=== PATIENT | male | born 1955 | race Caucasian/White ===

== ENCOUNTER 2017-06-24 20:10 | Observation (INO) | payer OTHER ==
[2017-06-24 20:56] LABS: Absolute Monocytes 0.9 K/uL (0.1-1.3); Absolute Neutrophil 5.7 K/uL (1.8-8.0); Basophils % 0.5 % (0-1.3); Eosinophils % 4.1 % (0-4.4); Hematocrit 46.9 % (39.6-49.0); Lymphocytes % 29.4 % (15.3-44.8); MCH 28.5 pg (27.0-35.0); MCV 83.4 fL (80-100); MPV 8.5 fL (7.6-11.3); Monocytes % 9.3 % (3.3-12.3); RBC Red Blood Cell Count 5.63 M/uL (4.33-5.43)
[2017-06-24 20:58] LABS: Protime INR 1.02
--- NOTE | 2017-06-24 21:01 | RAD REPORT ---
EXAM DESCRIPTION: CT - CTHCSPWOC - 06/24/2017 8:53 pm CLINICAL HISTORY: Trauma, head and neck injury. COMPARISON: None. TECHNIQUE: Axial 5 mm thick images of the head were obtained. Axial 2 mm thick images of the cervical spine were obtained with sagittal and coronal reconstruction images generated and reviewed. All CT scans are performed using dose optimization technique as appropriate and may include automated exposure control or mA/KV adjustment according to patient size. FINDINGS: CT HEAD WITHOUT CONTRAST: No acute hemorrhage, hydrocephalus or extra-axial collection is identified.Mild generalized brain atr ophy.No areas of brain edema or midline shift. The paranasal sinuses and mastoids are clear.The calvarium is intact. Vertebral arteries are calcifie d. CT CERVICAL SPINE WITHOUT CONTRAST: No fracture or subluxation.No prevertebral soft tissues swelling is identified. IMPRESSION: No acute intracranial or cervical spine findings.
[2017-06-24 21:03] LABS: Potassium 4.4 mEq/L (3.6-5.0)
--- NOTE | 2017-06-24 21:16 | RAD REPORT ---
EXAM DESCRIPTION: RAD - Chest Single View - 06/24/2017 9:11 pm CLINICAL HISTORY: Chest pain. COMPARISON: 05/17/2017 FINDINGS: Portable technique limits examination quality. The lungs are grossly clear. The heart is mildly prominent size. No displaced fractures. IMPRESSION: No acute intrathoracic process suspected.
[2017-06-24] MEDS ORDERED: DIPHENHYDRAMINE 50 MG/ML VIAL ONE (21:30)
[2017-06-24] MEDS ORDERED: METOCLOPRAMIDE 10 MG/2mL INJ ONE (21:30)
--- NOTE | 2017-06-24 22:29 | EDPHYS ---
Physician Documentation [facility] Name: Rj Galvez Age: 62 yrs Sex: Male : 1955 Arrival Date: 06/24/2017 Time: 20:11 Bed 4 Private MD: ED Physician Venkat Michele HPI: 06/24 21:30 This 62 yrs old Male presents to ER via Wheelchair with complaints of Side gs Pain-L, S/S of Possible Stroke. 21:31 The patient complains of pain to the left occipital area and left base of the skull. gs The patient describes the headache as throbbing. Onset: The symptoms/episode began/occurred at 16:00. Associated signs and symptoms: Pertinent positives: Photophobia Pertinent negatives: dizziness, neck stiffness. Severity of symptoms: At its worst the pain was moderate, in the emergency department the pain is unchanged. The symptoms are alleviated by nothing. the symptoms are aggravated by nothing. The patient has experienced similar episodes in the past, a few times. The patient has not recently seen a physician. 22:24 The patient describes the headache as intermittent. gs Historical: - Allergies: 20:33 No Known Allergies; bb - Home Meds: 20:33 atorvastatin 40 mg oral tab 1 tab once daily [Active]; rimapril [Active]; duloxetine bb oral oral [Active]; red rice yeast [Active]; B 12 [Active]; Magnesium Oxide Oral [Active]; cholenoff [Active]; D 3 [Active]; Fever Few [Active]; 21:14 Lumigan 0.01 % ophthalmic drop [Active]; jd3 - PMHx: 20:33 CVA; Hyperlipidemia; Hypertension; bb - PSHx: 20:33 Appendectomy; Tonsillectomy; eye surgery; bb - Immunization history:: Adult Immunizations up to date. - Social history:: Smoking status: Patient/guardian denies using tobacco, Patient/guardian denies using alcohol, street drugs. ROS: 21:31 Constitutional: Negative for fever. gs 21:31 Neuro: Negative for gait disturbance, hearing loss. 21:31 All other systems are negative. Exam: 21:31 Head/Face: Normocephalic, atraumatic. Eyes: Pupils equal round and reactive to light, gs extra-ocular motions intact. Lids and lashes normal. Conjunctiva and sclera are non-icteric and not injected. Cornea within normal limits. Periorbital areas with no swelling, redness, or edema. 21:31 Neck: Trachea midline, no thyromegaly or masses palpated, and no cervical lymphadenopathy. Supple, full range of motion without nuchal rigidity, or vertebral point tenderness. No Meningismus. Chest/axilla: Normal chest wall appearance and motion. Nontender with no deformity. No lesions are appreciated. Cardiovascular: Regular rate and rhythm with a normal S1 and S2. No gallops, murmurs, or rubs. Normal PMI, no JVD. No pulse deficits. Respiratory: Lungs have equal breath sounds bilaterally, clear to auscultation and percussion. No rales, rhonchi or wheezes noted. No increased work of breathing, no retractions or nasal flaring. Abdomen/GI: Soft, non-tender, with normal bowel sounds. No distension or tympany. No guarding or rebound. No evidence of tenderness throughout. Back: No spinal tenderness. No costovertebral tenderness. Full range of motion. Skin: Warm, dry with normal turgor. Normal color with no rashes, no lesions, and no evidence of cellulitis. MS/ Extremity: Pulses equal, no cyanosis. Neurovascular intact. Full, normal range of motion. 21:31 Constitutional: The patient appears alert, awake. 21:31 ENT: Mouth: residual lower lip droop from old cva. 21:31 Neuro: Orientation: to person, place, time \T\ situation. Mentation: is normal, Cranial nerves: CN II- XII are normal as tested, Motor: moves all fours, strength is normal, Sensation: no acute changes, says forearm a little more numb than usual. 21:31 ECG was reviewed by the Attending Physician. Vital Signs: 20:33 BP 161 / 95; Pulse 53; Resp 18 S; Temp 97.7(O); Pulse Ox 96% on R/A; Weight 90.72 kg bb (R); Height 5 ft. 6 in. (167.64 cm) (R); Pain 8/10; 21:15 BP 152 / 91; Pulse 51; Resp 16 S; Pulse Ox 96% on R/A; jd3 21:40 BP 149 / 84; Pulse 51; Resp 14; Temp 98; Pulse Ox 98% on R/A; Pain 6/10; ak1 22:31 BP 139 / 83; Pulse 53; Resp 14; Temp 98.1; Pulse Ox 98% on R/A; Pain 6/10; ak1 20:33 Body Mass Index 32.28 (90.72 kg, 167.64 cm) bb NIH Stroke Scale Scores: 20:20 NIHSS Score: 1 bb 20:44 NIHSS Score: 2 ak1 MDM: 20:26 Patient medically screened. gs 21:31 Differential diagnosis: migraine, neoplasm, subarachnoid bleed, temporal arteritis, vasomotor headache. Data reviewed: vital signs, nurses notes. Response to treatment: the patient's symptoms have markedly improved after treatment. 22:24 Physician consultation: Boris Velasquez MD and will see patient in inpatient room, would like consultation with Dr. abdi. 22:24 ED course: no tpa outside treatment window. 22:25 Admission orders: after a detailed discussion of the patient's condition and case, the admit orders are written by me. 06/24 20:33 Order name: Basic Metabolic Panel; Complete Time: 21:18 06/24 20:33 Order name: CBC with Diff; Complete Time: 21:18 06/24 20:33 Order name: PT-INR; Complete Time: 21:18 06/24 20:33 Order name: Troponin (emerg Dept Use Only); Complete Time: 21:18 06/24 20:33 Order name: ESR; Complete Time: 21:18 06/24 22:15 Order name: Urine Dipstick--Ancillary (enter results); Complete Time: 23:45 rg2 06/24 20:33 Order name: XRAY Chest (1 view); Complete Time: 21:18 06/24 20:33 Order name: EKG; Complete Time: 20:34 06/24 20:33 Order name: CT Head C Spine; Complete Time: 21:18 06/24 22:33 Order name: Carb Control (ADA) 1800 Tamir EDTN 06/24 22:33 Order name: CONS Physician Consult [facility] 06/24 20:33 Order name: Cardiac monitoring; Complete Time: 20:55 06/24 20:33 Order name: EKG - Nurse/Tech; Complete Time: 21:12 06/24 20:33 Order name: IV Saline Lock; Complete Time: 20:55 06/24 20:33 Order name: Labs collected and sent; Complete Time: 20:55 06/24 20:33 Order name: O2 Per Protocol; Complete Time: 20:55 06/24 20:33 Order name: O2 Sat Monitoring; Complete Time: 20:56 06/24 20:33 Order name: Urine Dipstick-Ancillary (obtain specimen); Complete Time: 22:09 gs EC:31 Rate is 47 beats/min. Rhythm is regular. DE interval is normal. QRS interval is normal. gs T waves are Flattened. Clinical impression: NSR w/ Non-specific ST/T Changes. Interpreted by me. Administered Medications: 21:39 Drug: Reglan 5 mg Route: IVP; Site: left antecubital; ak1 22:09 Follow up: Response: No adverse reaction ak1 21:39 Drug: Benadryl 12.5 mg Route: IVP; Site: left antecubital; ak1 22:09 Follow up: Response: No adverse reaction ak1 23:43 Drug: [place] 5 mg-325 mg 1 tabs Route: PO; ak1 23:44 Follow up: Response: No adverse reaction ak1 Point of Care Testing: Blood Glucose: 20:52 Blood Glucose: 81 mg/dL; ak1 Ranges: Critical Glucose Levels:Adult <50 mg/dl or >400 mg/dl <40 mg/dl or >180 mg/dl Disposition: 06/24/17 22:28 Hospitalization ordered by Tony Velasquez for Observation. Preliminary diagnosis are Headache, Transient cerebral ischemic attack, unspecified. - Bed requested for Telemetry/MedSurg (observation). - Status is Observation. ak1 - Condition is Stable. - Problem is new. - Symptoms have improved. UTI on Admission? No NIH Stroke Scale - NIH Stroke Score Date: 06/24/2017 Time: 20:20 Total Score = 1 1a. Level of Consciousness (LOC) - 0(Alert) 1b. Level of Consciousness (LOC) (Year \T\ Age) - 0(Both) 1c. LOC Commands (Open \T\ Closes Eyes/Produce Associate) - 0(Both) 2. Best Gaze (Lateral Gaze Paresis) - 0(Normal) 3. Visual Field Loss - 0(No visual loss) 4. Facial Palsy - 1(Minor Paralysis) 5a. Left Arm: Motor (10-second hold) - 0(No drift) 5b. Right Arm: Motor (10-second hold) - 0(No drift) 6a. Left Leg: Motor (5-second hold - always test supine) - 0(No drift) 6b. Right Leg: Motor (5-second hold - always test supine) - 0(No drift) 7. Limb Ataxia (finger/nose \T\ heel/russ - test with eyes open) - 0(Absent) 8. Sensory Loss (pinprick arms/legs/face) - 0(Normal) 9. Best Language: Aphasia (description/naming/reading) - 0(No aphasia) 10. Dysarthria (speech clarity - read or repeat words) - 0(Normal) 11. Extinction and Inattention (visual/tactile/auditory/spatial/personal) - 0(No abnormality) Initials: jerrica NIH Stroke Scale - NIH Stroke Score Date: 06/24/2017 Time: 20:44 Total Score = 2 1a. Level of Consciousness (LOC) - 0(Alert) 1b. Level of Consciousness (LOC) (Year \T\ Age) - 0(Both) 1c. LOC Commands (Open \T\ Closes Eyes/Produce Associate) - 0(Both) 2. Best Gaze (Lateral Gaze Paresis) - 0(Normal) 3. Visual Field Loss - 0(No visual loss) 4. Facial Palsy - 1(Minor Paralysis) 5a. Left Arm: Motor (10-second hold) - 0(No drift) 5b. Right Arm: Motor (10-second hold) - 0(No drift) 6a. Left Leg: Motor (5-second hold - always test supine) - 0(No drift) 6b. Right Leg: Motor (5-second hold - always test supine) - 0(No drift) 7. Limb Ataxia (finger/nose \T\ heel/russ - test with eyes open) - 0(Absent) 8. Sensory Loss (pinprick arms/legs/face) - 0(Normal) 9. Best Language: Aphasia (description/naming/reading) - 1(Mild to moderate aphasia) 10. Dysarthria (speech clarity - read or repeat words) - 0(Normal) 11. Extinction and Inattention (visual/tactile/auditory/spatial/personal) - 0(No abnormality) Initials: ak1 Signatures: Dispatcher [employer] Eda Tristan RN RN Yusra Engel RN RN ak1 Toña Guallpa RN RN cg Starr, Gregory, MD MD gs Davies, Jonathon RN RN jd3 Corrections: (The following items were deleted from the chart) 22:24 21:31 Neuro: Orientation: to person, place, time \T\ situation. Mentation: is gs normal, Cranial nerves: CN II- XII are normal as tested, Motor: moves all fours, strength is normal, Sensation: no obvious gross deficits, gs
--- NOTE | 2017-06-24 22:29 | ER ---
Nurse's Notes [facility] Name: Rj Galvez Age: 62 yrs Sex: Male : 1955 Arrival Date: 06/24/2017 Time: 20:11 Bed 4 Private MD: Diagnosis: Headache;Transient cerebral ischemic attack, unspecified Presentation: 06/24 20:16 Presenting complaint: Daughter states she brought pt because of his complaint of pain bb behind left ear and the family was concerned as pt had CVA a year ago with some residual right sided weakness pt is A\\T\\O x 4. Transition of care: patient was not received from another setting of care. No acute neurological deficit is noted. Onset of symptoms was June 24, 2017. Care prior to arrival: None. 20:16 Method Of Arrival: Wheelchair bb 20:16 Acuity: GRACE 2 bb 20:54 Pre-hospital glucose is not applicable to this patient. ak1 Triage Assessment: 20:54 The onset of the patients symptoms was June 24, 2017 at 16:30. ak1 21:41 Neuro: Reports headache to left occipital since 1630 today. ak1 Stroke Activation: Symtpom onset >3 hours and < 6 hours Physician: Stroke Attending; Name: ; Notified At: ; Arrived At: Physician: Chief Stroke Resident; Name: ; Notified At: ; Arrived At: Physician: Stroke Resident; Name: ; Notified At: ; Arrived At: Physician: ED Attending; Name: ; Notified At: ; Arrived At: Physician: ED Resident; Name: ; Notified At: ; Arrived At: Historical: - Allergies: 20:33 No Known Allergies; bb - Home Meds: 20:33 atorvastatin 40 mg oral tab 1 tab once daily [Active]; rimapril [Active]; duloxetine bb oral oral [Active]; red rice yeast [Active]; B 12 [Active]; Magnesium Oxide Oral [Active]; cholenoff [Active]; D 3 [Active]; Fever Few [Active]; 21:14 Lumigan 0.01 % ophthalmic drop [Active]; jd3 - PMHx: 20:33 CVA; Hyperlipidemia; Hypertension; bb - PSHx: 20:33 Appendectomy; Tonsillectomy; eye surgery; bb - Immunization history:: Adult Immunizations up to date. - Social history:: Smoking status: Patient/guardian denies using tobacco, Patient/guardian denies using alcohol, street drugs. Screenin:38 The patient has not been NPO before screening. The patient is alert, able to follow bb commands. The patient does not exhibit slurred or garbled speech The patient is not exhibiting difficulty speaking. The patient does not exhibit difficulty understanding words. The patient is able to swallow own secretions with no drooling or need for suction. Patient tolerated one teaspoon of water. No drooling, immediate coughing, gurgling, or clearing of the throat was noted. The patient tolerated 90mL of water. No drooling, immediate coughing, gurgling, or clearing of the throat was noted. The patient passed the bedside swallow screening. Oral medications may be given as ordered. Contact Physician for further diet orders. 20:53 Abuse screen: Denies threats or abuse. Denies injuries from another. Nutritional ak1 screening: No deficits noted. Tuberculosis screening: No symptoms or risk factors identified. Fall Risk None identified. Assessment: 20:44 Patient has been NPO before screening. The patient is alert, and able to follow ak1 commands. The patient does not exhibit slurred or garbled speech. The patient is not exhibiting difficulty speaking. pt with deficits from 2 previous strokes The patient does not exhibit difficulty understanding words. The patient is able to swallow own secretions with no drooling or need for suction. Patient tolerated one teaspoon of water. No drooling, immediate coughing, gurgling, or clearing of the throat was noted. The patient tolerated 90mL of water. No drooling, immediate coughing, gurgling, or clearing of the throat was noted. The patient passed the bedside swallow screening. Oral medications may be given as ordered. Contact Physician for further diet orders. Provider notified of bedside swallow screening results: Venkat Michele MD. General: Appears uncomfortable, Behavior is calm, cooperative. Pain: Complains of pain in occipital area and base of the skull. Neuro: Level of Consciousness is awake, alert, obeys commands, Oriented to person, place, time, situation, South Asian History Professor are equal bilaterally Moves all extremities. Gait is unsteady, pt with hx deficits from 2 other strokes last year . Speech is normal, with expressive aphasia noted, pt with deficits of expressive aphasia from previous stroke.. Facial droop on right, Facial symmetry: tongue is midline, pt slight mouth droop on right side consistent with previous deficits from last years strokes. Pupils are PERRLA, Intact. Cardiovascular: No deficits noted. Respiratory: No deficits noted. GI: No signs and/or symptoms were reported involving the gastrointestinal system. : No signs and/or symptoms were reported regarding the genitourinary system. EENT: No signs and/or symptoms were reported regarding the EENT system. Derm: No signs and/or symptoms reported regarding the dermatologic system. Musculoskeletal: No signs and/or symptoms reported regarding the musculoskeletal system. 20:54 T-PA (Activase) Screening: Indications: Treatment will start within 4.5 hours onset of ak1 symptoms: No. 21:40 Reassessment: Patient appears in no apparent distress at this time. No changes from ak1 previously documented assessment. Patient is alert, oriented x 3, equal unlabored respirations, skin warm/dry/pink. Patient states feeling better. Patient states symptoms have improved. 22:20 Reassessment: pt stated his right hand is feeling numb and "like ice" pt right hand is ak1 warm to the touch. ERP notified, ERP at bedside. will continue to monitor. 06/25 00:09 Reassessment: Patient appears in no apparent distress at this time. No changes from ak1 previously documented assessment. Patient is alert, oriented x 3, equal unlabored respirations, skin warm/dry/pink. report given to Rula. Vital Signs: 06/24 20:33 BP 161 / 95; Pulse 53; Resp 18 S; Temp 97.7(O); Pulse Ox 96% on R/A; Weight 90.72 kg bb (R); Height 5 ft. 6 in. (167.64 cm) (R); Pain 8/10; 21:15 BP 152 / 91; Pulse 51; Resp 16 S; Pulse Ox 96% on R/A; jd3 21:40 BP 149 / 84; Pulse 51; Resp 14; Temp 98; Pulse Ox 98% on R/A; Pain 6/10; ak1 22:31 BP 139 / 83; Pulse 53; Resp 14; Temp 98.1; Pulse Ox 98% on R/A; Pain 6/10; ak1 20:33 Body Mass Index 32.28 (90.72 kg, 167.64 cm) bb NIH Stroke Scale Scores: 20:20 NIHSS Score: 1 bb 20:44 NIHSS Score: 2 ak1 ED Course: 20:11 Patient arrived in ED. ds1 20:19 Venkat Michele MD is Attending Physician. gs 20:28 Triage completed. bb 20:42 Yusra Chacko, RN is Primary Nurse. ak1 20:42 Inserted saline lock: 20 gauge in right antecubital area, using aseptic technique. ak1 Blood collected. 20:[address] via stretcher. nj 20:52 Arm band placed on Patient placed in an exam room, on a stretcher, on architectural designer, ak1 on pulse oximetry. 20:53 CT Head C Spine In Process Unspecified. EDMS 20:53 CT completed. Patient tolerated procedure well. Patient moved back from CT. nj 20:53 Patient has correct armband on for positive identification. Bed in low position. Call ak1 light in reach. Side rails up X2. Adult w/ patient. building maintenance custodian on. Pulse ox on. NIBP on. 21:12 XRAY Chest (1 view) In Process Unspecified. EDMS 21:13 EKG done, by ED staff, reviewed by Venkat Michele MD. jd3 22:26 Tony Velasquez MD is Hospitalizing Provider. gs 22:29 No provider procedures requiring assistance completed. Patient admitted, IV remains in ak1 place. Administered Medications: 21:39 Drug: Reglan 5 mg Route: IVP; Site: left antecubital; ak1 22:09 Follow up: Response: No adverse reaction ak1 21:39 Drug: Benadryl 12.5 mg Route: IVP; Site: left antecubital; ak1 22:09 Follow up: Response: No adverse reaction ak1 23:43 Drug: [place] 5 mg-325 mg 1 tabs Route: PO; ak1 23:44 Follow up: Response: No adverse reaction ak1 Point of Care Testing: Blood Glucose: 20:52 Blood Glucose: 81 mg/dL; ak1 Ranges: Outcome: 22:28 Decision to Hospitalize by Provider. gs 23:14 Admitted to Med/surg accompanied by tech, family with patient, via wheelchair, room ak1 415, with chart. 23:14 Condition: stable 23:14 Instructed on the need for admit. 06/25 00:12 Patient left the ED. ak1 NIH Stroke Scale - NIH Stroke Score Date: 06/24/2017 Time: 20:20 Total Score = 1 1a. Level of Consciousness (LOC) - 0(Alert) 1b. Level of Consciousness (LOC) (Year \\T\\ Age) - 0(Both) 1c. LOC Commands (Open \\T\\ Closes Eyes/Microsoft Dynamics Manager Architect) - 0(Both) 2. Best Gaze (Lateral Gaze Paresis) - 0(Normal) 3. Visual Field Loss - 0(No visual loss) 4. Facial Palsy - 1(Minor Paralysis) 5a. Left Arm: Motor (10-second hold) - 0(No drift) 5b. Right Arm: Motor (10-second hold) - 0(No drift) 6a. Left Leg: Motor (5-second hold - always test supine) - 0(No drift) 6b. Right Leg: Motor (5-second hold - always test supine) - 0(No drift) 7. Limb Ataxia (finger/nose \\T\\ heel/russ - test with eyes open) - 0(Absent) 8. Sensory Loss (pinprick arms/legs/face) - 0(Normal) 9. Best Language: Aphasia (description/naming/reading) - 0(No aphasia) 10. Dysarthria (speech clarity - read or repeat words) - 0(Normal) 11. Extinction and Inattention (visual/tactile/auditory/spatial/personal) - 0(No abnormality) Initials: bb NIH Stroke Scale - NIH Stroke Score Date: 06/24/2017 Time: 20:44 Total Score = 2 1a. Level of Consciousness (LOC) - 0(Alert) 1b. Level of Consciousness (LOC) (Year \\T\\ Age) - 0(Both) 1c. LOC Commands (Open \\T\\ Closes Eyes/Microsoft Dynamics Manager Architect) - 0(Both) 2. Best Gaze (Lateral Gaze Paresis) - 0(Normal) 3. Visual Field Loss - 0(No visual loss) 4. Facial Palsy - 1(Minor Paralysis) 5a. Left Arm: Motor (10-second hold) - 0(No drift) 5b. Right Arm: Motor (10-second hold) - 0(No drift) 6a. Left Leg: Motor (5-second hold - always test supine) - 0(No drift) 6b. Right Leg: Motor (5-second hold - always test supine) - 0(No drift) 7. Limb Ataxia (finger/nose \\T\\ heel/russ - test with eyes open) - 0(Absent) 8. Sensory Loss (pinprick arms/legs/face) - 0(Normal) 9. Best Language: Aphasia (description/naming/reading) - 1(Mild to moderate aphasia) 10. Dysarthria (speech clarity - read or repeat words) - 0(Normal) 11. Extinction and Inattention (visual/tactile/auditory/spatial/personal) - 0(No abnormality) Initials: ak1 Signatures: Dispatcher [employer] EDNE JeromeRose ds1 Eda Lacy RN RN bb Yusra Chacko RN RN ak1 Javier Reza Gregory, MD MD gs Davies, Jonathon RN RN jd3
[2017-06-24 22:56] LABS: Urine Blood NEGATIVE (NEG); Urine Glucose NEGATIVE (NEG); Urine Protein NEGATIVE (NEG); Urine pH 5.5 (5.0-7.0)
[2017-06-24] MEDS ORDERED: HYDROCODONE/APAP 5/325 MG TAB ONE (23:39)
[2017-06-25] MEDS: NA CHLORIDE 0.9% 1,000 ML IV SCH ×2 (00:41→14:21)
[2017-06-25 01:22] VITALS: BMI 32.1
--- NOTE | 2017-06-25 07:59 | EKG ---
Test Date: 2017-06-24 Test Time: 21:08:42 Mining Support Worker: CHANDA MEASUREMENT RESULTS: Intervals: Rate: 47 NJ: 150 QRSD: 92 QT: 472 QTc: 417 [place]: P: 25 NJ: 150 QRS: -3 T: 36 INTERPRETIVE STATEMENTS: Sinus bradycardia Otherwise normal ECG Compared to ECG 05/17/2017 17:58:32 T-wave abnormality no longer present Electronically Signed On 06-25-17 07:58:16 CDT by Markie Gaytan
[2017-06-25] MEDS: ACETAMINOPHEN 500 MG TAB PO PRN ×2 (08:01→14:34)
[2017-06-25] MEDS ORDERED: AMOX/K CLAV 875 MG TAB PO ONE (08:22)
[2017-06-25] MEDS ORDERED: IBUPROFEN 200 MG TAB PO ONE (08:33)
[2017-06-25 11:45] VITALS: O2SAT 94
--- NOTE | 2017-06-25 14:40 | RAD REPORT ---
EXAM DESCRIPTION: MRI - Stroke Protocol - 06/25/2017 2:26 pm COMPARISON: June 24, [address] TECHNIQUE: Axial, sagittal and coronal magnetic resonance images of the brain were obtained. 20 cc M ultiHance was administered. Magnetic resonance angiography of the head and neck was performed. [facility] e images were reviewed and reconstructed at 360 degrees rotation. FINDINGS: Abnormal signal within the left thalamus, internal capsule and basal ganglia is secondary to an old infarction. Diffusion-weighted/ADC mapping does not reveal evidence of an acute infarction. The ventricles are normal caliber. No abnormal enhancement within the brain is seen. An extra-axial f luid collection is not noted. Mild cerebral atrophy is present. Sinuses and mastoids are clear. Mild to moderate plaque is present within the right carotid bulb. Mild plaque within the right bus girl al carotid artery is noted. Mild to moderate plaque within the proximal right common carotid artery i s seen. Mild narrowing of the proximal right vertebral artery is seen. The left vertebral artery is u nremarkable. The visualized anterior cerebral, middle cerebral, right posterior cerebral, basilar and distal inte rnal carotid arteries do not demonstrate a significant stenosis. Mild narrowing of the left posterior cerebral artery probably is chronic. An aneurysm is not seen IMPRESSION: Old infarction involving the left thalamus, internal capsule and basal ganglia An acute infarction is not seen Mild to moderate plaque within the proximal right common carotid artery and right carotid bulb No acute abnormality involving the arteries of the brain
[2017-06-25 20:05] VITALS: BP 147/91; TEMP 98.2
--- NOTE | 2017-06-26 00:45 | CON ---
Reason For Consultation: Consultation called because of possible stroke and headache. History Of Present Illness: Mr. Galvez is a 62-year-old right-handed patient, who I have seen in clinic due to a left subcortical stroke, which produced right-sided face, arm, and leg numbn ess and weakness from which he has actually recovered very well to near complete recovery. Stroke harrell ppened one year ago while in [place]. His said he got back to his baseline in terms of strength a nd sensation and doing well when he developed earlier in the week, a severe pain in the left occipita l region at the base of the skull. He felt it is throbbing and the area felt swollen as well. He di d have some light sensitivity but no sound sensitivity. There was some degree of stiffness in the ne ck area and dizziness. The patient came in to [facility] for further evaluation. In the em ergency room, his head and neck CT scans were unremarkable for any acute changes. His brain MRI with MRA did demonstrate presence of a chronic old stroke in the left thalamus, left internal capsule, an d basal ganglia. There was no acute stroke and [id number] plaque in the right proximal common carotid artery and carotid bulb but no abnormalities involving intracranial arteries. He has been gi nancie hydration and he received Linn along with Benadryl and Reglan and Motrin. Currently, his pain l evel is zero. Past Medical History: As indicated above in addition to dyslipidemia, hypertension, and stroke. Allergies: NO KNOWN DRUG ALLERGIES. Medications At Home: Atorvastatin 40 mg daily, ramipril daily, duloxetine daily, red rice yeast best y, magnesium oxide daily, vitamin B12 daily, feverfew is daily for headache, and Lumigan 0.01% eye dr ops in each eye daily. Family History: Noncontributory. Social History: No alcohol, tobacco, or IV drug use. Review of Systems: He denies any recent fevers, chills, nausea, or vomiting. Positive for headaches. No genitourinary symptoms. Physical Examination: Vital Signs: Blood pressure 133/69, pulse 66, respiratory rate 14, temperature 98.2. Sensation 94%. Pain level 0. Weight 199 pounds. Height 5 feet 6 inches. General: Mr. Galvez is resting in bed. No acute distress. HEENT: He is normocephalic, atraumatic. Sclerae anicteric. Oropharynx is pink and moist. Neck: Supple. Chest: Clear. Heart: Regular. Extremities: Showed no clubbing, cyanosis, or edema. Neurologic: Despite the stroke, he actually now has full strength in the right upper and lower extre mity, 5-/5 on the left side and 5+/5 proximally and distally. Sensory exam, very subtle decrease to light touch temperature in the right arm and leg compared to the left side, same with the face, right side, slight decreased light touch on the right compared to the left. However, otherwise, face is s ymmetric with good excursions bilaterally. He has slightly more brisk reflexes on the right compared to the left side. Gait has been stance and stride. Laboratory Data: Complete blood count with differential essentially unremarkable. Coagulation panel is normal. Chemistries essentially unremarkable. Urinalysis is negative. Diagnostic Data: His chest x-ray, there is no acute cardiothoracic process. Electrocardiogram shows sinus bradycardia, otherwise normal study. Assessment: Mr. Galvez is a 62-year-old patient with history of stroke, dyslipidemia, hypertension , who comes in with a significant stress tension type headache with an area of inflammation on the le ft posterior region. Although unlikely, his differential diagnosis may include shingles and is less likely and also small occipital neuralgia is found. Plan: At this point, the patient has headache but may consider using Topamax 25 mg at night if this returns and may use a Medrol Dosepak as needed to decrease his spinal motion in the posterior left re gion and may use diclofenac 75 mg daily for up to a week to help with inflammatory response. Once di scharged, the patient should follow up with Dr. Orellana in clinic. He should be back on aspirin 81 mg daily for stroke risk reduction along with his statin and hypertensive medications. Again follow up with Dr. Barclay in one month after discharge. TOM/DICK Voice ID: [id number] Report ID: [id number]
--- NOTE | 2017-06-26 10:37 | HP ---
Date of Admission: 06/25/2017 Chief Complaint: Pain. History Of Present Illness: A 62-year-old male patient, who was doing fine in his normal usual state of health until all of a sudden yesterday started to have this very severe pain involving the left occipital area. This pain is located right at the base of the skull on the left side in the occipital region. Denies any fall or injury. No nausea or vomiting. No fever or chills. No rash. The pain has been continuous. After he came into ER, he was admitted to the hospital under my service. When I saw him this morning, he was lying in bed, was uncomfortable because of ongoing pain. Allergies: NO KNOWN ALLERGIES. Medications: List reviewed. 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 All other systems reviewed and negative. Social History: Negative for smoking or alcohol use. Family History: Father with had a stroke at age 57. Mother with coronary artery disease. Past Surgical History: Appendectomy, tonsillectomy, glaucoma result of shingles and affected right eye and had surgery for glaucoma. Past Medical History: Significant for migraine, hypertension, hyperlipidemia, and stroke. Physical Examination: Vital Signs: Temperature 97.6, pulse 52, respiratory rate 16, blood pressure 135/64, oxygen saturation 91%. Height 5 feet 6 inches. Weight 199 pounds. General: Awake, alert, oriented, not in distress. HEENT: Head, left posterior occipital region near hair line, the patient has a vague area of fullness with some tenderness over this area, which could be likely due to underlying inflammation and infection, specially one has to consider possibility of lymphadenitis. Overlying skin color and temperature normal. Eyes, conjunctivae nonerythematous. Sclerae white. Mouth, no thrush or edema noted. Ears/Nose, no mass, lesion, discharge noted. Neck: Supple. No JVD, lymph nodes, bruit, thyromegaly noted. Lungs: Bilateral good equal air entry. Clear to auscultation. No rhonchi. No rales. Heart: Normal heart sounds, no murmur or gallop. Abdomen: Soft, bowel sounds normal. No guarding, rigidity, tenderness, mass, hepatosplenomegaly, distention, or bruit noted. Extremities: No leg edema. No calf tenderness. Skin: No rash, ulcer, cellulitis. Lymphatics: No lymph node enlargement in neck, supraclavicular, infraclavicular region. Neuro: No focal neurological deficit. Chest: Unremarkable. External Genitalia: Deferred. Rectal: Deferred. Laboratory Data: White count 10.1, hemoglobin 16.1, platelets 229. INR 1.02. Sodium 139, potassium 4.4, chloride 104 bicarb 30. BUN 16, creatinine 0.90, glucose 89. Troponin less than 0.03. Urinalysis negative. Diagnostic Data: CAT scan of the brain was negative for any acute intracranial changes. CAT scan of the cervical spine was negative for any acute changes. I did talk to radiologist and we did go over CAT scan of the cervical spine area and hip area and my main question concern was that if they were able to look at the soft tissue in the left posterior neck in the area where he is having this pain and vague swelling and radiologist was able to look at that area. There was no definite abnormality noted on the CAT scan. Chest x-ray, no acute cardiopulmonary changes. EKG, no acute ST-T changes. Hospital Course: After I saw him, I was concerned about possibility of some acute lymphadenitis type of problem and give him one dose of Augmentin and Motrin 600 mg and by lunchtime, the patient's pain level was significantly better from 8 or 9/10 pain scale was down to 2/10. Neurology consultation was obtained from Dr. Barclay. He ordered MRI of the cervical spine, no acute changes, evidence of old stroke noted. Dr. Barclay has released him to go home. Medically, he is stable for discharge. Discharge Medications: 1. Continue all prior home medications. 2. Take Augmentin 875 mg twice a day for 1 week. 3. Take [id number] Motrin 200 mg take 3 tablets by mouth 2 times a day with food for 1 week. Followup: Follow up at my office in 1 week. Final Diagnoses: 1. Headache. 2. Hypertension. 3. Hyperlipidemia. 4. Stroke. ANGELA/MODL Voice ID: [id number] HENOK
== END 2017-06-25 20:19 | disposition home or self-care (01) ==
LOC: ER 20:10 → ERHOLD 23:07 → 4TH 23:39
PROVIDERS: ADMIT Internal Medicine; ATTEND Internal Medicine
DX: R51 Headache (principal); I10 Essential (primary) hypertension; E78.5 Hyperlipidemia, unspecified; Z86.73 Personal history of transient ischemic attack (TIA), and cerebral infarction without residual deficits
CPT/HCPCS: 36415; 70450; 70544; 70549; 70553; 71045; 72125; 80048; 81003; 82962; 84484; 85025; 85610; 85652; 93005; 96374; 96375; 99285; A9577; G0378; J2765; J7030

== ENCOUNTER 2018-06-09 18:11 | Emergency (ER) | payer OTHER ==
--- NOTE | 2018-06-09 19:31 | RAD REPORT ---
EXAM DESCRIPTION: [facility]le[facility] [employer]3 7:24 pm CLINICAL HISTORY: left leg pain . COMPARISON: May 2017 FINDINGS: Left common femoral, superficial femoral, popliteal and posterior tibial veins are compre ssible and demonstrate augmentation. Doppler demonstrates good flow. Acute thrombus within the lesser saphenous vein within the calf is present IMPRESSION: No evidence of deep venous thrombosis involving the left lower extremity. Acute thrombus within the lesser saphenous vein within the calf is present
--- NOTE | 2018-06-09 20:35 | ER ---
Nurse's Notes [facility] Name: Rj Galvez Age: 63 yrs Sex: Male : 1955 Arrival Date: 06/09/2018 Time: 18:13 Bed 18 Private MD: Diagnosis: Phlebitis and thrombophlebitis of superficial vessels of left lower extremity Presentation: 06/09 18:25 Presenting complaint: Patient states: hx CVA, R side deficit; my L calf area is sore hj and it started this after noon; denies swelling, redness; denies SOB; been on a long drive to [place] lately;. Transition of care: patient was not received from another setting of care. Onset of symptoms was June 09, 2018. Risk Assessment: Do you want to hurt yourself or someone else? Patient reports no desire to harm self or others. Initial Sepsis Screen: Does the patient meet any 2 criteria? No. Patient's initial sepsis screen is negative. Does the patient have a suspected source of infection? No. Patient's initial sepsis screen is negative. Care prior to arrival: None. 18:25 Method Of Arrival: Ambulatory 18:25 Acuity: GRACE 4 hj Triage Assessment: 18:30 General: Appears in no apparent distress. uncomfortable, Behavior is calm, cooperative, hj appropriate for age. Pain: Complains of pain in left leg. Historical: - Allergies: 18:30 No Known Allergies; hj - Home Meds: 18:30 fluoxetine 20 mg oral cap 1 cap once daily [Active]; ramipril 5 mg Oral cap 1 cap once hj daily [Active]; aspirin 325 mg Oral tab 1 tab once daily [Active]; timolol maleate 0.25 % Opht drop 1 drop once daily [Active]; lomigan [Active]; amoxicillin 875 mg Oral tab 1 tab every 12 hours [Active]; trial medicine for cholesterol not statin [Active]; - PMHx: 18:30 CVA; Hyperlipidemia; Hypertension; hj - PSHx: 18:30 Appendectomy; Tonsillectomy; eye surgery; hj - Immunization history:: Adult Immunizations up to date. - Social history:: Smoking status: Patient/guardian denies using tobacco, Patient/guardian denies using alcohol. - Ebola Screening: : Patient negative for fever greater than or equal to 101.5 degrees Fahrenheit, and additional compatible Ebola Virus Disease symptoms Patient denies exposure to infectious person Patient denies travel to an Ebola-affected area in the 21 days before illness onset. Screenin:30 Abuse screen: Denies threats or abuse. Denies injuries from another. Nutritional hj screening: No deficits noted. Tuberculosis screening: No symptoms or risk factors identified. Fall Risk None identified. Assessment: 19:25 General: Appears uncomfortable, Behavior is calm, cooperative. Pain: Complains of pain ed1 in left calf Pain currently is 6 out of 10 on a pain scale. Quality of pain is described as aching, Pain began around 1200 today Is continuous. Neuro: Level of Consciousness is awake, alert, obeys commands, Oriented to person, place, time, situation, Reports history of 2 CVA's. Cardiovascular: Denies chest pain, Heart tones S1 S2 present. Respiratory: Airway is patent Respiratory effort is even, unlabored, Respiratory pattern is regular, symmetrical, Breath sounds are clear bilaterally. Denies cough, shortness of breath. GI: Abdomen is non-distended, Bowel sounds present X 4 quads. Abd is soft and non tender X 4 quads. Patient currently denies diarrhea, nausea, vomiting. : No signs and/or symptoms were reported regarding the genitourinary system. EENT: No signs and/or symptoms were reported regarding the EENT system. Derm: Skin is intact, is healthy with good turgor, Skin is dry, Skin is normal, Skin temperature is warm. Musculoskeletal: Circulation, motion, and sensation intact. Capillary refill < 3 seconds, in bilateral fingers. Range of motion: intact in all extremities. 20:45 Reassessment: Patient appears in no apparent distress at this time. No changes from ed1 previously documented assessment. Patient and/or family updated on plan of care and expected duration. Pain level reassessed. Patient is alert, oriented x 3, equal unlabored respirations, skin warm/dry/pink. Vital Signs: 18:30 BP 146 / 87; Pulse 60; Resp 18; Temp 97.8(O); Pulse Ox 100% on R/A; Weight 88 kg; hj Height 5 ft. 6 in. (167.64 cm); 19:25 BP 127 / 87; Pulse 52; Resp 16; Pulse Ox 97% on R/A; Pain 6/10; ed1 20:45 BP 138 / 74; Pulse 66; Resp 18; Pulse Ox 100% on R/A; Pain 6/10; ed1 18:30 Body Mass Index 31.31 (88.00 kg, 167.64 cm) ED Course: 18:13 Patient arrived in ED. as 18:27 Triage completed. hj 18:30 Arm band placed on right wrist. hj 18:30 Patient has correct armband on for positive identification. Placed in gown. Bed in low hj position. Call light in reach. Side rails up X 1. Adult w/ patient. 19:15 Ultrasound completed. Patient tolerated well. Patient moved back from ultrasound. cy 19:21 Annabelle Blackman, RN is Primary Nurse. ed1 19:24 US Extremity Venous Unilateral Ltd In Process Unspecified. EDMS 20:05 Sal Leal MD is Attending Physician. ps1 20:45 No provider procedures requiring assistance completed. Patient did not have IV access ed1 during this emergency room visit. Administered Medications: No medications were administered Outcome: 20:34 Discharge ordered by . ps1 20:45 Discharged to home ambulatory, with significant other. ed1 20:45 Condition: good 20:45 Discharge instructions given to patient, significant other, Instructed on discharge instructions, follow up and referral plans. Demonstrated understanding of instructions, follow-up care. 20:47 Patient left the ED. ed1 Signatures: Dispatcher [employer] EDIL Deepali Monterroso as Annabelle Blackman, ALBERT PRICE ed1 Han Branham RN RN Sal Leal MD MD ps1 Raul Rodney Corrections: (The following items were deleted from the chart) 18:32 18:30 Pulse 104bpm; Resp 18bpm; Pulse Ox 100% RA; Temp 97.8F Oral; 88 kg; Height 5 ft. hj 6 in.; BMI: 31.3; hj
--- NOTE | 2018-06-09 20:35 | EDPHYS ---
Physician Documentation [facility] Name: Rj Galvez Age: 63 yrs Sex: Male : 1955 Arrival Date: 06/09/2018 Time: 18:13 Bed 18 Private MD: ED Physician Sal Leal HPI: 06/09 20:28 This 63 yrs old Male presents to ER via Ambulatory with complaints of Leg ps1 Pain. 20:28 patient complaining of left leg pain after a long trip. Pain is localized to left calf ps1 and anterior aspect of lower leg. Pt has history of stroke and on ASA therapy. Pain is rated as moderate. No chest pain or shortness of breath. . Historical: - Allergies: 18:30 No Known Allergies; hj - Home Meds: 18:30 fluoxetine 20 mg oral cap 1 cap once daily [Active]; ramipril 5 mg Oral cap 1 cap once hj daily [Active]; aspirin 325 mg Oral tab 1 tab once daily [Active]; timolol maleate 0.25 % Opht drop 1 drop once daily [Active]; lomigan [Active]; amoxicillin 875 mg Oral tab 1 tab every 12 hours [Active]; trial medicine for cholesterol not statin [Active]; - PMHx: 18:30 CVA; Hyperlipidemia; Hypertension; hj - PSHx: 18:30 Appendectomy; Tonsillectomy; eye surgery; hj - Immunization history:: Adult Immunizations up to date. - Social history:: Smoking status: Patient/guardian denies using tobacco, Patient/guardian denies using alcohol. - Ebola Screening: : Patient negative for fever greater than or equal to 101.5 degrees Fahrenheit, and additional compatible Ebola Virus Disease symptoms Patient denies exposure to infectious person Patient denies travel to an Ebola-affected area in the 21 days before illness onset. ROS: 20:28 Constitutional: Negative for fever, chills, and weight loss, Eyes: Negative for injury, ps1 pain, redness, and discharge, Cardiovascular: Negative for chest pain, palpitations, and edema, Respiratory: Negative for shortness of breath, cough, wheezing, and pleuritic chest pain, Abdomen/GI: Negative for abdominal pain, nausea, vomiting, diarrhea, and constipation, Skin: Negative for injury, rash, and discoloration. 20:28 Neuro: Positive for weakness, from remote stroke on right, additinoally has aphasia. Exam: 20:28 Constitutional: This is a well developed, well nourished patient who is awake, alert, ps1 and in no acute distress. Head/Face: Normocephalic, atraumatic. Cardiovascular: Regular rate and rhythm. No gallops, murmurs, or rubs. Normal PMI, no JVD. No pulse deficits. Respiratory: Lungs have equal breath sounds bilaterally, clear to auscultation and percussion. No rales, rhonchi or wheezes noted. No increased work of breathing, no retractions or nasal flaring. Abdomen/GI: Soft, non-tender, with normal bowel sounds. No distension or tympany. No guarding or rebound. No evidence of tenderness throughout. MS/ Extremity: Pulses equal, no cyanosis. Neurovascular intact. Full, normal range of motion. 20:28 Skin: Appearance: normal except for affected area, no asymmetry. Has mild pain to anterior medial aspect of left lower leg. . Vital Signs: 18:30 BP 146 / 87; Pulse 60; Resp 18; Temp 97.8(O); Pulse Ox 100% on R/A; Weight 88 kg; hj Height 5 ft. 6 in. (167.64 cm); 19:25 BP 127 / 87; Pulse 52; Resp 16; Pulse Ox 97% on R/A; Pain 6/10; ed1 20:45 BP 138 / 74; Pulse 66; Resp 18; Pulse Ox 100% on R/A; Pain 6/10; ed1 18:30 Body Mass Index 31.31 (88.00 kg, 167.64 cm) MDM: 20:28 Patient medically screened. ps1 20:28 Data reviewed: vital signs, nurses notes, radiologic studies, doppler, negative for ps1 DVT. Has superficial thrombus. , and as a result, I will discharge patient. 06/09 18:39 Order name: US Extremity Venous Unilateral Ltd; Complete Time: 20:18 snw Administered Medications: No medications were administered Disposition: 06/09/18 20:34 Discharged to Home. Impression: Phlebitis and thrombophlebitis of superficial vessels of left lower extremity. - Condition is Stable. - Discharge Instructions: Phlebitis. - Medication Reconciliation Form, Thank You Letter, Antibiotic Education, Prescription Opioid Use form. - Follow up: Private Physician; When: 48 Hours; Reason: Continuance of care. Follow up: Emergency Department; When: As needed; Reason: Fever > 102 F, Trouble breathing, Worsening of condition. - Problem is new. - Symptoms are unchanged. Signatures: Dispatcher [employer] EDMS Annabelle Blackman RN RN ed1 Han Branham RN RN hj Sal Leal MD MD ps1 Corrections: (The following items were deleted from the chart) 20:47 20:34 06/09/2018 20:34 Discharged to Home. Impression: Phlebitis and thrombophlebitis ed1 of superficial vessels of left lower extremity. Condition is Stable. Forms are Medication Reconciliation Form, Thank You Letter, Antibiotic Education, Prescription Opioid Use. Follow up: Private Physician; When: 48 Hours; Reason: Continuance of care. Follow up: Emergency Department; When: As needed; Reason: Fever > 102 F, Trouble breathing, Worsening of condition. Problem is new. Symptoms are unchanged. ps1
[2018-06-09 21:11] VITALS: TEMP 97.8
[2018-06-09 21:17] VITALS: BP 138/74; O2SAT 100
== END 2018-06-09 20:47 | disposition home or self-care (01) ==
LOC: ER 18:11
DX: I80.02 Phlebitis and thrombophlebitis of superficial vessels of left lower extremity (principal); E78.5 Hyperlipidemia, unspecified; I10 Essential (primary) hypertension; Z79.82 Long term (current) use of aspirin; Z86.73 Personal history of transient ischemic attack (TIA), and cerebral infarction without residual deficits
CPT/HCPCS: 93971; 99284

== ENCOUNTER 2018-09-20 10:29 | Emergency (ER) | payer OTHER ==
[2018-09-20 10:57] LABS: Basophils % 0.8 % (0-1.3); Eosinophils % 3.2 % (0-4.4); Lymphocytes % 28.8 % (15.3-44.8); MPV 8.5 fL (7.6-11.3); Monocytes % 9.1 % (3.3-12.3); RBC Red Blood Cell Count 5.81 M/uL (4.33-5.43)
--- NOTE | 2018-09-20 10:59 | RAD REPORT ---
EXAM DESCRIPTION: CT - Ct Stroke Brain Wo Cont - 09/20/2018 10:51 am CLINICAL HISTORY: Slurred speech, transient alteration of awareness, stroke protocol exam CLINICAL HISTORY: CT imaging May 2017 TECHNIQUE: Axial 5 millimeter thick images of the head were obtained without IV contrast. All CT scans are performed using dose optimization technique as appropriate and may include automated exposure control or mA/KV adjustment according to patient size. FINDINGS: No intracranial hemorrhage, mass, or cerebral edema. No acute cortical based infarction. N o cortical edema or sulcal effacement. Mild to moderate for age atrophy changes are present. Ventricl es are in proportion to the amount of volume loss. Patient has chronic ischemic change throughout the cerebral hemispheric white matter. Old infarction changes are present near the genu of the internal capsule on the left. No extra-axial fluid collections. [place] matter-white matter differentiation is p reserved. Arterial and physiologic calcifications are present. Visualized portions of the mastoid air cells, paranasal sinuses, and orbits are unremarkable. Findings telephoned to the referring physician 10:54 a.m.. IMPRESSION: No hemorrhage is present and no acute cortical based infarction. Mild to moderate for age atrophy and chronic ischemic changes similar to comparison. Old infarction i s present in the genu of the internal capsule on the left. Intracranial findings are similar to the 2 018 comparison. Chronic ischemic changes can mask nonhemorrhagic acute infarction. MR brain followup can be obtained if there is ongoing concern for acute ischemia.
[2018-09-20 11:09] LABS: Protime INR 1.04
[2018-09-20 11:11] LABS: Potassium 4.6 mmol/L (3.5-5.1)
[2018-09-20] MEDS ORDERED: ALTEPLASE 100 ML IV ONE (11:16)
[2018-09-20] MEDS ORDERED: NA CHLORIDE 0.9% 1,000 ML ONE (11:17)
--- NOTE | 2018-09-20 11:27 | EDPHYS ---
Physician Documentation [facility] Name: Rj Galvez Age: 63 yrs Sex: Male : 1955 Arrival Date: 09/20/2018 Time: 10:30 Bed 2 Private MD: Tony Velasquez C ED Physician Johnathan Saunders HPI: 09/20 11:17 This 63 yrs old Male presents to ER via Wheelchair with complaints of Fall ma2 Injury, Slurred Speech, Weakness. 11:17 This 63 yrs old Male presents to ER via Wheelchair with complaints of Fall ma2 Injury, Slurred Speech, Weakness. 11:17 Onset: The symptoms/episode began/occurred suddenly, 1.5 hour(s) ago. Severity of ma2 symptoms: At their worst the symptoms were moderate, in the emergency department the symptoms are unchanged. The patient has experienced a previous episode. hx of 2 strokes, HTN and HLD, here with sudden slurred speech and confusion started 90 min ago, this is unchanged, he has residual right sided arm weakness and facial droop, no seizure no syncope, BS wnl . Historical: - Allergies: 10:57 No Known Allergies; aj - Home Meds: 10:57 aspirin 325 mg Oral tab 1 tab once daily [Active]; fluoxetine 20 mg Oral cap 1 cap once aj daily [Active]; lomigan [Active]; ramipril 5 mg Oral cap 1 cap once daily [Active]; timolol maleate 0.25 % Opht drop 1 drop once daily [Active]; - PMHx: 10:57 CVA; Hyperlipidemia; Hypertension; aj - PSHx: 10:57 Tonsillectomy; Appendectomy; eye surgery; aj - Immunization history:: Adult Immunizations up to date. - Social history:: Smoking status: Patient/guardian denies using tobacco, Patient/guardian denies using alcohol, street drugs, The patient lives with family. - Ebola Screening: : Patient negative for fever greater than or equal to 101.5 degrees Fahrenheit, and additional compatible Ebola Virus Disease symptoms Patient denies exposure to infectious person Patient denies travel to an Ebola-affected area in the 21 days before illness onset No symptoms or risks identified at this time. - Family history:: not pertinent. ROS: 11:17 Unable to obtain ROS due to altered mental status, patient's speech is incomprehensible.ma2 11:26 Constitutional: Negative for fever, chills, and weight loss. ma2 Exam: 11:17 Head/Face: Normocephalic, atraumatic. Eyes: Pupils equal round and reactive to light, ma2 extra-ocular motions intact. Lids and lashes normal. Conjunctiva and sclera are non-icteric and not injected. Cornea within normal limits. Periorbital areas with no swelling, redness, or edema. ENT: Nares patent. No nasal discharge, no septal abnormalities noted. Tympanic membranes are normal and external auditory canals are clear. Oropharynx with no redness, swelling, or masses, exudates, or evidence of obstruction, uvula midline. Mucous membranes moist. Neck: Trachea midline, no thyromegaly or masses palpated, and no cervical lymphadenopathy. Supple, full range of motion without nuchal rigidity, or vertebral point tenderness. No Meningismus. Chest/axilla: Normal chest wall appearance and motion. Nontender with no deformity. No lesions are appreciated. Cardiovascular: Regular rate and rhythm with a normal S1 and S2. No gallops, murmurs, or rubs. Normal PMI, no JVD. No pulse deficits. Respiratory: Lungs have equal breath sounds bilaterally, clear to auscultation and percussion. No rales, rhonchi or wheezes noted. No increased work of breathing, no retractions or nasal flaring. Abdomen/GI: Soft, non-tender, with normal bowel sounds. No distension or tympany. No guarding or rebound. No evidence of tenderness throughout. Back: No spinal tenderness. No costovertebral tenderness. Full range of motion. Skin: Warm, dry with normal turgor. Normal color with no rashes, no lesions, and no evidence of cellulitis. MS/ Extremity: Pulses equal, no cyanosis. Neurovascular intact. Full, normal range of motion. 11:17 Neuro: Orientation: to person, Not oriented to place, time, situation, Mentation: Cranial nerves: facial droop noted on right, this is old. Cerebellar function: dysmetria is noted on the right, Motor: strength is 5/5 in the left arm, right leg and left leg, strength is 4/5 in the right arm, Gait: not tested. Vital Signs: 10:57 BP 147 / 78; Pulse 53; Resp 19; Temp 97.9; Pulse Ox 98% on R/A; Weight 91.17 kg; Height aj 5 ft. 6 in. (167.64 cm); 11:14 BP 150 / 81; Pulse 51; Resp 19; Pulse Ox 99% on R/A; aj 11:29 BP 125 / 99; Pulse 55; Resp 22; Pulse Ox 99% on R/A; aj 11:44 BP 136 / 80; Pulse 52; Resp 20; Pulse Ox 99% on R/A; aj 11:59 BP 126 / 62; Pulse 70; Resp 20; Pulse Ox 98% on R/A; aj 12:14 BP 144 / 85; Pulse 55; Resp 20; Pulse Ox 99% on R/A; aj 12:44 BP 139 / 77; Pulse 51; Resp 15; Pulse Ox 98% on R/A; aj 10:57 Body Mass Index 32.44 (91.17 kg, 167.64 cm) aj NIH Stroke Scale Scores: 11:17 NIHSS Score: 6 ma2 [place] Coma Score: 10:50 Eye Response: spontaneous(4). Verbal Response: oriented(5). Motor Response: obeys aj commands(6). Total: 15. Trauma Score (Adult): 10:50 Eye Response: spontaneous(1); Verbal Response: oriented(1); Motor Response: obeys aj commands(2); Systolic BP: > 89 mm Hg(4); Respiratory Rate: 10 to 29 per min(4); Kristen Score: 15; Trauma Score: 12 MDM: 10:47 Patient medically screened. ma2 11:17 Differential diagnosis: ischemic stroke. Data reviewed: vital signs, nurses notes, lab ma2 test result(s), radiologic studies. Counseling: I had a detailed discussion with the patient and/or guardian regarding: the historical points, exam findings, and any diagnostic results supporting the discharge/admit diagnosis, the presence of at least one elevated blood pressure reading (>120/80) during this emergency department visit, the need to transfer to another facility. Response to treatment: There is no appreciated change of the patient's symptoms at this time. ED course: discussed with dr. price neurologist who recommends tpa and ask for cta head neck before transfer, discussed with who agree with tpa no contraindication, risk discussed with including risk of bleeding, patient is incomprehensible and unable to make decision at this time, . ED course: will [facility] as no neurology available at our hospital . 09/20 10:45 Order name: Basic Metabolic Panel; Complete Time: 11:12 09/20 10:45 Order name: CBC with Diff; Complete Time: 11:12 09/20 10:45 Order name: Protime (+inr); Complete Time: 11:13 09/20 10:45 Order name: Ptt, Activated; Complete Time: : 09/20 10:45 Order name: CT Stroke Brain w/o Contrast; Complete Time: 11: 09/20 10:45 Order name: Stroke CXR 1 View; Complete Time: 12: 09/20 10:45 Order name: EKG; Complete Time: 10:48 09/20 10:45 Order name: Accucheck; Complete Time: 11: 09/20 10:45 Order name: Cardiac monitoring; Complete Time: 11: 09/20 10:45 Order name: EKG - Nurse/Tech; Complete Time: : 09/20 11:13 Order name: CT Head Angio; Complete Time: 12:30 ma2 09/20 11:13 Order name: Neck Angio CT; Complete Time: 12:30 ma2 09/20 10:45 Order name: IV Saline Lock; Complete Time: : 09/20 10:45 Order name: Labs collected and sent; Complete Time: : 09/20 10:45 Order name: NPO; Complete Time: : 09/20 10:45 Order name: O2 Per Protocol; Complete Time: : 09/20 10:45 Order name: O2 Sat Monitoring; Complete Time: 11: 09/20 10:45 Order name: Stroke Swallow Screen; Complete Time: 11:32 eb Administered Medications: 11:00 Drug: NS 0.9% 1000 ml Route: IV; Rate: 1 bolus; Site: left antecubital; selvin 12:18 Follow up: Response: No adverse reaction; IV Status: Completed infusion; IV Intake: aj 1000ml 11:14 Drug: Alteplase {Co-Signature: selvin (Aranza Stockton RN).} Route: IV Thrombolytics; Rate: ph calculated rate; 11:15 Follow up: Response: No adverse reaction; No change in condition aj Point of Care Testing: Blood Glucose: 10:57 Blood Glucose: 105 mg/dL; selvin Ranges: Critical Glucose Levels:Adult <50 mg/dl or >400 mg/dl <40 mg/dl or >180 mg/dl Disposition: 09/20/18 11:[address] [facility]. Diagnosis are Cerebral infarction, Apraxia following cerebral infarction. - Reason for transfer: Higher level of care. - Accepting physician is dr. price. - Condition is Critical. - Problem is new. - Symptoms are unchanged. Critical care time excluding procedures: 11:24 Critical care time: Bedside Care: 20 minutes, Consultation: 20 minutes, Family ma2 Intervention: 10 minutes. Total time: 50 minutes NIH Stroke Scale - NIH Stroke Score Date: 09/20/2018 Time: 11:17 Total Score = 6 1a. Level of Consciousness (LOC) - 1(Not Alert) 1b. Level of Consciousness (LOC) (Year \T\ Age) - 2(Neither) 1c. LOC Commands (Open \T\ Closes Eyes/Provider Enrollment Specialist) - 0(Both) 2. Best Gaze (Lateral Gaze Paresis) - 0(Normal) 3. Visual Field Loss - 0(No visual loss) 4. Facial Palsy - 1(Minor Paralysis) 5a. Left Arm: Motor (10-second hold) - 0(No drift) 5b. Right Arm: Motor (10-second hold) - 0(No drift) 6a. Left Leg: Motor (5-second hold - always test supine) - 0(No drift) 6b. Right Leg: Motor (5-second hold - always test supine) - 0(No drift) 7. Limb Ataxia (finger/nose \T\ heel/russ - test with eyes open) - 0(Absent) 8. Sensory Loss (pinprick arms/legs/face) - 0(Normal) 9. Best Language: Aphasia (description/naming/reading) - 1(Mild to moderate aphasia) 10. Dysarthria (speech clarity - read or repeat words) - 1(Mild to Moderate) 11. Extinction and Inattention (visual/tactile/auditory/spatial/personal) - 0(No abnormality) Initials: ma2 Signatures: Dispatcher [employer] Aranza Meneses RN RN Trice Baeza RN Deann Ponce RN RN ph Alzahri, Mohammad, MD MD ma2 Sylvie Cid RN Corrections: (The following items were deleted from the chart) 13:16 11:26 09/20/2018 11:[address] [facility]. aj Diagnosis is Cerebral infarction; Apraxia following cerebral infarction. Reason for transfer: Higher level of care. Accepting physician is dr. price. Condition is Critical. Problem is new. Symptoms are unchanged. ma2
--- NOTE | 2018-09-20 11:27 | ER ---
Nurse's Notes [facility] Name: Rj Galvez Age: 63 yrs Sex: Male : 1955 Arrival Date: 09/20/2018 Time: 10:30 Bed 2 Private MD: Tony Velasquez C Diagnosis: Cerebral infarction;Apraxia following cerebral infarction Presentation: 09/20 09:40 Trauma event details: Injury occurred in the [facility], Injury occurred: at home. Injury occurred: September 20, 2018 Injury occurred at: 08:40. 10:35 An acute neurological deficit is present. The charge nurse has been notified. The aj patient has been moved to a treatment area. Pre-hospital glucose is not applicable to this patient. Onset of symptoms was September 20, 2018. Risk Assessment: Do you want to hurt yourself or someone else? Patient reports no desire to harm self or others. Initial Sepsis Screen: Does the patient meet any 2 criteria? No. Patient's initial sepsis screen is negative. Does the patient have a suspected source of infection? No. Patient's initial sepsis screen is negative. 10:52 Presenting complaint: states: Patient began acting confused and had difficulty aj walking 1 hours [employer] at 0940. Patient has had previous stroke with weakness to right side that had improved since last stroke. Speech is clear but slow. Care prior to arrival: None. Mechanism of Injury: Fall from standing position. 10:52 Acuity: GRACE 2 aj 10:52 Method Of Arrival: Wheelchair aj 10:54 Transition of care: patient was not received from another setting of care. Triage Assessment: 10:57 The onset of the patients symptoms was September 20, 2018 at 09:40. General: Appears in no aj apparent distress. comfortable, Behavior is calm, cooperative, appropriate for age. Pain: Denies pain. Neuro: Reports confusion. Neuro: Level of Consciousness is awake, alert, obeys commands, Oriented to person, place, time, situation, Appropriate for age Radio Board Operator are equal bilaterally Weakness in right arm(s) leg(s) Gait is unsteady, Speech Speech is clear but slowed . Facial droop on right, Numbness in right arm and right leg. Respiratory: Airway is patent Respiratory effort is even, unlabored, Respiratory pattern is regular, symmetrical. Derm: Skin is intact, is healthy with good turgor, Skin is pink, warm \T\ dry. normal. Stroke Activation: Symptom onset < 3 hours Physician: Stroke Attending; Name: ; Notified At: ; Arrived At: Physician: Chief Stroke Resident; Name: ; Notified At: ; Arrived At: Physician: Stroke Resident; Name: ; Notified At: ; Arrived At: Physician: ED Attending; Name: ; Notified At: ; Arrived At: Physician: ED Resident; Name: ; Notified At: ; Arrived At: Historical: - Allergies: 10:57 No Known Allergies; aj - Home Meds: 10:57 aspirin 325 mg Oral tab 1 tab once daily [Active]; fluoxetine 20 mg Oral cap 1 cap once aj daily [Active]; lomigan [Active]; ramipril 5 mg Oral cap 1 cap once daily [Active]; timolol maleate 0.25 % Opht drop 1 drop once daily [Active]; - PMHx: 10:57 CVA; Hyperlipidemia; Hypertension; aj - PSHx: 10:57 Tonsillectomy; Appendectomy; eye surgery; aj - Immunization history:: Adult Immunizations up to date. - Social history:: Smoking status: Patient/guardian denies using tobacco, Patient/guardian denies using alcohol, street drugs, The patient lives with family. - Ebola Screening: : Patient negative for fever greater than or equal to 101.5 degrees Fahrenheit, and additional compatible Ebola Virus Disease symptoms Patient denies exposure to infectious person Patient denies travel to an Ebola-affected area in the 21 days before illness onset No symptoms or risks identified at this time. - Family history:: not pertinent. Screenin:55 Abuse screen: Denies threats or abuse. Denies injuries from another. Nutritional ph screening: No deficits noted. Tuberculosis screening: No symptoms or risk factors identified. Patient has been NPO before screening. The patient is alert, able to follow commands. some slurred speech noted, pt hx of CVA The patient is not exhibiting difficulty speaking. The patient does not exhibit difficulty understanding words. The patient is able to swallow own secretions with no drooling or need for suction. Patient tolerated one teaspoon of water. No drooling, immediate coughing, gurgling, or clearing of the throat was noted. The patient tolerated 90mL of water. No drooling, immediate coughing, gurgling, or clearing of the throat was noted. The patient passed the bedside swallow screening. Oral medications may be given as ordered. Contact Physician for further diet orders. Fall Risk Fall in past 12 months (25 points). Secondary diagnosis (15 points) CVA, IV access (20 points). Ambulatory Aid- None/Bed Rest/Nurse Assist (0 pts). Gait- Weak (10 pts.). Mental Status- Oriented to own ability (0 pts). Total Cervantes Fall Scale indicates High Risk Score (45 or more points). Fall prevention measures have been instituted. Side Rails Up X 2 Placed Close to Nursing Station Frequent Obs/Assessments Occuring Family Present and informed to notify staff if the need to leave the bedside As available patient and family educated on Fall Prevention Program and Strategies. Assessment: 10:54 Reassessment: Dr. Peguero reports CT is negative. iw 12:02 Reassessment: Patient appears in no apparent distress at this time. No changes from aj previously documented assessment. Patient and/or family updated on plan of care and expected duration. Pain level reassessed. Patient is alert, oriented x 3, equal unlabored respirations, skin warm/dry/pink. Patient transported with nurse on monitors and with IV pump to CT. Patient returned to room. Reports symptoms have not resolved. 12:05 General: Appears in no apparent distress. comfortable, Behavior is calm, cooperative, aj appropriate for age. Pain: Denies pain. Neuro: Level of Consciousness is awake, alert, obeys commands, Oriented to person, place, time, situation, Appropriate for age Radio Board Operator are weak on right Weakness in right arm(s) leg(s) Speech Speech is clear but slow. Facial droop on left, Numbness in right arm and right leg. Vital Signs: 10:57 BP 147 / 78; Pulse 53; Resp 19; Temp 97.9; Pulse Ox 98% on R/A; Weight 91.17 kg; Height aj 5 ft. 6 in. (167.64 cm); 11:14 BP 150 / 81; Pulse 51; Resp 19; Pulse Ox 99% on R/A; aj 11:29 BP 125 / 99; Pulse 55; Resp 22; Pulse Ox 99% on R/A; aj 11:44 BP 136 / 80; Pulse 52; Resp 20; Pulse Ox 99% on R/A; aj 11:59 BP 126 / 62; Pulse 70; Resp 20; Pulse Ox 98% on R/A; aj 12:14 BP 144 / 85; Pulse 55; Resp 20; Pulse Ox 99% on R/A; aj 12:44 BP 139 / 77; Pulse 51; Resp 15; Pulse Ox 98% on R/A; aj 10:57 Body Mass Index 32.44 (91.17 kg, 167.64 cm) aj [place] Coma Score: 10:50 Eye Response: spontaneous(4). Verbal Response: oriented(5). Motor Response: obeys aj commands(6). Total: 15. Trauma Score (Adult): 10:50 Eye Response: spontaneous(1); Verbal Response: oriented(1); Motor Response: obeys aj commands(2); Systolic BP: > 89 mm Hg(4); Respiratory Rate: 10 to 29 per min(4); Kristen Score: 15; Trauma Score: 12 NIH Stroke Scale Scores: 11:17 NIHSS Score: 6 ma2 ED Course: 10:30 Patient arrived in ED. mr 10:31 Tony Velasquez MD is Private Physician. mr 10:42 CT completed. Patient tolerated procedure well. Patient moved back from CT. mw3 10:47 Johnathan Saunders MD is Attending Physician. ma2 10:51 CT Stroke Brain w/o Contrast In Process Unspecified. EDMS 10:51 Aranza Stockton, RN is Primary Nurse. aj 10:52 Inserted saline lock: 20 gauge in left antecubital area, using aseptic technique. Blood ph collected. 10:52 Initial lab(s) drawn, by ED staff, sent to lab. aj 10:54 Triage completed. aj 10:54 EKG done, by ED staff, reviewed by oJhnathan Saunders MD. aj 10:55 initiated a transfer with Jayde from the [facility] Transfer [place]. eb 10:57 Arm band placed on right wrist. Patient placed in an exam room, on a stretcher, on aj gambling monitor, on pulse oximetry. 10:59 Patient has correct armband on for positive identification. Placed in gown. Bed in low aj position. Call light in reach. Side rails up X2. gambling monitor on. Pulse ox on. NIBP on. 11:05 Inserted saline lock: 22 gauge in left forearm, using aseptic technique. aj 11:[address] Belcher the neurologist commercial drone pilot for [facility] with Dr. Saunders for eb patient transfer consultation. 11:13 Stroke CXR 1 View In Process Unspecified. EDMS 11:29 Radiology exam delayed due to pt is on TPA and cannot come for scan. vm2 11:55 CT Head Angio In Process Unspecified. EDMS 11:[address] In Process Unspecified. EDMS 12:31 transfer approval from receiving facility. aj 12:36 administrative approval given by Jayde Coronado RN transfer coord/ patient has been eb accepted to [facility] [address] Gann/ report to be called to [phone]. 12:40 called the [facility] spoke with Donaldo 22 minute YENY on a helicopter. eb 12:53 Report given to [facility] Neuro ICU. aj 13:13 No provider procedures requiring assistance completed. Patient transferred, IV remains aj in place. intact. 13:13 Report given to [employer]. aj 13:15 Patient maintains SpO2 saturation greater than 95% on room air. aj Administered Medications: 11:00 Drug: NS 0.9% 1000 ml Route: IV; Rate: 1 bolus; Site: left antecubital; aj 12:18 Follow up: Response: No adverse reaction; IV Status: Completed infusion; IV Intake: aj 1000ml 11:14 Drug: Alteplase {Co-Signature: selvin (Aranza Stockton RN).} Route: IV Thrombolytics; Rate: ph calculated rate; 11:15 Follow up: Response: No adverse reaction; No change in condition aj Point of Care Testing: Blood Glucose: 10:57 Blood Glucose: 105 mg/dL; aj Ranges: Intake: 12:18 IV: 1000ml; Total: 1000ml. aj 13:15 PO: 93ml; Total: 1093ml. aj Output: 13:15 Urine: 1000ml; Total: 1000ml. aj Outcome: 11:26 ER care complete, transfer ordered by MD. chiu 13:13 Transferred by helicopter to [facility], Transfer form completed. X-rays sent aj w/ patient. 13:14 critical aj 13:14 Instructed on the need for transfer. 13:15 Patient's length of stay in the Emergency Department was greater than 2 hours. aj transferPatient's length of stay extended due to 13:16 Patient left the ED. aj NIH Stroke Scale - NIH Stroke Score Date: 09/20/2018 Time: 11:17 Total Score = 6 1a. Level of Consciousness (LOC) - 1(Not Alert) 1b. Level of Consciousness (LOC) (Year \T\ Age) - 2(Neither) 1c. LOC Commands (Open \T\ Closes Eyes/Bottle Washer) - 0(Both) 2. Best Gaze (Lateral Gaze Paresis) - 0(Normal) 3. Visual Field Loss - 0(No visual loss) 4. Facial Palsy - 1(Minor Paralysis) 5a. Left Arm: Motor (10-second hold) - 0(No drift) 5b. Right Arm: Motor (10-second hold) - 0(No drift) 6a. Left Leg: Motor (5-second hold - always test supine) - 0(No drift) 6b. Right Leg: Motor (5-second hold - always test supine) - 0(No drift) 7. Limb Ataxia (finger/nose \T\ heel/russ - test with eyes open) - 0(Absent) 8. Sensory Loss (pinprick arms/legs/face) - 0(Normal) 9. Best Language: Aphasia (description/naming/reading) - 1(Mild to moderate aphasia) 10. Dysarthria (speech clarity - read or repeat words) - 1(Mild to Moderate) 11. Extinction and Inattention (visual/tactile/auditory/spatial/personal) - 0(No abnormality) Initials: ma2 Signatures: Dispatcher [employer] EDMS Aranza Stockton RN RN aj Rivera, Trice Thomas RN RN iw Hall, Patricia, RN RN Cristina Argu[facility] Johnathan Saunders MD MD ma2 Sylvie Cid Michelle 3 Aranza montalvo Corrections: (The following items were deleted from the chart) 10:55 10:52 Presenting complaint: states: Patient began acting confused and had aj difficulty walking 2 hours [employer] at 0840. Patient has had previous stroke with weakness to right side that had improved since last stroke. Speech is clear but slow. aj 10:55 10:52 Trauma event details: Injury occurred in the [facility], Injury aj occurred: at home. Injury occurred: September 20, 2018 Injury occurred at: 08:40 aj 12:06 10:57 Neuro: Level of Consciousness is awake, alert, obeys commands, Oriented aj to person, place, time, situation, Appropriate for age Radio Board Operator are equal bilaterally Weakness in right arm(s) leg(s) Gait is unsteady, Speech Speech is clear but slowed . Facial droop on right, aj 12:46 11:14 BP 144 / 85; Pulse 55bpm; Resp 20bpm; Pulse Ox 99% RA; aj aj
--- NOTE | 2018-09-20 12:09 | RAD REPORT ---
EXAM DESCRIPTION: RAD - Chest Single View - 09/20/2018 11:13 am CLINICAL HISTORY: Code stroke chest film COMPARISON: December 2017 TECHNIQUE: AP portable chest image was obtained 1108 hours . FINDINGS: Lung volumes are low accentuating baseline interstitial pattern. No peripheral mass, conso lidation or pulmonary edema pattern. Mediastinum is accentuated by shallow inspiration. Heart and vas culature are normal. No measurable pleural effusion and no pneumothorax. No acute bony abnormality se en. No acute aortic findings suspected. IMPRESSION: No acute cardiopulmonary process. No significant change from comparison.
--- NOTE | 2018-09-20 12:14 | RAD REPORT ---
EXAM DESCRIPTION: CT - Neck Angio - 09/20/2018 11:56 am CLINICAL HISTORY: Stroke symptoms, slurred speech TECHNIQUE: During dynamic enhancement using nonionic IV contrast, axial 2 mm thick images of the nec k were obtained. Sagittal and axial reconstruction images were generated using MIP protocol and revie wed. All CT scans are performed using dose optimization technique as appropriate and may include automated exposure control or mA/KV adjustment according to patient size. COMPARISON: CT head same date FINDINGS: No aneurysm or vascular malformation identified. No carotid or vertebral dissection. No aortic arch or great vessel origin abnormality seen. Vertebral artery origins unremarkable as well . No stenosis, vasculitis or other significant carotid artery finding. No focal abnormality of either vertebral artery. Basilar artery is normal. Imaged portions of each subclavian artery are also unremarkable. IMPRESSION: Negative CT angio neck examination.
--- NOTE | 2018-09-20 12:22 | RAD REPORT ---
EXAM DESCRIPTION: CT - Head angio - 09/20/2018 11:55 am CLINICAL HISTORY: Slurred speech, code stroke patient, stroke-like symptoms TECHNIQUE: During dynamic enhancement using nonionic IV contrast, axial 1 millimeter thick images of the head were obtained. Sagittal and axial reconstruction images were generated using maximum intens ity projection protocol and reviewed. All CT scans are performed using dose optimization technique as appropriate and may include automated exposure control or mA/KV adjustment according to patient size. COMPARISON: CT head same date FINDINGS: No aneurysm or vascular malformation identified. Major venous sinuses are patent. No stenosis, named branch occlusion, vasculitis or other significant vascular finding in the anterior and middle cerebral arteries. Short segment 50% stenosis of the basilar artery is present. Neither posterior communicating artery i s confirmed as being present. There is narrowing of each P1 segment of the posterior cerebral arterie s, left greater than right. IMPRESSION: Approximately 50% short-segment stenosis mid basilar artery. Dissection is not suspecte d. Narrowing of each P1 segment of the posterior cerebral arteries left greater than right. Correlation is needed regarding patient's symptoms that may be preferable to the posterior circulatio n. Distal internal carotid arteries, anterior cerebral arteries and the middle cerebral arteries show no significant disease.
[2018-09-20 13:31] VITALS: TEMP 97.9
[2018-09-20 13:49] VITALS: BP 139/77; O2SAT 98
--- NOTE | 2018-09-21 12:54 | EKG ---
Test Date: 2018-09-20 Test Time: 10:47:43 Income Tax Adjuster: ROSY MEASUREMENT RESULTS: Intervals: Rate: 52 FL: 138 QRSD: 90 QT: 456 QTc: 424 [place]: P: 31 FL: 138 QRS: 9 T: 47 INTERPRETIVE STATEMENTS: Sinus bradycardia Otherwise normal ECG Compared to ECG 06/24/2017 21:08:42 No significant changes Electronically Signed On 09-21-18 12:50:00 CDT by Roger Larry
== END 2018-09-20 13:16 | disposition short-term general hospital (02) ==
LOC: ER 10:29
DX: I63.9 Cerebral infarction, unspecified (principal); R48.2 Apraxia; I10 Essential (primary) hypertension; R29.706 NIHSS score 6; E78.5 Hyperlipidemia, unspecified; Z79.82 Long term (current) use of aspirin
CPT/HCPCS: 36415; 70450; 70496; 70498; 71045; 80048; 82962; 85025; 85610; 85730; 92977; 93005; 96360; 99285; J2997; J7030; Q9967

== ENCOUNTER 2020-04-17 13:48 | Emergency (ER) | payer OTHER ==
--- OUTSIDE RECORDS SUMMARY | 2020-04-17 14:26 | XMS REPORT | Clinical Summary ---
:1955 Author Organization [facility] Address [address] [place] [address] Care Team Providers Name Role Phone Paul Velasquez MD Primary Care Provider Allergies No Known Allergies Medications Medication Sig Dispensed Refills Start Date End Date Status aspirin 325 MG Take 325 mg by 0 Active tablet mouth daily. ramipril (ALTACE) 5 Take 5 mg by 0 Active MG capsule mouth daily. bimatoprost Place 1 drop into 0 Active (LUMIGAN) 0.01 % the right eye Drop ophthalmic nightly. solution timolol (BETIMOL) Place 1 drop into 0 Active 0.5 % ophthalmic the right eye solution daily. CHOLECALCIFEROL, Take 10,000 Units 0 Active VITAMIN D3, ORAL by mouth. fexofenadine Take 180 mg by 0 Ac tive (KOBI) 180 MG mouth 2 (two) tablet times daily. ezetimibe (ZETIA) Take 10 mg by 0 Active 10 mg tablet mouth daily. coenzyme Q10 100 mg Take 100 mg by 0 Active capsule mouth 2 (two) times daily. magnesium gluconate Take 500 mg by 0 Active (MAGONATE) 27.5 mg mouth daily. magne- sium (500 mg) tablet Missing or cholestoff plus 1 0 A ctive Non-Formulary tab po daily . Medication omeprazole Take 20 mg by 0 Activ e (PRILOSEC) 20 MG mouth daily. capsule DULoxetine Take 1 capsule 30 capsule 11 09/23/2018 09/23/2019 E xpired (CYMBALTA) 20 MG (20 mg total) by capsule mouth daily. Active Problems Problem Noted Date Bradycardia 11/02/2018 Basilar artery stenosis 09/21/2018 Essential hypertension 09/21/2018 Mixed hyperlipidemia 09/21/2018 Received intravenous tissue plasminogen activator (tPA ) in emergency 09/21/2018 department Acute ischemic stroke 09/20/2018 Encounters Date Type Specialty Care Team Description 08/16/2019 Hospital Encounter Radiology Evert Renee Dizzine ss and MD vidal 08/03/2019 Outside Orders Central Scheduling Evert Renee Dizzi ness and MD vidal (Prim solange Dx) after 04/17/2019 Social History Tobacco Use Types Packs/Day Years Used Date Never Smoker Smokeless Tobacco: Never Used Alcohol Use Drinks/Week oz/Week Comments No Alcohol Habits Answer Date Recorded How often do you have a drink containing alcohol? Never 11/02/2018 How many drinks containing alcohol do you have on a typical Not asked day when you are drinking? How often do you have six or more drinks on one occasion? No t asked Sex Assigned at Date Recorded Not on file Last Filed Vital Signs Vital Sign Reading Time Taken Comments Blood Pressure 132/78 08/16/2019 12:30 PM CDT Pulse 85 08/16/2019 12:30 PM CDT Temperature 36.7 C (98 F) 08/16/2019 12:30 PM CDT Respiratory Rate 18 08/16/2019 12:30 PM CDT Oxygen Saturation 98% 08/16/2019 12:30 PM CDT Inhaled Oxygen Concentration - - Weight - - Height - - Body Mass Index - - Plan of Treatment Health Maintenance Due Date Last Done Comments COLON CANCER SCREENING COLONOSCOPY 1955 DTAP/TDAP/TD VACCINES (1 - Tdap) 1961 HEPATITIS C SCREENING 1972 PNEUMOCOCCAL 65+ YRS (1 of 1 - [id number]) 05/18/2019 INFLUENZA VACCINE (#1) 2019 MEDICARE ANNUAL WELLNESS (YEAR 2 or FIRST YEAR if no 12/17/2019 IPPE) LIPID PANEL 09/21/2021 09/21/2018 Implants Implanted Type Area Tester Rocket Engine Device Identifier Shelf Model / Expiration Serial / Date Lot Lead Pacemkr Sharon Teeus 52cm 5076-52 - [id number] PACEMAKER/I [employer]:CARD [id number] 08/19/2020 5076-52 / Implanted: Qty: 1 on 11/02/2018 by Anoop Oliver MD at [facility] CD CHAMBER RHY:DISEASE MGT [id number] / DEVICE Description:RV LEAD Lead Pacemkr Capsur Novus 45cm 5076-45 - [id number] PACEMAKER/I CD [employer]:CARD [id number] 09/01/2020 5076-45 / Implanted: Qty: 1 on 11/02/2018 by Anoop Oliver MD at [facility] CHAMBER DEVICE RHY:DISEASE MGT P [id number] / Description:RA LEAD Pacemkr Vangie Xtdr Mri Ipg [id number] - [id number] PACEMAKER/ICD [employer]TR[employer]:CARD [id number] 03/13/2020 [id number] / Implanted: Qty: 1 on 11/02/2018 by Anoop Oliver MD at [facility] CHAMBER DEVICE RHY:PACING SYS RN [id number] / Description:GENERATOR Procedures Procedure Name Priority Date/Time Associated Diagnosis Comme nts ARRYTHMIA IMPLANT 10/05/2019 5:46 PM Res ults for this REPORT - SCAN CDT procedure are in the results section. ARRYTHMIA IMPLANT 10/04/2019 4:21 PM Res ults for this REPORT - SCAN CDT procedure are in the results section. ARRYTHMIA IMPLANT 08/23/2019 3:01 PM Res ults for this REPORT - SCAN CDT procedure are in the results section. ARRYTHMIA IMPLANT 08/23/2019 3:01 PM Res ults for this REPORT - SCAN CDT procedure are in the results section. MR BRAIN WITHOUT IV Routine 08/16/2019 12:17 PM Dizziness and Results for this CONTRAST CDT giddiness procedure are i n the results section. after 04/17/2019 Results ARRYTHMIA IMPLANT REPORT - SCAN (10/05/2019 5:46 PM CDT)Only the most recent of 4 resultswithin the time period is included. Narrative Performed At This result has an attachment that is no t available. MR brain without IV contrast (08/16/2019 12:17 PM CDT) Specimen Narrative Performed At FINAL REPORT [facility] MR, BRAIN, WITHOUT CONTRAST INDICATION: R42 TECHNIQUE: Multiplanar, multisequence MR imaging of the brain was obtained. COMPARISON: September 21, 2018 FINDINGS: Brain parenchyma is normal in morphology . Midline structures are normally developed. No restricted diffus ion to suggest recent ischemic insult. No abnormal susceptibil ity. Scattered T2/FLAIR hyperintense foci wit hin the periventricular and subcortical white matter are nonspecific , however, statistically represent chronic microvascular ischemic changes. No hydrocephalus. Orbits are within normal limits. No obstructive paranasal sinus disease. IMPRESSION: No acute intracranial findings Signed: Supriya De Souza MD Report Verified Date/Time: 08/16/2019 12:15:18 Reading Location: [facility] Procedure Note Interface, External Ris In - 08/16/2019 12:36 PM CDT FINAL REPORT MR, BRAIN, WITHOUT CONTRAST INDICATION: R42 TECHNIQUE: Multiplanar, multisequence MR imaging of the brain was obtained. COMPARISON: September 21, 2018 FINDINGS: Brain parenchyma is normal in morphology . Midline structures are normally developed. No restricted diffus ion to suggest recent ischemic insult. No abnormal susceptibil ity. Scattered T2/FLAIR hyperintense foci wit hin the periventricular and subcortical white matter are nonspecific , however, statistically represent chronic microvascular ischemic changes. No hydrocephalus. Orbits are within normal limits. No obstructive paranasal sinus disease. IMPRESSION: No acute intracranial findings Signed: Supriya De Souza MD Report Verified Date/Time: 08/16/2019 1 2:15:18 Reading Location: [facility] Reading Room Performing Organization Address City/State/Zipcode Phone Number [facility] after 04/17/2019 Insurance Payer Benefit Plan / Subscriber ID Effective Dates Phone Addre ss Type Group MEDICARE MEDICARE A B [id number] 2018-Presen Medicare t MCR [employer] [id number] 2019-Present Medigap SUPPLEMENT/INDIV IDUAL AETNA - MGD CARE AETNA HMO POS [id number] 2015-Presen HMO/POS QPOS t Advance Directives For more information, please contact: [phone] Type Date Recorded Patient Psych Tech Explanati on Power of Apartment Groundskeeper 11/02/2018 12:00 AM Code Status Date Activated Date Inactivated Comments Full Code 11/02/2018 7:30 AM 11/03/2018 11:43 AM This code status was determined by: Patient Full Code 09/22/2018 12:46 AM 09/23/2018 8:01 PM This code status was determined by: Patient
--- OUTSIDE RECORDS SUMMARY | 2020-04-17 14:27 | XMS REPORT | Continuity of Care Document ---
:1955 Author Organization [facility] t Address [address] [place] [address] Care Team Providers Name Role Phone Boris Velasquez MD Primary Care Physician Juvencio MARTINEZ Attending Clinician Víctor MARTINEZ Attending Clinician Víctor MARTINEZ Attending Clinician JUVENCIO Attending Clinician Unavailable JIAN BANKS Attending Clinician Unavailable JUVENCIO Admitting Clinician Unavailable JIAN BANKS Admitting Clinician Unavailable Payers Payer Name Policy Type Policy Effective Date Expiration Date Sour ce Number MEDICAREMEDICARE A [id number] 2018 BETTIE Cline [id number] 2018- 00:00:00 - Medical [facility] MCR [id number] 2019 BETTIE Kelly SUPPLEMENT/INDIVIDUALM 00:00:00 - [facility] [id number] 2019- PresentMedigap AETNA - MGD CAREAETNA [id number] BETTIE Kelly HMO POS 00:00:00 - Medical [id number] Ce nter -PresentHMO/POS Problems Condition Condition Condition Status Onset Resolution Last Treating Co mments Source Name Details Category Date Date Treatment Clinician Date Bradycardi Bradycardi Disease Active [facility] 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 09-21 [facility] stenosis stenosis 00:00: Medica l 00 Center Essential Essential Disease Active [facility] hypertensi hypertensi 09-21 Khadijah kes - on on 00:00: Medical 00 Center Mixed Mixed Disease Active [facility] hyperlipid hyperlipid 09-21 Khadijah kes - emia emia 00:00: Medical 00 Center Received Received Disease Active [facility] intravenou 09[facility]21 Khadijah kes - s tissue s tissue 00:00: Medica l plasminoge plasminoge 00 Ce nter n n activator activator (tPA) in (tPA) in emergency emergency department department Acute Acute Disease Active [facility] ischemic ischemic 09-20 [facility] - stroke stroke 00:00: Medical 00 Center Allergies, Adverse Reactions, Alerts This patient has no known allergies or adverse reactions. Social History Social Habit Start Date Stop Date Quantity Comments Source History [facility] - Alcohol Std Drinks [facility] History [facility] - Alcohol Binge Medical [facility] Sex Assigned At [facility] Tobacco use and 2018-11-03 2018-11-[address] [facility] Khadijah kes - exposure 00:00:00 00:00:00 [facility] Alcohol intake 2018-11-03 2018-11-[address] [facility] [place] es - 00:00:00 00:00:00 non-drinker of Medical Ce nter alcohol (finding) History [facility] 2018-11-02 2018-11-[address] [facility] - Alcohol Frequency 00:00:00 00:00:00 [facility] Smoking Status Start Date Stop Date Source Never smoker [facility] - M edical Center Medications Ordered Filled Start Stop Current Ordering Indication Dosage Frequency Signature Comments Components Source Medication Medication Date Date Medication? Clinician (SIG) Name Name aspirin 325 2019-0 Yes 325mg QD Take [address] MG tablet 6-01 mg by [facility] - 11:44: mouth Medical 03 daily. [facility] ramipril Yes 5mg QD Take [address] (ALTACE) 5 6-01 by mouth [facility] - MG capsule 11:44: daily. Medic al 03 Center bimatoprost 2020-0 Yes 1[drp] QD Place [address] (LUMIGAN) 6-01 drop into [facility] - 0.01 % Drop 11:44: the right M edical ophthalmic 03 eye Center solution nightly. timolol 2020-0 Yes 1[drp] QD Place 1 [facility] (BETIMOL) 6- drop into [facility] - 0.5 % 11:44: the right Medical ophthalmic [address] solution CHOLECALCIF 2020-0 Yes [id number] Take [facility] KRISTINE, 6- 10,000 [facility] - VITAMIN D3, 11:44: Units by Mo dical ORAL 03 mouth. [place] fexofenadin 2020-0 Yes 180mg Q.5D Take [address] e (KOBI) 6-01 mg by [facility] - 180 MG 11:44: mouth 2 Medical tablet 03 (two) Center times daily. ezetimibe 2020-0 Yes 10mg QD Take [address] (ZETIA) 10 08-15 by mouth [facility] - mg tablet 11:44: daily. Medica l 03 Center coenzyme 2020-0 Yes 100mg Q.5D Take [address] Q10 100 mg 6-01 mg by [facility] - capsule 11:44: mouth 2 Medical 03 (two) Center times daily. magnesium 2020-0 Yes 500mg QD Take [address] gluconate 6-01 mg by [facility] - (MAGONATE) 11:44: mouth Medica l 27.5 mg 03 daily. [place] magne- sium (500 mg) tablet omeprazole 2020-0 Yes 20mg QD Take [address] (PRILOSEC) 6- by mouth [facility] - 20 MG 11:44: daily. Medical capsule 03 Center Missing or 2019-[address] [facility] Non-Formula 8-20 plus 1 tab Khadijah kes - ry 09:42: po daily . Medical Medication 58 Center DULoxetine 2020- No 20mg QD Take [address] (CYMBALTA) 7-10 07-09 capsule [facility] - 20 MG 00:00: 23:59 (20 mg Medical capsule 00 :00 total) by Center mouth daily. Vital Signs Vital Name Observation Time Observation Value Comments Source Systolic blood 2019-08-16 12:30:00 132 mm[Hg] [facility] Diastolic blood 2019-08-16 12:30:00 78 mm[Hg] [facility] S t [facility] Heart rate 2019-08-16 12:30:00 85 /min [facility] Body temperature 2019-08-16 12:30:00 36.67 Jill [facility] Respiratory rate 2019-08-16 12:30:00 18 /min [facility] Oxygen saturation in 2019-08-16 12:30:00 98 /min [facility] - Arterial blood by Medical Ce nter Pulse oximetry Procedures Procedure Date / Time Performed Performing Clinician Richard shirley ARRYTHMIA IMPLANT 2019-10-05 17:46:07 Provider, Default [facility] - REPORT - SCAN Scanning [facility] ARRYTHMIA IMPLANT 2019-10-04 16:21:26 Provider, Default [facility] - REPORT - SCAN Scanning [facility] ARRYTHMIA IMPLANT 2019-08-23 15:01:37 Provider, Default [facility] - REPORT - SCAN Scanning [facility] ARRYTHMIA IMPLANT 2019-08-23 15:01:36 Provider, Default [facility] - REPORT - SCAN Scanning [facility] MR BRAIN WITHOUT IV 2019-08-16 12:17:[address] [facility] CONTRAST [facility] Plan of Care Planned Activity Planned Date Details Comments Source Future Scheduled 2021-09-[address] [facility] - Test 00:00:00 (procedure) [code = Medical Center [id number]] Future Scheduled 2019-12-[address] [facility] - Test 00:00:00 WELLNESS (YEAR 2 or Medical Center FIRST YEAR if no IPPE) [code = MEDICARE ANNUAL WELLNESS (YEAR 2 or FIRST YEAR if no IPPE)] Future Scheduled 2019-11-16 INFLUENZA VACCINE (#1) [facility] - Test 00:00:00 [code = INFLUENZA Medical Ce nter VACCINE (#1)] Future Scheduled 2019-05-18 PNEUMOCOCCAL 65+ YRS [facility] - Test 00:00:00 (1 of 1 - Medical Center [id number] PCV13) [code = PNEUMOCOCCAL 65+ YRS (1 of 1 - [id number] PCV13)] Future Scheduled 1972 HEPATITIS C SCREENING [facility] - Test 00:00:00 [code = HEPATITIS C Medical Center SCREENING] Future Scheduled 1961 DTAP/TDAP/TD VACCINES [facility] - Test 00:00:00 (1 - Tdap) [code = Medical C enter DTAP/TDAP/TD VACCINES (1 - Tdap)] Future Scheduled [address] [facility] - Test 00:00:00 malignant neoplasm of Medica Center colon (procedure) [code = 242042445] Encounters Start End Encounter Admission Attending Care Care Encounter Source Date/Time Date/Time Type Type Clinicians Facility Department ID 2019-11-16 2019-11-16 Office Juan ManuelJANNY borjasJosef [id number] 14:31:36 15:01:36 Visit Anoop AMBULATOR 350.1.13.21 Y [id number] [id number] 2019-08-23 2019-08-23 Office JANA Renee [id number] 15:35:38 16:57:39 Visit Evert AMBULATOR 350.1.13.21 Y [id number] [id number] 2018-10-22 2018-10-22 Office Juan Manuelindio JANNY [id number] 08:01:15 08:31:15 Visit Anoop AMBULATOR 350.1.13.21 Y 0.2.7.2.686 [id number] Results Test Description Test Time Test Comments Results Result [facility] e Comments MR brain without 2019-08-16 Interface, External [facility] IV contrast 12:15:00 Ris In - 08/16/2019 - Mo dical 12:36 PM CDINAL Center REPORT MR, BRAIN, WITHOUT CONTRAST INDICATION: R42 TECHNIQUE: Multiplanar, multisequence MR imaging of the brain was obtained. COMPARISON: September 21, 2018 FINDINGS:Brain parenchyma is normal in morphology. Midline structures are normally developed. No restricted diffusion to suggest recent ischemic insult. No abnormal susceptibility. Scattered T2/FLAIR hyperintense foci within the periventricular and subcortical white matter are nonspecific, however, statistically represent chronic microvascular ischemic changes. No hydrocephalus. Orbits are within normal limits. No obstructive paranasal sinus disease. IMPRESSION: No acute intracranial findings Signed: Marsha Meza Verified Date/Time: 08/16/2019 12:15:18 Reading Location: [facility] Radiology Reading Room , BRAIN, 2019-08-16 FINAL REPORT PATIENT WITHOUT CONTRAST 12:15:00 ID: [id number] MR, BRAIN, WITHOUT CONTRAST INDICATION: R42 TECHNIQUE: Multiplanar, multisequence MR imaging of the brain was obtained. COMPARISON: September 21, 2018 FINDINGS:Brain parenchyma is normal in morphology. Midline structures are normally developed. No restricted diffusion to suggest recent ischemic insult. No abnormal susceptibility. Scattered T2/FLAIR hyperintense foci within the periventricular and subcortical white matter are nonspecific, however, statistically represent chronic microvascular ischemic changes. No hydrocephalus. Orbits are within normal limits. No obstructive paranasal sinus disease. IMPRESSION: No acute intracranial findings Signed: Marsha Meza Verified Date/Time: 08/16/2019 12:15:18 Reading Location: [facility] Radiology Reading Room C METABOLIC PANEL 2018-11-03 06:20:00 Test Item Value Reference Range Interpretation Comme nts SODIUM (BEAKER) (test code 136 meq/L 136-145 = 381) POTASSIUM (BEAKER) (test 4.3 meq/L 3.5-5.1 code = 379) CHLORIDE (BEAKER) (test 103 meq/L 98-107 code = 382) CO2 (BEAKER) (test code = 23 meq/L 22-29 355) BLOOD UREA NITROGEN 15 mg/dL 7-21 (BEAKER) (test code = 354) CREATININE (BEAKER) (test 1.00 mg/dL 0.57-1.25 code = 358) GLUCOSE RANDOM (BEAKER) 107 mg/dL 70-105 H (test code = 652) CALCIUM (BEAKER) (test code 9.5 mg/dL 8.4-10.2 = 697) EGFR (BEAKER) (test code = 75 mL/min/1.73 sq m ESTIMATED GFR IS NOT 1092) ACCURATE CRE ATININE CLEARANCE IN MT EDICTING GLOMERULAR FILT RATION RATE. ESTIMATED GFR IS NOT APPLICABLE FOR DIALYSIS PATIENTS. CBC W/PLT COUNT & AUTO [id number] 05:45:00 Test Item Value Reference Range Interpretation Comments WHITE BLOOD CELL COUNT (BEAKER) 9.6 K/ L 3.5-10.5 (test code = 775) RED BLOOD CELL COUNT (BEAKER) 5.63 M/ L 4.63-6.08 (test code = 761) HEMOGLOBIN (BEAKER) (test code = 15.7 GM/DL 13.7-17.5 410) HEMATOCRIT (BEAKER) (test code = 46.8 % 40.1-51.0 411) MEAN CORPUSCULAR VOLUME (BEAKER) 83.1 fL 79.0-92.2 (test code = 753) MEAN CORPUSCULAR HEMOGLOBIN 27.9 pg 25.7-32.2 (BEAKER) (test code = 751) MEAN CORPUSCULAR HEMOGLOBIN CONC 33.5 GM/DL 32.3-36.5 (BEAKER) (test code = 752) RED CELL DISTRIBUTION WIDTH 13.8 % 11.6-14.4 (BEAKER) (test code = 412) PLATELET COUNT (BEAKER) (test 243 K/CU MM 150-450 code = 756) MEAN PLATELET VOLUME (BEAKER) 9.6 fL 9.4-12.4 (test code = 754) NUCLEATED RED BLOOD CELLS 0 /100 WBC 0-0 (BEAKER) (test code = 413) NEUTROPHILS RELATIVE PERCENT 66 % (BEAKER) (test code = 429) LYMPHOCYTES RELATIVE PERCENT 22 % (BEAKER) (test code = 430) MONOCYTES RELATIVE PERCENT 10 % (BEAKER) (test code = 431) EOSINOPHILS RELATIVE PERCENT 2 % (BEAKER) (test code = 432) BASOPHILS RELATIVE PERCENT 0 % (BEAKER) (test code = 437) NEUTROPHILS ABSOLUTE COUNT 6.30 K/ L 1.78-5.38 H (BEAKER) (test code = 670) LYMPHOCYTES ABSOLUTE COUNT 2.08 K/ L 1.32-3.57 (BEAKER) (test code = 414) MONOCYTES ABSOLUTE COUNT (BEAKER) 0.92 K/ L 0.30-0.82 H (test code = 415) EOSINOPHILS ABSOLUTE COUNT 0.23 K/ L 0.04-0.54 (BEAKER) (test code = 416) BASOPHILS ABSOLUTE COUNT (BEAKER) 0.04 K/ L 0.01-0.08 (test code = 417) IMMATURE GRANULOCYTES-RELATIVE 0 % 0-1 PERCENT (BEAKER) (test code = 2801) RAD, CHEST, 1 VIEW, NON [id number] 04:56:00Reason for exam:->Post device placementShould this be performed at the bedside?->YesFINAL REPORT RAD, CHEST, 1 VIEW, NON DEPT INDICATION: Post device placement CO MPARISON: Prior day's exam FINDINGS: Portable frontal view of the chest. IMPRESSION: Support Lines: Stable. Lungs and pleura: Unchanged airspace and pleural opacities. No pneumothorax.Heart and mediastinum: Stable contours. Additional findings: None. Signed: Kane Ballard Verified Navjot e/Time: 11/03/2018 04:56:03 RAD, CHEST, 1 VIEW, NON [id number] 15:54:00Reason for exam:->post device placementShould this be performed at the bedside?->YesFINAL REPORT INDICATION: post device placement COMPARISON: None TECHNIQUE: Single frontal view of the chest. FINDINGS: Lungs and pleura: Clear lungs. No effusion.Heart and mediastinum: Normal heart size. Unremarkable mediastinal contours.Osseous structures: No acute abnormality.Other: None. IMPRESSION: No acute intrathoracic abnormality. No pneumothorax. Signed: Marsha Meza Verified Date/Time: 11/02/2018 15:54:40 Reading Location: [facility] Radiology ReadingRoom C METABOLIC [id number] 08:29:00 Test Item Value Reference Range Interpretation Comments SODIUM (BEAKER) 139 meq/L 136-145 (test code = 381) POTASSIUM (BEAKER) 4.1 meq/L 3.5-5.1 (test code = 379) CHLORIDE (BEAKER) 104 meq/L 98-107 (test code = 382) CO2 (BEAKER) (test 29 meq/L 22-29 code = 355) BLOOD UREA NITROGEN 15 mg/dL 7-21 (BEAKER) (test code = 354) CREATININE (BEAKER) 0.98 mg/dL 0.57-1.25 (test code = 358) GLUCOSE RANDOM 97 mg/dL 70-105 (BEAKER) (test code = 652) CALCIUM (BEAKER) 9.4 mg/dL 8.4-10.2 (test code = 697) EGFR (BEAKER) (test 77 mL/min/1.73 ESTIMA KENDRA GFR IS code = 1092) sq m NOT ACCURATE CREATININE CLEARANCE IN PREDICTING GLOMERULAR FILTRATION RATE . ESTIMATED GFR I S NOT APPLICABLE FOR DIALYSIS PATIEN TS. PROTHROMBIN [id number] 08:26:00 Test Item Value Reference Range Interpretation Comments PROTIME (BEAKER) (test code = 12.9 seconds 11.9-14.2 759) INR (BEAKER) (test code = 370) 1.0 <=5.9 Effective 08/12/2018: PT Reference Range ChangeNew: 11.9-14.2 Previous: 11.7- 14.7RECOMMENDED COUMADIN/WARFARIN INR THERAPY RANGESSTANDARD DOSE: 2.0-3.0 Includes: PROPHYLAXIS for venous thrombosis, systemic embolization; TREATMENT for venous thrombosis and/or pulmonary embolus.HIGH RISK: Target INR is2.5-3.5 for patients wiht mechanical heart valves.Within 24 hours, if on CoumadinCBC (HEMOGRAM ONLY)2018-11-02 08:13:00 Test Item Value Reference Range Interpretation Comments WHITE BLOOD CELL COUNT (BEAKER) 8.7 K/ L 3.5-10.5 (test code = 775) RED BLOOD CELL COUNT (BEAKER) 5.34 M/ L 4.63-6.08 (test code = 761) HEMOGLOBIN (BEAKER) (test code = 15.3 GM/DL 13.7-17.5 410) HEMATOCRIT (BEAKER) (test code = 44.7 % 40.1-51.0 411) MEAN CORPUSCULAR VOLUME (BEAKER) 83.7 fL 79.0-92.2 (test code = 753) MEAN CORPUSCULAR HEMOGLOBIN 28.7 pg 25.7-32.2 (BEAKER) (test code = 751) MEAN CORPUSCULAR HEMOGLOBIN CONC 34.2 GM/DL 32.3-36.5 (BEAKER) (test code = 752) RED CELL DISTRIBUTION WIDTH 13.8 % 11.6-14.4 (BEAKER) (test code = 412) PLATELET COUNT (BEAKER) (test 243 K/CU MM 150-450 code = 756) MEAN PLATELET VOLUME (BEAKER) 9.6 fL 9.4-12.4 (test code = 754) NUCLEATED RED BLOOD CELLS 0 /100 WBC 0-0 (BEAKER) (test code = 413) BASIC METABOLIC [id number] 14:11:00 Test Item Value Reference Range Interpretation Comments SODIUM (BEAKER) 143 meq/L 136-145 (test code = 381) POTASSIUM (BEAKER) 5.0 meq/L 3.5-5.1 Specimen slightly (test code = 379) hemolyzed CHLORIDE (BEAKER) 106 meq/L 98-107 (test code = 382) CO2 (BEAKER) (test 28 meq/L 22-29 code = 355) BLOOD UREA NITROGEN 20 mg/dL 7-21 (BEAKER) (test code = 354) CREATININE (BEAKER) 1.14 mg/dL 0.57-1.25 Specimen slightly (test code = 358) hemolyzed GLUCOSE RANDOM 109 mg/dL 70-105 H (BEAKER) (test code = 652) CALCIUM (BEAKER) 10.4 mg/dL 8.4-10.2 H (test code = 697) EGFR (BEAKER) (test 65 mL/min/1.73 ESTIMA KENDRA GFR IS code = 1092) sq m NOT ACCURATE CREATININE CLEARANCE IN PREDICTING GLOMERULAR FILTRATION RATE . ESTIMATED GFR I S NOT APPLICABLE FOR DIALYSIS PATIEN TS. PROTHROMBIN [id number] 14:03:00 Test Item Value Reference Range Interpretation Comments PROTIME (BEAKER) (test code = 12.9 seconds 11.9-14.2 759) INR (BEAKER) (test code = 370) 1.0 <=5.9 Effective 08/12/2018: PT Reference Range ChangeNew: 11.9-14.2 Previous: 11.7- 14.7RECOMMENDED COUMADIN/WARFARIN INR THERAPY RANGESSTANDARD DOSE: 2.0-3.0 Includes: PROPHYLAXIS for venous thrombosis, systemic embolization; TREATMENT for venous thrombosis and/or pulmonary embolus.HIGH RISK: Target INR is2.5-3.5 for patients wiht mechanical heart valves.CBC (HEMOGRAM ONLY)2018-10-22 13:49:00 Test Item Value Reference Range Interpretation Comments WHITE BLOOD CELL COUNT (BEAKER) 8.0 K/ L 3.5-10.5 (test code = 775) RED BLOOD CELL COUNT (BEAKER) 5.68 M/ L 4.63-6.08 (test code = 761) HEMOGLOBIN (BEAKER) (test code = 16.1 GM/DL 13.7-17.5 410) HEMATOCRIT (BEAKER) (test code = 48.6 % 40.1-51.0 411) MEAN CORPUSCULAR VOLUME (BEAKER) 85.6 fL 79.0-92.2 (test code = 753) MEAN CORPUSCULAR HEMOGLOBIN 28.3 pg 25.7-32.2 (BEAKER) (test code = 751) MEAN CORPUSCULAR HEMOGLOBIN CONC 33.1 GM/DL 32.3-36.5 (BEAKER) (test code = 752) RED CELL DISTRIBUTION WIDTH 13.3 % 11.6-14.4 (BEAKER) (test code = 412) PLATELET COUNT (BEAKER) (test 292 K/CU MM 150-450 code = 756) MEAN PLATELET VOLUME (BEAKER) 9.8 fL 9.4-12.4 (test code = 754) NUCLEATED RED BLOOD CELLS 0 /100 WBC 0-0 (BEAKER) (test code = 413) EEG AWAKE/ASLEEP AND [id number] 16:31:00Reason for exam:->Rule out seizuresShould this be performed at the bedside?->YesDate(s) of EE09/22/2018 DATE OF REPORT: 09/22/2018 ACC: [id number] EEG Number: [id number] Test Lo cation: Inpatient ICU Start time: 09/22/18 09:26 Stop time: 09/22/18 09:47 ICD-10: R53.1 CPT Code: 30957 HISTORY: 63 y.o. male with hypertension, diabetes mellitus, remote stroke with residual right hemiparesis who was transferred after receiving tPA for generalized weakness after fall. MEDICAT IONS THAT COULD AFFECT EEG: Nicardapine, Hydralazine, Labetalol TECHNICAL SUMMARY: This is a digital video-EEG recorded with 32 input channels reviewed with bipolar and referential montages using the modified combinatorial system nomenclature. DESCRIPTION OF RECORD: During the maximally alert state a 9-10 Hz posterior dominant rhythm was seen that was symmetric, reactive to eye opening and well regulated. More anteriorly, low voltage frontocentral beta predominated. Drowsiness was characterized by alpha attenuation and increased frontocentral theta, vertex sharp transients and POSTS. Stage 2 sleep was not reached. SIGNIFICANT VIDEO EVENTS: None SIGNIFICANT ELECTROCARDIOGRAM EVENTS: None HV: Hyperventilation was not performed. PHOTIC STIMULATION: Photic stimulation was done from 1-33 Hz; no photic driving was seen; photoparoxysmal responses were absent. IMPRESSION: Normal Awake and Drowsy EEG CLINICAL CORRELATION: An EEG without epileptiform discharges does not exclude the possibility of epilepsy. It the clinical suspicion of epilepsy remains, consider additional EEG recordings. Orion Rosario MD Neurophysiology/Epilepsy Fellow I have reviewed the electroencephalogram and this report and agree with its interpretation. Zac Galarza MD Attending Neurophysiologist [facility] METABOLIC [id number] 11:14:00 Test Item Value Reference Range Interpretation Comments SODIUM (BEAKER) 141 meq/L 136-145 (test code = 381) POTASSIUM (BEAKER) 4.3 meq/L 3.5-5.1 (test code = 379) CHLORIDE (BEAKER) 106 meq/L 98-107 (test code = 382) CO2 (BEAKER) (test 28 meq/L 22-29 code = 355) BLOOD UREA NITROGEN 18 mg/dL 7-21 (BEAKER) (test code = 354) CREATININE (BEAKER) 0.98 mg/dL 0.57-1.25 (test code = 358) GLUCOSE RANDOM 99 mg/dL 70-105 (BEAKER) (test code = 652) CALCIUM (BEAKER) 9.8 mg/dL 8.4-10.2 (test code = 697) EGFR (BEAKER) (test 77 mL/min/1.73 ESTIMA KENDRA GFR IS code = 1092) sq m NOT ACCURATE CREATININE CLEARANCE IN PREDICTING GLOMERULAR FILTRATION RATE . ESTIMATED GFR I S NOT APPLICABLE FOR DIALYSIS PATIEN TS. CBC W/PLT COUNT & AUTO [id number] 10:58:00 Test Item Value Reference Range Interpretation Comments WHITE BLOOD CELL COUNT (BEAKER) 7.4 K/ L 3.5-10.5 (test code = 775) RED BLOOD CELL COUNT (BEAKER) 5.40 M/ L 4.63-6.08 (test code = 761) HEMOGLOBIN (BEAKER) (test code = 15.0 GM/DL 13.7-17.5 410) HEMATOCRIT (BEAKER) (test code = 44.9 % 40.1-51.0 411) MEAN CORPUSCULAR VOLUME (BEAKER) 83.1 fL 79.0-92.2 (test code = 753) MEAN CORPUSCULAR HEMOGLOBIN 27.8 pg 25.7-32.2 (BEAKER) (test code = 751) MEAN CORPUSCULAR HEMOGLOBIN CONC 33.4 GM/DL 32.3-36.5 (BEAKER) (test code = 752) RED CELL DISTRIBUTION WIDTH 13.2 % 11.6-14.4 (BEAKER) (test code = 412) PLATELET COUNT (BEAKER) (test 248 K/CU MM 150-450 code = 756) MEAN PLATELET VOLUME (BEAKER) 10.1 fL 9.4-12.4 (test code = 754) NUCLEATED RED BLOOD CELLS 0 /100 WBC 0-0 (BEAKER) (test code = 413) NEUTROPHILS RELATIVE PERCENT 56 % (BEAKER) (test code = 429) LYMPHOCYTES RELATIVE PERCENT 31 % (BEAKER) (test code = 430) MONOCYTES RELATIVE PERCENT 9 % (BEAKER) (test code = 431) EOSINOPHILS RELATIVE PERCENT 4 % (BEAKER) (test code = 432) BASOPHILS RELATIVE PERCENT 1 % (BEAKER) (test code = 437) NEUTROPHILS ABSOLUTE COUNT 4.11 K/ L 1.78-5.38 (BEAKER) (test code = 670) LYMPHOCYTES ABSOLUTE COUNT 2.26 K/ L 1.32-3.57 (BEAKER) (test code = 414) MONOCYTES ABSOLUTE COUNT (BEAKER) 0.67 K/ L 0.30-0.82 (test code = 415) EOSINOPHILS ABSOLUTE COUNT 0.27 K/ L 0.04-0.54 (BEAKER) (test code = 416) BASOPHILS ABSOLUTE COUNT (BEAKER) 0.04 K/ L 0.01-0.08 (test code = 417) IMMATURE GRANULOCYTES-RELATIVE 0 % 0-1 PERCENT (COSME) (test code = 2801) POCT-GLUCOSE [id number] 17:13:00 Test Item Value Reference Range Interpretation Comments POC-GLUCOSE METER 98 mg/dL 70-110 TESTED AT [facility] 6720 (OCSME) (test code = [place] [id number]) MR, BRAIN, WITHOUT [id number] 10:52:00FINAL REPORT MRI Brain without contrast Clinical History: stroke Technique: MRI of the brain utilizing axial T2, FLAIR, GRE, DWI; sagittal and coronal T1-weighted images. Comparisons: None Findings: There is no evidence of acute infarct or hemorrhage. There are chronic lacunar infarcts of the left corpus striatum. There is a chronic infarct of the left thalamocapsular junction.There is mild periventricular and subcortical white matter T2 hyperintensity, which is nonspecific but compatible with chronic microvascular ischemic change. There is generalized parenchymal volume loss without hydrocephalus, midline shift, or apparent mass effect. There are no extra-axial fluid collections. The craniocervical junction is preserved. The major intracranial flow-voids appear patent. IMPRESSION: No evidence of acute infarct, hemorrhage, or hydrocephalus. 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 Signed: Scott Holm [facility] Verified Date/Time: 09/21/2018 10:52:51 Reading Location: [address] Neuro Reading Room HEMOGLOBIN [id number] 09:04:00 Test Item Value Reference Range Interpretation Comments HEMOGLOBIN A1C (COSME) (test code = 5.2 % 4.3-6.1 368) TSH/FREE T4 IF [id number] 06:44:00 Test Item Value Reference Range Interpretation Comments THYROID STIMULATING HORMONE 1.64 uIU/mL 0.35-4.94 (COSME) (test code = 772) VITAMIN B12 AND [id number] 06:44:00 Test Item Value Reference Range Interpretation Comments VITAMIN B12 (COSME) (test code = 643 pg/mL 213-816 774) FOLATE (COSME) (test code = 362) 16.6 ng/mL >=7.0 LIPID [id number] 05:30:00 Test Item Value Reference Range Interpretation Comments TRIGLYCERIDES (BEAKER) (test code = 320 mg/dL 540) CHOLESTEROL (BEAKER) (test code = 166 mg/dL 631) HDL CHOLESTEROL (BEAKER) (test code 24 mg/dL = 976) LDL CHOLESTEROL CALCULATED (BEAKER) 78 mg/dL (test code = 633) Triglyceride Reference Range: Low Risk <150 Borderline 150-199 High Risk 200-499 Very High Risk >=500Cholesterol Reference Range: Low Risk <200 Borderline 200-239 High Risk >240HDL Cholesterol Reference Range: Low Risk >=60 High Risk <40LDL Cholesterol Reference Range: Optimal <100 Near Optimal 100-129 Borderline 130-159 High 160-189 Very High >=190BASIC METABOLIC [id number] 05:30:00 Test Item Value Reference Range Interpretation Comments SODIUM (BEAKER) 137 meq/L 136-145 (test code = 381) POTASSIUM (BEAKER) 4.1 meq/L 3.5-5.1 (test code = 379) CHLORIDE (BEAKER) 106 meq/L 98-107 (test code = 382) CO2 (BEAKER) (test 25 meq/L 22-29 code = 355) BLOOD UREA NITROGEN 19 mg/dL 7-21 (BEAKER) (test code = 354) CREATININE (BEAKER) 0.93 mg/dL 0.57-1.25 (test code = 358) GLUCOSE RANDOM 101 mg/dL 70-105 (BEAKER) (test code = 652) CALCIUM (BEAKER) 8.8 mg/dL 8.4-10.2 (test code = 697) EGFR (BEAKER) (test 82 mL/min/1.73 ESTIMA KENDRA GFR IS code = 1092) sq m NOT ACCURATE CREATININE CLEARANCE IN PREDICTING GLOMERULAR FILTRATION RATE . ESTIMATED GFR I S NOT APPLICABLE FOR DIALYSIS PATIEN TS. C-REACTIVE [id number] 05:30:00 Test Item Value Reference Range Interpretation Comments C-REACTIVE PROTEIN (BEAKER) (test 0.10 mg/dL 0.00-0.50 code = 676) CBC W/PLT COUNT & AUTO [id number] 04:09:00 Test Item Value Reference Range Interpretation Comments WHITE BLOOD CELL COUNT (BEAKER) 7.3 K/ L 3.5-10.5 (test code = 775) RED BLOOD CELL COUNT (BEAKER) 5.22 M/ L 4.63-6.08 (test code = 761) HEMOGLOBIN (BEAKER) (test code = 14.6 GM/DL 13.7-17.5 410) HEMATOCRIT (BEAKER) (test code = 44.0 % 40.1-51.0 411) MEAN CORPUSCULAR VOLUME (BEAKER) 84.3 fL 79.0-92.2 (test code = 753) MEAN CORPUSCULAR HEMOGLOBIN 28.0 pg 25.7-32.2 (BEAKER) (test code = 751) MEAN CORPUSCULAR HEMOGLOBIN CONC 33.2 GM/DL 32.3-36.5 (BEAKER) (test code = 752) RED CELL DISTRIBUTION WIDTH 13.1 % 11.6-14.4 (BEAKER) (test code = 412) PLATELET COUNT (BEAKER) (test 236 K/CU MM 150-450 code = 756) MEAN PLATELET VOLUME (BEAKER) 9.8 fL 9.4-12.4 (test code = 754) NUCLEATED RED BLOOD CELLS 0 /100 WBC 0-0 (BEAKER) (test code = 413) NEUTROPHILS RELATIVE PERCENT 50 % (BEAKER) (test code = 429) LYMPHOCYTES RELATIVE PERCENT 35 % (BEAKER) (test code = 430) MONOCYTES RELATIVE PERCENT 10 % (BEAKER) (test code = 431) EOSINOPHILS RELATIVE PERCENT 5 % (BEAKER) (test code = 432) BASOPHILS RELATIVE PERCENT 0 % (BEAKER) (test code = 437) NEUTROPHILS ABSOLUTE COUNT 3.69 K/ L 1.78-5.38 (BEAKER) (test code = 670) LYMPHOCYTES ABSOLUTE COUNT 2.53 K/ L 1.32-3.57 (BEAKER) (test code = 414) MONOCYTES ABSOLUTE COUNT (BEAKER) 0.72 K/ L 0.30-0.82 (test code = 415) EOSINOPHILS ABSOLUTE COUNT 0.33 K/ L 0.04-0.54 (BEAKER) (test code = 416) BASOPHILS ABSOLUTE COUNT (BEAKER) 0.03 K/ L 0.01-0.08 (test code = 417) IMMATURE GRANULOCYTES-RELATIVE 0 % 0-1 PERCENT (COSME) (test code = 2801)
--- NOTE | 2020-04-17 14:50 | RAD REPORT ---
EXAM DESCRIPTION: CT - Ct Stroke Brain Wo Cont - 04/17/2020 2:33 pm CLINICAL HISTORY: WEAKNESS, acute CVA COMPARISON: Ct Stroke Brain Wo Cont dated 09/20/2018 TECHNIQUE: Axial 5 millimeter thick images of the head were obtained without IV contrast. All CT scans are performed using dose optimization technique as appropriate and may include automated exposure control or mA/KV adjustment according to patient size. FINDINGS: No intracranial hemorrhage, mass, or cerebral edema. No acute cortical based infarction id entified. Atrophy changes are present moderate for age and similar to 2019. Ventricles are in proport ion. Chronic ischemic changes are present in the cerebral white matter extending into the basal gangl ia. These findings are not substantially different. Focal bold infarction changes are present near th e genu internal capsule on the left. No extra-axial fluid collections. [place] matter-white matter diff erentiation is preserved. Visualized portions of the mastoid air cells, paranasal sinuses, and orbits are unremarkable. Findings telephoned to Dr. Saunders 1428 hours IMPRESSION: No intracranial hemorrhage is present and no acute cortical based infarction. Atrophy and chronic ischemic changes are not substantially different from 2019 comparison. Chronic ischemic changes can mask nonhemorrhagic acute infarction. MR brain followup can be obtained if there is ongoing concern for acute ischemia.
[2020-04-17] MEDS ORDERED: NA CHLORIDE 0.9% 1,000 ML ONE (14:53)
[2020-04-17 15:03] LABS: Absolute Lymphocytes (CBC) 2.5 K/uL (0.7-4.9); Basophils % 0.8 % (0-1.3); Hematocrit 50.1 % (39.6-49.0); Lymphocytes % 29.4 % (15.3-44.8); MPV 8.3 fL (7.6-11.3)
[2020-04-17 15:05] LABS: Protime INR 0.97
[2020-04-17 15:10] LABS: ALT/SGPT 55 U/L (12-78); AST/SGOT 31 U/L (15-37); Albumin 4.1 g/dL (3.4-5.0); Alkaline Phosphatase 99 U/L (45-117); BUN Blood Urea Nitrogen 14 mg/dL (7-18); Bicarbonate 30 mmol/L (21-32); Bilirubin Direct 0.2 mg/dL (0-0.2); Bilirubin Total 0.8 mg/dL (0.2-1.0); Glucose Level 103 mg/dL (74-106); Magnesium 2.2 mg/dL (1.8-2.4); Potassium 4.7 mmol/L (3.5-5.1); Protein, Total 8.1 g/dL (6.4-8.2); Sodium Level 142 mmol/L (136-145); Troponin (Emerg Dept Use Only) < 0.02 ng/mL (0.0-0.045)
[2020-04-17 15:11] LABS: Amylase 38 U/L (25-115); Lipase 77 U/L (73-393)
[2020-04-17 17:01] LABS: C-Reactive Protein 3.28 mg/L (<3.00)
--- NOTE | 2020-04-17 17:39 | ER ---
Nurse's Notes [facility] Name: Rj Galvez Age: 64 yrs Sex: Male : 1955 Arrival Date: 04/17/2020 Time: 13:50 Bed 25 Private MD: Tony Velasquez C Diagnosis: Muscle weakness (generalized) Presentation: 04/17 14:09 Chief complaint: Spouse and/or significant other states: Went bowling last night, after ca1 we got home around midnight, he had a sudden severe headache, it went away. He woke up at about noon today, he was very weak, needs assistance to got to the bathroom which is not normal. He is very lethargic, very weak, having trouble focusing on what he wants to say. Last known well 2359 last night. Previous HX of stroke x 3. Coronavirus screen: Client denies travel out of the [place] in the last 14 days. At this time, the client does not indicate any symptoms associated with coronavirus-19. Ebola Screen: Patient negative for fever greater than or equal to 101.5 degrees Fahrenheit, and additional compatible Ebola Virus Disease symptoms Patient denies exposure to infectious person. Patient denies travel to an Ebola-affected area in the 21 days before illness onset. No symptoms or risks identified at this time. Initial Sepsis Screen: Does the patient meet any 2 criteria? No. Patient's initial sepsis screen is negative. Does the patient have a suspected source of infection? No. Patient's initial sepsis screen is negative. Risk Assessment: Do you want to hurt yourself or someone else? Patient reports no desire to harm self or others. Onset of symptoms was April 17, 2020 at 12:00. 14:09 Method Of Arrival: Wheelchair ca1 14:09 Acuity: GRACE 2 ca1 14:20 Acuity: GRACE 2 ca1 14:21 Coronavirus screen: Client denies travel out of the [place] in the last 14 days. At this ca1 time, the client does not indicate any symptoms associated with coronavirus-19. Ebola Screen: Patient negative for fever greater than or equal to 101.5 degrees Fahrenheit, and additional compatible Ebola Virus Disease symptoms Patient denies exposure to infectious person. Patient denies travel to an Ebola-affected area in the 21 days before illness onset. No symptoms or risks identified at this time. Onset of symptoms was April 17, 2020 at 00:00. Historical: - Allergies: 14:28 No Known Allergies; ca1 - PMHx: 14:28 CVA; Hyperlipidemia; Hypertension; ca1 - PSHx: 14:28 Tonsillectomy; Appendectomy; eye surgery; ca1 - Immunization history:: Flu vaccine is not up to date. - Social history:: Smoking status: Patient denies any tobacco usage or history of. Patient/guardian denies using alcohol, street drugs, The patient lives with family. - Family history:: not pertinent. Screenin:35 Abuse screen: Denies threats or abuse. Nutritional screening: No deficits noted. tw2 Tuberculosis screening: No symptoms or risk factors identified. Fall Risk Secondary diagnosis (15 points) impaired mobility, CVA. 14:35 Patient has been NPO before screening. The patient is alert, able to follow commands. tw2 The patient does not exhibit slurred or garbled speech The patient is not exhibiting difficulty speaking. The patient is exhibiting difficulty understanding words. The patient is able to swallow own secretions with no drooling or need for suction. Patient tolerated one teaspoon of water. No drooling, immediate coughing, gurgling, or clearing of the throat was noted. The patient tolerated 90mL of water. No drooling, immediate coughing, gurgling, or clearing of the throat was noted. The patient passed the bedside swallow screening. Oral medications may be given as ordered. Contact Physician for further diet orders. Provider notified of bedside swallow screening results: Johnathan Saunders MD. Assessment: 14:34 Reassessment: provider at bedside. tw2 14:40 General: Appears in no apparent distress. obese, well groomed, Behavior is calm, tw2 cooperative, appropriate for age. Pain: Denies pain. Neuro: Level of Consciousness is awake, alert, obeys commands, Oriented to person, place, situation. Neuro: Door Person are equal bilaterally. Cardiovascular: Patient's skin is warm and dry. Respiratory: Airway is patent Respiratory effort is even, unlabored, Respiratory pattern is regular, symmetrical. GI: No signs and/or symptoms were reported involving the gastrointestinal system. Abdomen is round non-distended. : No signs and/or symptoms were reported regarding the genitourinary system. EENT: No signs and/or symptoms were reported regarding the EENT system. Derm: Skin is pink, warm \T\ dry. Musculoskeletal: Circulation, motion, and sensation intact. Range of motion: intact in all extremities, Parent/caregiver report the patient having weakness in right arm, left arm, right leg and left leg. Musculoskeletal: 16:00 Reassessment: Patient appears in no apparent distress at this time. No changes from tw2 previously documented assessment. Patient and/or family updated on plan of care and expected duration. Pain level reassessed. Patient is alert, oriented x 3, equal unlabored respirations, skin warm/dry/pink. 16:44 Reassessment: provider at bedside at this time. tw2 17:07 Reassessment: Patient appears in no apparent distress at this time. No changes from tw2 previously documented assessment. Patient and/or family updated on plan of care and expected duration. Pain level reassessed. Patient is alert, oriented x 3, equal unlabored respirations, skin warm/dry/pink. 17:17 Reassessment: Patient appears in no apparent distress at this time. No changes from tw2 previously documented assessment. Patient and/or family updated on plan of care and expected duration. Pain level reassessed. Patient is alert, oriented x 3, equal unlabored respirations, skin warm/dry/pink. Vital Signs: 14:09 BP 129 / 80; Pulse 59; Resp 16 S; Temp 98.6(TE); Pulse Ox 95% on R/A; Weight 92.99 kg ca1 (R); Height 5 ft. 6 in. (167.64 cm) (R); Pain 0/10; 14:21 Pulse 59; Resp 16 S; Temp 98.6(TE); Pulse Ox 95% on R/A; Weight 92.99 kg (R); Height 5 ca1 ft. 6 in. (167.64 cm) (R); 14:45 BP 130 / 77; Pulse 60; Resp 16; Pulse Ox 97% on R/A; tw2 15:30 BP 130 / 2; Pulse 60; Resp 17; Pulse Ox 96% on R/A; tw2 16:00 BP 121 / 67; Pulse 69; Resp 17; Pulse Ox 98% on R/A; tw2 17:07 BP 102 / 91; Pulse 57; Resp 17; Pulse Ox 100% on R/A; tw2 14:21 Body Mass Index 33.09 (92.99 kg, 167.64 cm) ca1 ED Course: 13:50 Patient arrived in ED. ag5 13:50 Tony Velasquez MD is Private Physician. ag5 14:20 Triage completed. ca1 14:23 oJhnathan Saunders MD is Attending Physician. ma2 14:26 Bed in low position. Call light in reach. Side rails up X2. Adult w/ patient. pt back tw2 from CT at this time. 14:28 Arm band placed on right wrist. ca1 14:30 Inserted saline lock: 20 gauge in left antecubital area, using aseptic technique. Blood tw2 collected. 14:33 Debra Sue RN is Primary Nurse. tw2 14:33 Ct Stroke Brain Wo Cont In Process Unspecified. EDMS 17:17 No provider procedures requiring assistance completed. IV discontinued, intact, tw2 bleeding controlled, No redness/swelling at site. Pressure dressing applied. Administered Medications: 14:43 Drug: NS 0.9% 1000 ml Route: IV; Rate: 1 bolus; Site: left antecubital; tw2 16:26 Follow up: Response: No adverse reaction; IV Status: Completed infusion; IV Intake: tw2 1000ml Point of Care Testing: Blood Glucose: 14:41 Blood Glucose: 100 mg/dL; tw2 14:41 Dr. Saunders aware and at bedside at this time. tw2 Ranges: Intake: 16:26 IV: 1000ml; Total: 1000ml. tw2 Outcome: 17:06 Discharge ordered by . ma2 17:17 Patient left the ED. zb 17:17 Discharged to home via wheelchair, with significant other. tw2 17:17 Condition: stable 17:17 Discharge instructions given to patient, significant other, Instructed on discharge instructions, follow up and referral plans. Demonstrated understanding of instructions, follow-up care. Signatures: Dispatcher [employer] EDMS Debra Sue RN RN tw2 Johnathan Saunders MD MD nc2 Pam Zavala RN RN ca1 Neo Middleton ag5 Palak Narayanan RN RN zb Corrections: (The following items were deleted from the chart) 14:29 14:09 Chief complaint: Spouse and/or significant other states: around midnight, he had ca1 a sudden severe headache, it went away. He woke up at about noon today, he was very weak, needs assistance to got to the bathroom which is not normal. He is very lethargic, very weak, having trouble focusing on what he wants to say. Last known well 2358 last night. Previous HX of stroke x 3 ca1
--- NOTE | 2020-04-17 17:40 | EDPHYS ---
Physician Documentation [facility] Name: Rj Galvez Age: 64 yrs Sex: Male : 1955 Arrival Date: 04/17/2020 Time: 13:50 Bed 25 Private MD: Tony Velasquez C ED Physician Johnathan Saunders HPI: 04/17 14:53 This 64 yrs old Male presents to ER via Wheelchair with complaints of General ma2 Weakness. 14:53 Onset: The symptoms/episode began/occurred gradually, since last night. Severity of ma2 symptoms: At their worst the symptoms were moderate in the emergency department the symptoms have improved. The patient has experienced similar episodes in the past. Historical: - Allergies: 14:28 No Known Allergies; ca1 - PMHx: 14:28 CVA; Hyperlipidemia; Hypertension; ca1 - PSHx: 14:28 Tonsillectomy; Appendectomy; eye surgery; ca1 - Immunization history:: Flu vaccine is not up to date. - Social history:: Smoking status: Patient denies any tobacco usage or history of. Patient/guardian denies using alcohol, street drugs, The patient lives with family. - Family history:: not pertinent. ROS: 14:53 Constitutional: Negative for fever, chills, and weight loss. ma2 14:53 All other systems are negative. Exam: 14:53 Constitutional: This is a well developed, well nourished patient who is awake, alert, ma2 and in no acute distress. Head/Face: Normocephalic, atraumatic. Eyes: Pupils equal round and reactive to light, extra-ocular motions intact. Lids and lashes normal. Conjunctiva and sclera are non-icteric and not injected. Cornea within normal limits. Periorbital areas with no swelling, redness, or edema. ENT: Nares patent. No nasal discharge, no septal abnormalities noted. Tympanic membranes are normal and external auditory canals are clear. Oropharynx with no redness, swelling, or masses, exudates, or evidence of obstruction, uvula midline. Mucous membranes moist. Neck: Trachea midline, no thyromegaly or masses palpated, and no cervical lymphadenopathy. Supple, full range of motion without nuchal rigidity, or vertebral point tenderness. No Meningismus. Chest/axilla: Normal chest wall appearance and motion. Nontender with no deformity. No lesions are appreciated. Cardiovascular: Regular rate and rhythm with a normal S1 and S2. No gallops, murmurs, or rubs. Normal PMI, no JVD. No pulse deficits. Respiratory: Lungs have equal breath sounds bilaterally, clear to auscultation and percussion. No rales, rhonchi or wheezes noted. No increased work of breathing, no retractions or nasal flaring. Abdomen/GI: Soft, non-tender, with normal bowel sounds. No distension or tympany. No guarding or rebound. No evidence of tenderness throughout. Back: No spinal tenderness. No costovertebral tenderness. Full range of motion. Skin: Warm, dry with normal turgor. Normal color with no rashes, no lesions, and no evidence of cellulitis. MS/ Extremity: Pulses equal, no cyanosis. Neurovascular intact. Full, normal range of motion. Neuro: has generalized weaknesss however he is Awake and alert, GCS 15, oriented to person, place, time, and situation. Cranial nerves II-XII grossly intact. Motor strength is 5/5 in all extremities distally such as arm spa therapist and foot plantar flextion and extension bilaterally. however there is proximal muscle weakness on all 4 extremties and equal bilaterally.. . Sensory grossly intact. Cerebellar exam normal. Normal gait. Vital Signs: 14:09 BP 129 / 80; Pulse 59; Resp 16 S; Temp 98.6(TE); Pulse Ox 95% on R/A; Weight 92.99 kg ca1 (R); Height 5 ft. 6 in. (167.64 cm) (R); Pain 0/10; 14:21 Pulse 59; Resp 16 S; Temp 98.6(TE); Pulse Ox 95% on R/A; Weight 92.99 kg (R); Height 5 ca1 ft. 6 in. (167.64 cm) (R); 14:45 BP 130 / 77; Pulse 60; Resp 16; Pulse Ox 97% on R/A; tw2 15:30 BP 130 / 2; Pulse 60; Resp 17; Pulse Ox 96% on R/A; tw2 16:00 BP 121 / 67; Pulse 69; Resp 17; Pulse Ox 98% on R/A; tw2 17:07 BP 102 / 91; Pulse 57; Resp 17; Pulse Ox 100% on R/A; tw2 14:21 Body Mass Index 33.09 (92.99 kg, 167.64 cm) ca1 MDM: 14:23 Patient medically screened. ma2 17:04 Differential Diagnosis generalized weakness, dd includes hypokalemia, vs muscle ma2 weakness, vs dehydration and heaache, he has no stroke . Data reviewed: vital signs, nurses notes. Counseling: I had a detailed discussion with the patient and/or guardian regarding: the historical points, exam findings, and any diagnostic results supporting the discharge/admit diagnosis, the presence of at least one elevated blood pressure reading (>120/80) during this emergency department visit, the need for outpatient follow up. Response to treatment: the patient's symptoms have markedly improved after treatment. ED course: discussed with dr. Velasquez he recommends outpatient follow up, patient condition has improved . 17:06 ED course: patient does not want to wait for cpk, . va2 04/17 14:25 Order name: Amylase, Serum va2 04/17 14:25 Order name: Hepatic Function [facility] 04/17 14:25 Order name: Lipase va2 04/17 14:25 Order name: Magnesium [facility] 04/17 14:25 Order name: Troponin (emerg Dept Use Only) [facility] 04/17 14:25 Order name: Basic Metabolic Panel [facility] 04/17 14:25 Order name: CBC with Diff va2 04/17 14:25 Order name: Protime (+inr) va2 04/17 14:25 Order name: Ptt, Activated [facility] 04/17 14:41 Order name: Basic Metabolic Panel; Complete Time: 15:45 EDMS 04/17 14:41 Order name: Liver (Hepatic) Function; Complete Time: 15:45 EDMS 04/17 14:41 Order name: Troponin (Emerg Dept Use Only); Complete Time: 15:45 EDMS 04/17 14:41 Order name: Magnesium; Complete Time: 15:45 EDMS 04/17 14:41 Order name: Amylase; Complete Time: 15:45 EDMS 04/17 14:21 Order name: CT Stroke Brain w/o Contrast ca1 04/17 14:25 Order name: Stroke CXR 1 View va2 04/17 14:25 Order name: EKG; Complete Time: 17:14 [facility] 04/17 14:26 Order name: Ct Stroke Brain Wo Cont; Complete Time: 15:45 EDMS 04/17 14:41 Order name: Lipase; Complete Time: 15:45 EDMS 04/17 14:41 Order name: CBC with Automated Diff; Complete Time: 15:45 EDMS 04/17 14:41 Order name: Protime (+INR); Complete Time: 15:45 EDMS 04/17 14:41 Order name: PTT, Activated Partial Thromb; Complete Time: 15:45 EDMS 04/17 14:41 Order name: Glucose, Ancillary Testing; Complete Time: 15:45 EDMS 04/17 16:39 Order name: CPK [facility] 04/17 16:39 Order name: ESR [facility] 04/17 16:39 Order name: CRP [facility] 04/17 17:02 Order name: Creatine Phosphokinase; Complete Time: 17:06 EDMS 04/17 17:02 Order name: C-Reactive Protein; Complete Time: 17:06 EDMS 04/17 17:08 Order name: Sedimentation Rate, [place] EDMS 04/17 14:25 Order name: Accucheck; Complete Time: 14:33 2 04/17 14:25 Order name: Cardiac monitoring; Complete Time: 14:33 2 04/17 14:25 Order name: EKG - Nurse/Tech; Complete Time: 14:34 2 04/17 14:25 Order name: IV Saline Lock; Complete Time: 14:33 2 04/17 14:25 Order name: Labs collected and sent; Complete Time: 14:34 2 04/17 14:25 Order name: NPO; Complete Time: 14:58 ma2 04/17 14:25 Order name: O2 Per Protocol; Complete Time: 14:34 2 04/17 14:25 Order name: O2 Sat Monitoring; Complete Time: 14:34 2 04/17 14:25 Order name: Stroke Swallow Screen; Complete Time: 14:58 ma2 Administered Medications: 14:43 Drug: NS 0.9% 1000 ml Route: IV; Rate: 1 bolus; Site: left antecubital; tw2 16:26 Follow up: Response: No adverse reaction; IV Status: Completed infusion; IV Intake: tw2 1000ml Point of Care Testing: Blood Glucose: 14:41 Blood Glucose: 100 mg/dL; tw2 14:41 Dr. Saunders aware and at bedside at this time. tw2 Ranges: Critical Glucose Levels:Adult <50 mg/dl or >400 mg/dl <40 mg/dl or >180 mg/dl Disposition: 04/17/20 17:06 Discharged to Home. Impression: Muscle weakness (generalized). - Condition is Stable. - Discharge Instructions: Weakness. - Medication Reconciliation Form, Thank You Letter, Antibiotic Education, Prescription Opioid Use form. - Follow up: Private Physician; When: Tomorrow; Reason: Continuance of care. Signatures: Dispatcher [employer] EDDebra Guzman RN RN tw2 Johnathan Saunders MD MD ma2 Pam Zavala RN RN ca1 Brown, Zipporah, RN RN zb Corrections: (The following items were deleted from the chart) 17:17 17:06 04/17/2020 17:06 Discharged to Home. Impression: Muscle weakness (generalized). zb Condition is Stable. Forms are Medication Reconciliation Form, Thank You Letter, Antibiotic Education, Prescription Opioid Use. Follow up: Private Physician; When: Tomorrow; Reason: Continuance of care. ma2
[2020-04-17 19:52] VITALS: TEMP 98.6
[2020-04-17 20:04] VITALS: BP 102/91; O2SAT 100
--- NOTE | 2020-04-18 12:56 | EKG ---
Test Date: 2020-04-17 Test Time: 14:31:27 Fixed Wing Aircraft Flight Mechanic: YESSY MEASUREMENT RESULTS: Intervals: Rate: 61 WI: 182 QRSD: 84 QT: 428 QTc: 430 [place]: P: 61 WI: 182 QRS: 16 T: 72 INTERPRETIVE STATEMENTS: Atrial-paced rhythm Nonspecific T wave abnormality Abnormal ECG Compared to ECG 10/22/2019 05:29:19 T-wave abnormality now present ST (T wave) deviation no longer present Possible ischemia no longer present Electronically Signed On 04-18-20 12:53:36 INSURANCE FOLLOW UP REPRESENTATIVE by Roger Larry
== END 2020-04-17 17:17 | disposition home or self-care (01) ==
LOC: ER 13:48
DX: M62.81 Muscle weakness (generalized) (principal)
CPT/HCPCS: 96361; 93005; 85025; 80048; 36415; 82150; 83735; 82550; 85610; 82947; 80076; 85730; 85652; 84484; 83690; 86140; 70450; 96360; 99284; J7030

== ENCOUNTER 2020-05-12 11:39 | Inpatient (IN) | payer OTHER ==
--- NOTE | 2020-05-12 12:49 | R.PREADM ---
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 REFERRING PHYSICIAN Campos Toledo REHAB FACILITY [facility] CLINICAL LIAISON Fantasma Porras PHYSICIAN REVIEWER Dr. Nabor Barclay M.D. [facility]# [id number] [id number] NAME YVETTE HERNANDEZ AD[address]ESS [address] [facility] [id number] DATE OF 1955 AGE 64 SSN# [id number] GENDER male MARITAL STATUS RACE white PREF. LANGUAGE (IF NON-LITHUANIAN) Greek ADMIT FROM 02 - [facility] PRE-HOSPITAL LIVING SETTING 01 - Home (private home/apt. board/care, assisted living, m[facility], transitional living) HOME TYPE AND DETAILS Type of home: single family house # of levels in the residence: 1 # of steps to enter the residence: 0 # of steps within the residence: 0 PRE-HOSPITAL LIVING WITH Family/Relatives FAMILY SUPPORT Yes PRIMARY FAMILY CONTACT NAME Zeina Hernandez PRIMARY FAMILY CONTACT PHONE [phone] PRIMARY FAMILY CONTACT RELATIONSHIP Spouse IS PRIMARY FAMILY CONTACT AUTH. REP.? no 1ST EMERGENCY CONTACT Zeina Hernandez 1ST CONTACT PHONE [phone] 1ST CONTACT RELATIONSHIP Spouse IS 1ST CONTACT AUTH. REP.? no PHONE 2ND CONTACT ON ADM.? no PATIENT EMPLOYMENT STATUS Retired (for age) PATIENT EMPLOYER No Employer PAYOR INFORMATION: 1ST PAYOR NAME MEDICARE 1ST PAYOR PHONE 1ST PAYOR INJURY/ILLNESS DUE TO ACCIDENT? No ANOTHER REPUBLICAN RESPONSIBLE? 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 INTERVENTIONS: - N/A CPAP while Sleeping RISK FOR COMPLICATIONS: - N/A DYSARTHRIA Hemiparisis Metabolic encephalopathy Prophylaxis - CAD CHF HX pf CVA x 3 SUMMARY OF ACUTE HOSPITALIZATION: Pt. is a 64 yo Right-handed white male. On 05/08/2020 Pt. presented to [facility] with sudden onset of right-side weakness. On 05/08/2020 he was admitted to [facility] with diagnosis Stroke in dominant Left PICA w/ pe rfusion to the right. His impairment category is Stroke 01 - Right Body (Left Brain) (01.2). Pre-morbidly, Pt. was independent/mod-I in Transfers Control, Locomotion, and Self-Care; and he had g ood Balance, Safety Awareness, Social Cognition, Communication, and Sphincter Control. Currently, he has deficits of Transfers Control, Locomotion, Balance, Safety Awareness, Self-Care, So cial Cognition, and Communication. Pt. is now referred to [facility] for acute in-patient rehabilitation in order to maximize patient's functional independence in activities of daily living, strength, ROM, and mobi lity. Patient has realistic goal of being discharged at assistance level 6-Reina to reside at Home with Fam justyn/Relatives. PAST MEDICAL HISTORY HTN HLD MEDICATION ALLERGIES: statins ENVIRONMENTAL ALLERGIES: None Known - Substance Allergies None Known - Other Allergies None Known CODE STATUS: Full code WEIGHT/HEIGHT/BMI: WEIGHT 220 lbs HEIGHT 5' 5" BMI 36.6 DIET: - Diet Type Regular - Diet - Solid Texture Regular - Diet - Liquid Texture Regular - Tube Feed N/A REVIEW OF SYSTEMS: - Gen Alert and awake Lying in bed No apparent distress Oriented to: person, time, and place - Vital Signs Vital signs stable, afebrile - CVS RRR VITAL SIGNS Temperature: 98.1 F SBP/DBP: 123/67 Pulse: 95 Resp: 14 Vital signs stable, afebrile MEDICATIONS/TREATMENT: Other- See attached MAR (Medication Administration Record). CURRENT SPHINCTER CONTROL: Pre-hospital bladder status: continent # of bladder accidents in the last 7 days prior to screenin Pre-hospital bowel status: continent # of bowel accidents in the last 7 days prior to screenin CURRENT LOCOMOTION STATUS: distance walked 60 feet DETAILED CURRENT FUNCTIONAL STATUS: - Walking score based on distance walked: 2(3469ft) QI SCORES: - Self-Care A. Eating 05-Setup or clean-up assistance B. Oral hygiene 03-Partial/moderate assistance C. Toileting hygiene 03-Partial/moderate assistance E. Shower/bathe self 03-Partial/moderate assistance F. Upper body dressing 03-Partial/moderate assistance G. Lower body dressing 03-Partial/moderate assistance H. Putting on/taking off footwear 03-Partial/moderate assistance - Mobility A. Roll left and right 04-Supervision or touching assistance B. Sit to lying 04-Supervision or touching assistance C. Lying to sitting on side of bed 04-Supervision or touching assistance D. Sit to stand 04-Supervision or touching assistance E. Chair/npj-bg-yaqow transfer 04-Supervision or touching assistance F. Toilet transfer 04-Supervision or touching assistance G. Car transfer 10-Not attempted due to environmental limitations I. Walk 10 feet 04-Supervision or touching assistance J. Walk 50 feet with two turns 04-Supervision or touching assistance K. Walk 150 feet 88-Not attempted due to medical condition or safety concerns L. Walking 10 feet on uneven surfaces 88-Not attempted due to medical condition or safety concerns M. 1 step (curb) 88-Not attempted due to medical condition or safety concerns N. 4 steps 88-Not attempted due to medical condition or safety concerns O. 12 steps 88-Not attempted due to medical condition or safety concerns P. Picking up object 88-Not attempted due to medical condition or safety concerns - Bladder and Bowel Bladder continence Bowel continence - Endurance Poor - Balance Poor - Safety Awareness Poor CURRENT FUNC. DEFICITS: Self-Care, Mobility, Endurance, Balance, and Safety Awareness CURRENT USE ASSISTIVE DEVICES: CPAP HISTORY OF FALLS. HAS THE PATIENT HAD TWO OR MORE FALLS IN THE PAST YEAR OR ANY FALL WITH INJURY IN T HE PAST YEAR?: No PRIOR SURGERY. DID THE PATIENT HAVE MAJOR SURGERY DURING THE 100 DAYS PRIOR TO ADMISSION?: No THERAPY NOTES FROM ACUTE CARE: Attached. SPECIAL NEEDS: - Safety Concerns Skin breakdown precautions needed due to skin breakdown risk PRECAUTIONS: - Weight Bearing Precaution WBAT right LE PATIENT NEEDS ACTIVE AND ONGOING THERAPEUTIC INTERVENTION OF MULTIPLE THERAPY DISCIPLINES, INCLUDING: - Occupational Therapy Cognitive Retraining. Visual Perceptual Training. - Dietary and Nutrition Adequate Nutrition. Nutritional Education. Nutritional Supplements. - Speech Therapy Cognitive Training. Expressive Language Skills. Memory Strategies. Receptive Language Skills. Speech Intelligibility Training. PATIENT NEEDS CLOSE MEDICAL SUPERVISION BY A REHABILITATION PHYSICIAN FOR: Coordination of Treatment Team PATIENT REQUIRES 24X7 REHAB NURSING FOR MEDICAL AND FUNCTIONAL MGT. OF THE FOLLOWING DEFICITS: Disease Management Medication Management Patient/Family Education Providing Safe Environment PATIENT REQUIRES INTENSIVE, COORDINATED INTERDISCIPLINARY APPROACH TO REHAB: Arranging Home Equipment/Services Discharge Planning Family Intervention/Training Silk Brusher/Case Management PATIENT REHAB POTENTIAL: Annette CASTAÑEDA is able and expected to receive 3 hours of individualized therapy daily on at [address] [facility] 5 of every 7 days Annette CASTAÑEDA's prognosis for significant practical improvement within a reasonable period of t dora appears Good Expected level of measurable improvement will be of a practical value to Annette CASTAÑEDA's functi onal capacity or adaptations to impairments Has a viable Discharge Plan Medically appropriate; condition is sufficiently stable to participate in intensive rehab program DISCHARGE PLAN: - Estimated Length of Stay (days) 17. - Consensus on plan Patient/Family is in agreement with the plan. Primary caregiver is in agreement with the plan. - Patient/Family Goals Return home with assistance. - Planned Living Setting Upon Discharge Home, to live with Family/Relatives. RECOMMENDED CARE LEVEL: IRF RECOMMENDATION DETAILS: Recommended Admission to Comprehensive Rehabilitation Program to Increase Functional [place] SCREENER'S COMPLETENESS CONFIRMATION: - Screening Confirmation The patient data collection on this preadmission screening form is finished PHYSICIANS REVIEW AND ADMISSION DETERMINATION Admit - Based on my review of the Pre-Admission Screening results, in my medical judgment and experie nce, I concur with the findings and recommend admission to [facility], as this patient requires an IRF level of care. SIGNATURE PANEL: [employer] - [electronically] signed by Julia Castanon Professor Of Environmental Engineering on 05/12/2020 at 12:40 (CS T) [employer] - [electronically] signed by Zafar Porras PT on 05/12/2020 at 12:42 (ASSEMBLER CAMPER) Physician Reviewer - [electronically] signed by Dr. Nabor Barclay M.D. on 05/12/2020 at 12:47 (ASSEMBLER CAMPER )
--- NOTE | 2020-05-12 17:35 | R.HP ---
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 board/care, assisted living, intermediate, transitional living) PRE-HOSPITAL LIVING WITH Family/Relatives ENCOUNTER PHYSICIAN: Dr. Nabor Barclay M.D. 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 HISTORY OF PRESENT ILLNESS (HPI): Pt. is a 64 yo Right-handed white male. On 05/08/2020 Pt. presented to [facility] with sudden onset of right-side weakness. Right yi tebral artery stenosis. On 05/08/2020 he was admitted to [facility] with diagnosis Stroke in dominant Left PICA w/ pe rfusion to the right. His impairment category is Stroke 01 - Right Body (Left Brain) (01.2). Pre-morbidly, Pt. was independent/mod-I in Transfers Control, Locomotion, and Self-Care; and he had g ood Balance, Safety Awareness, Social Cognition, Communication, and Sphincter Control. Currently, he has deficits of Transfers Control, Locomotion, Balance, Safety Awareness, Self-Care, So cial Cognition, and Communication. Pt. is now referred to [facility] for acute in-patient rehabilitation in order to maximize patient's functional independence in activities of daily living, strength, ROM, and mobi lity. Patient has realistic goal of being discharged at assistance level 6-Reian to reside at Home with Fam justyn/Relatives. MEDICATION ALLERGIES: statins ENVIRONMENTAL ALLERGIES: None Known - Substance Allergies None Known - Other Allergies None Known PAST MEDICAL HISTORY: HTN HLD SOCIAL HISTORY: - Home Living Family/Relatives REVIEW OF SYSTEMS: - Gen No Chills Fatigue No Fever - Eyes No Double Vision No itchiness - ENMT No Difficulty Swallowing - CVS No Chest Discomfort No Chest Pain Fatigue No Weight Gain - Resp No Cough No Shortness of Breath - GI Continent No Abdominal Pain No Constipation No Diarrhea - Continent No Kidney Pain No Painful Urination No Urinary Urgency - MSK No Joint Pain Muscle Cramps Stiffness - Skin No Itching No Rash No Suspicious Lesions - Neuro Coordination Difficulty No Difficulty with Concentration No Memory Loss No Seizures Weakness - Psych No Anxiety No Depression No HIV Exposure No Persistent Infections No Seasonal Allergies - Endo No Cold/Heat Intolerance No Excessive Hunger No Excessive Thirst No Excessive Urination PHYSICAL EXAM - Gen Alert and awake Lying in bed No apparent distress Oriented to: person, time, and place - Vital Signs Vital signs stable, afebrile - Skin No skin breakdown. No abnormalities - Eyes No abnormalities - ENMT No abnormalities - Neck No abnormalities - CVS RRR - Chest No abnormalities - Resp No wheezing - Abd +bowel sounds - GI Soft Deferred - No abnormalities - Ext Mild right lower extremity edema. - MSK 4+/5 weakness in right upper and lower extremities - Neuro 4/5 strength right upper and lower extremities. - Psych Mild depression. VITAL SIGNS Temperature: 98.1 F SBP/DBP: 123/67 Pulse: 95 Resp: 14 NURSING: - Shower allowing shower - Bladder care per protocol - Skin care per protocol PRECAUTIONS: - Weight Bearing Precaution WBAT right LE ACTIVITIES OOB only with supervision QI SCORES: - Self-Care A. Eating 05-Setup or clean-up assistance B. Oral hygiene 03-Partial/moderate assistance C. Toileting hygiene 03-Partial/moderate assistance E. Shower/bathe self 03-Partial/moderate assistance F. Upper body dressing 03-Partial/moderate assistance G. Lower body dressing 03-Partial/moderate assistance H. Putting on/taking off footwear 03-Partial/moderate assistance - Mobility A. Roll left and right 04-Supervision or touching assistance B. Sit to lying 04-Supervision or touching assistance C. Lying to sitting on side of bed 04-Supervision or touching assistance D. Sit to stand 04-Supervision or touching assistance E. Chair/hzg-pc-ebhdz transfer 04-Supervision or touching assistance F. Toilet transfer 04-Supervision or touching assistance G. Car transfer 10-Not attempted due to environmental limitations I. Walk 10 feet 04-Supervision or touching assistance J. Walk 50 feet with two turns 04-Supervision or touching assistance K. Walk 150 feet 88-Not attempted due to medical condition or safety concerns L. Walking 10 feet on uneven surfaces 88-Not attempted due to medical condition or safety concerns M. 1 step (curb) 88-Not attempted due to medical condition or safety concerns N. 4 steps 88-Not attempted due to medical condition or safety concerns O. 12 steps 88-Not attempted due to medical condition or safety concerns P. Picking up object 88-Not attempted due to medical condition or safety concerns - Bladder and Bowel Bladder continence Bowel continence - Endurance Poor - Balance Poor - Safety Awareness Poor CURRENT FUNC. DEFICITS: Self-Care, Mobility, Endurance, Balance, and Safety Awareness MEDICATIONS: - Other See attached MAR (Medication Administration Record) ASSESSMENT: Pt. is a 64 yo Right-handed white male.On 05/08/2020 Pt. presented to [facility] with sudden onset of right-side weakness.On 05/08/2020 he was admitted to [facility] with diagnosis Strok e in dominant Left PICA w/ perfusion to the right.His impairment category is Stroke 01 - Right Body (Left Brain) (01.2).Pre-morbidly, Pt. was independent/mod-I in Transfers Control, Locomotion, and Cecilia f-Care; and he had good Balance, Safety Awareness, Social Cognition, Communication, and Sphincter Con trol.Currently, he has deficits of Transfers Control, Locomotion, Balance, Safety Awareness, Self-Car e, Social Cognition, and Communication.Pt. is now referred to [facility] for a cute in-patient rehabilitation in order to maximize patient's functional independence in activities o f daily living, strength, ROM, and mobility.- Rehab Goal Patient has realistic goal of being discharged at assistance level 6-Reina to reside at Home with Fam justyn/Relatives. REHAB PLAN: for Dementia, TBI, Stroke, or others - Physical Therapy Gait dysfunction - to improve, our physical therapists will perform initial evaluation of pt's status upon admission and devise an individualized program for Gait Training, and Wheel Chair mobility Inability to transfer - to improve, our physical therapists will perform initial evaluation of pt's s tatus upon admission and devise an individualized program for Bed mobility Need for home safety evaluation - to improve, our physical therapists will perform initial evaluation of pt's status upon admission and devise an individualized program for Home Evaluation Need in caregiver upon discharge - to improve, our physical therapists will perform initial evaluatio n of pt's status upon admission and devise an individualized program for Caregiver Training Edema - to improve, our physical therapists will perform initial evaluation of pt's status upon admi ssion and devise an individualized program for Elevation Training, and Lymphedema Therapy New precaution - to improve, our physical therapists will perform initial evaluation of pt's status u lolis admission and devise an individualized program for Patient precaution education Poor balance - to improve, our physical therapists will perform initial evaluation of pt's status upo n admission and devise an individualized program for Balance Training Weakness - to improve, our physical therapists will perform initial evaluation of pt's status upon ad mission and devise an individualized program for Aquatic Therapy, Neuromuscular Reeducation, and Stre ngthening Achieving independence - to improve, our physical therapists will perform initial evaluation of pt's status upon admission and devise an individualized program for Community Reintegration Activities - Occupational Therapy ADL deficits - to improve, our occupation therapists will perform initial evaluation of pt's status u lolis admission and devise an individualized program for Bathing, Bed mobility, Community Reintegration , Cooking, Dressing, Eating, Fine Motor Skills, Grooming, Homemaking, Kitchen Mobility, Laundry, Felipa ent Education, Safety Awareness, Splinting - Positioning, Transfers(Toilet, Tub, Shower), and Wheel C hair Management Cognitive deficits - to improve, our occupation therapists will perform initial evaluation of pt's st atus upon admission and devise an individualized program for Cognition - orientation Need for child care attendant school - to improve, our occupation therapists will perform initial evaluation of pt's s tatus upon admission and devise an individualized program for Caregiver Training Weakness - to improve, our occupation therapists will perform initial evaluation of pt's status upon admission and devise an individualized program for Aquatic Therapy, Balance, Endurance, UE ROM, and U E strengthening MEDICAL PLAN: - Diet Type Start Regular - Diet - Liquid Texture Start Regular - Tube Feed Start N/A - Bladder care per protocol - Weight Bearing Precaution WBAT right LE - Skin care per protocol - Other See attached MAR (Medication Administration Record) - Diet - Solid Texture Regular - Shower shower DISCHARGE PLAN: - Estimated Length of Stay (days) 17. - Consensus on plan Patient/Family is in agreement with the plan. Primary caregiver is in agreement with the plan. - Patient/Family Goals Return home with assistance. - Planned Living Setting Upon Discharge Home, to live with Family/Relatives. 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
--- NOTE | 2020-05-12 17:36 | PAPE ---
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 Nabor Barclay M.D. 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 PATIENT NEEDS CLOSE MEDICAL SUPERVISION BY A REHABILITATION PHYSICIAN FOR: Coordination of Treatment Team PATIENT REQUIRES 24X7 REHAB NURSING FOR MEDICAL AND FUNCTIONAL MGT. OF THE FOLLOWING DEFICITS: Disease Management Medication Management Patient/Family Education Providing Safe Environment PATIENT REQUIRES INTENSIVE, COORDINATED INTERDISCIPLINARY APPROACH TO REHAB: Arranging Home Equipment/Services Discharge Planning Family Intervention/Training Police Cadet/Case Management LIST OF IDENTIFIED AND POTENTIAL PROBLEMS: Alteration in leisure activities Infection, Actual or Potential Mobility Impaired Pain, Alteration in Comfort Self Care Deficit Skin Integrity, Actual or Potential Urinary Tract Infection (UTI), Actual or Potential RISK FOR COMPLICATIONS - N/A DYSARTHRIA. Hemiparisis. Metabolic encephalopathy. Prophylaxis. - CAD CHF. HX pf CVA x 3. INTERVENTIONS - N/A CPAP while Sleeping. PATIENT COULD BE AT RISK FOR COMPLICATIONS FROM ADVERSE MEDICAL CONDITIONS DUE TO HIS/HER COMORBIDITI ES AND THE RIGORS OF THE INTENSIVE REHABILLITATION PROGRAM. METHODS OR INTERVENTIONS TO AVOID COMPLIC ATIONS INCLUDE: - Bleeding Stroke patients assessed for lethargy or change in status. - Infection Clinical staff to assess and manage the signs and symptoms of infection including fever, redness, war mth, etc. - Urinary Tract Infection - Aspiration Clinical staff will assess and manage coughing, drooling, congestion. - Falls Patient will be evaluated for Fall Precautions and will be placed on Fall Precautions as indicated pe r protocol. - Skin Breakdown Nursing will assess skin daily using assessment tool and will place on Skin Breakdown Precautions as indicated per protocol. - Pain Clinical staff may employ non-medication methods such as massage, distraction, decrease stimulus, etc . as needed. Clinical staff will assess patient's pain level every shift per protocol to assess and e nsure pain management effectiveness. Medications will be given and the pain level re-assessed. PRELIMINARY PLAN OF CARE: - Physical Therapy Patient needs Physical Therapy for a daily minimum of 1.5 hours at least 5 out of 7 days, to improve: Mobility, Strengthening, Transfers, Stretching, ROM, Endurance, Ability to manage stairs, Gait, and Balance. - Speech Therapy Patient needs Speech Therapy for a daily minimum of 0.5 hours at least 5 out of 7 days, to improve: S wallowing, Cognition, Language Skills, and Compensatory Strategies. - Rehabilitation Nursing Patient requires 24x7 Rehabilitation Nursing for: Pain Issues, Identifying and preventing risk factor s, Monitoring and reporting current medical conditions, Assisting with ambulation and transfer, Malu ting with all ADL-s, Teaching patients about disease process and medications, Family teaching, Provid ing safe environment, Bowel and Bladder Issues, Skin Integrity, and Medication Management. Patient needs Police Cadet and/or Case Management for: Discharge Planning, Arranging Home Equipmen t or Services, and Family Interventions. - Dietary and Nutrition Services Patient needs Dietary and Nutrition Services for: Adequate Nutrition, Nutritional Supplements, and Nu tritional Education. - Occupational Therapy Patient needs Occupational Therapy for a daily minimum of 1.5 hours at least 5 out of 7 days, to impr ove Activities of Daily Living, including: Eating, Grooming, Bathing, Dressing, Toileting, Toilet Tra nsfers, Community Reintegration, Higher functional activities, Adaptive Equipment, Splinting, Househo ld Tasks, and Other activities as determined. QI SCORES: - Self-Care A. Eating 05-Setup or clean-up assistance B. Oral hygiene 03-Partial/moderate assistance C. Toileting hygiene 03-Partial/moderate assistance E. Shower/bathe self 03-Partial/moderate assistance F. Upper body dressing 03-Partial/moderate assistance G. Lower body dressing 03-Partial/moderate assistance H. Putting on/taking off footwear 03-Partial/moderate assistance - Mobility A. Roll left and right 04-Supervision or touching assistance B. Sit to lying 04-Supervision or touching assistance C. Lying to sitting on side of bed 04-Supervision or touching assistance D. Sit to stand 04-Supervision or touching assistance E. Chair/bgu-hy-coezi transfer 04-Supervision or touching assistance F. Toilet transfer 04-Supervision or touching assistance G. Car transfer 10-Not attempted due to environmental limitations I. Walk 10 feet 04-Supervision or touching assistance J. Walk 50 feet with two turns 04-Supervision or touching assistance K. Walk 150 feet 88-Not attempted due to medical condition or safety concerns L. Walking 10 feet on uneven surfaces 88-Not attempted due to medical condition or safety concerns M. 1 step (curb) 88-Not attempted due to medical condition or safety concerns N. 4 steps 88-Not attempted due to medical condition or safety concerns O. 12 steps 88-Not attempted due to medical condition or safety concerns P. Picking up object 88-Not attempted due to medical condition or safety concerns - Bladder and Bowel Bladder continence Bowel continence - Endurance Poor - Balance Poor - Safety Awareness Poor POTENTIAL FUNCTIONAL GOALS FOR PATIENT TO ACHIEVE BY DISCHARGE: - Safety Precaution Patient will remain free from falls or injury at time of discharge. - Bed Mobility Patient will perform bed mobility at 4-Flaco level of assistance. - Transfers Patient will complete transfers from bed to chair at 4-Flaco level of assistance. - Mobility Patient will ambulate 150 ft with 4-Flaco level of assistance with RW. PATIENT REHAB POTENTIAL Annette CASTAÑEDA is able and expected to receive 3 hours of individualized therapy daily on at [facility] 5 of every 7 days Annette CASTAÑEDA's prognosis for significant practical improvement within a reasonable period of t dora appears Good Expected level of measurable improvement will be of a practical value to Annette CASTAÑEDA's functi onal capacity or adaptations to impairments Has a viable Discharge Plan Medically appropriate; condition is sufficiently stable to participate in intensive rehab program DISCHARGE PLAN: - Estimated Length of Stay (days) 17. - Consensus on plan Patient/Family is in agreement with the plan. Primary caregiver is in agreement with the plan. - Patient/Family Goals Return home with assistance. - Planned Living Setting Upon Discharge Home, to live with Family/Relatives. CONCLUSION ON REHABILITATION NECESSITY: I have evaluated patient's pre-admission functional status and, comparing it to the patient's post-ad mission functional status now, I conclude that the pre-admission assessment was accurate. Patient's c ondition on admission supports the medical necessity of admission to IRF. It is safe to proceed with patient's therapy program. SIGNATURE PANEL: ([facility])
[2020-05-12] MEDS ORDERED: D50W 25 GM/50 ML SYRINGE IV PRN (18:18)
[2020-05-12] MEDS ORDERED: GLUCAGON 1 MG/VIAL IM PRN (18:18)
[2020-05-12] MEDS ORDERED: ACETAMINOPHEN 500 MG TAB PO PRN (18:20)
--- OUTSIDE RECORDS SUMMARY | 2020-05-12 18:22 | XMS REPORT | Continuity of Care Document ---
:1955 Author Organization [facility] t Address [address] [place] [address] Care Team Providers Name Role Phone Boris Velasquez MD Primary Care Physician Juvencio MARTINEZ Attending Clinician Víctor MARTINEZ Attending Clinician Víctor MARTINEZ Attending Clinician JUVENCIO Attending Clinician Unavailable JIAN BANKS Attending Clinician Unavailable JUVENCIO Admitting Clinician Unavailable JIAN BANKS Admitting Clinician Unavailable Payers Payer Name Policy Type Policy Effective Date Expiration Date Sour ce Number MEDICAREMEDICARE A [id number] 2018 BETTIE Cline [id number] 2018- 00:00:00 - Medical PresentMedicare Center MCR [id number] 2019 BETTIE Kelly SUPPLEMENT/INDIVIDUALM 00:00:00 - [facility] [id number] PresentMedigap AETNA - MGD CAREAETNA [id number] 2015 BETTIE Kelly HMO POS 00:00:00 - Medical [id number] Ce nter -PresentHMO/POS Problems Condition Condition Condition [...] Date Stop Date Quantity Comments Source History SDOH [facility] - Alcohol Std Drinks Medica l [place] History SDOH [facility] - Alcohol Binge Medical [address] [facility] Sex Assigned At [facility] kes [place] Tobacco use and 2018-11-03 2018-11-[address] [facility] - exposure 00:00:00 00:00:00 [place] Alcohol intake 2018-11-03 2018-11-[address] [place] [facility] - 00:00:00 00:00:00 non-drinker of Medical Ce nter alcohol (finding) History SDOH 2018-11-02 2018-11-[address] [facility] - Alcohol Frequency 00:00:00 00:00:00 [facility] Smoking Status Start Date Stop Date Source [facility] sm[facility] Medications Ordered Filled Start Stop Current Ordering Indication Dosage Frequency Signature Comments Components Source Medication Medication Date Date Medication? Clinician (SIG) Name Name aspirin 325 2020-0 Yes 325mg QD Take [address] MG tablet 6-01 mg by [facility] - 11:44: mouth Medical 03 daily. [place] ramipril 0 Yes 5mg QD Take 5 mg [facility] [...] QD Place 1 [facility] (BETIMOL) 6-01 drop into [facility] - 0.5 % 11:44: the right Medical ophthalmic [address] solution CHOLECALCIF 2020-0 Yes [id number] Take [facility] K[facility]STINE, 6- 10,000 [facility] - VITAMIN D3, 11:44: Units by Me dical ORAL 03 mouth. [place] fexofenadin 2020-0 Yes 180mg Q.5D Take 180 [...] mouth Medica l 27.5 mg 03 daily. [place] magne- sium (500 mg) tablet omeprazole 2020-0 Yes 20mg QD Take [address] (PRILOSEC) 6-01 by mouth [facility] - 20 MG 11:44: [...] Center Diastolic blood 2019-08-16 12:30:00 78 mm[Hg] S t [facility] Heart rate 2019-08-16 12:30:00 85 /min [facility] Body temperature 2019-08-16 12:30:00 36.67 [facility] Respiratory rate 2019-08-16 12:30:00 18 /min [facility] Oxygen saturation in 2019-08-16 12:30:00 98 /min [facility] - Arterial blood by Medical Ce nter Pulse oximetry Procedures Procedure Date / Time Performed Performing Clinician Richard shirley ARRYTHMIA IMPLANT 2019-10-05 17:46:07 Provider, Default [facility] - REPORT - SCAN Scanning [place] ARRYTHMIA IMPLANT 2019-10-04 16:21:26 Provider, Default [facility] - REPORT - SCAN Scanning [place] ARRYTHMIA IMPLANT 2019-08-23 15:01:37 Provider, Default [facility] - REPORT - SCAN Scanning [place] ARRYTHMIA IMPLANT 2019-08-23 15:01:36 Provider, Default [facility] - REPORT - SCAN Scanning [place] MR BRAIN WITHOUT IV 2019-08-16 12:17:00 Evert R[facility] CONTRAST [place] Plan of Care Planned Activity Planned Date Details Comments Source Future Scheduled 2021-09-[address] [facility] - Test 00:00:00 (procedure) [code = Medical Center 95543568] Future Scheduled 2019-12-[address] [...] 00:00:00 (1 of 1 - Medical Center [id number] PCV13) [code = PNEUMOCOCCAL 65+ YRS (1 of 1 - [id number] PCV13)] Future Scheduled 1972 HEPATITIS C SCREENING [...] of Medica Center colon (procedure) [code = 057522907] Encounters Start End Encounter Admission Attending Care Care Encounter Source Date/Time Date/Time Type Type Clinicians Facility Department ID 2020-05-05 2020-05-05 Outpatient [facility] [address] [facility] 14:31:00 14:31:00 l Hu Elayne [place] 2019-11-16 2019-11-16 Office JANNY Mohamud [id number] 14:31:36 15:01:36 Visit Anoop AMBULATOR 350.1.13.21 Y 0.2.7.2.686 [id number] 2019-08-23 2019-08-23 Office Víctor [facility] [id number] 15:35:38 16:57:39 Visit Evert AMBULATOR 350.1.13.21 Y 0.2.7.2.686 [id number] 2018-10-22 2018-10-22 Office Juvencio [facility] [id number] 08:01:15 08:31:15 Visit Anoop AMBULATOR 350.1.13.21 Y 0.2.7.2.686 [id number] Results Test Description Test Time Test Comments Results Result [facility] e Comments MR brain without 2019-08-16 Interface, External [facility] IV contrast 12:15:00 Ris In - 08/16/2019 - Ne dical 12:[address] [facility] Center REPORT MR, BRAIN, WITHOUT CONTRAST INDICATION: [...] Meza Verified Date/Time: 08/16/2019 12:15:18 Reading Location: [facility] Radiology Reading Room , BRAIN, 2019-08-16 FINAL REPORT PATIENT WITHOUT CONTRAST 12:15:00 ID: [id number] MR, BRAIN, WITHOUT CONTRAST INDICATION: R42 TECHNIQUE: [...] Meza Verified Date/Time: 08/16/2019 12:15:18 Reading Location: [facility] Radiology Reading Room C METABOLIC PANEL 2018-11-03 [...] NOT 1092) ACCURATE CRE ATININE CLEARANCE IN ND EDICTING GLOMERULAR FILT RATION RATE. ESTIMATED GFR IS NOT APPLICABLE FOR DIALYSIS PATIENTS. CBC W/PLT COUNT & AUTO [id number] 05:45:00 Test Item Value Reference Range Interpretation [...] = 2801) RAD, CHEST, 1 VIEW, NON [id number] 04:56:00Reason for exam:->Post device placementShould this be [...] 11/03/2018 04:56:03 RAD, CHEST, 1 VIEW, NON [id number] 15:54:00Reason for exam:->post device placementShould this be performed at the bedside?->YesFINAL REPORT INDICATION: post device placement COMPARISON: None TECHNIQUE: Single frontal view of the chest. FINDINGS: Lungs and pleura: Clear lungs. No effusion.Heart and mediastinum: Normal heart size. Unremarkable mediastinal contours.Osseous structures: No acute abnormality.Other: None. IMPRESSION: No acute intrathoracic abnormality. No pneumothorax. Signed: Marsha Meza Verified Date/Time: 11/02/2018 15:54:40 Reading Location: [facility] Radiology ReadingRoom C METABOLIC [id number] 08:29:00 Test Item Value Reference Range Interpretation [...] NOT APPLICABLE FOR DIALYSIS PATIEN TS. PROTHROMBIN [id number] 08:26:00 Test Item Value Reference Range Interpretation [...] (BEAKER) (test code = 413) BASIC METABOLIC [id number] 14:11:00 Test Item Value Reference Range Interpretation [...] NOT APPLICABLE FOR DIALYSIS PATIEN TS. PROTHROMBIN [id number] 14:03:00 Test Item Value Reference Range Interpretation [...] (test code = 413) EEG AWAKE/ASLEEP AND [id number] 16:31:00Reason for exam:->Rule out seizuresShould this be performed at the bedside?->YesDate(s) of EE09/22/2018 DATE OF REPORT: 09/22/2018 ACC: [id number] EEG Number: [id number] Test Lo cation: Inpatient ICU Start time: 09/22/18 09:26 Stop time: 09/22/18 09:47 ICD-10: R53.1 CPT Code: 05161 HISTORY: 63 y.o. male with hypertension, diabetes [...] its interpretation. Zac Galarza MD Attending Neurophysiologist [facility] METABOLIC [id number] 11:14:00 Test Item Value Reference Range Interpretation [...] PATIEN TS. CBC W/PLT COUNT & AUTO [id number] 10:58:00 Test Item Value Reference Range Interpretation [...] EOSINOPHILS ABSOLUTE COUNT 0.27 K/ L 0.04-0.54 (COSME) (test code = 416) BASOPHILS ABSOLUTE COUNT (BEAKER) 0.04 K/ L 0.01-0.08 (test code = 417) IMMATURE GRANULOCYTES-RELATIVE 0 % 0-1 PERCENT (COSME) (test code = 2801) POCT-GLUCOSE [id number] 17:13:00 Test Item Value Reference Range Interpretation Comments POC-GLUCOSE METER 98 mg/dL 70-110 TESTED AT [facility] 6720 (COSME) (test code = HARDIK Mccauley [facility] [address] 1538) MR, BRAIN, WITHOUT [id number] 10:52:00FINAL REPORT MRI Brain without contrast Clinical [...] striatum and thalamocapsular junction. Signed: Scott Holm MDReport Verified Date/Time: 09/21/2018 10:52:51 Reading Location: [address] Neuro Reading Room HEMOGLOBIN [id number] 09:04:00 Test Item Value Reference Range Interpretation Comments HEMOGLOBIN A1C (COSME) (test code = 5.2 % 4.3-6.1 368) TSH/FREE T4 IF [id number] 06:44:00 Test Item Value Reference Range Interpretation Comments THYROID STIMULATING HORMONE 1.64 uIU/mL 0.35-4.94 (COSME) (test code = 772) VITAMIN B12 AND [id number] 06:44:00 Test Item Value Reference Range Interpretation Comments VITAMIN B12 (BEAKER) (test code = 643 pg/mL 213-816 774) FOLATE (BEAKER) (test code = 362) 16.6 ng/mL >=7.0 LIPID [id number] 05:30:00 Test Item Value Reference Range Interpretation [...] 130-159 High 160-189 Very High >=190BASIC METABOLIC [id number] 05:30:00 Test Item Value Reference Range Interpretation [...] NOT APPLICABLE FOR DIALYSIS PATIEN TS. C-REACTIVE [id number] 05:30:00 Test Item Value Reference Range Interpretation Comments C-REACTIVE PROTEIN (BEAKER) (test 0.10 mg/dL 0.00-0.50 code = 676) CBC W/PLT COUNT & AUTO [id number] 04:09:00 Test Item Value Reference Range Interpretation [...] 417) IMMATURE GRANULOCYTES-RELATIVE 0 % 0-1 PERCENT (GenieTownAKER) (test code = 2801)
[2020-05-12] MEDS ORDERED: APIXABAN 2.5 MG TABLET PO SCH (20:00)
[2020-05-12] MEDS: INSULIN -REGULAR HUMAN 50 UNIT/0.5 ML ML SQ SCH (20:25)
[2020-05-12 20:42] LABS: Urine Appearance CLEAR; Urine Bilirubin NEGATIVE (NEG); Urine Blood NEGATIVE (NEG); Urine Color YELLOW; Urine Glucose NEGATIVE (NEG); Urine Protein NEGATIVE (NEG); Urine Specific Gravity 1.015 (1.005-1.030)
[2020-05-12 20:45] LABS: Urine Microscopic Reflex NO UMIC
[2020-05-12] MEDS: BIMATOPROST OPTH SCH (21:00)
[2020-05-12] MEDS: APIXABAN 5 MG TABLET PO SCH (21:25)
[2020-05-13 06:15] LABS: Absolute Lymphocytes (CBC) 2.6 K/uL (0.7-4.9); Basophils % 0.9 % (0-1.3); Hematocrit 44.3 % (39.6-49.0); Lymphocytes % 26.1 % (15.3-44.8); MPV 7.7 fL (7.6-11.3); RBC Red Blood Cell Count 5.41 M/uL (4.33-5.43)
[2020-05-13 06:31] LABS: Albumin 3.4 g/dL (3.4-5.0); Potassium 4.2 mmol/L (3.5-5.1)
[2020-05-13] MEDS: INSULIN -REGULAR HUMAN 50 UNIT/0.5 ML ML SQ SCH ×4 (06:35→19:47)
[2020-05-13] MEDS: ASPIRIN EC 81 MG TAB PO SCH (08:11)
[2020-05-13] MEDS: APIXABAN 5 MG TABLET PO SCH ×2 (08:11→19:47)
[2020-05-13] MEDS: DULOXETINE 20 MG CAP PO SCH (08:12)
[2020-05-13] MEDS ORDERED: REPATHA SURECLICK 140 MG/ML SQ SCH (09:00)
[2020-05-13] MEDS: TIMOLOL 0.5% SCH (10:00)
[2020-05-13] MEDS: OPTH OPTH SCH ×2 (10:00→19:48)
--- NOTE | 2020-05-13 10:30 | FAST ---
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 Nabor Barclay M.D. ADMISSION DIAGNOSIS: - Stroke 01 - Right Body (Left Brain) (01.2) Stroke in dominant Left PICA w/ perfusion to the right. ROLL LEFT AND RIGHT: ROLL LEFT AND RIGHT - STEP 1: Does the patient complete the activity by him/herself with no assistance (physical, verbal/nonverbal cueing, setup/clean-up)? No. ROLL LEFT AND RIGHT - STEP 2: Does the patient need only setup/clean-up assistance from one helper? Yes. 1. [id number] ADMISSION PERFORMANCE: Setup or clean-up assistance CODE: 05 SIT TO LYING: SIT TO LYING - STEP 1: Does the patient complete the activity by him/herself with no assistance (physical, verbal/nonverbal cueing, setup/clean-up)? No. SIT TO LYING - STEP 2: Does the patient need only setup/clean-up assistance from one helper? No. SIT TO LYING - STEP 3: Does the patient need only verbal/nonverbal cueing or touching/steadying/contact guard assistance fro m one helper? Yes. 1. [id number] ADMISSION PERFORMANCE: Supervision or touching assistance CODE: 04 LYING TO SITTING: LYING TO SITTING ON SIDE OF BED - STEP 1: Does the patient complete the activity by him/herself with no assistance (physical, verbal/nonverbal cueing, setup/clean-up)? No. LYING TO SITTING ON SIDE OF BED - STEP 2: Does the patient need only setup/clean-up assistance from one helper? No. LYING TO SITTING ON SIDE OF BED - STEP 3: Does the patient need only verbal/nonverbal cueing or touching/steadying/contact guard assistance fro m one helper? Yes. 1. [id number] ADMISSION PERFORMANCE: Supervision or touching assistance CODE: 04 SIT TO STAND: SIT TO STAND - STEP 1: Does the patient complete the activity by him/herself with no assistance (physical, verbal/nonverbal cueing, setup/clean-up)? No. SIT TO STAND - STEP 2: Does the patient need only setup/clean-up assistance from one helper? No. SIT TO STAND - STEP 3: Does the patient need only verbal/nonverbal cueing or touching/steadying/contact guard assistance fro m one helper? Yes. 1. [id number] ADMISSION PERFORMANCE: Supervision or touching assistance CODE: 04 TRANSFERS: BED, CHAIR: CHAIR/[id number] TRANSFER - STEP 1: Does the patient complete the activity by him/herself with no assistance (physical, verbal/nonverbal cueing, setup/clean-up)? No. CHAIR/[id number] TRANSFER - STEP 2: Does the patient need only setup/clean-up assistance from one helper? No. CHAIR/[id number] TRANSFER - STEP 3: Does the patient need only verbal/nonverbal cueing or touching/steadying/contact guard assistance fro m one helper? Yes. 1. [id number] ADMISSION PERFORMANCE: Supervision or touching assistance CODE: 04 TRANSFER TOILET: TOILET TRANSFER - STEP 1: Does the patient complete the activity by him/herself with no assistance (physical, verbal/nonverbal cueing, setup/clean-up)? No. TOILET TRANSFER - STEP 2: Does the patient need only setup/clean-up assistance from one helper? No. TOILET TRANSFER - STEP 3: Does the patient need only verbal/nonverbal cueing or touching/steadying/contact guard assistance fro m one helper? Yes. 1. [id number] ADMISSION PERFORMANCE: Supervision or touching assistance CODE: 04 TRANSFERS: CAR: CAR TRANSFER - STEP 1: Does the patient complete the activity by him/herself with no assistance (physical, verbal/nonverbal cueing, setup/clean-up)? No. CAR TRANSFER - STEP 2: Does the patient need only setup/clean-up assistance from one helper? No. CAR TRANSFER - STEP 3: Does the patient need only verbal/nonverbal cueing or touching/steadying/contact guard assistance fro m one helper? No. CAR TRANSFER - STEP 4: Does the patient need physical assistance - for example lifting or trunk support from one helper - wi th the helper providing less than half of the effort? Yes. 1. [id number] ADMISSION PERFORMANCE: Partial/moderate assistance CODE: 03 [id number] - COMMENTS: Simulating [employer] with a step and grab bar on R side upon climbing up WALK 10 FEET: WALK 10 FEET - STEP 1: Does the patient complete the activity by him/herself with no assistance (physical, verbal/nonverbal cueing, setup/clean-up)? No. WALK 10 FEET - STEP 2: Does the patient need only setup/clean-up assistance from one helper? No. WALK 10 FEET - STEP 3: Does the patient need only verbal/nonverbal cueing or touching/steadying/contact guard assistance fro m one helper? Yes. 1. [id number] ADMISSION PERFORMANCE: Supervision or touching assistance CODE: [id number] - COMMENTS: TUG ave 24 seconds without AD SBA/CGA WALK 50 FEET: WALK 50 FEET - STEP 1: Does the patient complete the activity by him/herself with no assistance (physical, verbal/nonverbal cueing, setup/clean-up)? No. WALK 50 FEET - STEP 2: Does the patient need only setup/clean-up assistance from one helper? No. WALK 50 FEET - STEP 3: Does the patient need only verbal/nonverbal cueing or touching/steadying/contact guard assistance fro m one helper? Yes. 1. [id number] ADMISSION PERFORMANCE: Supervision or touching assistance CODE: WALK 150 FEET: WALK 150 FEET - STEP 1: Does the patient complete the activity by him/herself with no assistance (physical, verbal/nonverbal cueing, setup/clean-up)? No. WALK 150 FEET - STEP 2: Does the patient need only setup/clean-up assistance from one helper? No. WALK 150 FEET - STEP 3: Does the patient need only verbal/nonverbal cueing or touching/steadying/contact guard assistance fro m one helper? Yes. 1. [id number] ADMISSION PERFORMANCE: Supervision or touching assistance CODE: WALK 10 FEET UNEVEN: WALKING 10 FEET ON UNEVEN SURFACES - STEP 1: Does the patient complete the activity by him/herself with no assistance (physical, verbal/nonverbal cueing, setup/clean-up)? No. WALKING 10 FEET ON UNEVEN SURFACES - STEP 2: Does the patient need only setup/clean-up assistance from one helper? No. WALKING 10 FEET ON UNEVEN SURFACES - STEP 3: Does the patient need only verbal/nonverbal cueing or touching/steadying/contact guard assistance fro m one helper? Yes. 1. [id number] ADMISSION PERFORMANCE: Supervision or touching assistance CODE: 04 1 STEP (CURB): 1 STEP CURB - STEP 1: Does the patient complete the activity by him/herself with no assistance (physical, verbal/nonverbal cueing, setup/clean-up)? No. 1 STEP CURB - STEP 2: Does the patient need only setup/clean-up assistance from one helper? No. 1 STEP CURB - STEP 3: Does the patient need only verbal/nonverbal cueing or touching/steadying/contact guard assistance fro m one helper? Yes. 1. [id number] ADMISSION PERFORMANCE: Supervision or touching assistance CODE: 04 4 STEPS: 4 STEPS - STEP 1: Does the patient complete the activity by him/herself with no assistance (physical, verbal/nonverbal cueing, setup/clean-up)? No. 4 STEPS - STEP 2: Does the patient need only setup/clean-up assistance from one helper? No. 4 STEPS - STEP 3: Does the patient need only verbal/nonverbal cueing or touching/steadying/contact guard assistance fro m one helper? Yes. 1. [id number] ADMISSION PERFORMANCE: Supervision or touching assistance CODE: 04 12 STEPS: 12 STEPS - STEP 1: Does the patient complete the activity by him/herself with no assistance (physical, verbal/nonverbal cueing, setup/clean-up)? No. 12 STEPS - STEP 2: Does the patient need only setup/clean-up assistance from one helper? No. 12 STEPS - STEP 3: Does the patient need only verbal/nonverbal cueing or touching/steadying/contact guard assistance fro m one helper? Yes. 1. [id number] ADMISSION PERFORMANCE: Supervision or touching assistance CODE: 04 [id number] - COMMENTS: Alternating step asc/desc with stair rail B sides PICKING UP OBJECT: PICKING UP OBJECT - STEP 1: Does the patient complete the activity by him/herself with no assistance (physical, verbal/nonverbal cueing, setup/clean-up)? No. PICKING UP OBJECT - STEP 2: Does the patient need only setup/clean-up assistance from one helper? No. PICKING UP OBJECT - STEP 3: Does the patient need only verbal/nonverbal cueing or touching/steadying/contact guard assistance fro m one helper? Yes. 1. [id number] ADMISSION PERFORMANCE: Supervision or touching assistance CODE: 04 DOES THE PATIENT USE A WHEELCHAIR/SCOOTER? Q1. DOES THE PATIENT USE A WHEELCHAIR/SCOOTER?: Yes CODE: 1 WHEEL 50 FEET WITH TWO TURNS: WHEEL 50 FEET WITH TWO TURNS - STEP 1: Does the patient complete the activity by him/herself with no assistance (physical, verbal/nonverbal cueing, setup/clean-up)? No. WHEEL 50 FEET WITH TWO TURNS - STEP 2: Does the patient need only setup/clean-up assistance from one helper? Yes. 1. [id number] ADMISSION PERFORMANCE: Setup or clean-up assistance CODE: 05 INDICATE THE TYPE OF WHEELCHAIR/SCOOTER USED: RR1. INDICATE THE TYPE OF WHEELCHAIR/SCOOTER USED.: Manual CODE: 1 WHEEL 150 FEET: WHEEL 150 FEET - STEP 1: Does the patient complete the activity by him/herself with no assistance (physical, verbal/nonverbal cueing, setup/clean-up)? No. WHEEL 150 FEET - STEP 2: Does the patient need only setup/clean-up assistance from one helper? Yes. 1. [id number] ADMISSION PERFORMANCE: Setup or clean-up assistance CODE: 05 INDICATE THE TYPE OF WHEELCHAIR/SCOOTER USED: SS1. INDICATE THE TYPE OF WHEELCHAIR/SCOOTER USED.: Manual CODE: 1 BLADDER AND BOWEL: CODE: EXPR CODE: EXPR SIGNATURE PANEL: The following modified sections: 1. [id number] Admission Performance, 1. [id number] Admission Performance, 1. [id number] Admission Performance, 1. [id number] Admission Performance, 1. [id number] Admission Performance, 1. [id number] Admission Performance, 1. [id number] Admission Performance, 1. WT2400Y Admission Performance , OR2254I - Comments:, 1. RF8998N Admission Performance, 1. MA5486Y Admission Performance, [id number] - Comments:, 1. [id number] Admission Performance, 1. WE2100R Admission Performance, 1. KB0237C Admission P erformance, 1. HQ1610T Admission Performance, 1. YQ2045X Admission Performance, [id number] - Comments:, 1. FF1124L Admission Performance, Q1. Does the patient use a wheelchair/scooter?, 1. LR4558V Admissio n Performance, RR1. Indicate the type of wheelchair/scooter used., 1. [id number] Admission Performance, Code, SS1. Indicate the type of wheelchair/scooter used. were [electronically] signed by Bob pierce on Sat May 13 2020 10:29:43 GMT-0600 (Central Standard Time)
[2020-05-13] MEDS ORDERED: D50W 25 GM/50 ML VIAL IV PRN (11:18)
--- NOTE | 2020-05-13 17:21 | FAST ---
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 Nabor Barclay M.D. ADMISSION DIAGNOSIS: - Stroke 01 - Right Body (Left Brain) (01.2) Stroke in dominant Left PICA w/ perfusion to the right. EATING: EATING - STEP 1: Does the patient complete the activity by him/herself with no assistance (physical, verbal/nonverbal cueing, setup/clean-up)? No. EATING - STEP 2: Does the patient need only setup/clean-up assistance from one helper? Yes. 1. [id number] ADMISSION PERFORMANCE: Setup or clean-up assistance CODE: 05 ORAL HYGIENE: ORAL HYGIENE - STEP 1: Does the patient complete the activity by him/herself with no assistance (physical, verbal/nonverbal cueing, setup/clean-up)? No. ORAL HYGIENE - STEP 2: Does the patient need only setup/clean-up assistance from one helper? Yes. 1. [id number] ADMISSION PERFORMANCE: Setup or clean-up assistance CODE: 05 TOILETING HYGIENE: TOILETING HYGIENE - STEP 1: Does the patient complete the activity by him/herself with no assistance (physical, verbal/nonverbal cueing, setup/clean-up)? No. TOILETING HYGIENE - STEP 2: Does the patient need only setup/clean-up assistance from one helper? No. TOILETING HYGIENE - STEP 3: Does the patient need only verbal/nonverbal cueing or touching/steadying/contact guard assistance fro m one helper? Yes. 1. [id number] ADMISSION PERFORMANCE: Supervision or touching assistance CODE: 04 BATHING: Not assessed/no information CODE: - DRESSING - UPPER BODY: DRESSING - UPPER BODY - STEP 1: Does the patient complete the activity by him/herself with no assistance (physical, verbal/nonverbal cueing, setup/clean-up)? No. DRESSING - UPPER BODY - STEP 2: Does the patient need only setup/clean-up assistance from one helper? Yes. 1. [id number] ADMISSION PERFORMANCE: Setup or clean-up assistance CODE: 05 DRESSING - LOWER BODY: DRESSING - LOWER BODY - STEP 1: Does the patient complete the activity by him/herself with no assistance (physical, verbal/nonverbal cueing, setup/clean-up)? No. DRESSING - LOWER BODY - STEP 2: Does the patient need only setup/clean-up assistance from one helper? No. DRESSING - LOWER BODY - STEP 3: Does the patient need only verbal/nonverbal cueing or touching/steadying/contact guard assistance fro m one helper? Yes. 1. [id number] ADMISSION PERFORMANCE: Supervision or touching assistance CODE: 04 PUTTING ON/TAKING OFF FOOTWEAR: FOOTWEAR - STEP 1: Does the patient complete the activity by him/herself with no assistance (physical, verbal/nonverbal cueing, setup/clean-up)? No. FOOTWEAR - STEP 2: Does the patient need only setup/clean-up assistance from one helper? No. FOOTWEAR - STEP 3: Does the patient need only verbal/nonverbal cueing or touching/steadying/contact guard assistance fro m one helper? Yes. 1. [id number] ADMISSION PERFORMANCE: Supervision or touching assistance CODE: 04 ROLL LEFT AND RIGHT: ROLL LEFT AND RIGHT - STEP 1: Does the patient complete the activity by him/herself with no assistance (physical, verbal/nonverbal cueing, setup/clean-up)? No. ROLL LEFT AND RIGHT - STEP 2: Does the patient need only setup/clean-up assistance from one helper? No. ROLL LEFT AND RIGHT - STEP 3: Does the patient need only verbal/nonverbal cueing or touching/steadying/contact guard assistance fro m one helper? Yes. 1. [id number] ADMISSION PERFORMANCE: Supervision or touching assistance CODE: 04 SIT TO LYING: SIT TO LYING - STEP 1: Does the patient complete the activity by him/herself with no assistance (physical, verbal/nonverbal cueing, setup/clean-up)? No. SIT TO LYING - STEP 2: Does the patient need only setup/clean-up assistance from one helper? No. SIT TO LYING - STEP 3: Does the patient need only verbal/nonverbal cueing or touching/steadying/contact guard assistance fro m one helper? Yes. 1. [id number] ADMISSION PERFORMANCE: Supervision or touching assistance CODE: 04 LYING TO SITTING: LYING TO SITTING ON SIDE OF BED - STEP 1: Does the patient complete the activity by him/herself with no assistance (physical, verbal/nonverbal cueing, setup/clean-up)? No. LYING TO SITTING ON SIDE OF BED - STEP 2: Does the patient need only setup/clean-up assistance from one helper? No. LYING TO SITTING ON SIDE OF BED - STEP 3: Does the patient need only verbal/nonverbal cueing or touching/steadying/contact guard assistance fro m one helper? Yes. 1. [id number] ADMISSION PERFORMANCE: Supervision or touching assistance CODE: 04 SIT TO STAND: SIT TO STAND - STEP 1: Does the patient complete the activity by him/herself with no assistance (physical, verbal/nonverbal cueing, setup/clean-up)? No. SIT TO STAND - STEP 2: Does the patient need only setup/clean-up assistance from one helper? No. SIT TO STAND - STEP 3: Does the patient need only verbal/nonverbal cueing or touching/steadying/contact guard assistance fro m one helper? Yes. 1. [id number] ADMISSION PERFORMANCE: Supervision or touching assistance CODE: 04 TRANSFERS: BED, CHAIR: CHAIR/[id number]-[id number] TRANSFER - STEP 1: Does the patient complete the activity by him/herself with no assistance (physical, verbal/nonverbal cueing, setup/clean-up)? No. CHAIR/[id number] TRANSFER - STEP 2: Does the patient need only setup/clean-up assistance from one helper? No. CHAIR/[id number] TRANSFER - STEP 3: Does the patient need only verbal/nonverbal cueing or touching/steadying/contact guard assistance fro m one helper? Yes. 1. [id number] ADMISSION PERFORMANCE: Supervision or touching assistance CODE: 04 TRANSFER TOILET: TOILET TRANSFER - STEP 1: Does the patient complete the activity by him/herself with no assistance (physical, verbal/nonverbal cueing, setup/clean-up)? No. TOILET TRANSFER - STEP 2: Does the patient need only setup/clean-up assistance from one helper? No. TOILET TRANSFER - STEP 3: Does the patient need only verbal/nonverbal cueing or touching/steadying/contact guard assistance fro m one helper? No. TOILET TRANSFER - STEP 4: Does the patient need physical assistance - for example lifting or trunk support from one helper - wi th the helper providing less than half of the effort? Yes. 1. [id number] ADMISSION PERFORMANCE: Partial/moderate assistance CODE: 03 TRANSFERS: CAR: Not assessed/no information CODE: - WALK 10 FEET: Not assessed/no information CODE: - WALK 50 FEET: Not assessed/no information CODE: - WALK 150 FEET: Not assessed/no information CODE: - WALK 10 FEET UNEVEN: Not assessed/no information CODE: - 1 STEP (CURB): Not assessed/no information CODE: - 4 STEPS: Not assessed/no information CODE: - 12 STEPS: Not assessed/no information CODE: - PICKING UP OBJECT: Not assessed/no information CODE: - DOES THE PATIENT USE A WHEELCHAIR/SCOOTER? Q1. DOES THE PATIENT USE A WHEELCHAIR/SCOOTER?: Yes CODE: 1 WHEEL 50 FEET WITH TWO TURNS: WHEEL 50 FEET WITH TWO TURNS - STEP 1: Does the patient complete the activity by him/herself with no assistance (physical, verbal/nonverbal cueing, setup/clean-up)? No. WHEEL 50 FEET WITH TWO TURNS - STEP 2: Does the patient need only setup/clean-up assistance from one helper? No. WHEEL 50 FEET WITH TWO TURNS - STEP 3: Does the patient need only verbal/nonverbal cueing or touching/steadying/contact guard assistance fro m one helper? Yes. 1. [id number] ADMISSION PERFORMANCE: Supervision or touching assistance CODE: 04 INDICATE THE TYPE OF WHEELCHAIR/SCOOTER USED: RR1. INDICATE THE TYPE OF WHEELCHAIR/SCOOTER USED.: Manual CODE: 1 WHEEL 150 FEET: WHEEL 150 FEET - STEP 1: Does the patient complete the activity by him/herself with no assistance (physical, verbal/nonverbal cueing, setup/clean-up)? No. WHEEL 150 FEET - STEP 2: Does the patient need only setup/clean-up assistance from one helper? No. WHEEL 150 FEET - STEP 3: Does the patient need only verbal/nonverbal cueing or touching/steadying/contact guard assistance fro m one helper? Yes. 1. [id number] ADMISSION PERFORMANCE: Supervision or touching assistance CODE: 04 INDICATE THE TYPE OF WHEELCHAIR/SCOOTER USED: SS1. INDICATE THE TYPE OF WHEELCHAIR/SCOOTER USED.: Manual CODE: 1 BLADDER AND BOWEL: H350. BLADDER CONTINENCE (3-DAY ASSESSMENT PERIOD): Always continent (no documented incontinence) CODE: 0 H400. BOWEL CONTINENCE (3-DAY ASSESSMENT PERIOD): Always continent CODE: 0 SIGNATURE PANEL: The following modified sections: 1. [id number] Admission Performance, 1. [id number] Admission Performance, 1. [id number] Admission Performance, 1. ZS3068y Admission Performance, 1. XF8963z Admission Performance, 1. PJ5698b Admission Performance, 1. MI1532p Admission Performance, 1. KW6004C Admission Performance , 1. SL9735B Admission Performance, 1. YM3949G Admission Performance, 1. [id number] Admission Performanc e, 1. JH2485O Admission Performance, 1. VQ7914V Admission Performance, Q1. Does the patient use a whe elchair/scooter?, 1. [id number] Admission Performance, RR1. Indicate the type of wheelchair/scooter used ., 1. MI1750C Admission Performance, Code, SS1. Indicate the type of wheelchair/scooter used., H350. Bladder Continence (3-day assessment period), H400. Bowel Continence (3-day assessment period) were [ electronically] signed by Antonette Morrison C.N.A. on Sat May 13 2020 17:20:34 GMT-0600 (Central Standard Time)
[2020-05-13] MEDS: [UNRECOGNIZED DRUG - OTHER] OPTH SCH (19:48)
[2020-05-13] MEDS: BIMATOPROST OPTH SCH (19:51)
[2020-05-14] MEDS: TIMOLOL 0.5% SCH (07:29)
[2020-05-14] MEDS: OPTH OPTH SCH ×2 (07:29→20:52)
--- NOTE | 2020-05-14 07:51 | CON ---
History Of Present Illness: Mr. Galvez is a 64-year-old white male. He is very well known to me f rom previous office visits and admissions. He has had 3 different strokes, the last 1 was on 021. He had gone to [facility]. No significant positive workup. He is now in the rehab. He has right-sided weakness. Again, this is the third stroke. He has a history of hypertension, dyslip idemia, coronary artery disease status post LAD stent in October of 2019. He is in rehab. He is asym ptomatic now. He is on Eliquis, aspirin, and Repatha. The patient was [facility]. He was seen on 05/13/2020. Allergies: NONE. Review of Systems: Negative. Social History: Negative. Family History: Negative. Physical Examination: Vital Signs: Stable. He was afebrile. Blood pressure is 150/80s. HEENT: Negative. Neck: Supple with no bruit. Chest: Clear. Cardiac: Revealed regular rhythm and rate. No murmurs, gallops, or rubs. Abdomen: Benign. Extremities: Revealed no clubbing, cyanosis, or edema. Diagnostic Data: Unremarkable except for a glucose of 141. EKG was unavailable during this admissio n. Impression And Plan: 1.History of coronary artery disease, status post PCI in October of 2019. No cardiac symptoms. 2.Hypertension. 3.Dyslipidemia. 4.Multiple cerebrovascular accidents. The patient is already on Repatha, Eliquis and aspirin. This is really a maximum therapy for his cerebrovascular accident. I would like to have him do an event monitor sometime down the road and make sure he is not having atrial fibrillation that we are missing . In which case, I think consideration for a Watchman procedure may be indicated. I would otherwise continue his medical regimen for the rest of his problems. I will be available for questions if the need arises. TISHA/MODL Voice ID: [id number] Report ID: [id number]
[2020-05-14] MEDS: INSULIN -REGULAR HUMAN 50 UNIT/0.5 ML ML SQ SCH ×2 (08:00→20:00)
[2020-05-14] MEDS: ASPIRIN EC 81 MG TAB PO SCH (08:11)
[2020-05-14] MEDS: DULOXETINE 20 MG CAP PO SCH (08:11)
[2020-05-14] MEDS: APIXABAN 5 MG TABLET PO SCH ×2 (08:11→20:51)
[2020-05-14] MEDS: [UNRECOGNIZED DRUG - OTHER] OPTH SCH (20:52)
[2020-05-15] MEDS: TIMOLOL 0.5% SCH (06:49)
[2020-05-15] MEDS: OPTH OPTH SCH ×2 (06:49→18:56)
[2020-05-15] MEDS: INSULIN -REGULAR HUMAN 50 UNIT/0.5 ML ML SQ SCH (08:00)
[2020-05-15] MEDS: DULOXETINE 20 MG CAP PO SCH (08:45)
[2020-05-15] MEDS: ASPIRIN EC 81 MG TAB PO SCH (08:45)
[2020-05-15] MEDS: APIXABAN 5 MG TABLET PO SCH ×2 (08:45→18:56)
--- NOTE | 2020-05-15 18:43 | R.PN ---
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 SUBJECTIVE: Pt denied any Shortness of Breath. Pt denied any depression. CBC with differential is normal. Glucose 110 to 127, prealbumin 18.0, UA is negative. Ambulated 2500' with standby assistance without an assistive device. Up and down 50 steps with standb y assistance. VITAL SIGNS Temperature: 98.1 F SBP/DBP: 136/80 Pulse: 95 Resp: 14 MEDICATION ALLERGIES: statins ENVIRONMENTAL ALLERGIES: None Known - Substance Allergies None Known - Other Allergies None Known NURSING: - Shower allowing shower - Bladder care per protocol - Skin care per protocol PRECAUTIONS: - Weight Bearing Precaution WBAT right LE ACTIVITIES OOB only with supervision THERAPIES: - Occupational Therapy Cognitive Retraining. Visual Perceptual Training. - Dietary and Nutrition Adequate Nutrition. Nutritional Education. Nutritional Supplements. - Speech Therapy Cognitive Training. Expressive Language Skills. Memory Strategies. Receptive Language Skills. Speech Intelligibility Training. PHYSICAL EXAM - Gen Alert and awake Lying in bed No apparent distress Oriented to: person, time, and place - Vital Signs Vital signs stable, afebrile - Skin No skin breakdown. No abnormalities - Eyes No abnormalities - ENMT No abnormalities - Neck No abnormalities - CVS RRR - Chest No abnormalities - Resp No wheezing - Abd +bowel sounds - GI Soft Deferred - No abnormalities - Ext Mild right lower extremity edema. - MSK 4+/5 weakness in right upper and lower extremities - Neuro 4/5 strength right upper and lower extremities. - Psych Mild depression. ASSESSMENT: Pt. is a 64 yo Right-handed white male.On 05/08/2020 Pt. presented to [facility] with sudden onset of right-side weakness. Right vertebral artery stenosis.On 05/08/2020 Pt. presented to [facility] with sudden onset of right-side weakness.On 05/08/2020 he was admitted to [facility] ER with diagnosis Stroke in dominant Left PICA w/ perfusion to the right.His impairment category is S troke 01 - Right Body (Left Brain) (01.2).Pre-morbidly, Pt. was independent/mod-I in Transfers Contr ol, Locomotion, and Self-Care; and he had good Balance, Safety Awareness, Social Cognition, Communica tion, and Sphincter Control.Currently, he has deficits of Transfers Control, Locomotion, Balance, Saf ety Awareness, Self-Care, Social Cognition, and Communication.Pt. is now referred to [facility] for acute in-patient rehabilitation in order to maximize patient's functional indep endence in activities of daily living, strength, ROM, and mobility.- Rehab Goal Patient has realistic goal of being discharged at assistance level 6-Reina to reside at Home with Fam justyn/Relatives. MDM/PLAN: - Physical Therapy Gait dysfunction - to improve, our physical therapists will perform initial evaluation of pt's statu s upon admission and devise an individualized program for Gait Training, and Wheel Chair mobility Inability to transfer - to improve, our physical therapists will perform initial evaluation of pt's status upon admission and devise an individualized program for Bed mobility Need for home safety evaluation - to improve, our physical therapists will perform initial evaluatio n of pt's status upon admission and devise an individualized program for Home Evaluation Need in caregiver upon discharge - to improve, our physical therapists will perform initial evaluati on of pt's status upon admission and devise an individualized program for Caregiver Training Edema - to improve, our physical therapists will perform initial evaluation of pt's status upon admis elsy and devise an individualized program for Elevation Training, and Lymphedema Therapy New precaution - to improve, our physical therapists will perform initial evaluation of pt's status upon admission and devise an individualized program for Patient precaution education Poor balance - to improve, our physical therapists will perform initial evaluation of pt's status up on admission and devise an individualized program for Balance Training Weakness - to improve, our physical therapists will perform initial evaluation of pt's status upon a dmission and devise an individualized program for Aquatic Therapy, Neuromuscular Reeducation, and Str engthening Achieving independence - to improve, our physical therapists will perform initial evaluation of pt's status upon admission and devise an individualized program for Community Reintegration Activities - Occupational Therapy ADL deficits - to improve, our occupation therapists will perform initial evaluation of pt's status upon admission and devise an individualized program for Bathing, Bed mobility, Community Reintegratio n, Cooking, Dressing, Eating, Fine Motor Skills, Grooming, Homemaking, Kitchen Mobility, Laundry, Pat ient Education, Safety Awareness, Splinting - Positioning, Transfers(Toilet, Tub, Shower), and Wheel Chair Management Cognitive deficits - to improve, our occupation therapists will perform initial evaluation of pt's s tatus upon admission and devise an individualized program for Cognition - orientation Need for manager intensive care - to improve, our occupation therapists will perform initial evaluation of pt's status upon admission and devise an individualized program for Caregiver Training Weakness - to improve, our occupation therapists will perform initial evaluation of pt's status upon admission and devise an individualized program for Aquatic Therapy, Balance, Endurance, UE ROM, and UE strengthening - Other See attached MAR (Medication Administration Record) - Diet Type Continue Regular - Diet - Liquid Texture Continue Regular - Tube Feed Continue N/A - Bladder care per protocol - Weight Bearing Precaution WBAT right LE - Skin care per protocol - Diet - Solid Texture Continue Regular - Shower allowing shower for Dementia, TBI, Stroke, or others FUNCTIONAL STATUS: UPDATED AT WEEKLY TEAM CONFERENCE - Walking Same score based on distance walked: 2(50-149ft) FUNCTIONAL STATUS: - Self-Care A. Eating Reina B. Grooming Reina C. Bathing Reina D. Dressing - Upper Reina E. Dressing - Lower sup F. Toileting sup - Sphincter Control G. Bladder control Reina H. Bowel control Reina - Transfers Control I. Bed/Chair/Wheelchair sup J. Toilet Reina K. Tub/Shower sup - Locomotion L. Walk/Wheelchair (B) sup M. Stairs sup - Communication N. Comprehension (B) Reina O. Expression (B) Reina - Social Cognition P. Social Interaction Reina Q. Problem Solving Reina R. Memory Reina - Endurance Good - Balance Good - Safety Awareness Good QI SCORES: - Self-Care A. Eating 05-Setup or clean-up assistance B. Oral hygiene 03-Partial/moderate assistance C. Toileting hygiene 03-Partial/moderate assistance E. Shower/bathe self 03-Partial/moderate assistance F. Upper body dressing 03-Partial/moderate assistance G. Lower body dressing 03-Partial/moderate assistance H. Putting on/taking off footwear 03-Partial/moderate assistance - Mobility A. Roll left and right 04-Supervision or touching assistance B. Sit to lying 04-Supervision or touching assistance C. Lying to sitting on side of bed 04-Supervision or touching assistance D. Sit to stand 04-Supervision or touching assistance E. Chair/syu-it-iowfp transfer 04-Supervision or touching assistance F. Toilet transfer 04-Supervision or touching assistance G. Car transfer 10-Not attempted due to environmental limitations I. Walk 10 feet 04-Supervision or touching assistance J. Walk 50 feet with two turns 04-Supervision or touching assistance K. Walk 150 feet 88-Not attempted due to medical condition or safety concerns L. Walking 10 feet on uneven surfaces 88-Not attempted due to medical condition or safety concerns M. 1 step (curb) 88-Not attempted due to medical condition or safety concerns N. 4 steps 88-Not attempted due to medical condition or safety concerns O. 12 steps 88-Not attempted due to medical condition or safety concerns P. Picking up object 88-Not attempted due to medical condition or safety concerns - Bladder and Bowel Bladder continence Bowel continence - Endurance Poor - Balance Poor - Safety Awareness Poor CURRENT FUNC. 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
[2020-05-15] MEDS: [UNRECOGNIZED DRUG - OTHER] OPTH SCH (18:56)
--- NOTE | 2020-05-16 00:30 | PN ---
Date of Progress Note: 05/15/2020 Subjective: The patient was seen this morning for followup. He was lying in bed, not in distress. No new complaints or problems reported. Objective: Vital Signs: Reviewed. HEENT: Unremarkable. Lungs: Clear to auscultation. Heart: Sounds normal. Abdomen: Soft. Bowel sounds normal. No guarding, rigidity, tenderness, or distention. Extremities: No leg edema. Impression: 1.Stroke. 2.Vertebrobasilar insufficiency. 3.Hyperlipidemia. 4.Hypertension. Plan: We will go ahead and continue current medications. Continue physical therapy under guidance o dax Barclay and I will see him tomorrow for followup. Continue the patient's antiplatelet and ant icoagulation medication. ANGELA/MODL Voice ID: [id number] Report ID: [id number]
[2020-05-16] MEDS: ASPIRIN EC 81 MG TAB PO SCH (07:54)
[2020-05-16] MEDS: APIXABAN 5 MG TABLET PO SCH ×2 (07:54→19:36)
[2020-05-16] MEDS: DULOXETINE 20 MG CAP PO SCH (07:55)
[2020-05-16] MEDS: TIMOLOL 0.5% SCH (07:55)
[2020-05-16] MEDS: OPTH OPTH SCH ×2 (07:55→19:37)
--- NOTE | 2020-05-16 18:02 | R.PN ---
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 SUBJECTIVE: Pt denied any Shortness of Breath. Pt denied any depression. CBC with differential is normal. Glucose 110 to 127, prealbumin 18.0, UA is negative. Ambulated 500' with standby assistance without an assistive device. VITAL SIGNS Temperature: 97.1 F SBP/DBP: 139/79 Pulse: 69 Resp: 16 MEDICATION ALLERGIES: statins ENVIRONMENTAL ALLERGIES: None Known - Substance Allergies None Known - Other Allergies None Known NURSING: - Shower allowing shower - Bladder care per protocol - Skin care per protocol PRECAUTIONS: - Weight Bearing Precaution WBAT right LE ACTIVITIES OOB only with supervision THERAPIES: - Occupational Therapy Cognitive Retraining. Visual Perceptual Training. - Dietary and Nutrition Adequate Nutrition. Nutritional Education. Nutritional Supplements. - Speech Therapy Cognitive Training. Expressive Language Skills. Memory Strategies. Receptive Language Skills. Speech Intelligibility Training. PHYSICAL EXAM - Gen Alert and awake Lying in bed No apparent distress Oriented to: person, time, and place - Vital Signs Vital signs stable, afebrile - Skin No skin breakdown. No abnormalities - Eyes No abnormalities - ENMT No abnormalities - Neck No abnormalities - CVS RRR - Chest No abnormalities - Resp No wheezing - Abd +bowel sounds - GI Soft Deferred - No abnormalities - Ext Mild right lower extremity edema. - MSK 4+/5 weakness in right upper and lower extremities - Neuro 4/5 strength right upper and lower extremities. - Psych Mild depression. ASSESSMENT: Pt. is a 64 yo Right-handed white male.On 05/08/2020 Pt. presented to [facility] with sudden onset of right-side weakness. Right vertebral artery stenosis.On 05/08/2020 Pt. presented to [facility] with sudden onset of right-side weakness.On 05/08/2020 he was admitted to [facility] ER with diagnosis Stroke in dominant Left PICA w/ perfusion to the right.His impairment category is S troke 01 - Right Body (Left Brain) (01.2).Pre-morbidly, Pt. was independent/mod-I in Transfers Contr ol, Locomotion, and Self-Care; and he had good Balance, Safety Awareness, Social Cognition, Communica tion, and Sphincter Control.Currently, he has deficits of Transfers Control, Locomotion, Balance, Saf ety Awareness, Self-Care, Social Cognition, and Communication.Pt. is now referred to [facility] for acute in-patient rehabilitation in order to maximize patient's functional indep endence in activities of daily living, strength, ROM, and mobility.- Rehab Goal Patient has realistic goal of being discharged at assistance level 6-Reina to reside at Home with Fam justyn/Relatives. MDM/PLAN: - Physical Therapy Gait dysfunction - to improve, our physical therapists will perform initial evaluation of pt's statu s upon admission and devise an individualized program for Gait Training, and Wheel Chair mobility Inability to transfer - to improve, our physical therapists will perform initial evaluation of pt's status upon admission and devise an individualized program for Bed mobility Need for home safety evaluation - to improve, our physical therapists will perform initial evaluatio n of pt's status upon admission and devise an individualized program for Home Evaluation Need in caregiver upon discharge - to improve, our physical therapists will perform initial evaluati on of pt's status upon admission and devise an individualized program for Caregiver Training Edema - to improve, our physical therapists will perform initial evaluation of pt's status upon admi ssion and devise an individualized program for Elevation Training, and Lymphedema Therapy New precaution - to improve, our physical therapists will perform initial evaluation of pt's status upon admission and devise an individualized program for Patient precaution education Poor balance - to improve, our physical therapists will perform initial evaluation of pt's status up on admission and devise an individualized program for Balance Training Weakness - to improve, our physical therapists will perform initial evaluation of pt's status upon a dmission and devise an individualized program for Aquatic Therapy, Neuromuscular Reeducation, and Str engthening Achieving independence - to improve, our physical therapists will perform initial evaluation of pt's status upon admission and devise an individualized program for Community Reintegration Activities - Occupational Therapy ADL deficits - to improve, our occupation therapists will perform initial evaluation of pt's status upon admission and devise an individualized program for Bathing, Bed mobility, Community Reintegratio n, Cooking, Dressing, Eating, Fine Motor Skills, Grooming, Homemaking, Kitchen Mobility, Laundry, Pat ient Education, Safety Awareness, Splinting - Positioning, Transfers(Toilet, Tub, Shower), and Wheel Chair Management Cognitive deficits - to improve, our occupation therapists will perform initial evaluation of pt's s tatus upon admission and devise an individualized program for Cognition - orientation Need for intensive care medicine specialist - to improve, our occupation therapists will perform initial evaluation of pt's status upon admission and devise an individualized program for Caregiver Training Weakness - to improve, our occupation therapists will perform initial evaluation of pt's status upon admission and devise an individualized program for Aquatic Therapy, Balance, Endurance, UE ROM, and UE strengthening - Other See attached MAR (Medication Administration Record) - Diet Type Continue Regular - Diet - Liquid Texture Continue Regular - Tube Feed Continue N/A - Bladder care per protocol - Weight Bearing Precaution WBAT right LE - Skin care per protocol - Diet - Solid Texture Continue Regular - Shower allowing shower for Dementia, TBI, Stroke, or others FUNCTIONAL STATUS: UPDATED AT WEEKLY TEAM CONFERENCE - Walking Same score based on distance walked: 2(50-149ft) FUNCTIONAL STATUS: - Self-Care A. Eating Reina B. Grooming Reina C. Bathing Reina D. Dressing - Upper Reina E. Dressing - Lower sup F. Toileting sup - Sphincter Control G. Bladder control Reina H. Bowel control Reina - Transfers Control I. Bed/Chair/Wheelchair sup J. Toilet Reina K. Tub/Shower sup - Locomotion L. Walk/Wheelchair (B) sup M. Stairs sup - Communication N. Comprehension (B) Reina O. Expression (B) Reina - Social Cognition P. Social Interaction Reina Q. Problem Solving Reina R. Memory Reina - Endurance Good - Balance Good - Safety Awareness Good QI SCORES: - Self-Care A. Eating 05-Setup or clean-up assistance B. Oral hygiene 03-Partial/moderate assistance C. Toileting hygiene 03-Partial/moderate assistance E. Shower/bathe self 03-Partial/moderate assistance F. Upper body dressing 03-Partial/moderate assistance G. Lower body dressing 03-Partial/moderate assistance H. Putting on/taking off footwear 03-Partial/moderate assistance - Mobility A. Roll left and right 04-Supervision or touching assistance B. Sit to lying 04-Supervision or touching assistance C. Lying to sitting on side of bed 04-Supervision or touching assistance D. Sit to stand 04-Supervision or touching assistance E. Chair/ffx-io-ywynn transfer 04-Supervision or touching assistance F. Toilet transfer 04-Supervision or touching assistance G. Car transfer 10-Not attempted due to environmental limitations I. Walk 10 feet 04-Supervision or touching assistance J. Walk 50 feet with two turns 04-Supervision or touching assistance K. Walk 150 feet 88-Not attempted due to medical condition or safety concerns L. Walking 10 feet on uneven surfaces 88-Not attempted due to medical condition or safety concerns M. 1 step (curb) 88-Not attempted due to medical condition or safety concerns N. 4 steps 88-Not attempted due to medical condition or safety concerns O. 12 steps 88-Not attempted due to medical condition or safety concerns P. Picking up object 88-Not attempted due to medical condition or safety concerns - Bladder and Bowel Bladder continence Bowel continence - Endurance Poor - Balance Poor - Safety Awareness Poor CURRENT FUNC. 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
[2020-05-16] MEDS: [UNRECOGNIZED DRUG - OTHER] OPTH SCH (19:37)
--- NOTE | 2020-05-17 07:17 | PN ---
Date of Progress Note: 05/16/2020 Subjective: The patient was seen this morning for followup. He was lying in bed, sleeping, using hi s CPAP machine, easily arousable. Denies any new complaints. Objective: Vital Signs: Reviewed. HEENT: Unremarkable. Lungs: Clear to auscultation. Heart: Sounds normal. Abdomen: Soft. Bowel sounds normal. No guarding, rigidity, tenderness, or distention. Extremities: No leg edema. Impression: 1.Stroke. 2.Vertebrobasilar insufficiency. 3.Hypertension. Plan: We will continue current medications. Continue Physical therapy under guidance of Dr. Fadi bradley Continue to use CPAP at nighttime for his sleep apnea. Nurse was reminded to get a copy of disch arge summary from outside hospital. Continue current anticoagulation and anti-platelet therapy. Con dylan to monitor his blood pressure and if necessary make adjustment on medication. ANGELA/MODL Voice ID: [id number] Report ID: [id number]
[2020-05-17] MEDS: APIXABAN 5 MG TABLET PO SCH ×2 (08:01→19:22)
[2020-05-17] MEDS: DULOXETINE 20 MG CAP PO SCH (08:01)
[2020-05-17] MEDS: ASPIRIN EC 81 MG TAB PO SCH (08:01)
[2020-05-17] MEDS: OPTH OPTH SCH ×2 (08:04→20:57)
[2020-05-17] MEDS: TIMOLOL 0.5% SCH (08:04)
--- NOTE | 2020-05-17 17:53 | R.PN ---
PROGRESS NOTES ENCOUNTER DATE AND TIME: 05/17/2020 17:49 (FEDERAL AID COORDINATOR) NAME YVETTE HERNANDEZ DATE OF : 1955 DATE OF ADMISSION: 05/12/2020 17:29 (FEDERAL AID COORDINATOR) Stroke in dominant Left PICA w/ perfusion to the rightCHIEF COMPLAINT: Vertebrobasilar insufficiency, late effects of ischemic stroke. SUBJECTIVE: Pt denied any Shortness of Breath. Pt denied any depression. CBC with differential is normal. Glucose 110 to 127, prealbumin 18.0, UA is negative. Ambulated in hallway with standby assistance without an assistive device. VITAL SIGNS Temperature: 97.6 F SBP/DBP: 151/86 Pulse: 62 Resp: 16 MEDICATION ALLERGIES: statins ENVIRONMENTAL ALLERGIES: None Known - Substance Allergies None Known - Other Allergies None Known NURSING: - Shower allowing shower - Bladder care per protocol - Skin care per protocol PRECAUTIONS: - Weight Bearing Precaution WBAT right LE ACTIVITIES OOB only with supervision THERAPIES: - Occupational Therapy Cognitive Retraining. Visual Perceptual Training. - Dietary and Nutrition Adequate Nutrition. Nutritional Education. Nutritional Supplements. - Speech Therapy Cognitive Training. Expressive Language Skills. Memory Strategies. Receptive Language Skills. Speech Intelligibility Training. PHYSICAL EXAM - Gen Alert and awake Lying in bed No apparent distress Oriented to: person, time, and place - Vital Signs Vital signs stable, afebrile - Skin No skin breakdown. No abnormalities - Eyes No abnormalities - ENMT No abnormalities - Neck No abnormalities - CVS RRR - Chest No abnormalities - Resp No wheezing - Abd +bowel sounds - GI Soft Deferred - No abnormalities - Ext Mild right lower extremity edema. - MSK 4+/5 weakness in right upper and lower extremities - Neuro 4/5 strength right upper and lower extremities. - Psych Mild depression. ASSESSMENT: Pt. is a 64 yo Right-handed white male.On 05/08/[address] [facility] with sudden onset of right-side weakness. Right vertebral artery stenosis.On 05/08/[address] [facility] with sudden onset of right-side weakness.On 05/08/2020 he was admitted to [facility] ER with diagnosis Stroke in dominant Left PICA w/ perfusion to the right.His impairment category is S troke 01 - Right Body (Left Brain) (01.2).Pre-morbidly, Pt. was independent/mod-I in Transfers Contr ol, Locomotion, and Self-Care; and he had good Balance, Safety Awareness, Social Cognition, Communica tion, and Sphincter Control.Currently, he has deficits of Transfers Control, Locomotion, Balance, Saf ety Awareness, Self-Care, Social Cognition, and Communication.Pt. is now referred to [facility] for acute in-patient rehabilitation in order to maximize patient's functional indep endence in activities of daily living, strength, ROM, and mobility.- Rehab Goal Patient has realistic goal of being discharged at assistance level 6-Reina to reside at Home with Fam justyn/Relatives. MDM/PLAN: - Physical Therapy Gait dysfunction - to improve, our physical therapists will perform initial evaluation of pt's statu s upon admission and devise an individualized program for Gait Training, and Wheel Chair mobility Inability to transfer - to improve, our physical therapists will perform initial evaluation of pt's status upon admission and devise an individualized program for Bed mobility Need for home safety evaluation - to improve, our physical therapists will perform initial evaluatio n of pt's status upon admission and devise an individualized program for Home Evaluation Need in caregiver upon discharge - to improve, our physical therapists will perform initial evaluati on of pt's status upon admission and devise an individualized program for Caregiver Training Edema - to improve, our physical therapists will perform initial evaluation of pt's status upon admi ssion and devise an individualized program for Elevation Training, and Lymphedema Therapy New precaution - to improve, our physical therapists will perform initial evaluation of pt's status upon admission and devise an individualized program for Patient precaution education Poor balance - to improve, our physical therapists will perform initial evaluation of pt's status up on admission and devise an individualized program for Balance Training Weakness - to improve, our physical therapists will perform initial evaluation of pt's status upon a dmission and devise an individualized program for Aquatic Therapy, Neuromuscular Reeducation, and Str engthening Achieving independence - to improve, our physical therapists will perform initial evaluation of pt's status upon admission and devise an individualized program for Community Reintegration Activities - Occupational Therapy ADL deficits - to improve, our occupation therapists will perform initial evaluation of pt's status upon admission and devise an individualized program for Bathing, Bed mobility, Community Reintegratio n, Cooking, Dressing, Eating, Fine Motor Skills, Grooming, Homemaking, Kitchen Mobility, Laundry, Pat ient Education, Safety Awareness, Splinting - Positioning, Transfers(Toilet, Tub, Shower), and Wheel Chair Management Cognitive deficits - to improve, our occupation therapists will perform initial evaluation of pt's s tatus upon admission and devise an individualized program for Cognition - orientation Need for human services care specialist - to improve, our occupation therapists will perform initial evaluation of pt's status upon admission and devise an individualized program for Caregiver Training Weakness - to improve, our occupation therapists will perform initial evaluation of pt's status upon admission and devise an individualized program for Aquatic Therapy, Balance, Endurance, UE ROM, and UE strengthening - Other See attached MAR (Medication Administration Record) - Diet Type Continue Regular - Diet - Liquid Texture Continue Regular - Tube Feed Continue N/A - Bladder care per protocol - Weight Bearing Precaution WBAT right LE - Skin care per protocol - Diet - Solid Texture Continue Regular - Shower allowing shower for Dementia, TBI, Stroke, or others FUNCTIONAL STATUS: UPDATED AT WEEKLY TEAM CONFERENCE - Walking Same score based on distance walked: 2(50-149ft) FUNCTIONAL STATUS: - Self-Care A. Eating Reina B. Grooming Reina C. Bathing Reina D. Dressing - Upper Reina E. Dressing - Lower sup F. Toileting sup - Sphincter Control G. Bladder control Reina H. Bowel control Reina - Transfers Control I. Bed/Chair/Wheelchair sup J. Toilet Reina K. Tub/Shower sup - Locomotion L. Walk/Wheelchair (B) sup M. Stairs sup - Communication N. Comprehension (B) Reina O. Expression (B) Reina - Social Cognition P. Social Interaction Reina Q. Problem Solving Reina R. Memory Reina - Endurance Good - Balance Good - Safety Awareness Good QI SCORES: - Self-Care A. Eating 05-Setup or clean-up assistance B. Oral hygiene 03-Partial/moderate assistance C. Toileting hygiene 03-Partial/moderate assistance E. Shower/bathe self 03-Partial/moderate assistance F. Upper body dressing 03-Partial/moderate assistance G. Lower body dressing 03-Partial/moderate assistance H. Putting on/taking off footwear 03-Partial/moderate assistance - Mobility A. Roll left and right 04-Supervision or touching assistance B. Sit to lying 04-Supervision or touching assistance C. Lying to sitting on side of bed 04-Supervision or touching assistance D. Sit to stand 04-Supervision or touching assistance E. Chair/wae-te-updyy transfer 04-Supervision or touching assistance F. Toilet transfer 04-Supervision or touching assistance G. Car transfer 10-Not attempted due to environmental limitations I. Walk 10 feet 04-Supervision or touching assistance J. Walk 50 feet with two turns 04-Supervision or touching assistance K. Walk 150 feet 88-Not attempted due to medical condition or safety concerns L. Walking 10 feet on uneven surfaces 88-Not attempted due to medical condition or safety concerns M. 1 step (curb) 88-Not attempted due to medical condition or safety concerns N. 4 steps 88-Not attempted due to medical condition or safety concerns O. 12 steps 88-Not attempted due to medical condition or safety concerns P. Picking up object 88-Not attempted due to medical condition or safety concerns - Bladder and Bowel Bladder continence Bowel continence - Endurance Poor - Balance Poor - Safety Awareness Poor CURRENT FUNC. DEFICITS: Self-Care, Mobility, Endurance, Balance, and Safety Awareness SIGNATURE PANEL: (FEDERAL AID COORDINATOR)
[2020-05-17] MEDS: [UNRECOGNIZED DRUG - OTHER] OPTH SCH (20:57)
--- NOTE | 2020-05-18 06:37 | PN ---
Date of Progress Note: 05/17/2020 Subjective: The patient was seen for followup this morning. No new complaints or problems reported by patient. Lying in bed, not in any distress. Objective: Vital Signs: Reviewed. HEENT: Unremarkable. Lungs: Clear to auscultation. Heart: Sounds normal. Abdomen: Soft. Bowel sounds normal. No guarding, rigidity, tenderness, or distention. Extremities: No leg edema. Neurologic: Unchanged. Impression: 1.Stroke. 2.Vertebrobasilar insufficiency. 3.Hypertension. 4.Chronic anticoagulation therapy. Plan: We will continue current medications. Continue current antihypertensive medications and Physi ed therapy under guidance of Dr. Barclay. We will continue his Eliquis and routine blood work will be done tomorrow. I will see him tomorrow for followup. ANGELA/MODL Voice ID: [id number] Report ID: [id number]
[2020-05-18 07:23] LABS: Absolute Lymphocytes (CBC) 2.4 K/uL (0.7-4.9); Basophils % 1.1 % (0-1.3); Hematocrit 46.3 % (39.6-49.0); Lymphocytes % 23.7 % (15.3-44.8); MPV 7.9 fL (7.6-11.3); RBC Red Blood Cell Count 5.59 M/uL (4.33-5.43)
[2020-05-18 07:40] LABS: Albumin 3.5 g/dL (3.4-5.0); BUN Blood Urea Nitrogen 16 mg/dL (7-18); Bicarbonate 27 mmol/L (21-32); Glucose Level 111 mg/dL (74-106); Magnesium 1.9 mg/dL (1.8-2.4); Potassium 4.3 mmol/L (3.5-5.1); Sodium Level 140 mmol/L (136-145)
[2020-05-18] MEDS: APIXABAN 5 MG TABLET PO SCH ×2 (08:22→19:20)
[2020-05-18] MEDS: DULOXETINE 20 MG CAP PO SCH (08:22)
[2020-05-18] MEDS: TIMOLOL 0.5% SCH (08:22)
[2020-05-18] MEDS: ASPIRIN EC 81 MG TAB PO SCH (08:22)
[2020-05-18] MEDS: OPTH OPTH SCH ×2 (08:22→19:20)
--- NOTE | 2020-05-18 17:59 | R.PN ---
PROGRESS NOTES ENCOUNTER DATE AND TIME: 05/18/2020 17:55 (PAEDIATRIC THORACIC PHYSICIAN) NAME YVETTE HERNANDEZ DATE OF : 1955 DATE OF ADMISSION: 05/12/2020 17:29 (PAEDIATRIC THORACIC PHYSICIAN) Stroke in dominant Left PICA w/ perfusion to the rightCHIEF COMPLAINT: Vertebrobasilar insufficiency, late effects of ischemic stroke. SUBJECTIVE: Pt denied any Shortness of Breath. Pt denied any depression. CBC with differential is normal. Glucose 111 to 127, prealbumin 33.0, UA is negative. Ambulated in hallway 500' with standby assistance without an assistive device. VITAL SIGNS Temperature: 98.4 F SBP/DBP: 148/79 Pulse: 62 Resp: 16 MEDICATION ALLERGIES: statins ENVIRONMENTAL ALLERGIES: None Known - Substance Allergies None Known - Other Allergies None Known NURSING: - Shower allowing shower - Bladder care per protocol - Skin care per protocol PRECAUTIONS: - Weight Bearing Precaution WBAT right LE ACTIVITIES OOB only with supervision THERAPIES: - Occupational Therapy Cognitive Retraining. Visual Perceptual Training. - Dietary and Nutrition Adequate Nutrition. Nutritional Education. Nutritional Supplements. - Speech Therapy Cognitive Training. Expressive Language Skills. Memory Strategies. Receptive Language Skills. Speech Intelligibility Training. PHYSICAL EXAM - Gen Alert and awake Lying in bed No apparent distress Oriented to: person, time, and place - Vital Signs Vital signs stable, afebrile - Skin No skin breakdown. No abnormalities - Eyes No abnormalities - ENMT No abnormalities - Neck No abnormalities - CVS RRR - Chest No abnormalities - Resp No wheezing - Abd +bowel sounds - GI Soft Deferred - No abnormalities - Ext Mild right lower extremity edema. - MSK 4+/5 weakness in right upper and lower extremities - Neuro 4/5 strength right upper and lower extremities. - Psych Mild depression. ASSESSMENT: Pt. is a 64 yo Right-handed white male.On 05/08/2020 Pt. presented to [facility] with sudden onset of right-side weakness. Right vertebral artery stenosis.On 05/08/2020 Pt. presented to [facility] with sudden onset of right-side weakness.On 05/08/2020 he was admitted to [facility] ER with diagnosis Stroke in dominant Left PICA w/ perfusion to the right.His impairment category is S troke 01 - Right Body (Left Brain) (01.2).Pre-morbidly, Pt. was independent/mod-I in Transfers Contr ol, Locomotion, and Self-Care; and he had good Balance, Safety Awareness, Social Cognition, Communica tion, and Sphincter Control.Currently, he has deficits of Transfers Control, Locomotion, Balance, Saf ety Awareness, Self-Care, Social Cognition, and Communication.Pt. is now referred to [facility] for acute in-patient rehabilitation in order to maximize patient's functional indep endence in activities of daily living, strength, ROM, and mobility.- Rehab Goal Patient has realistic goal of being discharged at assistance level 6-Reina to reside at Home with Fam justyn/Relatives. MDM/PLAN: - Physical Therapy Gait dysfunction - to improve, our physical therapists will perform initial evaluation of pt's statu s upon admission and devise an individualized program for Gait Training, and Wheel Chair mobility Inability to transfer - to improve, our physical therapists will perform initial evaluation of pt's status upon admission and devise an individualized program for Bed mobility Need for home safety evaluation - to improve, our physical therapists will perform initial evaluatio n of pt's status upon admission and devise an individualized program for Home Evaluation Need in caregiver upon discharge - to improve, our physical therapists will perform initial evaluati on of pt's status upon admission and devise an individualized program for Caregiver Training Edema - to improve, our physical therapists will perform initial evaluation of pt's status upon admi ssion and devise an individualized program for Elevation Training, and Lymphedema Therapy New precaution - to improve, our physical therapists will perform initial evaluation of pt's status upon admission and devise an individualized program for Patient precaution education Poor balance - to improve, our physical therapists will perform initial evaluation of pt's status up on admission and devise an individualized program for Balance Training Weakness - to improve, our physical therapists will perform initial evaluation of pt's status upon a dmission and devise an individualized program for Aquatic Therapy, Neuromuscular Reeducation, and Str engthening Achieving independence - to improve, our physical therapists will perform initial evaluation of pt's status upon admission and devise an individualized program for Community Reintegration Activities - Occupational Therapy ADL deficits - to improve, our occupation therapists will perform initial evaluation of pt's status upon admission and devise an individualized program for Bathing, Bed mobility, Community Reintegratio n, Cooking, Dressing, Eating, Fine Motor Skills, Grooming, Homemaking, Kitchen Mobility, Laundry, Pat ient Education, Safety Awareness, Splinting - Positioning, Transfers(Toilet, Tub, Shower), and Wheel Chair Management Cognitive deficits - to improve, our occupation therapists will perform initial evaluation of pt's s tatus upon admission and devise an individualized program for Cognition - orientation Need for lawn care technician - to improve, our occupation therapists will perform initial evaluation of pt's status upon admission and devise an individualized program for Caregiver Training Weakness - to improve, our occupation therapists will perform initial evaluation of pt's status upon admission and devise an individualized program for Aquatic Therapy, Balance, Endurance, UE ROM, and UE strengthening - Other See attached MAR (Medication Administration Record) - Diet Type Continue Regular - Diet - Liquid Texture Continue Regular - Tube Feed Continue N/A - Bladder care per protocol - Weight Bearing Precaution WBAT right LE - Skin care per protocol - Diet - Solid Texture Continue Regular - Shower allowing shower for Dementia, TBI, Stroke, or others FUNCTIONAL STATUS: UPDATED AT WEEKLY TEAM CONFERENCE - Walking Same score based on distance walked: 2(50-149ft) FUNCTIONAL STATUS: - Self-Care A. Eating Reina B. Grooming Reina C. Bathing Reina D. Dressing - Upper Reina E. Dressing - Lower sup F. Toileting sup - Sphincter Control G. Bladder control Reina H. Bowel control Reina - Transfers Control I. Bed/Chair/Wheelchair sup J. Toilet Reina K. Tub/Shower sup - Locomotion L. Walk/Wheelchair (B) sup M. Stairs sup - Communication N. Comprehension (B) Reina O. Expression (B) Reina - Social Cognition P. Social Interaction Reina Q. Problem Solving Reina R. Memory Reina - Endurance Good - Balance Good - Safety Awareness Good QI SCORES: - Self-Care A. Eating 05-Setup or clean-up assistance B. Oral hygiene 03-Partial/moderate assistance C. Toileting hygiene 03-Partial/moderate assistance E. Shower/bathe self 03-Partial/moderate assistance F. Upper body dressing 03-Partial/moderate assistance G. Lower body dressing 03-Partial/moderate assistance H. Putting on/taking off footwear 03-Partial/moderate assistance - Mobility A. Roll left and right 04-Supervision or touching assistance B. Sit to lying 04-Supervision or touching assistance C. Lying to sitting on side of bed 04-Supervision or touching assistance D. Sit to stand 04-Supervision or touching assistance E. Chair/ctn-at-xssdp transfer 04-Supervision or touching assistance F. Toilet transfer 04-Supervision or touching assistance G. Car transfer 10-Not attempted due to environmental limitations I. Walk 10 feet 04-Supervision or touching assistance J. Walk 50 feet with two turns 04-Supervision or touching assistance K. Walk 150 feet 88-Not attempted due to medical condition or safety concerns L. Walking 10 feet on uneven surfaces 88-Not attempted due to medical condition or safety concerns M. 1 step (curb) 88-Not attempted due to medical condition or safety concerns N. 4 steps 88-Not attempted due to medical condition or safety concerns O. 12 steps 88-Not attempted due to medical condition or safety concerns P. Picking up object 88-Not attempted due to medical condition or safety concerns - Bladder and Bowel Bladder continence Bowel continence - Endurance Poor - Balance Poor - Safety Awareness Poor CURRENT FUNC. DEFICITS: Self-Care, Mobility, Endurance, Balance, and Safety Awareness SIGNATURE PANEL: (PAEDIATRIC THORACIC PHYSICIAN)
[2020-05-18] MEDS: [UNRECOGNIZED DRUG - OTHER] OPTH SCH (19:20)
[2020-05-19] MEDS: OPTH OPTH SCH ×2 (07:23→19:48)
[2020-05-19] MEDS: TIMOLOL 0.5% SCH (07:23)
[2020-05-19] MEDS: ASPIRIN EC 81 MG TAB PO SCH (07:27)
[2020-05-19] MEDS: DULOXETINE 20 MG CAP PO SCH (07:27)
[2020-05-19] MEDS: APIXABAN 5 MG TABLET PO SCH ×2 (07:27→19:48)
--- NOTE | 2020-05-19 09:55 | P.RH.PN ---
Estimated Length of Stay: 10 Expected Discharge Date: 05/21/20 Discharge Disposition Plan: Home Family Support: Yes Skilled Nursing Goal: Mobility, Transfers, Self Care Vital Signs: Last Vital Signs Temp 98.9 F 05/19/20 08:00 Pulse 60 05/19/20 08:00 Resp 16 05/19/20 08:00 BP 139/72 05/19/20 08:00 Pulse Ox 95 05/19/20 08:00 Laboratory: Laboratory Last Values WBC 10.30 K/uL (4.3-10.9) 05/18/20 07:00 RBC 5.59 M/uL (4.33-5.43) H 05/18/20 07:00 Hgb 15.8 g/dL (13.6-17.9) 05/18/20 07:00 Hct 46.3 % (39.6-49.0) 05/18/20 07:00 MCV 82.8 fL (80-100) 05/18/20 07:00 MCH 28.3 pg (27.0-35.0) 05/18/20 07:00 MCHC 34.2 g/dL (32.0-36.0) 05/18/20 07:00 RDW 14.5 % (12.1-15.2) 05/18/20 07:00 Plt Count 283 K/uL (152-406) 05/18/20 07:00 MPV 7.9 fL (7.6-11.3) 05/18/20 07:00 Neutrophils % 62.8 % (41.7-73.7) 05/18/20 07:00 Lymphocytes % 23.7 % (15.3-44.8) 05/18/20 07:00 Monocytes % 8.5 % (3.3-12.3) 05/18/20 07:00 Eosinophils % 3.9 % (0-4.4) 05/18/20 07:00 Basophils % 1.1 % (0-1.3) 05/18/20 07:00 Absolute Neutrophils 6.5 K/uL (1.8-8.0) 05/18/20 07:00 Absolute Lymphocytes 2.4 K/uL (0.7-4.9) 05/18/20 07:00 Absolute Monocytes 0.9 K/uL (0.1-1.3) 05/18/20 07:00 Absolute Eosinophils 0.4 K/uL (0-0.5) 05/18/20 07:00 Absolute Basophils 0.1 K/uL (0-0.5) 05/18/20 07:00 Sodium 140 mmol/L (136-145) 05/18/20 07:00 Potassium 4.3 mmol/L (3.5-5.1) 05/18/20 07:00 Chloride 107 mmol/L (98-107) 05/18/20 07:00 Carbon Dioxide 27 mmol/L (21-32) 05/18/20 07:00 BUN 16 mg/dL (7-18) 05/18/20 07:00 Creatinine 0.83 mg/dL (0.55-1.3) 05/18/20 07:00 Estimated GFR > 90 mL/min (=/>90) 05/18/20 07:00 Glucose 111 mg/dL (74-106) H 05/18/20 07:00 POC Glucose 118 mg/dL (65-120) 05/15/20 07:10 Calcium 9.2 mg/dL (8.5-10.1) 05/18/20 07:00 Magnesium 1.9 mg/dL (1.8-2.4) 05/18/20 07:00 Albumin 3.5 g/dL (3.4-5.0) 05/18/20 07:00 Prealbumin 33.0 mg/dL (20-40) 05/18/20 07:00 Urine Color Yellow 05/12/20 20:00 Urine Appearance Clear 05/12/20 20:00 Urine pH 6.0 (5.0-7.0) 05/12/20 20:00 Ur Specific Reeves 1.015 (1.005-1.030) 05/12/20 20:00 Glucose (UA)(Auto) Negative (NEG) 05/12/20 20:00 Urine Ketones Negative (NEG) 05/12/20 20:00 Urine Blood Negative (NEG) 05/12/20 20:00 Urine Nitrite Negative (NEG) 05/12/20 20:00 Urine Bilirubin Negative (NEG) 05/12/20 20:00 Urine Urobilinogen 1.0 mg/dL (0.2-1.0) 05/12/20 20:00 Ur Leukocyte Esterase Negative (NEG) 05/12/20 20:00 Urine Total Protein Negative (NEG) 05/12/20 20:00 SARS-CoV-2 RNA (RT-PCR) Negative (NEGATIVE) 05/13/20 21:00 Weight: 199 lb Wound Present: No Closed Surgical Incision Present: No Negative Pressure Wound Therapy Present: No Physician Update: He is doing very well with all therapy. He will be ready for discharge this Friday. Labs are stable. Comment: no skin breakdown Functional Improvement: Patient ambulates with I, 250' x 3, using no AD. Patient will continue with POC, with focus on pt goals for safety and [place]. 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 Please see the Rehabilitation Signature page for all necessary signatures.
--- NOTE | 2020-05-19 10:13 | PN ---
Date of Progress Note: 05/18/2020 Subjective: The patient was seen this morning for followup. No new complaints or problems reported by patient. Lying in bed, not in distress. Objective: Vital signs: Reviewed. General: His was present with him at bedside. Denies any new complaints. HEENT: Unremarkable. Lungs: Clear to auscultation. Heart: Sounds normal. Abdomen: Soft. Bowel sounds normal. No guarding, rigidity, tenderness, or distention. Extremities: No leg edema. 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 Impression: 1.Stroke. 2.Vertebrobasilar insufficiency. 3.Hypertension. 4.Chronic anticoagulation therapy. Plan: Continue current medication. Continue anticoagulation therapy, antihypertensive medication. Blood pressure is under adequate control and we will continue to provide physical therapy under jailene batres of Dr. Barclay. ANGELA/MODL Voice ID: [id number] Report ID: [id number]
[2020-05-19] MEDS: [UNRECOGNIZED DRUG - OTHER] OPTH SCH (19:48)
[2020-05-20 05:39] VITALS: BMI 36.4
[2020-05-20] MEDS: DULOXETINE 20 MG CAP PO SCH (08:09)
[2020-05-20] MEDS: ASPIRIN EC 81 MG TAB PO SCH (08:09)
[2020-05-20] MEDS: APIXABAN 5 MG TABLET PO SCH ×2 (08:10→19:14)
[2020-05-20] MEDS: TIMOLOL 0.5% SCH (08:10)
[2020-05-20] MEDS: OPTH OPTH SCH ×2 (08:10→19:14)
--- NOTE | 2020-05-20 10:57 | PN ---
Date of Progress Note: 05/19/2020 Subjective: The patient was seen this morning for followup. He was lying in bed. His was with him at bedside. No new complaints or problems reported by him. Objective: HEENT: Unremarkable. Lungs: Clear to auscultation. Heart: Sounds normal. Abdomen: Soft. Bowel sounds normal. No guarding, rigidity, tenderness, or distention. Extremities: No leg edema. NEURO: Unchanged from before. Impression: 1.Stroke. 2.Vertebrobasilar insufficiency. 3.Hypertension. 4.Chronic anticoagulation therapy. Plan: We will continue current medication. The patient has taken his Repatha injection earlier this week for his cholesterol treatment and his anticoagulation therapy and clopidogrel per order. Physi ed therapy to be provided under the guidance of Dr. Barclay. I will see him tomorrow for followup. ANGELA/MODL Voice ID: [id number] Report ID: [id number]
--- NOTE | 2020-05-20 11:12 | PN ---
Date of Progress Note: 05/20/2020 Subjective: The patient was seen this morning for followup. His was with him at bedside. No n ew complaints or problems reported by the patient. Lying in bed, not in distress. Objective: Vital Signs: Reviewed. HEENT: Unremarkable. Lungs: Clear to auscultation. Heart: Sounds normal. Abdomen: Soft. Bowel sounds normal. No guarding, rigidity, tenderness, or distention. Extremities: No leg edema. Impression: 1.Stroke. 2.Vertebrobasilar insufficiency. 3.Hypertension. 4.Chronic anticoagulation therapy. 5.Hyperlipidemia. Plan: We will continue current medication. Blood pressure is stable. We will continue current anti hypertensive medication and continue current anti-platelet and anticoagulation therapy. Physical the rapy to be provided under Dr. Barclay's guidance and the patient is scheduled to go home tomorrow. He has an appointment to follow up with his neurologist in about a month in [place] for further evalu ation of right vertebral artery stenosis. ANGELA/MODL Voice ID: [id number] Report ID: [id number]
[2020-05-20] MEDS: [UNRECOGNIZED DRUG - OTHER] OPTH SCH (19:14)
[2020-05-21 07:50] VITALS: BP 157/86; TEMP 98
[2020-05-21] MEDS: TIMOLOL 0.5% SCH (08:01)
[2020-05-21] MEDS: OPTH OPTH SCH (08:01)
[2020-05-21] MEDS: ASPIRIN EC 81 MG TAB PO SCH (08:02)
[2020-05-21] MEDS: DULOXETINE 20 MG CAP PO SCH (08:02)
[2020-05-21] MEDS: APIXABAN 5 MG TABLET PO SCH (08:02)
--- NOTE | 2020-05-21 12:49 | DS ---
Date of Discharge: 05/21/2020 Discharge Diagnoses: 1. Stroke. 2. Vertebrobasilar insufficiency. 3. Right vertebral artery stenosis. 4. Coronary artery disease. 5. Hypertension. 6. Mixed hyperlipidemia. 7. Impaired fasting glucose. Discharge Medications And Instructions: 1. Continue prior home medication, except do not take clopidogrel and the patient to continue his aspirin. Do not take ramipril. 2. Take Eliquis 5 mg 2 times a day. 3. Check blood pressure 1-2 times a day and if systolic blood pressure goes up to 160 or higher, then resume ramipril 5 mg daily in the morning. 4. Keep appointment for CT angiogram as scheduled in [place] by neurologist beginning of next month and appointment to see neurologist a week after that and the patient to follow up at my office after visit with neurologist next month. Laboratory Data: Upon admission on 05/13/2020; white count 9.9, hemoglobin 15.5, platelets 248. On 05/18/2020; white count 10.3, hemoglobin 15.8, platelets 283. Last chemistry on 05/18/2020; sodium 140, potassium 4.3, chloride 107, bicarb 27, BUN 16, creatinine 0.83, glucose 111. Hospital Course: This is a 65-year-old pleasant male patient, who was brought to our rehab floor from [facility] in [place]. Please see dictated H and P for more information. The patient had stroke type of symptoms and he was taken to [facility]. Further evaluation revealed that the patient did not have stroke, but they diagnosed the patient as having vertebrobasilar insufficiency with significant arthrosclerosis of right posterior vertebral artery. After all the workup was completed, neurologist decided to go ahead and stop his Plavix and started him on Eliquis 5 mg 2 times a day and continued his aspirin 81 mg daily. The patient was brought to our rehab floor and Dr. Barclay provided occupational and physical therapy. Overall, his condition has improved. He has some residual deficit with old stroke on the right side, which has remained unchanged. The patient is going to have a repeat CT angiogram for further evaluation of this right vertebral artery stenosis and a few days after that test is done, he has appointment to see neurologist at [facility] next month and then they will decide if any further surgical intervention is needed or not for this right vertebral artery stenosis. He takes Repatha for his cholesterol problem as he is not able to take any statin. He did receive his first COVID injection on 05/17/2020 while he was on the rehab floor. Overall, the patient's condition is stable now for discharge. I will see him for followup on outpatient basis. Physical Examination: HEENT: Today, unremarkable. Lungs: Clear to auscultation. Heart: Sounds normal. Abdomen: Soft. Bowel sounds normal. No guarding, rigidity, tenderness, or distention. Extremities: No leg edema. 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 ANGELA/MODL Voice ID: [id number] Report ID: [id number] MTDD
--- NOTE | 2020-05-22 11:08 | HP ---
Date of Admission: 05/14/2020 Chief Complaint: Weakness. History Of Present Illness: This is a 64-year-old male patient, who has recurrent spells of feeling weak, dizzy, trouble walking and he has had such spell about almost every 2 weeks. His last spell was on Friday and his blood pressure was high, so called the EMS at that time and EMS decided to call [facility] and he was [facility] from his home. He was admitted to the hospital on Friday and was discharged on Friday, which was day before yesterday to come to our rehab facility. I was not notified about this admission until this morning. I went to see him at the hospital, reviewed all the available records, and communicated with the patient as well as his . The patient has been seeing urologist on outpatient basis and his last visit was on April 20 for further evaluation of this recurrent spells that he has been having and workup was done while he was in the hospital and reports that the diagnosis given was vertebrobasilar insufficiency. Prior to this hospital admission, he was on aspirin 81 mg daily and Plavix 75 mg daily. As of this hospital admission, now his medications were changed. Plavix was discontinued and the patient was started on Eliquis 5 mg 2 times a day and aspirin 81 mg daily was continued. Prior to this admission, he was taking ramipril 5 mg 2 times a day, but reduced the dose to 5 mg once a day because taking 2 times a day was dropping his blood pressure on the low side. The patient did not receive any thrombolytic therapy. He has appointment to follow up with neurologist on May 30. He had a tilt-table test done, result is pending and the patient's will be notified by neurologist's office with the result and she will notify me of the results. Allergies: TO STATIN CAUSING MYALGIA. 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 Above all other systems reviewed and negative. Past Medical History: Significant for stroke, neuralgia, impaired fasting glucose, obstructive sleep apnea, hypertension, mixed hyperlipidemia, coronary artery disease. Past Surgical History: Tonsillectomy, coronary artery angioplasty with stent placement on October 21, 2019, pacemaker placement and the patient has a loop recorder in place, appendectomy, skin biopsy. Family History: Significant for father had stroke. Mother had heart disease and hypertension. Sister with hypertension. Social History: Negative for smoking. Use of alcohol rarely. Medications: Current medication list reviewed. Physical Examination: Vital Signs: This morning; temperature 97.8, pulse 60, respiratory rate 16, blood pressure 142/69 with oxygen saturation 92%. Height 5 feet 6 inches, weight 199 pounds. General: Awake, alert, oriented, not in distress. HEENT: Head atraumatic, normocephalic. Conjunctivae nonerythematous. Sclerae white. Mouth, no thrush or edema noted. Ears/Nose, no mass, lesion, discharge noted. Neck: Supple. No JVD, lymph nodes, bruit, thyromegaly noted. Lungs: Bilateral good equal air entry. Clear to auscultation. No rhonchi. No rales. Heart: Normal heart sounds, no murmur or gallop. Abdomen: Soft, bowel sounds normal. No guarding, rigidity, tenderness, mass, hepatosplenomegaly, distention, or bruit noted. Extremities: No leg edema. No calf tenderness. Skin: No rash, ulcer, cellulitis. Lymphatics: No lymph node enlargement in neck, supraclavicular, infraclavicular region. Neuro: No focal neurological deficit. Chest: Unremarkable. External Genitalia: Deferred. Rectal: Deferred. 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 Laboratory Data: Yesterday; white count 9.9, hemoglobin 15.5, platelets 248. Sodium 142, potassium 4.2, chloride 109, bicarb 28, BUN 22, creatinine 0.90, glucose 116, magnesium 2. Urinalysis negative. COVID-19 test negative. Impression: 1. Stroke. 2. Vertebrobasilar insufficiency. 3. Hypertension. 4. Mixed hyperlipidemia. 5. Coronary artery disease. 6. Impaired fasting glucose. 7. Obstructive sleep apnea. Plan: We will admit the patient to rehab floor, consult Dr. Barclay from rehab floor. His current medications will be continued including aspirin and Eliquis. 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 I have reviewed the available records from [place] and we will go ahead and request copy of discharge summary. The patient will continue to follow with neurologist when he has his next appointment on May 30, and physical therapy on the rehab floor to be provided under guidance of Dr. Barclay. I will see him tomorrow for followup. ANGELA/DICK Voice ID: [id number] MTDD
--- NOTE | 2020-06-16 18:40 | R.DS ---
DISCHARGE SUMMARY FACILITY [facility] MR# [id number] NAME YVETTE HERNANDEZ ADDRESS [address] [facility] [place] [address] PHONE DATE OF 1955 AGE 64 SSN# [id number] GENDER Male DEXTERITY Right-handed MARITAL STATUS RACE White ENCOUNTER PHYSICIAN Dr. Nabor Barclay M.D. REFERRING DOCTOR [facility] [place] REFERRING FACILITY [facility] DISCHARGE DIAGNOSIS: - Stroke 01 - Right Body (Left Brain) (01.2) Stroke in dominant Left PICA w/ perfusion to the right. 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 NURSING: - Shower allowing shower - Bladder care per protocol - Skin care per protocol PRECAUTIONS: - Weight Bearing Precaution WBAT right LE ACTIVITIES OOB only with supervision THERAPIES: - Occupational Therapy Cognitive Retraining Visual Perceptual Training - Dietary and Nutrition Adequate Nutrition Nutritional Education Nutritional Supplements - Speech Therapy Cognitive Training Expressive Language Skills Memory Strategies Receptive Language Skills Speech Intelligibility Training HISTORY OF PRESENT ILLNESS: Pt. is a 64 yo Right-handed white male.On 05/08/2020 Pt. presented to [facility] with sudden onset of right-side weakness. Right vertebral artery stenosis.On 05/08/2020 Pt. presented to [facility] with sudden onset of right-side weakness.On 05/08/2020 he was admitted to [facility] with diagnosis Stroke in dominant Left PICA w/ perfusion to the right.His impairment category is S troke 01 - Right Body (Left Brain) (01.2).Pre-morbidly, Pt. was independent/mod-I in Transfers Contr ol, Locomotion, and Self-Care; and he had good Balance, Safety Awareness, Social Cognition, Communica tion, and Sphincter Control.Currently, he has deficits of Transfers Control, Locomotion, Balance, Saf ety Awareness, Self-Care, Social Cognition, and Communication.Pt. is now referred to [facility] for acute in-patient rehabilitation in order to maximize patient's functional indep endence in activities of daily living, strength, ROM, and mobility.- Rehab Goal Patient has realistic goal of being discharged at assistance level 6-Reina to reside at Home with Fam justyn/Relatives. HOSPITAL COURSE: DIET - LIQUID TEXTURE: On 05/12/2020 Pt was upgraded to Regular Diet - Liquid Texture. DIET - SOLID TEXTURE: On 05/12/2020 Pt was upgraded to Regular Diet - Solid Texture. DIET TYPE: On 05/12/2020 Pt was upgraded to Regular Diet Type. TUBE FEED: On 05/12/2020 Pt was changed to N/A Tube Feed. WEIGHT BEARING PRECAUTION: On 05/12/2020 the following precautions were added for the patient: Weight Bearing Precaution - WBAT right LE. On 05/12/2020 the following precautions were added for the patient: Weight Bearing Precaution - WBAT right LE. On 05/15/2020 the following precautions were removed for the patient: Weight Bearing Precaution - WB AT right LE. On 05/16/2020 the following precautions were added for the patient: Weight Bearing Precaution - WBAT right LE. DISCHARGE PHYSICAL EXAM - Gen Alert and awake Lying in bed No apparent distress Oriented to: person, time, and place - Vital Signs Vital signs stable, afebrile - Skin No skin breakdown. No abnormalities - Eyes No abnormalities - ENMT No abnormalities - Neck No abnormalities - CVS RRR - Chest No abnormalities - Resp No wheezing - Abd +bowel sounds - GI Soft Deferred - No abnormalities - Ext Mild right lower extremity edema. - MSK 4+/5 weakness in right upper and lower extremities - Neuro 4/5 strength right upper and lower extremities. - Psych Mild depression. FUNCTIONAL STATUS: - Self-Care A. Eating 6-Reina B. Grooming 6-Reina C. Bathing 6-Reina D. Dressing - Upper 6-Reina E. Dressing - Lower 6-Reina F. Toileting 6-Reina - Sphincter Control G. Bladder control 6-Reina H. Bowel control 6-Reina - Transfers Control I. Bed/Chair/Wheelchair 6-Reina J. Toilet 6-Reina K. Tub/Shower 6-Reina - Locomotion L. Walk/Wheelchair (B) 6-Reina M. Stairs 6-Reina - Communication N. Comprehension (B) 6-Reina O. Expression (B) 6-Reina - Social Cognition P. Social Interaction 6-Reina Q. Problem Solving 6-Reina R. Memory 6-Reina - Endurance Good - Balance Good - Safety Awareness Good QI SCORES: - Self-Care A. Eating 05-Setup or clean-up assistance B. Oral hygiene 03-Partial/moderate assistance C. Toileting hygiene 03-Partial/moderate assistance E. Shower/bathe self 03-Partial/moderate assistance F. Upper body dressing 03-Partial/moderate assistance G. Lower body dressing 03-Partial/moderate assistance H. Putting on/taking off footwear 03-Partial/moderate assistance - Mobility A. Roll left and right 04-Supervision or touching assistance B. Sit to lying 04-Supervision or touching assistance C. Lying to sitting on side of bed 04-Supervision or touching assistance D. Sit to stand 04-Supervision or touching assistance E. Chair/[id number] transfer 04-Supervision or touching assistance F. Toilet transfer 04-Supervision or touching assistance G. Car transfer 10-Not attempted due to environmental limitations I. Walk 10 feet 04-Supervision or touching assistance J. Walk 50 feet with two turns 04-Supervision or touching assistance K. Walk 150 feet 88-Not attempted due to medical condition or safety concerns L. Walking 10 feet on uneven surfaces 88-Not attempted due to medical condition or safety concerns M. 1 step (curb) 88-Not attempted due to medical condition or safety concerns N. 4 steps 88-Not attempted due to medical condition or safety concerns O. 12 steps 88-Not attempted due to medical condition or safety concerns P. Picking up object 88-Not attempted due to medical condition or safety concerns - Bladder and Bowel Bladder continence Bowel continence - Endurance Poor - Balance Poor - Safety Awareness Poor DISCHARGE INSTRUCTIONS: - N/A Eliquis 5 mg twice daily. DISCHARGE PLAN, FOLLOW UP CARE PROVISIONS: - Estimated Length of Stay (days) 17. - Consensus on plan Patient/Family is in agreement with the plan. Primary caregiver is in agreement with the plan. - Patient/Family Goals Return home with assistance. - Planned Living Setting Upon Discharge Home, to live with Family/Relatives. SIGNATURE PANEL: (CDT)
== END 2020-05-21 10:10 | disposition home or self-care (01) | DRG 57 ==
LOC: 5TH 17:25
PROVIDERS: ADMIT Psychiatry & Neurology Neurology with Special Qualifications in Child Neurology; ATTEND Internal Medicine
DX: I69.351 Hemiplegia and hemiparesis following cerebral infarction affecting right dominant side (principal); G45.0 Vertebro-basilar artery syndrome; I25.10 Atherosclerotic heart disease of native coronary artery without angina pectoris; I10 Essential (primary) hypertension; G47.33 Obstructive sleep apnea (adult) (pediatric); E78.2 Mixed hyperlipidemia; R73.01 Impaired fasting glucose; Z88.8 Allergy status to other drugs, medicaments and biological substances; Z95.0 Presence of cardiac pacemaker; Z95.5 Presence of coronary angioplasty implant and graft; Z90.49 Acquired absence of other specified parts of digestive tract; Z79.01 Long term (current) use of anticoagulants; Z79.82 Long term (current) use of aspirin; Z79.899 Other long term (current) drug therapy; Z20.822 Contact with and (suspected) exposure to COVID-19; Z23 Encounter for immunization
CPT/HCPCS: 36415; 80048; 81003; 82040; 82947; 83735; 84134; 85025; 87086; 87088; 92526; 92610; 97110; 97112; 97116; 97161; 97530; U0003

== ENCOUNTER 2022-08-29 09:28 | Emergency (ER) | payer OTHER ==
--- OUTSIDE RECORDS SUMMARY | 2022-08-29 09:39 | XMS REPORT | Continuity of Care Document ---
:1955 Author Organization [facility] t Address [address] [place] [address] Care Team Providers Name Role Phone STEVIE FRANCISCO Miller Primary Care Physician Unavailable JHONNY STUART Attending Clinician Unavailable VINCE STREETER Attending Clinician Unavailable MIGUEL HERNANDEZ Attending Clinician Unavailable SAVANNA SUAZO Attending Clinician Unavailable HORACIO SAUCEDA Attending Clinician Unavailable JJ COHEN Attending Clinician Unavailable MERCY ESCAMILLA Attending Clinician Unavailable ISABEL CORONA Attending Clinician Unavailable Yohana Bird MD Attending Clinician JACKIE CAMACHO Attending Clinician Unavailable Utp, Pft Pulm Attending Clinician Unavailable XAVIER HENNING Attending Clinician Unavailable Sherly MARTINEZ, Misti Attending Clinician GAYATHRI FERNANDEZ Attending Clinician Unavailable Vickie Howard MD Attending Clinician SHIRA CHAVEZ JR Attending Clinician Unavailable Doctor Unassigned, [place] Attending Clinician Unavailable MEDINA GENAO Attending Clinician Unavailable AV GRIGSBY Attending Clinician Unavailable JHONNY STUART Attending Clinician Unavailable PAULA MILLER Attending Clinician Unavailable PRIMO TREVINO Attending Clinician Unavailable MANDIE ROMO Attending Clinician Unavailable Xavier Henning MD Attending Clinician Cordell Renee MD Attending Clinician CORDELL RENEE Attending Clinician Unavailable XAVIER HENNING Attending Clinician Unavailable LEORA BANKS Attending Clinician Unavailable SHIRA CHAVEZ JR Admitting Clinician Unavailable PRIMO TREVINO Admitting Clinician Unavailable XAVIER HENNING Admitting Clinician Unavailable LEORA BANKS Admitting Clinician Unavailable Payers Payer Name Policy Type Policy Number Effective Date Expiration Date S abelino [place] [id number] 2019 2024 00:00:00 00:00:00 OPEN ACCESS [id number] 2018 HMO/POS/EPO/PPO - 00:00:00 AETNA CVCP-AETNA [id number] MEDICARE PART A [id number] \T\ B - MEDICARE [facility] [id number] 2019 OF [place] 00:00:00 MEDICARE PART A [id number] 2018 \T\ B 00:00:00 AETNA HMO POS [id number] QPOS 00:00:00 Problems Condition Condition Condition Status Onset Resolution Last Treating Co mments Source Name Details Category Date Date Treatment Clinician Date 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[facility] severe severe 5-05 College obesity obesity 00:00: of due to due to 00 Medicin excess excess e calories calories with with serious serious comorbidit comorbidit y and body y and body mass index mass index (BMI) of (BMI) of 38.0 to 38.0 to 38.9 in 38.9 in adult adult Impaired Impaired Disease Active [facility] r fasting fasting 505 [place] glucose glucose 00:00: of 00 Medicin e History of History of Disease Active [facility] CVA CVA 05 [place] (cerebrova (cerebrova 00:00: of scular scular 00 Medicin accident) accident) e Elevated Elevated Disease Active [facility] r Lp(a) Lp(a) 05 [place] 00:00: of 00 Medicin e Statin Statin Disease Active [facility] intoleranc intoleranc 05 Co llege e e 00:00: of 00 Medicin e Dyspnea on Dyspnea on Disease Active [facility] T exertion exertion 4-19 Health 00:00: 00 Glaucoma Glaucoma Disease Active Overview: [facility] 3-21 [facility] 00:00: g of this 00 note might be different from the original. [facility] of this note might be different from the original. Converted from [employer] Hyperlipid Hyperlipid Disease Active Overview : [facility] emia emia 3-21 [facility] 00:00: g of this 00 note might be different from the original. [facility] of this note might be different from the original. Converted from [employer] Pacemaker Pacemaker Disease Active 2021-03 [facility] 2-22 [place] 00:00: of 00 Medicin e Numbness Numbness Disease Active [facility] and and 811 [facility] tingling tingling 00:00: of left of left 00 leg leg Cerebrovas Cerebrovas Disease Active U T cular cular 3-23 Health accident accident 00:00: (CVA) (CVA) 00 Gait Gait Disease Active UT abnormalit abnormalit 3-10 He alth y y 00:00: 00 Balance Balance Disease Active [facility] problem problem 3-10 Health 00:00: 00 Effects of Effects of Disease Active U T freezing freezing 3-10 Health or or 00:00: excessive excessive 00 cold cold Dystonia Dystonia Disease Active UT of of 3-10 Health extremity extremity 00:00: 00 Spasticity Spasticity Disease Active U T 3-10 Health 00:00: 00 Dystonia Dystonia Disease Active UT of foot of foot 3-10 Health 00:00: 00 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 3-10 He alth tive tive 00:00: disorder disorder 00 Parkinsoni Parkinsoni Disease Active U T an an 3-10 Health features features 00:00: 00 PAD PAD Disease Active UT (periphera (periphera 2-23 He alth l artery l artery 00:00: disease) disease) 00 Arterial Arterial Disease Active 2020-03 [facility] vascular vascular 2-08 Health disease disease 00:00: 00 Parkinson Parkinson Disease Active UT disease, disease, 5-17 Health symptomati symptomati 00:00: c c 00 Coronary Coronary Disease Active [facility] artery artery 9 [facility] disease disease 00:00: of involving involving 00 [facility] aditi egegik egegik e coronary coronary artery of artery of [place] heart heart without without angina angina pectoris pectoris Coronary Coronary Disease Active [facility] artery artery 9 [facility] disease disease 00:00: of involving involving 00 Medi aditi egegik egegik e coronary coronary artery of artery of [place] heart heart without without angina angina pectoris pectoris History of History of Disease Active [facility] placement placement 11-15 Liz ege of stent of stent 00:00: of in LAD in LAD 00 Medicin coronary coronary e artery artery Pacemaker Pacemaker Disease Active [facility] 8-19 [facility] 00:00: 00 Bradycardi Bradycardi Disease Active [facility] 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 09-21 [facility] stenosis stenosis 00:00: Medica l 00 Center Essential Essential Disease [facility] hypertensi hypertensi nce 09-21 [facility]ah kes on on 00:00: Medical 00 Center Mixed Mixed Disease [facility] hyperlipid hyperlipid nce 09-21 Khadijah kes emia emia 00:00: Medical 00 Center Received Received Disease [facility] intravenou intravenou nce 09-21 Khadijah kes s tissue s tissue 00:00: Medica l plasminoge plasminoge 00 Ce nter n n activator activator (tPA) in (tPA) in emergency emergency department department Acute Acute Disease [facility] ischemic ischemic nce 7 [facility] stroke stroke 00:00: Medical 00 Center Syncope Syncope Disease Active [place] and and 08-19 [facility] collapse collapse 00:00: 00 Syncope Syncope Disease Active [facility] 6-05 College 00:00: of 00 Medicin e 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 Formattin g of this note might be different from the original. AHI 21/hr, CPAP 14 cmH2O Major Major Disease Active 2013-03 [facility] depression depression 1-11 He alth 00:00: 00 Angioma Angioma Disease Active [facility] 4-03 [facility] 00:00: 00 Allergies, Adverse Reactions, Alerts Allergy Allergy Status Severity Reaction(s) Onset Inactive Treating Comm ents Source Name Type Date Date Clinician Statins Propensi Active Patient [facility] ty to 10-12 states he College adverse 00:00: doesn't of reaction 00 tolerate Medici n s to statins e drug Statins Allergy Active Other Patient [facility] to 08-15 states he Health substanc 00:00: doesn't e 00 tolerate statins Other reaction( s): muscle weakness Statins Propensi Active Other Patient [place] ty to 08-15 states he Health adverse 00:00: doesn't reaction 00 tolerate s statins NO KNOWN Allergy Active [facility] ALLERGIE S NO KNOWN Drug Active [facility] ALLERGIE Class ity of [facility] Social History Social Habit Start Date Stop Date Quantity Comments Source History SDOH [facility] Alcohol Std Drinks Medica l Center History SDOH [facility] Alcohol Binge Medical Renetta ter History SDOH [facility] Alcohol Comment Medical C enter Exposure to 2022-08-10 2022-08-20 Not sure [facility] SARS-CoV-2 (event) 00:00:00 14:29:00 Tobacco use and 2022-01-17 2022-01-17 Smokeless tobacco [facility] exposure 00:00:00 00:00:00 non-user Alcohol intake 2018-11-03 2018-11-03 Current BETTIE Wayne es 00:00:00 00:00:00 non-drinker of Medical Ce nter alcohol (finding) History SDOH 2018-11-02 2018-11-02 1 BETTIE Kelly Alcohol Frequency 00:00:00 00:00:00 [facility] Sex Assigned At [birth year] BETTIE [place] 00:00:00 00:00:00 [facility] Smoking Status Start Date Stop Date Source Never smoked tobacco [facility] Medications Ordered Filled Start Stop Current Ordering Indication Dosage Frequency Signature Comments Components Source Medication Medication Date Date Medication? Clinician (SIG) Name Name furosemide Yes [id number] Take 1 UT (Lasix) 20 6-07 tablet by Heal th MG tablet 00:00: mouth once 00 daily isosorbide Yes [id number] TAKE 1 U T mononitrate 6-06 TABLET BY Hea [facility] ER (Imdur) 00:00: MOUTH ONCE 30 MG 24 hr 00 DAILY, DO tablet NOT CRUSH OR CHEW bupivacaine 2022- No [id number] 5mL UT PF 07-31 Health (Marcaine) 15:33: 15:33 0.25 % 37 :00 injection 5 mL triamcinolo 2022- No [id number] 40mg UT ne 07-31 Health acetonide 15:33: 15:33 (Kenalog-40 37 :00 ) injection 40 mg triamcinolo 2022- No [id number] 40mg 40 mg, UT ne 07-31 Once PRN Health acetonide 15:33: 15:33 Procedure, (Kenalog-40 37 :00 Starting ) injection on Fri 40 mg 07/31/22 at 1033, For 1 dose bupivacaine 2022- No [id number] 5mL 5 mL, Once UT PF 07-31 PRN Health (Marcaine) 15:33: 15:33 Procedure, 0.25 % 37 :00 Starting injection 5 on Fri mL 07/31/22 at 1033, For 1 dose losartan 0 2023- Yes [id number] 25mg Q.5D Take 1 UT (Cozaar) 25 5-12 05-07 tablet (25 H ealth MG tablet 00:00: 04:59 mg total) 00 :00 by mouth in the morning and 1 tablet (25 mg total) before bedtime. losartan 2022-0 2023- Yes [id number] 25mg Q.5D Take 1 [facility] (Cozaar) 25 5-12 05-07 tablet (25 H ealth MG tablet 00:00: 04:59 mg total) 00 :00 by mouth in the morning and 1 tablet (25 mg total) before bedtime. ASPIRIN 81 2022-0 Yes 81mg Take 81 mg [facility] OR 5-05 by mouth College 10:03: daily. of 34 Medicin e metoprolol 2022-0 Yes 25mg Take 1 [facility] (TOPROL-XL) 5-05 Tablet by Col lege 25 MG XL 10:03: mouth as of tablet 34 needed. Medicin e duloxetine 0 Yes 60mg Take 1 [facility] (CYMBALTA) 5-05 capsule by Col lege 60 MG 10:03: mouth of capsule 34 daily. Medicin e losartan 0 Yes 25mg Take 1 [facility] (COZAAR) 25 5-05 Tablet by Col lege MG tablet 10:03: mouth two of 34 times Medicin daily. e isosorbide 2022-0 Yes TAKE 1 [facility] mononitrate 5-05 TABLET BY Col lege (IMDUR) 30 10:03: MOUTH ONCE o f MG CR 34 DAILY, DO Medicin tablet NOT CRUSH e OR CHEW pregabalin 2022-0 Yes two times [facility] (LYRICA) 50 5-05 daily. Colleg e MG capsule 10:03: of 34 Medicin e hydrochloro 2022-0 2022- No 1{tbl} Take 1 [facility] thiazide 5-05 05-05 Tablet by Colle ge 12.5 MG 10:02: 00:00 mouth of TABS 22 :00 daily. Medicin e Semaglutide 2022-0 Yes [id number] .25mg Inject [facility] ,0.25 or 5-05 0.25 mg College 0.5MG/DOS, 00:00: into the of 2 MG/3ML 00 skin every Medic in SOPN 7 days. e Inject 0.25 mg into the skin every 7 days for 30 days, THEN 0.5 mg every 7 days for 30 days. - Subcutaneo us furosemide 2022-0 3- Yes [id number] 20mg QD Take 1 UT (Lasix) 20 4-21 05-22 tablet (20 He alth MG tablet 00:00: 04:59 mg total) 00 :00 by mouth 1 (one) time each day. furosemide 2022-0 2022- Yes [id number] 20mg QD Take 1 UT (Lasix) 20 4-21 05-22 tablet (20 He alth MG tablet 00:00: 04:59 mg total) 00 :00 by mouth 1 (one) time each day. furosemide 2022-0 2022- Yes 20mg Take 1 [facility] (LASIX) 20 4-21 05-22 Tablet by Col lege MG tablet 00:00: 04:59 mouth of 00 :00 daily. Medicin e furosemide 2022-0 Yes 81 20mg UT (Lasix) 4-19 Health injection 19:15: 20 mg 00 omeprazole 3-0 Yes 20mg QD Take 20 mg U T (PriLOSEC) 4-17 by mouth 1 Hea lth [address] 13:13: (one) time capsule 25 each day. As needed fexofenadin 2023-0 Yes 180mg Q.5D Take 180 U T e (Lori) 4-17 mg by Health 180 MG 13:13: mouth tablet 25 twice a day. omeprazole 2023-0 Yes 20mg QD Take 20 mg U T (PriLOSEC) 4-17 by mouth 1 [facility]a [facility] [address] 13:13: (one) time capsule 25 each day. As needed fexofenadin 2023-0 Yes 180mg Q.5D Take 180 U T e (Lori) 4-17 mg by Health 180 MG 13:13: mouth tablet 25 twice a day. omeprazole 2023-0 Yes 20mg QD Take 20 mg U T (PriLOSEC) 4-17 by mouth 1 [facility] [address] 13:13: (one) time capsule 25 each day. As needed fexofenadin 2023-0 Yes 180mg Q.5D Take 180 U T e (Lori) 4-[address] [facility] 180 MG 13:13: mouth tablet 25 twice a day. omeprazole 3-0 Yes 20mg QD Take 20 mg U T (PriLOSEC) 4-17 by mouth 1 a [facility] [address] 13:13: (one) time capsule 25 each day. As needed fexofenadin 2023-0 Yes 180mg Q.5D Take 180 U T e (Lori) 4-[address] [facility] 180 MG 13:13: mouth tablet 25 twice a day. omeprazole 3-0 Yes 20mg QD Take 20 mg U T (PriLOSEC) 4-17 by mouth 1 [facility] [address] 13:13: (one) time capsule 25 each day. As needed fexofenadin 2023-0 Yes 180mg Q.5D Take 180 U T e (Lori) 4-[address] [facility] 180 MG 13:13: mouth tablet 25 twice a day. carbidopa-l 2022-0 Yes [id number] TAKE 2 UT evodopa CR 4-17 TABLETS BY [facility] (Sinemet 00:00: MOUTH ONCE CR) 25-100 00 DAILY AT MG ER 10 PM tablet carbidopa-l 2022-0 Yes [id number] TAKE 2 UT evodopa CR 4-17 TABLETS BY [facility] (Sinemet 00:00: MOUTH ONCE CR) 25-100 00 DAILY AT MG ER 10 PM tablet carbidopa-l 2022-0 Yes [id number] TAKE 2 UT evodopa CR 4-17 TABLETS BY [facility] (Sinemet 00:00: MOUTH ONCE CR) 25-100 00 DAILY AT MG ER 10 PM tablet carbidopa-l 2022-0 Yes [id number] TAKE 2 UT evodopa CR 4-17 TABLETS BY [facility] (Sinemet 00:00: MOUTH ONCE CR) 25-100 00 DAILY AT MG ER 10 PM tablet carbidopa-l 2022-0 Yes [id number] TAKE 2 UT evodopa CR 4-17 TABLETS BY [facility] (Sinemet 00:00: MOUTH ONCE CR) 25-100 00 DAILY AT MG ER 10 PM tablet carbidopa-l 202-0 3- Yes [id number] 1.5{tbl Q.[id number] Take 1 .5 UT evodopa 4-17 10-15 } [id number] tablets by Health (Sinemet) 00:00: 04:59 3D mouth in 25-100 MG 00 :00 the tablet morning and 1.5 tablets at noon and 1.5 tablets in the evening. carbidopa-l 2022- Yes [id number] 1.5{tbl Q.[id number] Take 1 .5 UT evodopa 4-17 10-15 } [id number] tablets by Health (Sinemet) 00:00: 04:59 3D mouth in 25-100 MG 00 :00 the tablet morning and 1.5 tablets at noon and 1.5 tablets in the evening. carbidopa-l 2022- Yes [id number] 1.5{tbl Q.[id number] Take 1 .5 UT evodopa -17 10-15 } [id number] tablets by Health (Sinemet) 00:00: 04:59 3D mouth in 25-100 MG 00 :00 the tablet morning and 1.5 tablets at noon and 1.5 tablets in the evening. carbidopa-l 2022- Yes [id number] 1.5{tbl Q.[id number] Take 1 .5 UT evodopa 4-17 10-15 } [id number] tablets by Health (Sinemet) 00:00: 04:59 3D mouth in 25-100 MG 00 :00 the tablet morning and 1.5 tablets at noon and 1.5 tablets in the evening. carbidopa-l 2022- Yes [id number] 1.5{tbl Q.[id number] Take 1 .5 UT evodopa -17 10-15 } [id number] tablets by Health (Sinemet) 00:00: 04:59 3D mouth in 25-100 MG 00 :00 the tablet morning and 1.5 tablets at noon and 1.5 tablets in the evening. lidocaine 2022- No [id number] 10mL UT PF 06-26 [facility] (Xylocaine) 19:54: 19:54 1 % 46 :00 injection 10 mL dexamethaso 2022- No [id number] 10mg U T ne (PF) 06-26 [facility] (Decadron) 19:54: 19:54 injection 46 :00 10 mg iohexol 2022- No [id number] 2mL UT (OMNIPaque) 06-26 Health 300 MG/ML 19:54: 19:54 injection 2 46 :00 mL sodium 2022-0 2022- No [id number] 10mL UT chloride 06-26 Health 0.9 % flush 19:54: 19:54 10 mL 46 :00 sodium 2022-2022- No [id number] 10mL 10 mL, UT chloride 06-26 Once PRN Health 0.9 % flush 19:54: 19:54 Procedure, 10 mL 46 :00 Starting on Fri06/26/22 at 1454, For 1 dose iohexol 2022- No [id number] 2mL 2 mL, Once UT (OMNIPaque) 06-26 PRN Health 300 MG/ML 19:54: 19:54 Procedure, injection 2 46 :00 Starting mL on Fri06/26/22 at 1454, For 1 dose dexamethaso 2022- No [id number] 10mg 10 mg, UT ne (PF) 06-26 Once PRN Health (Decadron) 19:54: 19:54 Procedure, injection 46 :00 Starting 10 mg on Fri06/26/22 at 1454, For 1 dose lidocaine 2022- No [id number] 10mL 10 mL, U T PF 06-26 Once PRN Health (Xylocaine) 19:54: 19:54 Procedure, 1 % 46 :00 Starting injection on Fri 10 mL 06/26/22 at 1454, For 1 dose carbidopa-l Yes [id number] TAKE 2 UT evodopa CR 4-07 TABLETS BY [facility] (Sinemet 00:00: MOUTH ONCE CR) 25-100 00 DAILY AT MG ER 10 PM tablet carbidopa-l 2022- No [id number] TAKE 2 UT evodopa CR 4-07 04-17 TABLETS BY [facility] (Sinemet 00:00: 00:00 MOUTH ONCE CR) 25-100 00 :00 DAILY AT MG ER 10 PM tablet Inclisiran Yes UT Sodium 284 4-06 Health MG/1.5ML 00:00: solution 00 prefilled syringe Inclisiran 2022-0 Yes UT Sodium 284 4-06 Health MG/1.5ML 00:00: solution 00 prefilled syringe Inclisiran 2022-0 Yes UT Sodium 284 4-06 Health MG/1.5ML 00:00: solution 00 prefilled syringe Inclisiran 2022-0 Yes UT Sodium 284 4-06 Health MG/1.5ML 00:00: solution 00 prefilled syringe Inclisiran 2022-0 Yes UT Sodium 284 4-06 Health MG/1.5ML 00:00: solution 00 prefilled syringe Enoxaparin 2022-0 Yes [id number] 100mg Q12H Inject 1 UT Sodium 3-22 mL (100 mg Health (Lovenox) 00:00: total) 100 MG/ML 00 under the solution skin every prefilled 12 syringe (twelve) hours. Patient to receive 4 injections total. Sig: Enoxaparin (Lovenox) 100 mg/ml inject June 09 in pm, June 10 am and pm, and one injection June 11 in am then d/c. Enoxaparin 2022-0 Yes [id number] 100mg Q12H Inject 1 UT Sodium 3-22 mL (100 mg Health (Lovenox) 00:00: total) 100 MG/ML 00 under the solution skin every prefilled 12 syringe (twelve) hours. Patient to receive 4 injections total. Sig: Enoxaparin (Lovenox) 100 mg/ml inject June 09 in pm, June 10 am and pm, and one injection June 11 in am then d/c. Enoxaparin 2022-0 Yes [id number] 100mg Q12H Inject 1 UT Sodium 3-22 mL (100 mg Health (Lovenox) 00:00: total) 100 MG/ML 00 under the solution skin every prefilled 12 syringe (twelve) hours. Patient to receive 4 injections total. Sig: Enoxaparin (Lovenox) 100 mg/ml inject June 09 in pm, June 10 am and pm, and one injection June 11 in am then d/c. Enoxaparin 3-0 Yes [id number] 100mg Q12H Inject 1 UT Sodium 3-22 mL (100 mg Health (Lovenox) 00:00: total) 100 MG/ML 00 under the solution skin every prefilled 12 syringe (twelve) hours. Patient to receive 4 injections total. Sig: Enoxaparin (Lovenox) 100 mg/ml inject June 09 in pm, June 10 am and pm, and one injection June 11 in am then d/c. Enoxaparin 2023-0 Yes [id number] 100mg Q12H Inject 1 UT Sodium 3-22 mL (100 mg Health (Lovenox) 00:00: total) 100 MG/ML 00 under the solution skin every prefilled 12 syringe (twelve) hours. Patient to receive 4 injections total. Sig: Enoxaparin (Lovenox) 100 mg/ml inject June 09 in pm, June 10 am and pm, and one injection June 11 in am then d/c. Enoxaparin 2023-0 Yes [id number] 100mg Q12H Inject 1 UT Sodium 3-22 mL (100 mg Health (Lovenox) 00:00: total) 100 MG/ML 00 under the solution skin every prefilled 12 syringe (twelve) hours. Patient to receive 4 injections total. Sig: Enoxaparin (Lovenox) 100 mg/ml inject June 09 in pm, June 10 am and pm, and one injection June 11 in am then d/c. duloxetine 2022-0 Yes 60mg Take 1 [facility] (CYMBALTA) 3-20 capsule by Col lege 60 MG 09:18: mouth of capsule 12 daily. Medicin e losartan 3-0 Yes 25mg Take 1 [facility] (COZAAR) 25 3-20 Tablet by Col lege MG tablet 09:18: mouth two of 12 times Medicin daily. e isosorbide 2022-0 Yes TAKE 1 [facility] mononitrate 3-20 TABLET BY Col lege (IMDUR) 30 09:18: MOUTH ONCE o f MG CR 12 DAILY, DO Medicin tablet NOT CRUSH e OR CHEW pregabalin 3-0 Yes two times [facility] (LYRICA) 50 3-20 daily. Colleg e MG capsule 09:18: of 12 Medicin e OMEPRAZOLE 3-0 2023- No Take by [facility] maryellen OR 3-20 03-20 mouth as College 09:15: 00:00 needed. of 51 :00 Medicin e metoprolol 2023-0 Yes 25mg Take 1 [facility] (TOPROL-XL) 3-20 Tablet by Col lege 25 MG XL 09:15: mouth as of tablet 39 needed. Medicin e hydrochloro Yes 1{tbl} Take 1 [facility] thiazide 3-20 Tablet by Colleg e 12.5 MG 09:15: mouth of TABS 39 daily. Medicin e Multiple 2022- No Take by [facility] Vitamins-Mi -03 06- mouth Colleg e nerals 09:15: 00:00 daily. of (ZINC OR) 39 :00 Medicin e ASPIRIN 81 Yes 81mg Take 81 mg [facility] OR 3-20 by mouth [place] 09:13: daily. of 00 Medicin e rivastigmin 2022- No 1{appli Place 1 Gibran e 4.6 -06-03 cator} Applicator Colle ge MG/24HR 09:11: 00:00 onto the of PT24 54 :00 skin. Medicin e lidocaine 2022- No [id number] 10mL UT PF 05-15 Health (Xylocaine) 18:24: 18:24 1 % 18 :00 injection 10 mL bupivacaine 2022- No [id number] 3mL U T PF 05-15 Health (Marcaine) 18:24: 18:24 0.25 % 18 :00 injection 3 mL dexamethaso 2022- No [id number] 10mg U T ne (PF) 05-15 Health (Decadron) 18:24: 18:24 injection 18 :00 10 mg iohexol 2022- No [id number] 2mL UT (OMNIPaque) 05-15 Health 300 MG/ML 18:24: 18:24 injection 2 18 :00 mL iohexol 2022- No [id number] 2mL 2 mL, Once UT (OMNIPaque) 05-15 PRN Health 300 MG/ML 18:24: 18:24 Procedure, injection 2 18 :00 Starting mL on Fri05/15/22 at 1224, For 1 dose dexamethaso 2022- No [id number] 10mg 10 mg, UT ne (PF) 05-15 Once PRN Health (Decadron) 18:24: 18:24 Procedure, injection 18 :00 Starting 10 mg on Fri05/15/22 at 1224, For 1 dose bupivacaine 2022- No [id number] 3mL 3 mL, Once UT PF 05-15 PRN Health (Marcaine) 18:24: 18:24 Procedure, 0.25 % 18 :00 Starting injection 3 on Fri mL 05/15/22 at 1224, For 1 dose lidocaine 0 2022- No [id number] 10mL 10 mL, U T PF 05-15 Once PRN Health (Xylocaine) 18:24: 18:24 Procedure, 1 % 18 :00 Starting injection on Fri 10 mL 05/15/22 at 1224, For 1 dose Enoxaparin Yes [id number] 100mg Q12H Inject 1 UT Sodium 2-24 mL (100 mg Health (Lovenox) 00:00: total) 100 MG/ML 00 under the solution skin every prefilled 12 syringe (twelve) hours. Patient to receive 4 injections total. Sig: Enoxaparin (Lovenox) 100 mg/ml inject June 09 in pm, June 10 am and pm, and one injection June 11 in am then d/c. Carbidopa-L 2022-0 Yes TAKE 2 [facility] evodopa CR 2-24 TABLETS BY Col lege 25-100 MG 00:00: MOUTH ONCE of TBCR 00 DAILY AT Medicin 10 PM e Carbidopa-L 2022-0 Yes TAKE 2 [facility] evodopa CR 2-24 TABLETS BY Col lege 25-100 MG 00:00: MOUTH ONCE of TBCR 00 DAILY AT Medicin 10 PM e Enoxaparin 2022-0 2022- No [id number] 100mg Q12H Inject 1 UT Sodium 2-24 03-22 mL (100 mg Health (Lovenox) 00:00: 00:00 total) 100 MG/ML 00 :00 under the solution skin every prefilled 12 syringe (twelve) hours. Patient to receive 4 injections total. Sig: Enoxaparin (Lovenox) 100 mg/ml inject June 09 in pm, June 10 am and pm, and one injection June 11 in am then d/c. pregabalin 2022-0 Yes [id number] 50mg Q.5D Take 1 UT (Lyrica) 50 2-21 capsule Healt h MG capsule 00:00: (50 mg 00 total) by mouth in the morning and 1 capsule (50 mg total) in the evening. pregabalin 2022-0 Yes [id number] 50mg Q.5D Take 1 UT (Lyrica) 50 2-21 capsule Healt h MG capsule 00:00: (50 mg 00 total) by mouth in the morning and 1 capsule (50 mg total) in the evening. pregabalin 2022-0 Yes [id number] 50mg Q.5D Take 1 UT (Lyrica) 50 2-21 capsule Healt h MG capsule 00:00: (50 mg 00 total) by mouth in the morning and 1 capsule (50 mg total) in the evening. pregabalin 2022-0 Yes [id number] 50mg Q.5D Take 1 UT (Lyrica) 50 2-21 capsule Healt h MG capsule 00:00: (50 mg 00 total) by mouth in the morning and 1 capsule (50 mg total) in the evening. pregabalin 2022-0 Yes [id number] 50mg Q.5D Take 1 UT (Lyrica) 50 2-21 capsule Healt h MG capsule 00:00: (50 mg 00 total) by mouth in the morning and 1 capsule (50 mg total) in the evening. pregabalin 2022-0 Yes [id number] 50mg Q.5D Take 1 UT (Lyrica) 50 2-21 capsule [facility] capsule 00:00: (50 mg 00 total) by mouth in the morning and 1 capsule (50 mg total) in the evening. pregabalin 2022-0 2022- No [id number] 50mg Q.5D Take 1 UT (Lyrica) 50 2-21 03-24 capsule [facility] MG capsule 00:00: 04:59 (50 mg 00 :00 total) by mouth in the morning and 1 capsule (50 mg total) in the evening. pregabalin 2022-0 3- No [id number] 50mg Q.5D Take 1 UT (Lyrica) 50 2-21 03-24 capsule [facility] MG capsule 00:00: 04:59 (50 mg 00 :00 total) by mouth in the morning and 1 capsule (50 mg total) in the evening. pregabalin 0 2022- No [id number] 50mg Q.5D Take 1 UT (Lyrica) 50 2- 03-24 capsule [facility] MG capsule 00:00: 04:59 (50 mg 00 :00 total) by mouth in the morning and 1 capsule (50 mg total) in the evening. Diclofenac 0 Yes [id number] APPLY U T Sodium 2-16 SPARINGLY Health (Voltaren) 00:00: AND 1 % 00 TOPICALLY external TO gel AFFECTED AREA DAILY Diclofenac 0 Yes [id number] APPLY U T Sodium 2-16 SPARINGLY Health (Voltaren) 00:00: AND 1 % 00 TOPICALLY external TO gel AFFECTED AREA DAILY Diclofenac 0 Yes [id number] APPLY U T Sodium 2-16 SPARINGLY Health (Voltaren) 00:00: AND 1 % 00 TOPICALLY external TO gel AFFECTED AREA DAILY Diclofenac 0 Yes [id number] APPLY U T Sodium 2-16 SPARINGLY [facility] (Voltaren) 00:00: AND 1 % 00 TOPICALLY external TO gel AFFECTED AREA DAILY Diclofenac 0 Yes [id number] APPLY U T Sodium 2-16 SPARINGLY Health (Voltaren) 00:00: AND 1 % 00 TOPICALLY external TO gel AFFECTED AREA DAILY Diclofenac 0 Yes [id number] APPLY U T Sodium 2-16 SPARINGLY Health (Voltaren) 00:00: AND 1 % 00 TOPICALLY external TO gel AFFECTED AREA DAILY Diclofenac 0 Yes [id number] APPLY U T Sodium 2-16 SPARINGLY Health (Voltaren) 00:00: AND 1 % 00 TOPICALLY external TO gel AFFECTED AREA DAILY Diclofenac 0 Yes [id number] APPLY U T Sodium 2-16 SPARINGLY Health (Voltaren) 00:00: AND 1 % 00 TOPICALLY external TO gel AFFECTED AREA DAILY Diclofenac 0 Yes [id number] APPLY U T Sodium 2-16 SPARINGLY Health (Voltaren) 00:00: AND 1 % 00 TOPICALLY external TO gel AFFECTED AREA DAILY Diclofenac 0 Yes APPLY [facility] Sodium 1 % 2-16 SPARINGLY [facility] GEL 00:00: AND of 00 TOPICALLY Medicin TO e AFFECTED AREA DAILY Diclofenac Yes APPLY [facility] Sodium 1 % 2-16 SPARINGLY [facility] GEL 00:00: AND of 00 TOPICALLY Medicin TO e AFFECTED AREA DAILY pregabalin 2023-0 2023- No [id number] 50mg Take 1 UT (Lyrica) 50 04-16 03-03 capsule [facility] MG capsule 00:00: 05:59 (50 mg 00 :00 total) by mouth every night. pregabalin 2023-0 2023- No [id number] 50mg Take 1 UT (Lyrica) 50 04-16- capsule [facility] MG capsule 00:00: 00:00 (50 mg 00 :00 total) by mouth every night. fexofenadin 2023-0 Yes 180mg Q.5D Take 180 U T e (Lori) 1-24 mg by Health 180 MG 08:49: mouth tablet 51 twice a day. omeprazole 2023-0 Yes 20mg QD Take 20 mg U T (PriLOSEC) 1-24 by mouth 1 [facility] [address] 08:49: (one) time capsule 51 each day. As needed fexofenadin 2023-0 Yes 180mg Q.5D Take 180 U T e (Lori) 1-24 mg by Health 180 MG 08:49: mouth tablet 51 twice a day. omeprazole 2023-0 Yes 20mg QD Take 20 mg U T (PriLOSEC) 1-24 by mouth 1 [facility] [address] 08:49: (one) time capsule 51 each day. As needed fexofenadin 2023-0 Yes 180mg Q.5D Take 180 U T e (Lori) 1-24 mg by Health 180 MG 08:49: mouth tablet 51 twice a day. omeprazole 2023-0 Yes 20mg QD Take 20 mg U T (PriLOSEC) 1-24 by mouth 1 [facility] [address] 08:49: (one) time capsule 51 each day. As needed fexofenadin 2023-0 Yes 180mg Q.5D Take 180 U T e (Lori) 1-24 mg by Health 180 MG 08:49: mouth tablet 51 twice a day. omeprazole 2023-0 Yes 20mg QD Take 20 mg U T (PriLOSEC) 1-24 by mouth 1 [facility] [address] 08:49: (one) time capsule 51 each day. As needed fexofenadin 2023-0 Yes 180mg Q.5D Take 180 U T e (Lori) 1-24 mg by Health 180 MG 08:49: mouth tablet 51 twice a day. omeprazole 2023-0 Yes 20mg QD Take 20 mg U T (PriLOSEC) 1-24 by mouth 1 [facility] [address] 08:49: (one) time capsule 51 each day. As needed fexofenadin 2023-0 Yes 180mg Q.5D Take 180 U T e (Lori) 1-24 mg by Health 180 MG 08:49: mouth tablet 51 twice a day. omeprazole 2023-0 Yes 20mg QD Take 20 mg U T (PriLOSEC) 1-24 by mouth 1 [facility] [address] 08:49: (one) time capsule 51 each day. As needed fexofenadin 2023-0 Yes 180mg Q.5D Take 180 U T e (Lori) 1-24 mg by Health 180 MG 08:49: mouth tablet 51 twice a day. omeprazole 2023-0 Yes 20mg QD Take 20 mg U T (PriLOSEC) 1-24 by mouth 1 [facility] [address] 08:49: (one) time capsule 51 each day. As needed fexofenadin 2023-0 Yes 180mg Q.5D Take 180 U T e (Lori) 1-24 mg by Health 180 MG 08:49: mouth tablet 51 twice a day. omeprazole 2023-0 Yes 20mg QD Take 20 mg U T (PriLOSEC) 1-24 by mouth 1 [facility] [address] 08:49: (one) time capsule 51 each day. As needed fexofenadin 2023-0 Yes 180mg Q.5D Take 180 U T e (Lori) 1-24 mg by Health 180 MG 08:49: mouth tablet 51 twice a day. omeprazole 2023-0 Yes 20mg QD Take 20 mg U T (PriLOSEC) 1-24 by mouth 1 [facility] [address] 08:49: (one) time capsule 51 each day. As needed fexofenadin 2023-0 Yes 180mg Q.5D Take 180 U T e (Lori) 1-24 mg by Health 180 MG 08:49: mouth tablet 51 twice a day. omeprazole 2023-0 Yes 20mg QD Take 20 mg U T (PriLOSEC) 1-24 by mouth 1 [facility] [address] 08:49: (one) time capsule 51 each day. As needed Hamel-3 2023-0 Yes [id number] 1000mg Q.5D Take 1,000 UT Fatty Acids 1-24 mg by Health (fish oil) 00:00: mouth in 1000 MG 00 the capsule morning and 1,000 mg in the evening. Hamel-3 2023-0 Yes [id number] 1000mg Q.5D Take 1,000 UT Fatty Acids 1-24 mg by Health (fish oil) 00:00: mouth in 1000 MG 00 the capsule morning and 1,000 mg in the evening. methocarbam 2023-0 Yes [id number] Take one UT ol 1-24 tablet by Health (Robaxin) 00:00: month 500 MG 00 twice a tablet day as needed Hamel-3 2023-0 Yes [id number] 1000mg Q.5D Take 1,000 [facility] Fatty Acids 1-24 mg by Health (fish oil) 00:00: mouth in 1000 MG 00 the capsule morning and 1,000 mg in the evening. methocarbam 2023-0 Yes [id number] Take one UT ol 1-24 tablet by Health (Robaxin) 00:00: month 500 MG 00 twice a tablet day as needed Hamel-3 2023-0 Yes [id number] 1000mg Q.5D Take 1,000 UT Fatty Acids 1-24 mg by Health (fish oil) 00:00: mouth in 1000 MG 00 the capsule morning and 1,000 mg in the evening. methocarbam 2023-0 Yes [id number] Take one UT ol 1-24 tablet by Health (Robaxin) 00:00: month 500 MG 00 twice a tablet day as needed Hamel-3 2023-0 Yes [id number] 1000mg Q.5D Take 1,000 [facility] Fatty Acids 1-24 mg by Health (fish oil) 00:00: mouth in 1000 MG 00 the capsule morning and 1,000 mg in the evening. methocarbam 2023-0 Yes [id number] Take one UT ol 1-24 tablet by Health (Robaxin) 00:00: month 500 MG 00 twice a tablet day as needed Hamel-3 2023-0 Yes [id number] 1000mg Q.5D Take 1,000 UT Fatty Acids 1-24 mg by Health (fish oil) 00:00: mouth in 1000 MG 00 the capsule morning and 1,000 mg in the evening. methocarbam 2023-0 Yes [id number] Take one UT ol 1-24 tablet by Health (Robaxin) 00:00: month 500 MG 00 twice a tablet day as needed Hamel-3 2023-0 Yes [id number] 1000mg Q.5D Take 1,000 UT Fatty Acids 1-24 mg by Health (fish oil) 00:00: mouth in 1000 MG 00 the capsule morning and 1,000 mg in the evening. methocarbam 2023-0 Yes [id number] Take one UT ol 1-24 tablet by Health (Robaxin) 00:00: month 500 MG 00 twice a tablet day as needed Hamel-3 2023-0 Yes [id number] 1000mg Q.5D Take 1,000 UT Fatty Acids 1-24 mg by Health (fish oil) 00:00: mouth in 1000 MG 00 the capsule morning and 1,000 mg in the evening. methocarbam 2023-0 Yes [id number] Take one UT ol 1-24 tablet by Health (Robaxin) 00:00: month 500 MG 00 twice a tablet day as needed Hamel-3 2023-0 Yes [id number] 1000mg Q.5D Take 1,000 UT Fatty Acids 1-24 mg by Health (fish oil) 00:00: mouth in 1000 MG 00 the capsule morning and 1,000 mg in the evening. methocarbam 2023-0 Yes [id number] Take one UT ol 1-24 tablet by Health (Robaxin) 00:00: month 500 MG 00 twice a tablet day as needed Hamel-3 2023-0 Yes [id number] 1000mg Q.5D Take 1,000 UT Fatty Acids 1-24 mg by Health (fish oil) 00:00: mouth in 1000 MG 00 the capsule morning and 1,000 mg in the evening. methocarbam 2023-0 Yes [id number] Take one UT ol 1-24 tablet by Health (Robaxin) 00:00: month 500 MG 00 twice a tablet day as needed Hamel-3 2023-0 Yes [id number] 1000mg Q.5D Take 1,000 UT Fatty Acids 1-24 mg by Health (fish oil) 00:00: mouth in 1000 MG 00 the capsule morning and 1,000 mg in the evening. methocarbam 0 Yes [id number] Take one UT ol 1-24 tablet by Health (Robaxin) 00:00: month 500 MG 00 twice a tablet day as needed Hamel-3 2022-0 Yes [id number] 1000mg Q.5D Take 1,000 UT Fatty Acids 1-24 mg by Health (fish oil) 00:00: mouth in 1000 MG 00 the capsule morning and 1,000 mg in the evening. Hamel-3 2022-0 Yes [id number] 1000mg Q.5D Take 1,000 [facility] Fatty Acids 1-24 mg by Health (fish oil) 00:00: mouth in 1000 MG 00 the capsule morning and 1,000 mg in the evening. Na Yes See UT Sulfate-K 1-23 administra [facility]al [facility] Sulfate-Mg 00:00: tion Sulf 00 instructio 17.5-3.13-1 ns. .6 GM/177ML solution Na 0 Yes See UT Sulfate-K 1-23 administra [facility]al [facility] Sulfate-Mg 00:00: tion Sulf 00 instructio 17.5-3.13-1 ns. .6 GM/177ML solution Na 0 Yes See UT Sulfate-K 1-23 administra [facility]al [facility] Sulfate-Mg 00:00: tion Sulf 00 instructio 17.5-3.13-1 ns. .6 GM/177ML solution Na 0 Yes See UT Sulfate-K 1-23 administra [facility]al [facility] Sulfate-Mg 00:00: tion Sulf 00 instructio 17.5-3.13-1 ns. .6 GM/177ML solution Na 0 Yes See UT Sulfate-K 1-23 administra [facility]al [facility] Sulfate-Mg 00:00: tion Sulf 00 instructio 17.5-3.13-1 ns. .6 GM/177ML solution Na 2022-0 Yes See UT Sulfate-K 1-23 administra [facility]al th Sulfate-Mg 00:00: tion Sulf 00 instructio 17.5-3.13-1 ns. .6 GM/177ML solution Na 2022-0 Yes See UT Sulfate-K 1-23 administra [facility]al th Sulfate-Mg 00:00: tion Sulf 00 instructio 17.5-3.13-1 ns. .6 GM/177ML solution Na Yes See UT Sulfate-K -23 administra [facility]al th Sulfate-Mg 00:00: tion Sulf 00 instructio 17.5-3.13-1 ns. .6 GM/177ML solution Na Yes See UT Sulfate-K -23 administra [facility]al [facility] Sulfate-Mg 00:00: tion Sulf 00 instructio 17.5-3.13-1 ns. .6 GM/177ML solution Diclofenac Yes [id number] APPLY U T Sodium 1-19 SPARINGLY Health (Voltaren) 00:00: AND 1 % 00 TOPICALLY external TO gel AFFECTED AREA ONCE DAILY Diclofenac Yes [id number] APPLY U T Sodium 1-19 SPARINGLY Health (Voltaren) 00:00: AND 1 % 00 TOPICALLY external TO gel AFFECTED AREA ONCE DAILY Diclofenac Yes [id number] APPLY U T Sodium 1-19 SPARINGLY Health (Voltaren) 00:00: AND 1 % 00 TOPICALLY external TO gel AFFECTED AREA ONCE DAILY Diclofenac Yes [id number] APPLY U T Sodium 1-19 SPARINGLY Health (Voltaren) 00:00: AND 1 % 00 TOPICALLY external TO gel AFFECTED AREA ONCE DAILY omeprazole Yes 20mg QD Take 20 mg U T (PriLOSEC) 1-18 by mouth 1 [facility] [address] 13:39: (one) time capsule 23 each day. As needed fexofenadin Yes 180mg Q.5D Take 180 U T e (Lori) 1-18 mg by Health 180 MG 13:39: mouth tablet 23 twice a day. albuterol 2023- No [id number] 2{puff} Q6H Inhale 2 UT 108 (90 18 04-04 puffs [facility]) 00:00: 05:59 every 6 MCG/ACT 00 :00 (six) inhaler hours if needed for wheezing. albuterol 2023- No [id number] 2{puff} Q6H Inhale 2 UT 108 (90 18 - puffs [facility]) 00:00: 05:59 every 6 MCG/ACT 00 :00 (six) inhaler hours if needed for wheezing. albuterol 2023- No [id number] 2{puff} Q6H Inhale 2 UT 108 ( 04-[address] [facility]) 00:00: 05:59 every 6 MCG/ACT 00 :00 (six) inhaler hours if needed for wheezing. albuterol 2023- No [id number] 2{puff} Q6H Inhale 2 UT 108 ( 04-[address] [facility]) 00:00: 05:59 every 6 MCG/ACT 00 :00 (six) inhaler hours if needed for wheezing. albuterol 2023- No [id number] 2{puff} Q6H Inhale 2 UT 108 ( 04-03 puffs [facility]) 00:00: 05:59 every 6 MCG/ACT 00 :00 (six) inhaler hours if needed for wheezing. albuterol 2023- No [id number] 2{puff} Q6H Inhale 2 UT 108 ( 04-03 puffs [facility]) 00:00: 05:59 every 6 MCG/ACT 00 :00 (six) inhaler hours if needed for wheezing. albuterol 2023- No [id number] 2{puff} Q6H Inhale 2 UT 108 ( 04-[address] [facility]) 00:00: 05:59 every 6 MCG/ACT 00 :00 (six) inhaler hours if needed for wheezing. albuterol 2023- No [id number] 2{puff} Q6H Inhale 2 UT 108 ( 04-[address] [facility]) 00:00: 05:59 every 6 MCG/ACT 00 :00 (six) inhaler hours if needed for wheezing. albuterol 4- No [id number] 2{puff} Q6H Inhale 2 UT 108 ( 04-[address] [facility]) 00:00: 05:59 every 6 MCG/ACT 00 :00 (six) inhaler hours if needed for wheezing. albuterol 4- No [id number] 2{puff} Q6H Inhale 2 UT 108 ( 04-[address] [facility]) 00:00: 05:59 every 6 MCG/ACT 00 :00 (six) inhaler hours if needed for wheezing. albuterol 2023- No [id number] 2{puff} Q6H Inhale 2 UT 108 ( 04-[address] [facility]) 00:00: 05:59 every 6 MCG/ACT 00 :00 (six) inhaler hours if needed for wheezing. albuterol 2023- No [id number] 2{puff} Q6H Inhale 2 UT 108 ( 04-[address] [facility]) 00:00: 05:59 every 6 MCG/ACT 00 :00 (six) inhaler hours if needed for wheezing. albuterol 2023- No [id number] 2{puff} Q6H Inhale 2 UT 108 ( 04-[address] [facility]) 00:00: 05:59 every 6 MCG/ACT 00 :00 (six) inhaler hours if needed for wheezing. albuterol 2023- No [id number] 2{puff} Q6H Inhale 2 UT 108 ( 04-[address] [facility]) 00:00: 05:59 every 6 MCG/ACT 00 :00 (six) inhaler hours if needed for wheezing. omeprazole Yes 20mg QD Take 20 mg U T (PriLOSEC) 1-13 by mouth 1 [facility] [address] 10:47: (one) time capsule 41 each day. As needed fexofenadin Yes 180mg Q.5D Take 180 U T e (Lori) 1-13 mg by Health 180 MG 10:47: mouth tablet 41 twice a day. Repatha 2021-03 Yes [id number] INJECT 1 UT SureClick 2-23 ML Health 140 MG/ML 00:00: SUBCUTANEO solution 00 USLY EVERY auto-inject 2 WEEKS IN or THE ABDOMEN, THIGH OR OUTER AREA OF THE UPPER ARM (ROTATE SITES) carbidopa-l 2021-03 Yes [id number] TAKE 2 UT evodopa CR 2-23 TABLETS BY [facility] (Sinemet 00:00: MOUTH AT CR) 25-100 00 10 PM MG ER tablet Repatha 2021-03 Yes [id number] INJECT 1 UT SureClick 2-23 ML [facility] 140 MG/ML 00:00: SUBCUTANEO solution 00 USLY EVERY auto-inject 2 WEEKS IN or THE ABDOMEN, THIGH OR OUTER AREA OF THE UPPER ARM (ROTATE SITES) carbidopa-l 2021-03 Yes [id number] TAKE 2 UT evodopa CR 2-23 TABLETS BY [facility] (Sinemet 00:00: MOUTH AT CR) 25-100 00 10 PM MG ER tablet Repatha 2021-03 Yes [id number] INJECT 1 UT SureClick 2-23 ML [facility] 140 MG/ML 00:00: SUBCUTANEO solution 00 USLY EVERY auto-inject 2 WEEKS IN or THE ABDOMEN, THIGH OR OUTER AREA OF THE UPPER ARM (ROTATE SITES) carbidopa-l 2021-03 Yes [id number] TAKE 2 UT evodopa CR 2-23 TABLETS BY [facility] (Sinemet 00:00: MOUTH AT CR) 25-100 00 10 PM MG ER tablet Repatha 2021-03 Yes [id number] INJECT 1 UT SureClick 2-23 ML [facility] 140 MG/ML 00:00: SUBCUTANEO solution 00 USLY EVERY auto-inject 2 WEEKS IN or THE ABDOMEN, THIGH OR OUTER AREA OF THE UPPER ARM (ROTATE SITES) carbidopa-l 2021-03 Yes [id number] TAKE 2 UT evodopa CR 2-23 TABLETS BY [facility] (Sinemet 00:00: MOUTH AT CR) 25-100 00 10 PM MG ER tablet Repatha 2021-03 Yes [id number] INJECT 1 UT SureClick 2-23 ML [facility] 140 MG/ML 00:00: SUBCUTANEO solution 00 USLY EVERY auto-inject 2 WEEKS IN or THE ABDOMEN, THIGH OR OUTER AREA OF THE UPPER ARM (ROTATE SITES) carbidopa-l 2021- Yes [id number] TAKE 2 UT evodopa CR 2-23 TABLETS BY [facility] (Sinemet 00:00: MOUTH AT CR) 25-100 00 10 PM MG ER tablet Repatha 2021-03 Yes [id number] INJECT 1 UT SureClick 2-23 ML [facility] 140 MG/ML 00:00: SUBCUTANEO solution 00 USLY EVERY auto-inject 2 WEEKS IN or THE ABDOMEN, THIGH OR OUTER AREA OF THE UPPER ARM (ROTATE SITES) carbidopa-l 2021-03 Yes [id number] TAKE 2 UT evodopa CR 2-23 TABLETS BY [facility] (Sinemet 00:00: MOUTH AT CR) 25-100 00 10 PM MG ER tablet 2021-03 Yes [id number] INJECT 1 UT SureClick 2-23 ML [facility] 140 MG/ML 00:00: SUBCUTANEO solution 00 USLY EVERY auto-inject 2 WEEKS IN or THE ABDOMEN, THIGH OR OUTER AREA OF THE UPPER ARM (ROTATE SITES) Rep2021-03 Yes [id number] INJECT 1 UT SureClick 2-23 ML [facility] 140 MG/ML 00:00: SUBCUTANEO solution 00 USLY EVERY auto-inject 2 WEEKS IN or THE ABDOMEN, THIGH OR OUTER AREA OF THE UPPER ARM (ROTATE SITES) 2021-03 Yes [id number] INJECT 1 UT SureClick 2-23 ML [facility] 140 MG/ML 00:00: SUBCUTANEO solution 00 USLY EVERY auto-inject 2 WEEKS IN or THE ABDOMEN, THIGH OR OUTER AREA OF THE UPPER ARM (ROTATE SITES) carbidopa-l 2021-03 Yes [id number] TAKE 2 UT evodopa CR 2-23 TABLETS BY [facility] (Sinemet 00:00: MOUTH AT CR) 25-100 00 10 PM MG ER tablet 2021-03 Yes [id number] INJECT 1 UT SureClick 2-23 ML [facility] 140 MG/ML 00:00: SUBCUTANEO solution 00 USLY EVERY auto-inject 2 WEEKS IN or THE ABDOMEN, THIGH OR OUTER AREA OF THE UPPER ARM (ROTATE SITES) carbidopa-l 2021-03 Yes [id number] TAKE 2 UT evodopa CR 2-23 TABLETS BY [facility] (Sinemet 00:00: MOUTH AT CR) 25-100 00 10 PM MG ER tablet 2021-03 Yes [id number] INJECT 1 UT SureClick 2-23 ML [facility] 140 MG/ML 00:00: SUBCUTANEO solution 00 USLY EVERY auto-inject 2 WEEKS IN or THE ABDOMEN, THIGH OR OUTER AREA OF THE UPPER ARM (ROTATE SITES) carbidopa-l 2021-03 Yes [id number] TAKE 2 UT evodopa CR 2-23 TABLETS BY [facility] (Sinemet 00:00: MOUTH AT CR) 25-100 00 10 PM MG ER tablet Repatha 2021-03 Yes [id number] INJECT 1 UT SureClick 2-23 ML [facility] 140 MG/ML 00:00: SUBCUTANEO solution 00 USLY EVERY auto-inject 2 WEEKS IN or THE ABDOMEN, THIGH OR OUTER AREA OF THE UPPER ARM (ROTATE SITES) carbidopa-l 2021-03 Yes [id number] TAKE 2 UT evodopa CR 2-23 TABLETS BY [facility] (Sinemet 00:00: MOUTH AT CR) 25-100 00 10 PM MG ER tablet Repatha 2021-03- No [id number] INJECT 1 U T SureClick 2-23 04-19 ML Health 140 MG/ML 00:00: 00:00 SUBCUTANEO solution 00 :00 USLY EVERY auto-inject 2 WEEKS IN or THE ABDOMEN, THIGH OR OUTER AREA OF THE UPPER ARM (ROTATE SITES) OMEPRAZOLE 2021-03 Yes Take by [facility] or OR 2-22 mouth as College 11:07: needed. of 23 Medicin e Multiple 2021-03 Yes Take by [facility] Vitamins-Mi 2- mouth College nerals 11:07: daily. of (ZINC OR) 23 Medicin e ASPIRIN 81 2021-03 Yes 81mg Take 81 mg [facility] [place] 2-22 by mouth College 11:07: daily. of 23 Medicin e metoprolol 2021-03 Yes 25mg Take 25 mg [facility] (TOPROL-XL) 2-22 by mouth [facility] 25 MG XL 11:07: as needed. of tablet 23 Medicin e rivastigmin 2021-03 Yes 1{appli Place 1 [facility] e 4.6 2-22 cator} Applicator [facility] MG/24HR 11:07: onto the of PT24 23 skin. Medicin e hydrochloro 2021-03 Yes 1{tbl} Take 1 [facility] thiazide 2-22 Tablet by [facility] 12.5 MG 11:07: mouth of TABS 23 daily. Medicin e timolol 2021-03- No 1[drp] Place 1 [facility] or hemihydrate - 12-22 Drop into Co llege (BETIMOL) 11:04: 00:00 the right of 0.25 % 46 :00 eye daily. Medicin ophthalmic e solution apixaban 2021-03 Yes [id number] 5mg Q.5D Take 1 UT (Eliquis) 5 2-21 tablet (5 [facility] MG tablet 00:00: mg total) 00 by mouth in the morning and 1 tablet (5 mg total) before bedtime. apixaban 2021-03 Yes [id number] 5mg Q.5D Take 1 UT (Eliquis) 5 2-21 tablet (5 [facility]a [facility]th MG tablet 00:00: mg total) 00 by mouth in the morning and 1 tablet (5 mg total) before bedtime. apixaban 2021-03 Yes [id number] 5mg Q.5D Take 1 UT (Eliquis) 5 2-21 tablet (5 [facility]a [facility] MG tablet 00:00: mg total) 00 by mouth in the morning and 1 tablet (5 mg total) before bedtime. apixaban 2021-03 Yes [id number] 5mg Q.5D Take 1 UT (Eliquis) 5 2-21 tablet (5 [facility]a [facility] MG tablet 00:00: mg total) 00 by mouth in the morning and 1 tablet (5 mg total) before bedtime. apixaban 2021-03 Yes [id number] 5mg Q.5D Take 1 UT (Eliquis) 5 2-21 tablet (5 [facility]a [facility] MG tablet 00:00: mg total) 00 by mouth in the morning and 1 tablet (5 mg total) before bedtime. apixaban 2021-03 Yes [id number] 5mg Q.5D Take 1 UT (Eliquis) 5 2-21 tablet (5 [facility]a [facility] MG tablet 00:00: mg total) 00 by mouth in the morning and 1 tablet (5 mg total) before bedtime. apixaban 2021-03 Yes [id number] 5mg Q.5D Take 1 UT (Eliquis) 5 2-21 tablet (5 [facility]a [facility]th MG tablet 00:00: mg total) 00 by mouth in the morning and 1 tablet (5 mg total) before bedtime. apixaban 2021-03 Yes [id number] 5mg Q.5D Take 1 UT (Eliquis) 5 2-21 tablet (5 [facility]a [facility]th MG tablet 00:00: mg total) 00 by mouth in the morning and 1 tablet (5 mg total) before bedtime. apixaban 2021-03 Yes [id number] 5mg Q.5D Take 1 UT (Eliquis) 5 2-21 tablet (5 Hea [facility]th MG tablet 00:00: mg total) 00 by mouth in the morning and 1 tablet (5 mg total) before bedtime. apixaban 2021-03 Yes [id number] 5mg Q.5D Take 1 UT (Eliquis) 5 2-21 tablet (5 [facility]a [facility]th MG tablet 00:00: mg total) 00 by mouth in the morning and 1 tablet (5 mg total) before bedtime. apixaban 2021-03 Yes [id number] 5mg Q.5D Take 1 UT (Eliquis) 5 2-21 tablet (5 [facility]a [facility] MG tablet 00:00: mg total) 00 by mouth in the morning and 1 tablet (5 mg total) before bedtime. apixaban 2021-03 Yes [id number] 5mg Q.5D Take 1 UT (Eliquis) 5 2-21 tablet (5 [facility]a [facility] MG tablet 00:00: mg total) 00 by mouth in the morning and 1 tablet (5 mg total) before bedtime. apixaban 2021-03 Yes [id number] 5mg Q.5D Take 1 UT (Eliquis) 5 2-21 tablet (5 [facility]a [facility]th MG tablet 00:00: mg total) 00 by mouth in the morning and 1 tablet (5 mg total) before bedtime. apixaban 2021-03 Yes [id number] 5mg Q.5D Take 1 UT (Eliquis) 5 2-21 tablet (5 [facility]a [facility]th MG tablet 00:00: mg total) 00 by mouth in the morning and 1 tablet (5 mg total) before bedtime. apixaban 2021-03 Yes [id number] 5mg Q.5D Take 1 UT (Eliquis) 5 2-21 tablet (5 [facility]a [facility]th MG tablet 00:00: mg total) 00 by mouth in the morning and 1 tablet (5 mg total) before bedtime. apixaban 2021-03 Yes [id number] 5mg Q.5D Take 1 UT (Eliquis) 5 2-21 tablet (5 [facility]a [facility]th MG tablet 00:00: mg total) 00 by mouth in the morning and 1 tablet (5 mg total) before bedtime. arginine 2021-03 500mg QD Take 500 UT 500 MG 04-23 12-07 mg by Health tablet 17:48: 00:00 mouth 1 02 :00 (one) time each day. Diclofenac 2021-03 Yes [id number] APPLY U T Sodium 1-28 SPARINGLY Health (Voltaren) 00:00: AND 1 % 00 TOPICALLY external TO gel AFFECTED AREA ONCE DAILY Diclofenac 2021-03 Yes [id number] APPLY U T Sodium 1-28 SPARINGLY Health (Voltaren) 00:00: AND 1 % 00 TOPICALLY external TO gel AFFECTED AREA ONCE DAILY Diclofenac 2021-03 Yes [id number] APPLY U T Sodium 1-28 SPARINGLY Health (Voltaren) 00:00: AND 1 % 00 TOPICALLY external TO gel AFFECTED AREA ONCE DAILY carbidopa-l 2021-03- No [id number] 1.5{tbl Q.[id number] Take 1 .5 UT evodopa 04-13 } [id number] tablets by [facility] (Sinemet) 00:00: 04:59 3D mouth in 25-100 MG 00 :00 the tablet morning and 1.5 tablets at noon and 1.5 tablets in the evening. carbidopa-l 2021-03- No [id number] 1.5{tbl Q.[id number] Take 1 .5 UT evodopa 04-13 } [id number] tablets by Health (Sinemet) 00:00: 04:59 3D mouth in 25-100 MG 00 :00 the tablet morning and 1.5 tablets at noon and 1.5 tablets in the evening. carbidopa-l 2021-03- No [id number] 1.5{tbl Q.[id number] Take 1 .5 UT evodopa 04-13 } [id number] tablets by Health (Sinemet) 00:00: 04:59 3D mouth in 25-100 MG 00 :00 the tablet morning and 1.5 tablets at noon and 1.5 tablets in the evening. carbidopa-l 2021-03- No [id number] 1.5{tbl Q.[id number] Take 1 .5 UT evodopa - 05-28 } [id number] tablets by [employer] (Sinemet) 00:00: 04:59 3D mouth in 25-100 MG 00 :00 the tablet morning and 1.5 tablets at noon and 1.5 tablets in the evening. carbidopa-l 2021-03- No [id number] 1.5{tbl Q.[id number] Take 1 .5 UT evodopa -11 08- } [id number] tablets by [employer] (Sinemet) 00:00: 04:59 3D mouth in 25-100 MG 00 :00 the tablet morning and 1.5 tablets at noon and 1.5 tablets in the evening. carbidopa-l 2021-03- No [id number] 1.5{tbl Q.[id number] Take 1 .5 UT evodopa 04-13- } [id number] tablets by [employer] (Sinemet) 00:00: 04:59 3D mouth in 25-100 MG 00 :00 the tablet morning and 1.5 tablets at noon and 1.5 tablets in the evening. carbidopa-l 2021-03- No [id number] 1.5{tbl Q.[id number] Take 1 .5 UT evodopa 04-13- } [id number] tablets by [employer] (Sinemet) 00:00: 04:59 3D mouth in 25-100 MG 00 :00 the tablet morning and 1.5 tablets at noon and 1.5 tablets in the evening. carbidopa-l 2021-03- No [id number] 1.5{tbl Q.[id number] Take 1 .5 UT evodopa -11 08-28 } [id number] tablets by [employer] (Sinemet) 00:00: 04:59 3D mouth in 25-100 MG 00 :00 the tablet morning and 1.5 tablets at noon and 1.5 tablets in the evening. carbidopa-l 2021-03- No [id number] 1.5{tbl Q.[id number] Take 1 .5 UT evodopa 04-13 05-28 } [id number] tablets by [facility] (Sinemet) 00:00: 04:59 3D mouth in 25-100 MG 00 :00 the tablet morning and 1.5 tablets at noon and 1.5 tablets in the evening. carbidopa-l 2021-03 No [id number] 1.5{tbl Q.34328523 Take 1 .5 UT evodopa 04-13 } [id number] tablets by [facility] (Sinemet) 00:00: 04:59 3D mouth in 25-100 MG 00 :00 the tablet morning and 1.5 tablets at noon and 1.5 tablets in the evening. carbidopa-l 2021-03- No [id number] 1.5{tbl Q.[id number] Take 1 .5 UT evodopa 04-13 } [id number] tablets by [facility] (Sinemet) 00:00: 04:59 3D mouth in 25-100 MG 00 :00 the tablet morning and 1.5 tablets at noon and 1.5 tablets in the evening. carbidopa-l 2021-03 No [id number] 1.5{tbl Q.[id number] Take 1 .5 UT evodopa 04-13 } [id number] tablets by [facility] (Sinemet) 00:00: 04:59 3D mouth in 25-100 MG 00 :00 the tablet morning and 1.5 tablets at noon and 1.5 tablets in the evening. carbidopa-l 2021-03 No [id number] 1.5{tbl Q.[id number] Take 1 .5 UT evodopa 04-13 } [id number] tablets by [facility] (Sinemet) 00:00: 04:59 3D mouth in 25-100 MG 00 :00 the tablet morning and 1.5 tablets at noon and 1.5 tablets in the evening. carbidopa-l 2021-03- No 1.5{tbl Take 1.5 [facility] evodopa 04-13 } Tablets by Mily james (SINEMET) 00:00: 04:59 mouth. of 25-100 MG 00 :00 Medicin per tablet e carbidopa-l 2021-03- No 1.5{tbl Take 1.5 [facility] evodopa 04-13 } Tablets by [facility] (SINEMET) 00:00: 04:59 mouth 3 of 25-100 MG 00 :00 times Medicin per tablet daily. e carbidopa-l 2021-03- No [id number] 1.5{tbl Q.[id number] Take 1 .5 UT evodopa 04-1317 } [id number] tablets by [facility] (Sinemet) 00:00: 00:00 3D mouth in 25-100 MG 00 :00 the tablet morning and 1.5 tablets at noon and 1.5 tablets in the evening. Diclofenac 2021-03- No [id number] APPLY UT Sodium 04-13 SPARINGLY [facility] (Voltaren) 00:00: 00:00 AND 1 % 00 :00 TOPICALLY external TO gel AFFECTED AREA ONCE DAILY Diclofenac 2021-03- No [id number] APPLY UT Sodium 04-13 SPARINGLY Health (Voltaren) 00:00: 00:00 AND 1 % 00 :00 TOPICALLY external TO gel AFFECTED AREA ONCE DAILY omeprazole 2021-03 Yes 20mg QD Take 20 mg U T (PriLOSEC) 1-15 by mouth 1 [facility] [address] 10:09: (one) time capsule 18 each day. As needed fexofenadin 2021-03 Yes 180mg Q.5D Take 180 U T e (Lori) 1-15 mg by Health 180 MG 10:09: mouth tablet 18 twice a day. arginine 2021-03 Yes 500mg QD Take 500 UT 500 MG 1-15 mg by Health tablet 10:09: mouth 1 18 (one) time each day. omeprazole 2021-03 Yes 20mg QD Take 20 mg U T (PriLOSEC) 1-15 by mouth 1 [facility] [address] 10:09: (one) time capsule 18 each day. As needed fexofenadin 2021-03 Yes 180mg Q.5D Take 180 U T e (Lori) 1-15 mg by Health 180 MG 10:09: mouth tablet 18 twice a day. rivastigmin 2021-03 Yes [id number] APPLY 1 UT e (Exelon) 1-15 PATCH Health 4.6 MG/24HR 00:00: TOPICALLY 00 ONCE DAILY isosorbide 2021-03- No [id number] 30mg QD Take 1 UT mononitrate 1-15 11-16 tablet (30 [facility] ER (Imdur) 00:00: 05:59 mg total) 30 MG 24 hr 00 :00 by mouth 1 tablet (one) time each day. Do not crush or chew. isosorbide 2021-03- No [id number] 30mg QD Take 1 UT mononitrate 1-15 11-16 tablet (30 [facility] ER (Imdur) 00:00: 05:59 mg total) 30 MG 24 hr 00 :00 by mouth 1 tablet (one) time each day. Do not crush or chew. isosorbide 2021-03- No [id number] 30mg QD Take 1 UT mononitrate 1-15 11-16 tablet (30 [facility] ER (Imdur) 00:00: 05:59 mg total) 30 MG 24 hr 00 :00 by mouth 1 tablet (one) time each day. Do not crush or chew. isosorbide 2021-03- No [id number] 30mg QD Take 1 UT mononitrate 1-15 11-16 tablet (30 [facility] ER (Imdur) 00:00: 05:59 mg total) 30 MG 24 hr 00 :00 by mouth 1 tablet (one) time each day. Do not crush or chew. isosorbide 2021-03- No [id number] 30mg QD Take 1 UT mononitrate 1-15 11-16 tablet (30 [facility] ER (Imdur) 00:00: 05:59 mg total) 30 MG 24 hr 00 :00 by mouth 1 tablet (one) time each day. Do not crush or chew. isosorbide 2021-03- No [id number] 30mg QD Take 1 UT mononitrate 1-15 11-16 tablet (30 [facility] ER (Imdur) 00:00: 05:59 mg total) 30 MG 24 hr 00 :00 by mouth 1 tablet (one) time each day. Do not crush or chew. isosorbide 2021-03- No [id number] 30mg QD Take 1 UT mononitrate 1-15 11-16 tablet (30 [facility] ER (Imdur) 00:00: 05:59 mg total) 30 MG 24 hr 00 :00 by mouth 1 tablet (one) time each day. Do not crush or chew. isosorbide 2021-03- No [id number] 30mg QD Take 1 UT mononitrate 1-15 11-16 tablet (30 [facility] ER (Imdur) 00:00: 05:59 mg total) 30 MG 24 hr 00 :00 by mouth 1 tablet (one) time each day. Do not crush or chew. isosorbide 2021-03- No [id number] 30mg QD Take 1 UT mononitrate 1-15 11-16 tablet (30 [facility] ER (Imdur) 00:00: 05:59 mg total) 30 MG 24 hr 00 :00 by mouth 1 tablet (one) time each day. Do not crush or chew. isosorbide 2021-03- No [id number] 30mg QD Take 1 UT mononitrate 1-15 11-16 tablet (30 [facility] ER (Imdur) 00:00: 05:59 mg total) 30 MG 24 hr 00 :00 by mouth 1 tablet (one) time each day. Do not crush or chew. isosorbide 2021-03- No [id number] 30mg QD Take 1 UT mononitrate 1-15 11-16 tablet (30 [facility] ER (Imdur) 00:00: 05:59 mg total) 30 MG 24 hr 00 :00 by mouth 1 tablet (one) time each day. Do not crush or chew. isosorbide 2021-03- No [id number] 30mg QD Take 1 UT mononitrate 1-15 11-16 tablet (30 [facility] ER (Imdur) 00:00: 05:59 mg total) 30 MG 24 hr 00 :00 by mouth 1 tablet (one) time each day. Do not crush or chew. isosorbide 2021-03- No [id number] 30mg QD Take 1 UT mononitrate 1-15 11-16 tablet (30 [facility] ER (Imdur) 00:00: 05:59 mg total) 30 MG 24 hr 00 :00 by mouth 1 tablet (one) time each day. Do not crush or chew. isosorbide 2021-03- No [id number] 30mg QD Take 1 UT mononitrate 1-15 11-16 tablet (30 [facility] ER (Imdur) 00:00: 05:59 mg total) 30 MG 24 hr 00 :00 by mouth 1 tablet (one) time each day. Do not crush or chew. isosorbide 2021-03- No [id number] 30mg QD Take 1 UT mononitrate 1-15 11-16 tablet (30 [facility] ER (Imdur) 00:00: 05:59 mg total) 30 MG 24 hr 00 :00 by mouth 1 tablet (one) time each day. Do not crush or chew. isosorbide 2021-03- No [id number] 30mg QD Take 1 UT mononitrate 1-15 11-16 tablet (30 [facility] ER (Imdur) 00:00: 05:59 mg total) 30 MG 24 hr 00 :00 by mouth 1 tablet (one) time each day. Do not crush or chew. isosorbide 2021-03- No [id number] 30mg QD Take 1 UT mononitrate 1-15 11-16 tablet (30 [facility] ER (Imdur) 00:00: 05:59 mg total) 30 MG 24 hr 00 :00 by mouth 1 tablet (one) time each day. Do not crush or chew. rivastigmin 2021-03- No [id number] APPLY 1 UT e (Exelon) 03-31 PATCH Health 4.6 MG/24HR 00:00: 00:00 TOPICALLY 00 :00 ONCE DAILY rivastigmin 2021-03- No [id number] APPLY 1 UT e (Exelon) 03-31 PATCH Health 4.6 MG/24HR 00:00: 00:00 TOPICALLY 00 :00 ONCE DAILY rivastigmin 2021-03- No [id number] APPLY 1 UT e (Exelon) 03-31 PATCH Health 4.6 MG/24HR 00:00: 00:00 TOPICALLY 00 :00 ONCE DAILY apixaban 2021- Yes [id number] 5mg Q.5D Take 1 UT (Eliquis) 5 9-29 tablet (5 [facility] MG tablet 00:00: mg total) 00 by mouth in the morning and 1 tablet (5 mg total) before bedtime. apixaban Yes [id number] 5mg Q.5D Take 1 UT (Eliquis) 5 9-29 tablet (5 [facility] MG tablet 00:00: mg total) 00 by mouth in the morning and 1 tablet (5 mg total) before bedtime. apixaban Yes [id number] 5mg Q.5D Take 1 UT (Eliquis) 5 9- tablet (5 [facility] MG tablet 00:00: mg total) 00 by mouth in the morning and 1 tablet (5 mg total) before bedtime. Diclofenac Yes [id number] APPLY U T Sodium 9- SPARINGLY Health (Voltaren) 00:00: AND 1 % 00 TOPICALLY external TO gel AFFECTED AREA ONCE DAILY Diclofenac 2021- No [id number] APPLY UT Sodium 9- 11-28 SPARINGLY [facility] (Voltaren) 00:00: 00:00 AND 1 % 00 :00 TOPICALLY external TO gel AFFECTED AREA ONCE DAILY Diclofenac Yes [id number] APPLY U T Sodium 8-22 SPARINGLY Health (Voltaren) 00:00: AND 1 % 00 TOPICALLY external TO gel AFFECTED AREA ONCE DAILY Repatha Yes [id number] INJECT 1 UT SureClick 8-22 ML Health 140 MG/ML 00:00: SUBCUTANEO solution 00 USLY EVERY auto-inject TWO WEEKS or IN THE ABDOMEN, THIGH OR OUTER AREA OF THE UPPER ARM (ROTATE SITES) Repatha Yes [id number] INJECT 1 UT [facility]Click 8-22 ML Health 140 MG/ML 00:00: SUBCUTANEO solution 00 USLY EVERY auto-inject TWO WEEKS or IN THE ABDOMEN, THIGH OR OUTER AREA OF THE UPPER ARM (ROTATE SITES) Repatha Yes [id number] INJECT 1 UT [employer]Click 8-22 ML Health 140 MG/ML 00:00: SUBCUTANEO solution 00 USLY EVERY auto-inject TWO WEEKS or IN THE ABDOMEN, THIGH OR OUTER AREA OF THE UPPER ARM (ROTATE SITES) Repatha 2022-0 Yes [id number] INJECT 1 UT SureClick 8-22 ML Health 140 MG/ML 00:00: SUBCUTANEO solution 00 USLY EVERY auto-inject TWO WEEKS or IN THE ABDOMEN, THIGH OR OUTER AREA OF THE UPPER ARM (ROTATE SITES) Repatha 2022-0 2- No [id number] INJECT 1 U T SureClick 8-22 12-23 ML Health 140 MG/ML 00:00: 00:00 SUBCUTANEO solution 00 :00 USLY EVERY auto-inject TWO WEEKS or IN THE ABDOMEN, THIGH OR OUTER AREA OF THE UPPER ARM (ROTATE SITES) onabotulinu 2022-0 Yes [id number] UT mtoxinA 8-11 Health (Botox) 05:00: injection 00 300 Units onabotulinu 2022-0 Yes [id number] 300U UT mtoxinA 8-11 Health (Botox) 05:00: injection 00 300 Units onabotulinu 2022-0 Yes 1146 300U UT mtoxinA 8-11 Health (Botox) 05:00: injection 00 300 Units onabotulinu 2022-0 Yes 1146 300U UT mtoxinA 8-11 Health (Botox) 05:00: injection 00 300 Units onabotulinu 2022-0 Yes 1146 300U UT mtoxinA 8-11 Health (Botox) 05:00: injection 00 300 Units onabotulinu 2022-0 Yes 1146 300U UT mtoxinA 8-11 Health (Botox) 05:00: injection 00 300 Units onabotulinu 2022-0 Yes 1146 300U UT mtoxinA 8-11 Health (Botox) 05:00: injection 00 300 Units onabotulinu 2022-0 Yes 1146 300U UT mtoxinA 8-11 Health (Botox) 05:00: injection 00 300 Units onabotulinu 2022-0 Yes 1146 300U UT mtoxinA 8-11 Health (Botox) 05:00: injection 00 300 Units onabotulinu 2022-0 Yes 1146 300U UT mtoxinA 8-11 Health (Botox) 05:00: injection 00 300 Units onabotulinu 2022-0 Yes 1146 300U UT mtoxinA 8-11 Health (Botox) 05:00: injection 00 300 Units onabotulinu 2022-0 Yes 1146 300U UT mtoxinA 8-11 Health (Botox) 05:00: injection 00 300 Units onabotulinu 2022-0 Yes 1146 300U UT mtoxinA 8-11 Health (Botox) 05:00: injection 00 300 Units onabotulinu 2022-0 Yes 1146 300U UT mtoxinA 8-11 Health (Botox) 05:00: injection 00 300 Units onabotulinu 2022-0 Yes 1146 300U UT mtoxinA 8-11 Health (Botox) 05:00: injection 00 300 Units onabotulinu 2022-0 Yes 1146 300U UT mtoxinA 8-11 Health (Botox) 05:00: injection 00 300 Units onabotulinu 2022-0 Yes 1146 300U UT mtoxinA 8-11 Health (Botox) 05:00: injection 00 300 Units onabotulinu 2022-0 Yes 1146 300U UT mtoxinA 8-11 Health (Botox) 05:00: injection 00 300 Units onabotulinu 2022-0 Yes 1146 300U UT mtoxinA 8-11 Health (Botox) 05:00: injection 00 300 Units onabotulinu 2022-0 Yes 1146 300U UT mtoxinA 8-11 Health (Botox) 05:00: injection 00 300 Units onabotulinu 2022-0 Yes 1146 300U UT mtoxinA 8-11 Health (Botox) 05:00: injection 00 300 Units onabotulinu 2022-0 Yes 1146 300U UT mtoxinA 8-11 Health (Botox) 05:00: injection 00 300 Units onabotulinu 2022-0 Yes 1146 300U UT mtoxinA 8-11 Health (Botox) 05:00: injection 00 300 Units onabotulinu 2022-0 Yes 1146 300U UT mtoxinA 8-11 Health (Botox) 05:00: injection 00 300 Units Eliquis 5 2022-0 Yes [id number] Take 1 U T MG tablet 8- tablet by Healt h 00:00: mouth 00 twice daily Eliquis 5 2022-0 Yes [id number] Take 1 U T MG tablet 8-07 tablet by Healt h 00:00: mouth 00 twice daily Eliquis 5 2021-0 Yes [id number] Take 1 U T MG tablet 8-07 tablet by [facility]alt h 00:00: mouth 00 twice daily carbidopa-l 2021-0 Yes [id number] TAKE 1 UT evodopa 8-05 TABLET BY Health (Sinemet) 00:00: MOUTH 25-100 MG 00 THREE tablet TIMES DAILY carbidopa-l 2021-0 Yes [id number] TAKE 1 UT evodopa 8-05 TABLET BY Health (Sinemet) 00:00: MOUTH 25-100 MG 00 THREE tablet TIMES DAILY carbidopa-l 2021-0 Yes [id number] TAKE 1 UT evodopa 8-05 TABLET BY Health (Sinemet) 00:00: MOUTH 25-100 MG 00 THREE tablet TIMES DAILY carbidopa-l 2021-0 Yes [id number] TAKE 1 UT evodopa 8-05 TABLET BY Health (Sinemet) 00:00: MOUTH 25-100 MG 00 THREE tablet TIMES DAILY carbidopa-l 2021-0 2021- No [id number] TAKE 1 UT evodopa 8-05 11-28 TABLET BY Health (Sinemet) 00:00: 00:00 MOUTH 25-100 MG 00 :00 THREE tablet TIMES DAILY Diclofenac 0 Yes [id number] APPLY U T Sodium 6-20 SPARINGLY Health (Voltaren) 00:00: AND 1 % 00 TOPICALLY external TO gel AFFECTED AREA ONCE DAILY Diclofenac 0 Yes [id number] APPLY U T Sodium 6-20 SPARINGLY Health (Voltaren) 00:00: AND 1 % 00 TOPICALLY external TO gel AFFECTED AREA ONCE DAILY Diclofenac 0 Yes [id number] APPLY U T Sodium 6-20 SPARINGLY Health (Voltaren) 00:00: AND 1 % 00 TOPICALLY external TO gel AFFECTED AREA ONCE DAILY Eliquis 5 2021-0 Yes [id number] Take 1 U T MG tablet 6-13 tablet by Healt h 00:00: mouth 00 twice daily omeprazole 2021-0 Yes 20mg QD Take 20 mg U T (PriLOSEC) 5-17 by mouth 1 [facility] [address] 08:26: (one) time capsule 14 each day. As needed fexofenadin 0 Yes 180mg Q.5D Take 180 U T e (Lori) 5-17 mg by Health 180 MG 08:26: mouth tablet 14 twice a day. arginine 2022-0 Yes 500mg QD Take 500 UT 500 MG 5-17 mg by Health tablet 08:26: mouth 1 14 (one) time each day. omeprazole 2022-0 Yes 20mg QD Take 20 mg U T (PriLOSEC) 5-17 by mouth 1 [facility] 20 MG 08:26: (one) time capsule 14 each day. As needed fexofenadin 2022-0 Yes 180mg Q.5D Take 180 U T e (Lori) 5-17 mg by Health 180 MG 08:26: mouth tablet 14 twice a day. arginine 2022-0 Yes 500mg QD Take 500 UT 500 MG 5-17 mg by Health tablet 08:26: mouth 1 14 (one) time each day. omeprazole 2022-0 Yes 20mg QD Take 20 mg U T (PriLOSEC) 5-17 by mouth 1 [facility] 20 MG 08:26: (one) time capsule 14 each day. As needed fexofenadin 2022-0 Yes 180mg Q.5D Take 180 U T e (Lori) 5-17 mg by Health 180 MG 08:26: mouth tablet 14 twice a day. arginine 2022-0 Yes 500mg QD Take 500 UT 500 MG 5-17 mg by Health tablet 08:26: mouth 1 14 (one) time each day. omeprazole 2022-0 Yes 20mg QD Take 20 mg U T (PriLOSEC) 5-17 by mouth 1 [facility] 20 MG 08:26: (one) time capsule 14 each day. As needed fexofenadin 2022-0 Yes 180mg Q.5D Take 180 U T e (Lori) 5-17 mg by Health 180 MG 08:26: mouth tablet 14 twice a day. arginine 2022-0 Yes 500mg QD Take 500 UT 500 MG 5-17 mg by Health tablet 08:26: mouth 1 14 (one) time each day. omeprazole 2022-0 Yes 20mg QD Take 20 mg U T (PriLOSEC) 5-17 by mouth 1 [facility] 20 MG 08:26: (one) time capsule 14 each day. As needed fexofenadin 2022-0 Yes 180mg Q.5D Take 180 U T e (Lori) 5-[address] [facility] 180 MG 08:26: mouth tablet 14 twice a day. arginine 2021-0 Yes 500mg QD Take 500 UT 500 MG 5-[address] [facility] tablet 08:26: mouth 1 14 (one) time each day. carbidopa-l 2021-0 Yes [id number] TAKE 1 UT evodopa 4-[address] [facility] (Sinemet) 00:00: MOUTH 25-100 MG 00 THREE tablet TIMES DAILY carbidopa-l 2021-0 Yes [id number] TAKE 2 UT evodopa CR 4-19 TABLETS BY [facility] (Sinemet 00:00: MOUTH AT CR) 25-100 00 10 PM MG ER tablet carbidopa-l 2021-0 Yes [id number] TAKE 2 UT evodopa CR 4-19 TABLETS BY [facility] (Sinemet 00:00: MOUTH AT CR) 25-100 00 10 PM MG ER tablet carbidopa-l 2021-0 Yes [id number] TAKE 2 UT evodopa CR 4-19 TABLETS BY [facility] (Sinemet 00:00: MOUTH AT CR) 25-100 00 10 PM MG ER tablet carbidopa-l 2021-0 Yes [id number] TAKE 2 UT evodopa CR 4-19 TABLETS BY [facility] (Sinemet 00:00: MOUTH AT CR) 25-100 00 10 PM MG ER tablet carbidopa-l 2021-0 Yes [id number] TAKE 2 UT evodopa CR 4-19 TABLETS BY [facility] (Sinemet 00:00: MOUTH AT CR) 25-100 00 10 PM MG ER tablet carbidopa-l 2021-0 Yes [id number] TAKE 2 UT evodopa CR 4-19 TABLETS BY [facility] (Sinemet 00:00: MOUTH AT CR) 25-100 00 10 PM MG ER tablet carbidopa-l 2021-0 Yes [id number] TAKE 2 UT evodopa CR 4-19 TABLETS BY [facility] (Sinemet 00:00: MOUTH AT CR) 25-100 00 10 PM MG ER tablet carbidopa-l 2021-0 2021- No [id number] TAKE 2 UT evodopa CR 4-19 12-23 TABLETS BY [facility] (Sinemet 00:00: 00:00 MOUTH AT CR) 25-100 00 :00 10 PM MG ER tablet losartan 2021-0 Yes [id number] 25mg Q.5D Take 1 UT (Cozaar) 25 4-12 tablet (25 He alth MG tablet 00:00: mg total) 00 by mouth 2 (two) times a day. hydroCHLORO 2021-0 Yes [id number] 12.5mg Take 1 UT thiazide 4-12 capsule Health (Microzide) 00:00: (12.5 mg 12.5 MG 00 total) by capsule mouth 1 (one) time each day in the morning. losartan 2021-0 Yes [id number] 25mg Q.5D Take 1 UT (Cozaar) 25 4-12 tablet (25 He alth MG tablet 00:00: mg total) 00 by mouth 2 (two) times a day. hydroCHLORO 2021-0 Yes [id number] 12.5mg Take 1 UT thiazide 4-12 capsule Health (Microzide) 00:00: (12.5 mg 12.5 MG 00 total) by capsule mouth 1 (one) time each day in the morning. losartan 2021-0 Yes [id number] 25mg Q.5D Take 1 UT (Cozaar) 25 4-12 tablet (25 He alth MG tablet 00:00: mg total) 00 by mouth 2 (two) times a day. losartan 2021-0 Yes [id number] 25mg Q.5D Take 1 UT (Cozaar) 25 4-12 tablet (25 He alth MG tablet 00:00: mg total) 00 by mouth 2 (two) times a day. hydroCHLORO 2021-0 2022- No [id number] 12.5mg Take 1 UT thiazide 4-12 04-19 capsule Health (Microzide) 00:00: 00:00 (12.5 mg 12.5 MG 00 :00 total) by capsule mouth 1 (one) time each day in the morning. losartan 2021-0 2022- No [id number] 25mg Q.5D Take 1 UT (Cozaar) 25 4-12 04-13 tablet (25 H ealth MG tablet 00:00: 04:59 mg total) 00 :00 by mouth 2 (two) times a day. hydroCHLORO 2021-0 2022- No [id number] 12.5mg Take 1 UT thiazide 4-12 04-13 capsule Health (Microzide) 00:00: 04:59 (12.5 mg 12.5 MG 00 :00 total) by capsule mouth 1 (one) time each day in the morning. losartan 2022- No [id number] 25mg Q.5D Take 1 UT (Cozaar) 25 4-02 17-13 tablet (25 H ealth MG tablet 00:00: 04:59 mg total) 00 :00 by mouth 2 (two) times a day. hydroCHLORO 2022- No [id number] 12.5mg Take 1 UT thiazide 06-26- capsule Health (Microzide) 00:00: 04:59 (12.5 mg 12.5 MG 00 :00 total) by capsule mouth 1 (one) time each day in the morning. losartan No [id number] 25mg Q.5D Take 1 UT (Cozaar) 25 4-13 tablet (25 H ealth MG tablet 00:00: 04:59 mg total) 00 :00 by mouth 2 (two) times a day. hydroCHLORO 2022- No [id number] 12.5mg Take 1 UT thiazide 06-26- capsule Health (Microzide) 00:00: 04:59 (12.5 mg 12.5 MG 00 :00 total) by capsule mouth 1 (one) time each day in the morning. losartan 2022- No [id number] 25mg Q.5D Take 1 UT (Cozaar) 25 4-13 tablet (25 H ealth MG tablet 00:00: 04:59 mg total) 00 :00 by mouth 2 (two) times a day. hydroCHLORO 2022- No [id number] 12.5mg Take 1 UT thiazide 4-13 capsule Health (Microzide) 00:00: 04:59 (12.5 mg 12.5 MG 00 :00 total) by capsule mouth 1 (one) time each day in the morning. losartan 2022- No [id number] 25mg Q.5D Take 1 UT (Cozaar) 25 4-02 17-13 tablet (25 H ealth MG tablet 00:00: 04:59 mg total) 00 :00 by mouth 2 (two) times a day. hydroCHLORO 2022- No [id number] 12.5mg Take 1 UT thiazide 06-26- capsule Health (Microzide) 00:00: 04:59 (12.5 mg 12.5 MG 00 :00 total) by capsule mouth 1 (one) time each day in the morning. losartan 2022- No [id number] 25mg Q.5D Take 1 UT (Cozaar) 25 06-26- tablet (25 H ealth MG tablet 00:00: 04:59 mg total) 00 :00 by mouth 2 (two) times a day. hydroCHLORO 2022- No [id number] 12.5mg Take 1 UT thiazide 06-26 capsule Health (Microzide) 00:00: 04:59 (12.5 mg 12.5 MG 00 :00 total) by capsule mouth 1 (one) time each day in the morning. losartan 2022- No [id number] 25mg Q.5D Take 1 UT (Cozaar) 25 06-26 tablet (25 H ealth MG tablet 00:00: 04:59 mg total) 00 :00 by mouth 2 (two) times a day. hydroCHLORO 2022- No [id number] 12.5mg Take 1 UT thiazide 06-26 capsule Health (Microzide) 00:00: 04:59 (12.5 mg 12.5 MG 00 :00 total) by capsule mouth 1 (one) time each day in the morning. losartan 2022- No [id number] 25mg Q.5D Take 1 UT (Cozaar) 25 06-26 tablet (25 H ealth MG tablet 00:00: 04:59 mg total) 00 :00 by mouth 2 (two) times a day. hydroCHLORO 2022- No [id number] 12.5mg Take 1 UT thiazide 4- capsule Health (Microzide) 00:00: 04:59 (12.5 mg 12.5 MG 00 :00 total) by capsule mouth 1 (one) time each day in the morning. losartan 2022- No [id number] 25mg Q.5D Take 1 UT (Cozaar) 25 4-02 17-13 tablet (25 H ealth MG tablet 00:00: 04:59 mg total) 00 :00 by mouth 2 (two) times a day. hydroCHLORO 2022- No [id number] 12.5mg Take 1 UT thiazide 4-13 capsule Health (Microzide) 00:00: 04:59 (12.5 mg 12.5 MG 00 :00 total) by capsule mouth 1 (one) time each day in the morning. losartan 2022- No [id number] 25mg Q.5D Take 1 UT (Cozaar) 25 4-02 17-13 tablet (25 H ealth MG tablet 00:00: 04:59 mg total) 00 :00 by mouth 2 (two) times a day. hydroCHLORO 2022- No [id number] 12.5mg Take 1 UT thiazide 4- capsule Health (Microzide) 00:00: 04:59 (12.5 mg 12.5 MG 00 :00 total) by capsule mouth 1 (one) time each day in the morning. losartan 2022- No [id number] 25mg Q.5D Take 1 UT (Cozaar) 25 4-13 tablet (25 H ealth MG tablet 00:00: 04:59 mg total) 00 :00 by mouth 2 (two) times a day. hydroCHLORO 2022- No [id number] 12.5mg Take 1 UT thiazide 06-26- capsule Health (Microzide) 00:00: 04:59 (12.5 mg 12.5 MG 00 :00 total) by capsule mouth 1 (one) time each day in the morning. losartan 2022- No [id number] 25mg Q.5D Take 1 UT (Cozaar) 25 4-02 17-13 tablet (25 H ealth MG tablet 00:00: 04:59 mg total) 00 :00 by mouth 2 (two) times a day. hydroCHLORO 2022- No [id number] 12.5mg Take 1 UT thiazide 4-13 capsule Health (Microzide) 00:00: 04:59 (12.5 mg 12.5 MG 00 :00 total) by capsule mouth 1 (one) time each day in the morning. losartan 2022- No [id number] 25mg Q.5D Take 1 UT (Cozaar) 25 4-13 tablet (25 H ealth MG tablet 00:00: 04:59 mg total) 00 :00 by mouth 2 (two) times a day. hydroCHLORO 2022- No [id number] 12.5mg Take 1 UT thiazide 06-26 capsule Health (Microzide) 00:00: 04:59 (12.5 mg 12.5 MG 00 :00 total) by capsule mouth 1 (one) time each day in the morning. losartan 2022- No [id number] 25mg Q.5D Take 1 UT (Cozaar) 25 06-26-13 tablet (25 H ealth MG tablet 00:00: 04:59 mg total) 00 :00 by mouth 2 (two) times a day. hydroCHLORO 2022- No [id number] 12.5mg Take 1 UT thiazide 06-26 capsule Health (Microzide) 00:00: 04:59 (12.5 mg 12.5 MG 00 :00 total) by capsule mouth 1 (one) time each day in the morning. losartan 2022- No [id number] 25mg Q.5D Take 1 [facility] (Cozaar) 25 06-2613 tablet (25 [facility] e[facility] MG tablet 00:00: 04:59 mg total) 00 :00 by mouth 2 (two) times a day. hydroCHLORO 2022- No [id number] 12.5mg Take 1 [facility] thiazide 06-26 capsule [facility] (Microzide) 00:00: 04:59 (12.5 mg 12.5 MG 00 :00 total) by capsule mouth 1 (one) time each day in the morning. losartan 2022- No [id number] 25mg Q.5D Take 1 [facility] (Cozaar) 25 4-13 tablet (25 [facility] e[facility] MG tablet 00:00: 04:59 mg total) 00 :00 by mouth 2 (two) times a day. hydroCHLORO 2022- No [id number] 12.5mg Take 1 [facility] thiazide 4-02 17-13 capsule [facility] (Microzide) 00:00: 04:59 (12.5 mg 12.5 MG 00 :00 total) by capsule mouth 1 (one) time each day in the morning. losartan 2022- No [id number] 25mg Q.5D Take 1 [facility] (Cozaar) 25 4-12 -13 tablet (25 [facility] MG tablet 00:00: 04:59 mg total) 00 :00 by mouth 2 (two) times a day. hydroCHLORO 2022- No [id number] 12.5mg Take 1 [facility] thiazide 4-02 17-13 capsule [facility] (Microzide) 00:00: 04:59 (12.5 mg 12.5 MG 00 :00 total) by capsule mouth 1 (one) time each day in the morning. losartan 2022- No [id number] 25mg Q.5D Take 1 [facility] (Cozaar) 25 4-02 17-13 tablet (25 [facility] e[facility] MG tablet 00:00: 04:59 mg total) 00 :00 by mouth 2 (two) times a day. hydroCHLORO 2022- No [id number] 12.5mg Take 1 [facility] thiazide 4-13 capsule [facility] (Microzide) 00:00: 04:59 (12.5 mg 12.5 MG 00 :00 total) by capsule mouth 1 (one) time each day in the morning. Icosapent 2021-0 Yes [id number] 2g Take 2 U T Ethyl 3-15 capsules [facility] (Vascepa) 1 00:00: (2 g g capsule 00 total) by mouth 2 (two) times a day with meals. Icosapent 2021-0 Yes [id number] 2g Take 2 [facility] T Ethyl 3-15 capsules Health (Vascepa) 1 00:00: (2 g g capsule 00 total) by mouth 2 (two) times a day with meals. Icosapent 2021-0 Yes [id number] 2g Take 2 U T Ethyl 3-15 capsules Health (Vascepa) 1 00:00: (2 g g capsule 00 total) by mouth 2 (two) times a day with meals. Icosapent 2021-0 Yes [id number] 2g Take 2 U T Ethyl 3-15 capsules Health (Vascepa) 1 00:00: (2 g g capsule 00 total) by mouth 2 (two) times a day with meals. Icosapent Yes [id number] 2g Take 2 U T Ethyl 3-15 capsules Health (Vascepa) 1 00:00: (2 g g capsule 00 total) by mouth 2 (two) times a day with meals. Icosapent Yes [id number] 2g Take 2 U T Ethyl 3-15 capsules Health ([facility]) 1 00:00: (2 g g capsule 00 total) by mouth 2 (two) times a day with meals. Icosapent 2021- Yes [id number] 2g Take 2 U T Ethyl 3-15 capsules Health ([facility]) 1 00:00: (2 g g capsule 00 total) by mouth 2 (two) times a day with meals. Icosapent 2022- No [id number] 2g Take 2 UT Ethyl 3-15 03-16 capsules Health ([facility]pa) 1 00:00: 04:59 (2 g g capsule 00 :00 total) by mouth 2 (two) times a day with meals. Icosapent 2022- No [id number] 2g Take 2 UT Ethyl 3-15 03-16 capsules Health ([facility]pa) 1 00:00: 04:59 (2 g g capsule 00 :00 total) by mouth 2 (two) times a day with meals. Icosapent 2022- No [id number] 2g Take 2 UT Ethyl 3-15 03-16 capsules Health ([facility]ascepa) 1 00:00: 04:59 (2 g g capsule 00 :00 total) by mouth 2 (two) times a day with meals. Icosapent 2022- No [id number] 2g Take 2 UT Ethyl 3-15 03-16 capsules Health ([facility]as[facility]pa) 1 00:00: 04:59 (2 g g capsule 00 :00 total) by mouth 2 (two) times a day with meals. Icosapent 2022- No [id number] 2g Take 2 UT Ethyl 3-15 03-16 capsules Health ([facility]ascepa) 1 00:00: 04:59 (2 g g capsule 00 :00 total) by mouth 2 (two) times a day with meals. Icosapent 2022- No [id number] 2g Take 2 UT Ethyl 3-15 03-16 capsules Health ([facility]pa) 1 00:00: 04:59 (2 g g capsule 00 :00 total) by mouth 2 (two) times a day with meals. Icosapent 2022- No [id number] 2g Take 2 UT Ethyl 3-15 03-16 capsules Health ([facility]as[facility]pa) 1 00:00: 04:59 (2 g g capsule 00 :00 total) by mouth 2 (two) times a day with meals. Icosapent 2022- No [id number] 2g Take 2 UT Ethyl 3-15 03-16 capsules Health ([facility]) 1 00:00: 04:59 (2 g g capsule 00 :00 total) by mouth 2 (two) times a day with meals. Icosapent 2022- No [id number] 2g Take 2 UT Ethyl 3-15 03-16 capsules Health ([facility]) 1 00:00: 04:59 (2 g g capsule 00 :00 total) by mouth 2 (two) times a day with meals. Icosapent 2022- No [id number] 2g Take 2 UT Ethyl 3-15 03-16 capsules Health ([facility]) 1 00:00: 04:59 (2 g g capsule 00 :00 total) by mouth 2 (two) times a day with meals. Icosapent 2022- No [id number] 2g Take 2 UT Ethyl 3-15 03-16 capsules Health ([facility]pa) 1 00:00: 04:59 (2 g g capsule 00 :00 total) by mouth 2 (two) times a day with meals. Icosapent 2022- No [id number] 2g Take 2 UT Ethyl 3-15 03-16 capsules [facility] ([facility]) 1 00:00: 04:59 (2 g g capsule 00 :00 total) by mouth 2 (two) times a day with meals. Icosapent 2022- No [id number] 2g Take 2 UT Ethyl 3-15 03-16 capsules [facility] ([facility]) 1 00:00: 04:59 (2 g g capsule 00 :00 total) by mouth 2 (two) times a day with meals. Icosapent 2022- No [id number] 2g Take 2 UT Ethyl 3-15 03-16 capsules Health ([facility]) 1 00:00: 04:59 (2 g g capsule 00 :00 total) by mouth 2 (two) times a day with meals. Icosapent 3- No [id number] 2g Take 2 UT Ethyl 3-15 03-16 capsules [facility] ([facility]) 1 00:00: 04:59 (2 g g capsule 00 :00 total) by mouth 2 (two) times a day with meals. Icosapent 2022- No [id number] 2g Take 2 UT Ethyl 3-15 03-16 capsules Health ([facility]) 1 00:00: 04:59 (2 g g capsule 00 :00 total) by mouth 2 (two) times a day with meals. Icosapent 2022- No [id number] 2g Take 2 UT Ethyl 3-15 03-16 capsules [facility] ([facility]) 1 00:00: 04:59 (2 g g capsule 00 :00 total) by mouth 2 (two) times a day with meals. rivastigmin Yes [id number] 1{patch QD Place 1 UT e (Exelon) 3-10 } patch on Healt h 4.6 MG/24HR 00:00: the skin 1 00 (one) time each day. rivastigmin Yes [id number] 1{patch QD Place 1 UT e (Exelon) 3-10 } patch on Healt h 4.6 MG/24HR 00:00: the skin 1 00 (one) time each day. rivastigmin 2021- No [id number] 1{patch QD Place 1 UT e (Exelon) 3-10 11-15 } patch on Heal th 4.6 MG/24HR 00:00: 00:00 the skin 1 00 :00 (one) time each day. rivastigmin 2021- No [id number] 1{patch QD Place 1 UT e (Exelon) 3-10 09-07 } patch on Heal th 4.6 MG/24HR 00:00: 04:59 the skin 1 00 :00 (one) time each day. rivastigmin 2021-0 2021- No [id number] 1{patch QD Place 1 UT e (Exelon) 05-24 } patch on Heal th 4.6 MG/24HR 00:00: 04:59 the skin 1 00 :00 (one) time each day. rivastigmin 2021-0 2021- No [id number] 1{patch QD Place 1 UT e (Exelon) 05-24 } patch on Heal th 4.6 MG/24HR 00:00: 04:59 the skin 1 00 :00 (one) time each day. DULoxetine 0 Yes 60mg QD Take 60 mg U T (Cymbalta) 1-24 by mouth [facility] [address] 00:00: (one) time capsule 00 each day. triamcinolo 2021-0 Yes APPLY A UT ne 1-24 THIN LAYER Health (Kenalog) 00:00: OF CREAM 0.1 % cream 00 EXTERNALLY TO THE AFFECTED AREA OF SKIN ON THE UPPER BACK TWICE DAILY FOR 2 WEEKS ON, 1 WEEK OFF. REPEAT CYCLE NEEDED DULoxetine 2021-0 Yes 60mg QD Take 60 mg U T (Cymbalta) 1-24 by mouth 1 [facility] [address] 00:00: (one) time capsule 00 each day. triamcinolo 2021-0 Yes APPLY A UT ne 1-24 THIN LAYER Health (Kenalog) 00:00: OF CREAM 0.1 % cream 00 EXTERNALLY TO THE AFFECTED AREA OF SKIN ON THE UPPER BACK TWICE DAILY FOR 2 WEEKS ON, 1 WEEK OFF. REPEAT CYCLE NEEDED DULoxetine 2021-0 Yes 60mg QD Take 60 mg U T (Cymbalta) 1-24 by mouth 1 [facility] [address] 00:00: (one) time capsule 00 each day. triamcinolo 2021-0 Yes APPLY A UT ne 1-24 THIN LAYER Health (Kenalog) 00:00: OF CREAM 0.1 % cream 00 EXTERNALLY TO THE AFFECTED AREA OF SKIN ON THE UPPER BACK TWICE DAILY FOR 2 WEEKS ON, 1 WEEK OFF. REPEAT CYCLE NEEDED DULoxetine 2-0 Yes 60mg QD Take 60 mg U T (Cymbalta) 1-24 by mouth 1 [facility] [address] 00:00: (one) time capsule 00 each day. triamcinolo 2022-0 Yes APPLY A UT ne 1-24 THIN LAYER Health (Kenalog) 00:00: OF CREAM 0.1 % cream 00 EXTERNALLY TO THE AFFECTED AREA OF SKIN ON THE UPPER BACK TWICE DAILY FOR 2 WEEKS ON, 1 WEEK OFF. REPEAT CYCLE NEEDED DULoxetine 2022-0 Yes 60mg QD Take 60 mg U T (Cymbalta) 1-24 by mouth 1 [facility] [address] 00:00: (one) time capsule 00 each day. triamcinolo 2022-0 Yes APPLY A UT ne 1-24 THIN LAYER Health (Kenalog) 00:00: OF CREAM 0.1 % cream 00 EXTERNALLY TO THE AFFECTED AREA OF SKIN ON THE UPPER BACK TWICE DAILY FOR 2 WEEKS ON, 1 WEEK OFF. REPEAT CYCLE NEEDED DULoxetine 2022-0 Yes 60mg QD Take 60 mg U T (Cymbalta) 1-24 by mouth 1 [facility] [address] 00:00: (one) time capsule 00 each day. DULoxetine 2022-0 Yes 60mg QD Take 60 mg U T (Cymbalta) 1-24 by mouth 1 [facility] [address] 00:00: (one) time capsule 00 each day. DULoxetine 2022-0 Yes 60mg QD Take 60 mg U T (Cymbalta) 1-24 by mouth 1 [facility] [address] 00:00: (one) time capsule 00 each day. DULoxetine 2022-0 Yes 60mg QD Take 60 mg U T (Cymbalta) 1-24 by mouth 1 [facility] [address] 00:00: (one) time capsule 00 each day. DULoxetine 2022-0 Yes 60mg QD Take 60 mg U T (Cymbalta) 1-24 by mouth 1 [facility] [address] 00:00: (one) time capsule 00 each day. DULoxetine 2022-0 Yes 60mg QD Take 60 mg U T (Cymbalta) 1-24 by mouth 1 [facility] [address] 00:00: (one) time capsule 00 each day. DULoxetine 2022-0 Yes 60mg QD Take 60 mg U T (Cymbalta) 1-24 by mouth 1 [facility] [address] 00:00: (one) time capsule 00 each day. DULoxetine 2022-0 Yes 60mg QD Take 60 mg U T (Cymbalta) 1-24 by mouth 1 [facility] [address] 00:00: (one) time capsule 00 each day. triamcinolo 2-0 Yes APPLY A UT ne 1-24 THIN LAYER Health (Kenalog) 00:00: OF CREAM 0.1 % cream 00 EXTERNALLY TO THE AFFECTED AREA OF SKIN ON THE UPPER BACK TWICE DAILY FOR 2 WEEKS ON, 1 WEEK OFF. REPEAT CYCLE NEEDED DULoxetine 2-0 Yes 60mg QD Take 60 mg U T (Cymbalta) 1-24 by mouth 1 [facility] [address] 00:00: (one) time capsule 00 each day. triamcinolo 2-0 Yes APPLY A UT ne 1-24 THIN LAYER Health (Kenalog) 00:00: OF CREAM 0.1 % cream 00 EXTERNALLY TO THE AFFECTED AREA OF SKIN ON THE UPPER BACK TWICE DAILY FOR 2 WEEKS ON, 1 WEEK OFF. REPEAT CYCLE NEEDED DULoxetine 2-0 Yes 60mg QD Take 60 mg U T (Cymbalta) 1-24 by mouth 1 [facility] [address] 00:00: (one) time capsule 00 each day. triamcinolo 2-0 Yes APPLY A UT ne 1-24 THIN LAYER Health (Kenalog) 00:00: OF CREAM 0.1 % cream 00 EXTERNALLY TO THE AFFECTED AREA OF SKIN ON THE UPPER BACK TWICE DAILY FOR 2 WEEKS ON, 1 WEEK OFF. REPEAT CYCLE NEEDED DULoxetine 2-0 Yes 60mg QD Take 60 mg U T (Cymbalta) 1-24 by mouth 1 [facility] [address] 00:00: (one) time capsule 00 each day. triamcinolo 2-0 Yes APPLY A UT ne 1-24 THIN LAYER Health (Kenalog) 00:00: OF CREAM 0.1 % cream 00 EXTERNALLY TO THE AFFECTED AREA OF SKIN ON THE UPPER BACK TWICE DAILY FOR 2 WEEKS ON, 1 WEEK OFF. REPEAT CYCLE NEEDED DULoxetine 2022-0 Yes 60mg QD Take 60 mg U T (Cymbalta) 1-24 by mouth 1 [facility] [address] 00:00: (one) time capsule 00 each day. triamcinolo 2022-0 Yes APPLY A UT ne 1-24 THIN LAYER Health (Kenalog) 00:00: OF CREAM 0.1 % cream 00 EXTERNALLY TO THE AFFECTED AREA OF SKIN ON THE UPPER BACK TWICE DAILY FOR 2 WEEKS ON, 1 WEEK OFF. REPEAT CYCLE NEEDED DULoxetine 2021-0 Yes 60mg QD Take 60 mg U T (Cymbalta) 1-24 by mouth 1 [facility] [address] 00:00: (one) time capsule 00 each day. triamcinolo 0 Yes APPLY A UT ne 1-24 THIN LAYER Health (Kenalog) 00:00: OF CREAM 0.1 % cream 00 EXTERNALLY TO THE AFFECTED AREA OF SKIN ON THE UPPER BACK TWICE DAILY FOR 2 WEEKS ON, 1 WEEK OFF. REPEAT CYCLE NEEDED DULoxetine 2021-0 Yes 60mg QD Take 60 mg U T (Cymbalta) 1-24 by mouth 1 [facility] [address] 00:00: (one) time capsule 00 each day. triamcinolo 2021- Yes APPLY A UT ne 1-24 THIN LAYER Health (Kenalog) 00:00: OF CREAM 0.1 % cream 00 EXTERNALLY TO THE AFFECTED AREA OF SKIN ON THE UPPER BACK TWICE DAILY FOR 2 WEEKS ON, 1 WEEK OFF. REPEAT CYCLE NEEDED DULoxetine 2021-0 Yes 60mg QD Take 60 mg U T (Cymbalta) 1-24 by mouth 1 [facility] [address] 00:00: (one) time capsule 00 each day. triamcinolo 2021-0 Yes APPLY A UT ne 1-24 THIN LAYER Health (Kenalog) 00:00: OF CREAM 0.1 % cream 00 EXTERNALLY TO THE AFFECTED AREA OF SKIN ON THE UPPER BACK TWICE DAILY FOR 2 WEEKS ON, 1 WEEK OFF. REPEAT CYCLE NEEDED DULoxetine 2021-0 Yes 60mg QD Take 60 mg U T (Cymbalta) 1-24 by mouth 1 [facility] [address] 00:00: (one) time capsule 00 each day. triamcinolo 2021-0 Yes APPLY A UT ne 1-24 THIN LAYER Health (Kenalog) 00:00: OF CREAM 0.1 % cream 00 EXTERNALLY TO THE AFFECTED AREA OF SKIN ON THE UPPER BACK TWICE DAILY FOR 2 WEEKS ON, 1 WEEK OFF. REPEAT CYCLE NEEDED DULoxetine 2021-0 Yes 60mg QD Take 60 mg U T (Cymbalta) 1-24 by mouth 1 [facility] [address] 00:00: (one) time capsule 00 each day. triamcinolo 2021-0 Yes APPLY A UT ne 1-24 THIN LAYER Health (Kenalog) 00:00: OF CREAM 0.1 % cream 00 EXTERNALLY TO THE AFFECTED AREA OF SKIN ON THE UPPER BACK TWICE DAILY FOR 2 WEEKS ON, 1 WEEK OFF. REPEAT CYCLE NEEDED DULoxetine 2021-0 Yes 60mg QD Take 60 mg U T (Cymbalta) 1-24 by mouth 1 [facility] [address] 00:00: (one) time capsule 00 each day. triamcinolo 2021-0 Yes APPLY A UT ne 1-24 THIN LAYER Health (Kenalog) 00:00: OF CREAM 0.1 % cream 00 EXTERNALLY TO THE AFFECTED AREA OF SKIN ON THE UPPER BACK TWICE DAILY FOR 2 WEEKS ON, 1 WEEK OFF. REPEAT CYCLE NEEDED DULoxetine 2021-0 Yes 60mg QD Take 60 mg U T (Cymbalta) 1-24 by mouth 1 [facility] [address] 00:00: (one) time capsule 00 each day. triamcinolo 2021-0 Yes APPLY A UT ne 1-24 THIN LAYER Health (Kenalog) 00:00: OF CREAM 0.1 % cream 00 EXTERNALLY TO THE AFFECTED AREA OF SKIN ON THE UPPER BACK TWICE DAILY FOR 2 WEEKS ON, 1 WEEK OFF. REPEAT CYCLE NEEDED Botox 100 2-0 Yes UT units 1-20 Health injection 00:00: 00 Botox 100 2-0 Yes UT units 1-20 Health injection 00:00: 00 Botox 100 2-0 Yes UT units 1-20 Health injection 00:00: 00 Botox 100 2022-0 Yes UT units 1-20 Health injection 00:00: 00 Botox 100 2022-0 2022- No UT units 1-20 11-03 Health injection 00:00: 00:00 00 :00 Botox 100 2022-0 2022- No UT units 1-20 11-03 Health injection 00:00: 00:00 00 :00 Repatha 2-0 Yes INJECT 1 UT SureClick 1-14 ML Health 140 MG/ML 00:00: SUBCUTANEO solution 00 USLY EVERY auto-inject TWO WEEKS or IN THE ABDOMEN, THIGH OR OUTER AREA OF THE UPPER ARM (ROTATE SITES) Repatha Yes INJECT 1 UT SureClick 1-14 ML Health 140 MG/ML 00:00: SUBCUTANEO solution 00 USLY EVERY auto-inject TWO WEEKS or IN THE ABDOMEN, THIGH OR OUTER AREA OF THE UPPER ARM (ROTATE SITES) Repatha Yes INJECT 1 UT SureClick 1-14 ML Health 140 MG/ML 00:00: SUBCUTANEO solution 00 USLY EVERY auto-inject TWO WEEKS or IN THE ABDOMEN, THIGH OR OUTER AREA OF THE UPPER ARM (ROTATE SITES) metoprolol 2020-03 Yes 25mg Take 25 mg U T tartrate 2-13 by mouth 1 Healt h (Lopressor) 00:00: (one) time 25 MG 00 if needed. tablet metoprolol 2020-03 Yes 25mg Take 25 mg U T tartrate 2-13 by mouth 1 [facility]alt [facility] (Lopressor) 00:00: (one) time 25 MG 00 if needed. tablet metoprolol 2020- Yes 25mg Take 25 mg U T tartrate 2-13 by mouth 1 Healt [facility] (Lopressor) 00:00: (one) time 25 MG 00 if needed. tablet metoprolol 2020-03 Yes 25mg Take 25 mg U T tartrate 2-13 by mouth 1 Healt [facility] (Lopressor) 00:00: (one) time 25 MG 00 if needed. tablet metoprolol 2020-03 Yes 25mg Take 25 mg U T tartrate 2-13 by mouth 1 [facility]alt [facility] (Lopressor) 00:00: (one) time 25 MG 00 if needed. tablet metoprolol 2020-03 Yes 25mg Take 25 mg U T tartrate 2-13 by mouth 1 [facility]alt [facility] (Lopressor) 00:00: (one) time 25 MG 00 if needed. tablet metoprolol 2020- Yes 25mg Take 25 mg U T tartrate 2-13 by mouth 1 Healt [facility] (Lopressor) 00:00: (one) time 25 MG 00 if needed. tablet metoprolol 2020- Yes 25mg Take 25 mg U T tartrate 2-13 by mouth 1 [facility]alt [facility] (Lopressor) 00:00: (one) time 25 MG 00 if needed. tablet metoprolol 2020- Yes 25mg Take 25 mg U T tartrate 2-13 by mouth 1 Healt [facility] (Lopressor) 00:00: (one) time 25 MG 00 if needed. tablet metoprolol 2020-03 Yes 25mg Take 25 mg U T tartrate 2-13 by mouth 1 [facility]alt [facility] (Lopressor) 00:00: (one) time 25 MG 00 if needed. tablet metoprolol 2020-03 Yes 25mg Take 25 mg U T tartrate 2-13 by mouth 1 Healt [facility] (Lopressor) 00:00: (one) time 25 MG 00 if needed. tablet metoprolol 2020-03 Yes 25mg Take 25 mg U T tartrate 2-13 by mouth 1 Healt [facility] (Lopressor) 00:00: (one) time 25 MG 00 if needed. tablet metoprolol 2020-03 Yes 25mg Take 25 mg U T tartrate 2-13 by mouth 1 [facility]alt [facility] (Lopressor) 00:00: (one) time 25 MG 00 if needed. tablet metoprolol 2020-03 Yes 25mg Take 25 mg U T tartrate 2-13 by mouth 1 Healt [facility] (Lopressor) 00:00: (one) time 25 MG 00 if needed. tablet metoprolol 2020-03 Yes 25mg Take 25 mg U T tartrate 2-13 by mouth 1 Healt [facility] (Lopressor) 00:00: (one) time 25 MG 00 if needed. tablet metoprolol 2020-033- No 25mg Take 25 mg UT tartrate 2-13 -23 by mouth 1 Heal th (Lopressor) 00:00: 00:00 (one) time 25 MG 00 :00 if needed. tablet gabapentin 2020-03 Yes TAKE 1 TO UT (Neurontin) 1-18 2 CAPSULES He alth 100 MG 00:00: BY MOUTH capsule 00 NEEDED FOR PAIN gabapentin 2020-03 Yes TAKE 1 TO UT (Neurontin) 1-18 2 CAPSULES He alth 100 MG 00:00: BY MOUTH capsule 00 NEEDED FOR PAIN gabapentin 2020-03 Yes TAKE 1 TO UT (Neurontin) 1-18 2 CAPSULES He alth 100 MG 00:00: BY MOUTH capsule 00 NEEDED FOR PAIN gabapentin 2020-03 Yes TAKE 1 TO UT (Neurontin) 1-18 2 CAPSULES He alth 100 MG 00:00: BY MOUTH capsule 00 NEEDED FOR PAIN gabapentin 2020-03 Yes TAKE 1 TO UT (Neurontin) 1-18 2 CAPSULES He alth 100 MG 00:00: BY MOUTH capsule 00 NEEDED FOR PAIN gabapentin 2020-03 Yes TAKE 1 TO UT (Neurontin) 1-18 2 CAPSULES He alth 100 MG 00:00: BY MOUTH capsule 00 NEEDED FOR PAIN gabapentin 2020-03 Yes TAKE 1 TO UT (Neurontin) 1-18 2 CAPSULES He alth 100 MG 00:00: BY MOUTH capsule 00 NEEDED FOR PAIN gabapentin 2020-03 Yes TAKE 1 TO UT (Neurontin) 1-18 2 CAPSULES He alth 100 MG 00:00: BY MOUTH capsule 00 NEEDED FOR PAIN gabapentin 2020-03 Yes TAKE 1 TO UT (Neurontin) 1-18 2 CAPSULES He alth 100 MG 00:00: BY MOUTH capsule 00 NEEDED FOR PAIN gabapentin 2020-03 Yes TAKE 1 TO UT (Neurontin) 1-18 2 CAPSULES He alth 100 MG 00:00: BY MOUTH capsule 00 NEEDED FOR PAIN gabapentin 2020-03 Yes TAKE 1 TO UT (Neurontin) 1-18 2 CAPSULES He alth 100 MG 00:00: BY MOUTH capsule 00 NEEDED FOR PAIN gabapentin 2020-03 Yes TAKE 1 TO UT (Neurontin) 1-18 2 CAPSULES He alth 100 MG 00:00: BY MOUTH capsule 00 NEEDED FOR PAIN gabapentin 2020-03 Yes TAKE 1 TO UT (Neurontin) 1-18 2 CAPSULES He alth 100 MG 00:00: BY MOUTH capsule 00 NEEDED FOR PAIN gabapentin 2020-03- No TAKE 1 TO U T (Neurontin) 04-03 2 CAPSULES H ealth 100 MG 00:00: 00:00 BY MOUTH capsule 00 :00 NEEDED FOR PAIN gabapentin 2020-03- No TAKE 1 TO U T (Neurontin) 04-03 2 CAPSULES H ealth 100 MG 00:00: 00:00 BY MOUTH capsule 00 :00 NEEDED FOR PAIN metoprolol 2020-03 Yes 25mg Take 25 mg [facility] (TOPROL-XL) 0-26 by mouth [facility] 25 MG XL 15:09: as needed. of tablet 17 Medicin e timolol 2020-03 Yes 1[drp] Place 1 [facility] hemihydrate 0-26 Drop into [facility] (BETIMOL) 15:07: the right of 0.25 % 21 eye daily. Medicin ophthalmic e solution Multiple 2020-03 Yes Take by [facility] Vitamins-Mi 0-26 mouth [place] nerals 15:07: daily. of (ZINC OR) 21 Medicin e OMEPRAZOLE 2020-03 Yes Take by [facility] 0-26 mouth as [facility] 15:04: needed. of 26 Medicin e ASPIRIN 81 2020-03 Yes 81mg Take 81 mg [facility] OR 0-26 by mouth College 15:04: daily. of 26 Medicin e aspirin 325 2020-03- No 325mg Take 325 Gibran mg tablet 0- 10-26 mg by [place] 15:04: 00:00 mouth of 04 :00 every 6 Medicin hours as e needed for Pain. VITAMIN K 2020-03- No Take by [facility] OR 0-26 10-26 mouth. [place] 15:03: 00:00 of 52 :00 Medicin e MISC 2020-03- No Take by [facility] NATURAL 0-26 10-26 mouth. [place] PRODUCTS OR 15:03: 00:00 of 46 :00 Medicin e MISC 2020-03- No Take by [facility] NATURAL 0-26 10-26 mouth. [place] PRODUCTS OR 15:03: 00:00 Take 2 of 40 :00 tabs twice Medicin a day e MAGNESIUM 2020-03- No Take by [facility] OR 0-26 10-26 mouth [place] 15:03: 00:00 daily. of 37 :00 Medicin e Coenzyme 2020-03- No Take by [facility] Q10 (COQ10 0-09 01-26 mouth two [facility]ge OR) 15:03: 00:00 times of 21 :00 daily. Medicin e Ascorbic 2020-03- No Take by [facility] Acid (QC 0- 10- mouth. [place] VITAMIN C 15:03: 00:00 of WITH ALFREDO 09 :00 Medicin HIPS OR) e methocarbam 2020-03 Yes 500mg Take 500 U T ol 0-22 mg by Health (Robaxin) 00:00: mouth 1 500 MG 00 (one) time tablet if needed. methocarbam 2020-03 Yes 500mg Take 500 U T ol 0-22 mg by Health (Robaxin) 00:00: mouth 1 500 MG 00 (one) time tablet if needed. methocarbam 2020-03 Yes 500mg Take 500 U T ol 0-22 mg by Health (Robaxin) 00:00: mouth 1 500 MG 00 (one) time tablet if needed. methocarbam 2020-03 Yes 500mg Take 500 U T ol 0-22 mg by Health (Robaxin) 00:00: mouth 1 500 MG 00 (one) time tablet if needed. methocarbam 2020-03 Yes 500mg Take 500 U T ol 0-22 mg by Health (Robaxin) 00:00: mouth 1 500 MG 00 (one) time tablet if needed. methocarbam 2020-03 Yes 500mg Take 500 U T ol 0-22 mg by Health (Robaxin) 00:00: mouth 1 500 MG 00 (one) time tablet if needed. methocarbam 2020-03 Yes 500mg Take 500 U T ol 0-22 mg by Health (Robaxin) 00:00: mouth 1 500 MG 00 (one) time tablet if needed. methocarbam 2020-03 Yes 500mg Take 500 U T ol 0-22 mg by Health (Robaxin) 00:00: mouth 1 500 MG 00 (one) time tablet if needed. methocarbam 2020-03 Yes 500mg Take 500 U T ol 0-22 mg by Health (Robaxin) 00:00: mouth 1 500 MG 00 (one) time tablet if needed. methocarbam 2020-03 Yes 500mg Take 500 U T ol 0-22 mg by Health (Robaxin) 00:00: mouth 1 500 MG 00 (one) time tablet if needed. ELIQUIS 5 2020-03 Yes two times [facility] MG TABS 0-22 daily. [facility] 00:00: of 00 Medicin e methocarbam 2020-03 Yes 500mg Take 500 [facility] ol 0-22 mg by [place] (ROBAXIN) 00:00: mouth as of 500 MG 00 needed. Medicin tablet e ELIQUIS 5 2020-03 Yes two times [facility] MG TABS 0-22 daily. College 00:00: of 00 Medicin e methocarbam 2020-03 Yes 500mg Take 500 [facility] ol 0-22 mg by [place] (ROBAXIN) 00:00: mouth as of 500 MG 00 needed. Medicin tablet e ELIQUIS 5 2020-03 Yes two times [facility] MG TABS 0-22 daily. College 00:00: of 00 Medicin e methocarbam 2020-03 Yes 500mg Take 1 [facility] ol 0-22 Tablet by [place] (ROBAXIN) 00:00: mouth as of 500 MG 00 needed. Medicin tablet e ELIQUIS 5 2020-03 Yes two times [facility] MG TABS 0-22 daily. [place] 00:00: Medicin e methocarbam 2020-03 Yes 500mg Take 1 [facility] ol 0-22 Tablet by [place] (ROBAXIN) 00:00: mouth as of 500 MG 00 needed. Medicin tablet e methocarbam 2020-03- No 500mg Take 500 UT ol 0-22 01-[address] [facility] (Robaxin) 00:00: 00:00 mouth 1 500 MG 00 :00 (one) time tablet if needed. methocarbam 2020-03- No 500mg Take 500 UT ol 0-22 01-[address] [facility] (Robaxin) 00:00: 00:00 mouth 1 500 MG 00 :00 (one) time tablet if needed. losartan-hy Yes 1{tbl} Take 1 [facility] drochloroth 5-28 Tablet by [facility] iazidcasper 00:00: mouth of (HYZAAR) 00 daily. Medicin 50-12.5 MG e per tablet losartan-hy 2021- No 1{tbl} Take 1 [facility] drochloroth 5-28 12-22 Tablet by [facility]er[facility] iazidcasper 00:00: 00:00 mouth of (HYZAAR) 00 :00 daily. Medicin 50-12.5 MG e per tablet carbidopa-l Yes 1{tbl} Take 1 [facility] evodopa 5-21 Tablet by [place] (SINEMET) 00:00: mouth four of 25-100 MG 00 times Medicin per tablet daily. e carbidopa-l 2020-0 Yes 1{tbl} Take 1 [facility] evodopa 5-21 Tablet by [place] (SINEMET) 00:00: mouth four of 25-100 MG 00 times Medicin per tablet daily. e carbidopa-l 2020-0 2022- No 1{tbl} Take 1 [facility] evodopa 5-21 03-20 Tablet by Colleg e (SINEMET) 00:00: 00:00 mouth four o f 25-100 MG 00 :00 times Medicin per tablet daily. e aspirin 81 2020-0 Yes 81mg 81 mg. [facility] MG chewable 2-26 Health tablet 00:00: 00 bimatoprost 202-0 Yes AT BEDTIME UT ([facility] 2 Health 0.01 % 00:00: ophthalmic 00 solution aspirin 81 2020-0 Yes 81mg 81 mg. [facility] MG chewable 2- Health tablet 00:00: 00 bimatoprost 2020-0 Yes AT BEDTIME UT ([facility] Health 0.01 % 00:00: ophthalmic 00 solution aspirin 81 2020-0 Yes 81mg 81 mg. UT MG chewable 2- Health tablet 00:00: 00 bimatoprost 2020-0 Yes AT BEDTIME UT ([facility] Health 0.01 % 00:00: ophthalmic 00 solution aspirin 81 2020-0 Yes 81mg 81 mg. UT MG chewable 2- Health tablet 00:00: 00 bimatoprost 2020-0 Yes AT BEDTIME UT ([facility] Health 0.01 % 00:00: ophthalmic 00 solution aspirin 81 2020-0 Yes 81mg 81 mg. UT MG chewable 2- Health tablet 00:00: 00 bimatoprost 2020-0 Yes AT BEDTIME UT ([facility] Health 0.01 % 00:00: ophthalmic 00 solution aspirin 81 1-0 Yes 81mg 81 mg. UT MG chewable 2- Health tablet 00:00: 00 bimatoprost 202-0 Yes AT BEDTIME UT ([facility] 2 Health 0.01 % 00:00: ophthalmic 00 solution aspirin 81 2021-0 Yes 81mg 81 mg. [facility] chewable 2-26 Health tablet 00:00: 00 bimatoprost 1-0 Yes AT BEDTIME [facility] ([facility] 2 Health 0.01 % 00:00: ophthalmic 00 solution aspirin 81 2021-0 Yes 81mg 81 mg. [facility] chewable 2-26 Health tablet 00:00: 00 bimatoprost 2021-0 Yes AT BEDTIME [facility] ([facility] 2 Health 0.01 % 00:00: ophthalmic 00 solution aspirin 81 2021-0 Yes 81mg 81 mg. [facility] chewable 2-26 Health tablet 00:00: 00 bimatoprost 2020-0 Yes AT BEDTIME [facility] ([facility]) 2-26 Health 0.01 % 00:00: ophthalmic 00 solution aspirin 81 2021-0 Yes 81mg 81 mg. [facility] chewable 2-26 Health tablet 00:00: 00 bimatoprost 2021-0 Yes AT BEDTIME [facility] ([facility]) 2-26 Health 0.01 % 00:00: ophthalmic 00 solution aspirin 81 2021-0 Yes 81mg 81 mg. [facility] chewable 2-26 Health tablet 00:00: 00 bimatoprost 2020-0 Yes AT BEDTIME [facility] ([facility]) 226 Health 0.01 % 00:00: ophthalmic 00 solution aspirin 81 2021-0 Yes 81mg 81 mg. [facility] chewable 2-26 Health tablet 00:00: 00 bimatoprost 1-0 Yes AT BEDTIME [facility] ([facility]) 2[facility] 0.01 % 00:00: ophthalmic 00 solution aspirin 81 1-0 Yes 81mg 81 mg. [facility] chewable 2-26 Health tablet 00:00: 00 bimatoprost 2020-0 Yes AT BEDTIME [facility] ([facility]) 2[facility] 0.01 % 00:00: ophthalmic 00 solution aspirin 81 2021-0 Yes 81mg 81 mg. [facility] chewable 2-26 Health tablet 00:00: 00 bimatoprost 1-0 Yes AT BEDTIME [facility] ([facility]) 2[facility] 0.01 % 00:00: ophthalmic 00 solution aspirin 81 2021-0 Yes 81mg 81 mg. [facility] chewable 2-26 Health tablet 00:00: 00 bimatoprost 2021-0 Yes AT BEDTIME [facility] ([facility]) 226 Health 0.01 % 00:00: ophthalmic 00 solution aspirin 81 2021-0 Yes 81mg 81 mg. [facility] chewable 2-26 Health tablet 00:00: 00 bimatoprost 2021-0 Yes AT BEDTIME [place] ([facility]) 226 Health 0.01 % 00:00: ophthalmic 00 solution aspirin 81 2021-0 Yes 81mg 81 mg. [facility] MG chewable 2-26 Health tablet 00:00: 00 bimatoprost 2021-0 Yes AT BEDTIME [facility] ([facility]) 2-26 Health 0.01 % 00:00: ophthalmic 00 solution aspirin 81 202-0 Yes 81mg 81 mg. [facility] MG chewable 2-26 Health tablet 00:00: 00 bimatoprost 202-0 Yes AT BEDTIME [facility] ([facility]) 2-26 Health 0.01 % 00:00: ophthalmic 00 solution aspirin 81 2021-0 Yes 81mg 81 mg. [facility] MG chewable 2-26 Health tablet 00:00: 00 bimatoprost 202-0 Yes AT BEDTIME [facility] ([facility]) 2-26 Health 0.01 % 00:00: ophthalmic 00 solution aspirin 81 202-0 Yes 81mg 81 mg. [facility] MG chewable 2-26 Health tablet 00:00: 00 bimatoprost 202-0 Yes AT BEDTIME [facility] ([facility]) 2-26 Health 0.01 % 00:00: ophthalmic 00 solution aspirin 81 202-0 Yes 81mg 81 mg. [facility] MG chewable 2-26 Health tablet 00:00: 00 bimatoprost 202-0 Yes AT BEDTIME [facility] ([facility]) 2-26 Health 0.01 % 00:00: ophthalmic 00 solution aspirin 81 202-0 Yes 81mg 81 mg. [facility] MG chewable 2-26 Health tablet 00:00: 00 bimatoprost 202-0 Yes AT BEDTIME [facility] ([facility]) 2-26 Health 0.01 % 00:00: ophthalmic 00 solution aspirin 81 2021-0 Yes 81mg 81 mg. [facility] MG chewable 2-26 Health tablet 00:00: 00 bimatoprost 2021-0 Yes AT BEDTIME [facility] ([facility]) 2-26 Health 0.01 % 00:00: ophthalmic 00 solution aspirin 81 2021-0 Yes 81mg 81 mg. [facility] MG chewable 2-26 Health tablet 00:00: 00 bimatoprost 2021-0 Yes AT BEDTIME [facility] ([facility]) 2-26 Health 0.01 % 00:00: ophthalmic 00 solution ASPIRIN 81 2020-0 Yes 81mg Take 81 mg B maryellen OR 11-15 by mouth College 20:08: daily. of 41 Medicin e OMEPRAZOLE 2020-0 Yes Take by [facility] or OR 11-15 mouth College 20:04: daily. of 00 Medicin e MISC 2020-0 Yes Take by [facility] NATURAL 11-15 mouth. College PRODUCTS OR 20:04: Take 2 of 00 tabs twice Medicin a day e timolol 2020-0 Yes 1[drp] 1 Drop. [facility] hemihydrate 11-15 [place] (BETIMOL) 20:04: of 0.25 % 00 Medicin ophthalmic e solution VITAMIN K 2020-0 Yes Take by [facility] OR 11-15 mouth. [place] 20:04: of 00 Medicin e Multiple 2020-0 Yes Take by [facility] Vitamins-Mi 11-15 mouth. Colleg e nerals 20:04: of (ZINC OR) 00 Medicin e Ascorbic 2020-0 Yes Take by [facility] Acid (QC 11-15 mouth. [place] VITAMIN C 20:04: of WITH ALFREDO Medicin HIPS OR) e Coenzyme 2020-0 Yes Take by [facility] Q10 (COQ10 11-15 mouth two Liz ege OR) 20:04: times of 00 daily. Medicin e MAGNESIUM 2020-0 Yes Take by [facility] OR 11-15 mouth [place] 20:04: daily. of 00 Medicin e REPATHA 2020-0 Yes every 14 [facility] SURECLICK 8-24 days. College 140 MG/ML 00:00: of SOAJ 00 Medicin e REPATHA 2020-0 Yes every 14 [facility] SURECLICK 8-24 days. College 140 MG/ML 00:00: of SOAJ 00 Medicin e REPATHA 2020-0 Yes every 14 [facility] SURECLICK 8-24 days. College 140 MG/ML 00:00: of SOAJ 00 Medicin e REPATHA 2020-0 Yes every 14 [facility] SURECLICK 8-24 days. [facility] 140 MG/ML 00:00: of SOAJ 00 Medicin e REPATHA 2020-0 2022- No every 14 [facility] SURECLICK 8-24 05-05 days. [facility] 140 MG/ML 00:00: 00:00 of SOAJ 00 :00 Medicin e clopidogrel 2020-0 Yes 75mg 75 mg [facility] (PLAVIX) 75 8-07 daily. Colleg e MG Tablet 00:00: of 00 Medicin e clopidogrel 2020-0 2020- No 75mg 75 mg [facility] (PLAVIX) 75 8-07 10-26 daily. Colle ge MG Tablet 00:00: 00:00 of 00 :00 Medicin e aspirin 325 2020-0 Yes 325mg Take 325 [facility] mg tablet 6-08 mg by [place] 20:56: mouth of 11 every 6 Medicin hours as e needed for Pain. MISC 2020-0 Yes Take by [facility] NATURAL 08-22 mouth. [place] PRODUCTS OR 20:56: of 11 Medicin e Coenzyme 2020-0 Yes Take by [facility] Q10 (COQ10 08-22 mouth two Liz ege OR) 20:56: times of 11 daily. Medicin e MAGNESIUM 2020-0 Yes Take by [facility] r OR 08-22 mouth [place] 20:56: daily. of 11 Medicin e aspirin 325 2020-0 Yes 325mg Take 325 [facility] mg tablet 6-08 mg by [place] 20:56: mouth of 11 every 6 Medicin hours as e needed for Pain. OMEPRAZOLE 2020-0 Yes Take by [facility] or OR 08-22 mouth [place] 20:56: daily. of 11 Medicin e timolol 2020-0 Yes 1[drp] 1 Drop. [facility] r hemihydrate 08-22 [place] (BETIMOL) 20:56: of 0.25 % 11 Medicin ophthalmic e solution VITAMIN K 2020-0 Yes Take by [facility] r OR 08-22 mouth. [place] 20:56: of 11 Medicin e MISC 2020-0 Yes Take by [facility] NATURAL 08-22 mouth. [place] PRODUCTS OR 20:56: of 11 Medicin e Multiple 2020-0 Yes Take by [facility] Vitamins-Mi 08-22 mouth. Colleg e nerals 20:56: of (ZINC OR) 11 Medicin e Ascorbic 2020-0 Yes Take by [facility] Acid (QC 08-22 mouth. [place] VITAMIN C 20:56: of WITH ALFREDO 11 Medicin HIPS OR) e Fexofenadin 2020-0 2020- No Take by H[facility] ylor e HCl 08-22 mouth [place] (LORI 20:53: 00:00 daily. of ALLERGY OR) 54 :00 Medicin e Plant 2020-0 2020- No Take by [facility] Sterols and 08-22 mouth Colleg e [place] 20:52: 00:00 daily. of (CHOLESTOFF 41 :00 Medicin OR) e aspirin 325 2020-0 Yes 325mg QD Take [address] MG tablet 6-01 mg by Khadijahkes 11:44: mouth Medical 03 daily. Center ramipril 2020-0 Yes 5mg QD Take [address] [facility] (ALTACE) 5 6-01 by mouth [facility] MG capsule 11:44: daily. Medic al 03 Center bimatoprost 2020-0 Yes 1[drp] QD Place [address] [facility] (LUMIGAN) 6-01 drop into [facility] 0.01 % Drop 11:44: the right edical ophthalmic 03 eye Center solution nightly. timolol 2020-0 Yes 1[drp] QD Place [facility] ([facility] 6-01 [facility] 0.5 % 11:44: the right Medical ophthalmic 03 eye daily. [facility] ter solution CHOLECALCIF 2020-0 Yes [id number] Take [facility], 6- 10,000 [facility] VITAMIN D3, 11:44: Units by Me dical ORAL 03 mouth. Center fexofenadin 2020-0 Yes 180mg Q.5D Take [address] [facility] (LORI) 6-01 mg by [facility] 180 MG 11:44: mouth 2 Medical tablet 03 (two) Center times daily. ezetimibe 2020-0 Yes 10mg QD Take [address] [facility] (ZETIA) 10 6- by mouth [facility] mg tablet 11:44: daily. Medica l 03 [place] coenzyme 2020-0 Yes 100mg Q.5D Take [address] Q10 100 mg 6-01 mg by [facility] capsule 11:44: mouth 2 Medical 03 (two) Center times daily. magnesium 2020-0 Yes 500mg QD Take [address] gluconate 6-01 mg by [facility] (MAGONATE) 11:44: mouth Medica l 27.5 mg 03 daily. Center magne- sium (500 mg) tablet omeprazole 2020-0 Yes 20mg QD Take [address] (PRILOSEC) 6-01 by mouth [facility] 20 MG 11:44: daily. Medical capsule 03 Center aspirin 325 2020-0 Yes 325mg QD Take [address] MG tablet 6-01 mg by [facility] 11:44: mouth Medical 03 daily. Center ramipril 2020-0 Yes 5mg QD Take [address] [facility] (ALTACE) 5 6-01 by mouth [facility] MG capsule 11:44: daily. Medic al 03 [place] bimatoprost 2020-0 Yes 1[drp] QD Place [address] (LUMIGAN) 6-01 drop into [facility] 0.01 % Drop 11:44: the right M edical ophthalmic 03 eye Center solution nightly. timolol 2020-0 Yes 1[drp] QD Place [facility] (BET[facility]OL[facility] 6-01 drop into [facility] 0.5 % 11:44: the right Medical ophthalmic [address] [address] solution CHOLECALCIF 2020-0 Yes [id number] Take [facility], 6- 10,000 [facility] VITAMIN D3, 11:44: Units by Me dical ORAL 03 mouth. Center fexofenadin 2020-0 Yes 180mg Q.5D Take [address] (LORI) 6-01 mg by [facility] 180 MG 11:44: mouth 2 Medical tablet 03 (two) Center times daily. ezetimibe 2020-0 Yes 10mg QD Take [address] [facility] (ZETIA) 10 6-01 by mouth [facility] mg tablet 11:44: daily. Medica l 03 Center coenzyme 2020-0 Yes 100mg Q.5D Take [address] Q10 100 mg 6-01 mg by [facility] capsule 11:44: mouth 2 Medical 03 (two) Center times daily. magnesium 2020-0 Yes 500mg QD Take [address] gluconate 6-01 mg by [facility] (MAGONATE) 11:44: mouth Medica l 27.5 mg 03 daily. Center magne- sium (500 mg) tablet omeprazole 2020-0 Yes 20mg QD Take [address] (PRILOSEC) 6-01 by mouth [facility] 20 MG 11:44: daily. Medical capsule 03 Center aspirin 325 2020-0 Yes 325mg QD Take [address] MG tablet 6-01 mg by [facility] 11:44: mouth Medical 03 daily. Center ramipril 2020-0 Yes 5mg QD Take [address] [facility] (ALTACE) 5 6-01 by mouth [facility] MG capsule 11:44: daily. Medic al 03 Center bimatoprost 2020-0 Yes 1[drp] QD Place [address] (LUMIGAN) 6-01 drop into [facility] 0.01 % Drop 11:44: the right M edical ophthalmic 03 eye Center solution nightly. timolol 2020-0 Yes 1[drp] QD Place [facility] (BETIMOL) 6-01 drop into [facility] 0.5 % 11:44: the right Medical ophthalmic [address] solution CHOLECALCIF 2020-0 Yes [id number] Take [facility], 6- 10,000 [facility] VITAMIN D3, 11:44: Units by Me dical ORAL 03 mouth. Center fexofenadin 2020-0 Yes 180mg Q.5D Take [address] (LORI) 6-01 mg by [facility] 180 MG 11:44: mouth 2 Medical tablet 03 (two) Center times daily. ezetimibe 2020-0 Yes 10mg QD Take [address] [facility] (ZETIA) 10 6-01 by mouth [facility] mg tablet 11:44: daily. Medica l 03 Center coenzyme 2020-0 Yes 100mg Q.5D Take [address] Q10 100 mg 6-01 mg by [facility] capsule 11:44: mouth 2 Medical 03 (two) Center times daily. magnesium 2020-0 Yes 500mg QD Take [address] gluconate 6-01 mg by [facility] (MAGONATE) 11:44: mouth Medica l 27.5 mg 03 daily. [place] magne- sium (500 mg) tablet omeprazole 2020-0 Yes 20mg QD Take [address] (PRILOSEC) 6-01 by mouth [facility] 20 MG 11:44: daily. Medical capsule 03 Center aspirin 325 2020-0 Yes 325mg QD Take [address] MG tablet 6-01 mg by [facility] 11:44: mouth Medical 03 daily. [place] ramipril 2020-0 Yes 5mg QD Take [address] [facility] (ALTACE) 5 6-01 by mouth [facility] MG capsule 11:44: daily. Medic al 03 Center bimatoprost 2020-0 Yes 1[drp] QD Place [address] (LUMIGAN) 6-01 drop into [facility] 0.01 % Drop 11:44: the right M edical ophthalmic 03 eye Center solution nightly. timolol 2020-0 Yes 1[drp] QD Place [facility] (BETIMOL[facility] 6-01 drop into [facility] 0.5 % 11:44: the right Medical ophthalmic [address] [address] solution CHOLECALCIF 2020-0 Yes [id number] Take [facility], 6- 10,000 [facility] VITAMIN D3, 11:44: Units by Me dical ORAL 03 mouth. Center fexofenadin 2020-0 Yes 180mg Q.5D Take [address] (LORI) 6-01 mg by [facility] 180 MG 11:44: mouth 2 Medical tablet 03 (two) Center times daily. ezetimibe 2020-0 Yes 10mg QD Take [address] [facility] (ZETIA) 10 6-01 by mouth [facility] mg tablet 11:44: daily. Medica l 03 Center coenzyme 2020-0 Yes 100mg Q.5D Take [address] Q10 100 mg 6-01 mg by [facility] capsule 11:44: mouth 2 Medical 03 (two) Center times daily. magnesium 2020-0 Yes 500mg QD Take [address] gluconate 6-01 mg by [facility] (MAGONATE) 11:44: mouth Medica l 27.5 mg 03 daily. Center magne- sium (500 mg) tablet omeprazole 2020-0 Yes 20mg QD Take [address] (PRILOSEC) 6-01 by mouth [facility] 20 MG 11:44: daily. Medical capsule 03 Center aspirin 325 2020-0 Yes 325mg QD Take [address] MG tablet 6-01 mg by [facility] 11:44: mouth Medical 03 daily. Center ramipril 2020-0 Yes 5mg QD Take [address] [facility] (ALTACE) 5 6- by mouth [facility] MG capsule 11:44: daily. Medic al 03 Center bimatoprost 2020-0 Yes 1[drp] QD Place [address] (LUMIGAN) 6-01 drop into [facility] 0.01 % Drop 11:44: the right edical ophthalmic 03 eye Center solution nightly. timolol 2020-0 Yes 1[drp] QD Place [facility] (BETIMOL) 6-01 drop into [facility] 0.5 % 11:44: the right Medical ophthalmic 03 eye daily. [facility] ter solution CHOLECALCIF 2020-0 Yes [id number] Take [facility], 6- 10,000 [facility] VITAMIN D3, 11:44: Units by Nh dical ORAL 03 mouth. Center fexofenadin 2020-0 Yes 180mg Q.5D Take [address] (LORI) 6-01 mg by [facility] 180 MG 11:44: mouth 2 Medical tablet 03 (two) Center times daily. ezetimibe 2020-0 Yes 10mg QD Take [address] (ZETIA) 10 6-01 by mouth [facility] mg tablet 11:44: daily. Medica l 03 Center coenzyme 2020-0 Yes 100mg Q.5D Take [address] Q10 100 mg 6-01 mg by [facility] capsule 11:44: mouth 2 Medical 03 (two) Center times daily. magnesium 2020-0 Yes 500mg QD Take [address] gluconate 6-01 mg by [facility] (MAGONATE) 11:44: mouth Medica l 27.5 mg 03 daily. Center magne- sium (500 mg) tablet omeprazole 2020-0 Yes 20mg QD Take [address] (PRILOSEC) 6-01 by mouth [facility] 20 MG 11:44: daily. Medical capsule 03 Center aspirin 325 2020-0 Yes 325mg QD Take [address] MG tablet 6-01 mg by [facility] 11:44: mouth Medical 03 daily. Center ramipril 2020-0 Yes 5mg QD Take [address] [facility] (ALTACE) 5 6-01 by mouth [facility] MG capsule 11:44: daily. Medic al 03 Center bimatoprost 2020-0 Yes 1[drp] QD Place [address] (LUMIGAN) 6-01 drop into [facility] 0.01 % Drop 11:44: the right M edical ophthalmic 03 eye Center solution nightly. timolol 2020-0 Yes 1[drp] QD Place [facility] (BETIMOL) 6-01 drop into [facility] 0.5 % 11:44: the right Medical ophthalmic 03 eye daily. [facility] ter solution CHOLECALCIF 2020-0 Yes [id number] Take [facility], 6- 10,000 [facility] VITAMIN D3, 11:44: Units by Me dical ORAL 03 mouth. [place] fexofenadin 2020-0 Yes 180mg Q.5D Take [address] (LORI) 6-01 mg by [facility] 180 MG 11:44: mouth 2 Medical tablet 03 (two) Center times daily. ezetimibe 2020-0 Yes 10mg QD Take [address] [facility] (ZETIA) 10 6-01 by mouth [facility] mg tablet 11:44: daily. Medica l 03 Center coenzyme 2020-0 Yes 100mg Q.5D Take [address] Q10 100 mg 6-01 mg by [facility] capsule 11:44: mouth 2 Medical 03 (two) Center times daily. magnesium 2020-0 Yes 500mg QD Take [address] gluconate 6-01 mg by [facility] (MAGONATE) 11:44: mouth Medica l 27.5 mg 03 daily. Center magne- sium (500 mg) tablet omeprazole 2020-0 Yes 20mg QD Take [address] (PRILOSEC) 6-01 by mouth [facility] 20 MG 11:44: daily. Medical capsule 03 Center aspirin 325 2020-0 Yes 325mg QD Take [address] MG tablet 6-01 mg by [facility] 11:44: mouth Medical 03 daily. Center ramipril 2020-0 Yes 5mg QD Take [address] [facility] (ALTACE) 5 6-01 by mouth [facility] MG capsule 11:44: daily. Medic al 03 Center bimatoprost 2020-0 Yes 1[drp] QD Place [address] (LUMIGAN) 6-01 drop into [facility] 0.01 % Drop 11:44: the right M edical ophthalmic 03 eye Center solution nightly. timolol 2020-0 Yes 1[drp] QD Place [facility] (BETIMOL) 6- drop into [facility] 0.5 % 11:44: the right Medical ophthalmic 03 eye daily. [facility] ter solution CHOLECALCIF 2020-0 Yes [id number] Take [facility], 6- 10,000 [facility] VITAMIN D3, 11:44: Units by Me dical ORAL 03 mouth. [place] fexofenadin 2020-0 Yes 180mg Q.5D Take [address] (LORI) 6-01 mg by [facility] 180 MG 11:44: mouth 2 Medical tablet 03 (two) Center times daily. ezetimibe 2020-0 Yes 10mg QD Take [address] (ZETIA) 10 6-01 by mouth [facility] mg tablet 11:44: daily. Medica l 03 [place] coenzyme 2020-0 Yes 100mg Q.5D Take [address] Q10 100 mg 6-01 mg by [facility] capsule 11:44: mouth 2 Medical 03 (two) Center times daily. magnesium 2020-0 Yes 500mg QD Take [address] gluconate 6-01 mg by [facility] (MAGONATE) 11:44: mouth Medica l 27.5 mg 03 daily. [place] magne- sium (500 mg) tablet omeprazole 2020-0 Yes 20mg QD Take [address] (PRILOSEC) 6-01 by mouth [facility] 20 MG 11:44: daily. Medical capsule 03 Center aspirin 325 2020-0 Yes 325mg QD Take [address] MG tablet 6-01 mg by [facility] 11:44: mouth Medical 03 daily. Center ramipril 2020-0 Yes 5mg QD Take [address] [facility] (ALTACE) 5 6-01 by mouth [facility] MG capsule 11:44: daily. Medic al 03 [place] bimatoprost 2020-0 Yes 1[drp] QD Place [address] (LUMIGAN) 6-01 drop into [facility] 0.01 % Drop 11:44: the right M edical ophthalmic 03 eye Center solution nightly. timolol 2020-0 Yes 1[drp] QD Place [facility] (BETIMOL) 6-01 drop into [facility] 0.5 % 11:44: the right Medical ophthalmic 03 eye daily. [facility] solution CHOLECALCIF 2020-0 Yes [id number] Take [facility], 6- 10,000 [facility] VITAMIN D3, 11:44: Units by Me dical ORAL 03 mouth. [place] fexofenadin 2020-0 Yes 180mg Q.5D Take [address] (LORI) 6-01 mg by [facility] 180 MG 11:44: mouth 2 Medical tablet 03 (two) Center times daily. ezetimibe 2020-0 Yes 10mg QD Take [address] (ZETIA) 10 6-01 by mouth [facility] mg tablet 11:44: daily. Medica l 03 [place] coenzyme 2020-0 Yes 100mg Q.5D Take [address] Q10 100 mg 6-01 mg by [facility] capsule 11:44: mouth 2 Medical 03 (two) Center times daily. magnesium 2020-0 Yes 500mg QD Take [address] gluconate 6-01 mg by [facility] (MAGONATE) 11:44: mouth Medica l 27.5 mg 03 daily. [place] magne- sium (500 mg) tablet omeprazole 2020-0 Yes 20mg QD Take [address] (PRILOSEC) 6-01 by mouth [facility] 20 MG 11:44: daily. Medical capsule 03 Center aspirin 325 2020-0 Yes 325mg QD Take [address] MG tablet 6-01 mg by [facility] 11:44: mouth Medical 03 daily. [place] ramipril 2020-0 Yes 5mg QD Take [address] [facility] (ALTACE) 5 6-01 by mouth [facility] MG capsule 11:44: daily. Medic al 03 Center bimatoprost 2020-0 Yes 1[drp] QD Place [address] (LUMIGAN) 6-01 drop into [facility] 0.01 % Drop 11:44: the right M edical ophthalmic 03 eye Center solution nightly. timolol 2020-0 Yes 1[drp] QD Place 1 [facility] (BETIMOL) 6-01 drop into [facility] 0.5 % 11:44: the right Medical ophthalmic 03 eye daily. [facility] ter solution CHOLECALCIF 2020-0 Yes [id number] Take [facility], 6- 10,000 [facility] VITAMIN D3, 11:44: Units by Nh dical ORAL 03 mouth. [place] fexofenadin 2020-0 Yes 180mg Q.5D Take [address] (LORI) 6-01 mg by [facility] 180 MG 11:44: mouth 2 Medical tablet 03 (two) Center times daily. ezetimibe 2020-0 Yes 10mg QD Take [address] (ZETIA) 10 6- by mouth [facility] mg tablet 11:44: daily. Medica l 03 [place] coenzyme 2020-0 Yes 100mg Q.5D Take [address] Q10 100 mg 6-01 mg by [facility] capsule 11:44: mouth 2 Medical 03 (two) Center times daily. magnesium 2020-0 Yes 500mg QD Take [address] gluconate 6-01 mg by [facility] (MAGONATE) 11:44: mouth Medica l 27.5 mg 03 daily. [place] magne- sium (500 mg) tablet omeprazole 2020-0 Yes 20mg QD Take [address] (PRILOSEC) 6-01 by mouth [facility] 20 MG 11:44: daily. Medical capsule 03 Center aspirin 325 2020-0 Yes 325mg QD Take [address] MG tablet 6-01 mg by [facility] 11:44: mouth Medical 03 daily. [place] ramipril 2020-0 Yes 5mg QD Take [address] [facility] (ALTACE) 5 6-01 by mouth [facility] MG capsule 11:44: daily. Medic al 03 [place] bimatoprost 2020-0 Yes 1[drp] QD Place [address] (LUMIGAN) 6-01 drop into [facility] 0.01 % Drop 11:44: the right M edical ophthalmic 03 eye Center solution nightly. timolol 2020-0 Yes 1[drp] QD Place 1 [facility] (BETIMOL) 6-01 drop into [facility] 0.5 % 11:44: the right Medical ophthalmic [address] [address] solution CHOLECALCIF 2020-0 Yes [id number] Take [facility], 6- 10,000 [facility] VITAMIN D3, 11:44: Units by Nh dical ORAL 03 mouth. Center fexofenadin 2020-0 Yes 180mg Q.5D Take [address] (LORI) 6-01 mg by [facility] 180 MG 11:44: mouth 2 Medical tablet 03 (two) Center times daily. ezetimibe 2020-0 Yes 10mg QD Take [address] (ZETIA) 10 6-01 by mouth [facility] mg tablet 11:44: daily. Medica l 03 Center coenzyme 2020-0 Yes 100mg Q.5D Take [address] Q10 100 mg 6-01 mg by [facility] capsule 11:44: mouth 2 Medical 03 (two) Center times daily. magnesium 2020-0 Yes 500mg QD Take [address] gluconate 6-01 mg by [facility] (MAGONATE) 11:44: mouth Medica l 27.5 mg 03 daily. Center magne- sium (500 mg) tablet omeprazole 2020-0 Yes 20mg QD Take [address] (PRILOSEC) 6-01 by mouth [facility] 20 MG 11:44: daily. Medical capsule 03 Center aspirin 325 2020-0 Yes 325mg QD Take [address] MG tablet 6-01 mg by [facility] 11:44: mouth Medical 03 daily. Center ramipril 2020-0 Yes 5mg QD Take [address] [facility] (ALTACE) 5 6-01 by mouth [facility] MG capsule 11:44: daily. Medic al 03 Center bimatoprost 2020-0 Yes 1[drp] QD Place [address] (LUMIGAN) 6-01 drop into [facility] 0.01 % Drop 11:44: the right M edical ophthalmic 03 eye Center solution nightly. timolol 2020-0 Yes 1[drp] QD Place [facility] (BETIMOL) 6-01 drop into [facility] 0.5 % 11:44: the right Medical ophthalmic [address] [address] solution CHOLECALCIF 2020-0 Yes [id number] [facility], 6- 10,000 [facility] VITAMIN D3, 11:44: Units by Me dical ORAL 03 mouth. Center fexofenadin 2020-0 Yes 180mg Q.5D Take [address] (LORI) 6-01 mg by [facility] 180 MG 11:44: mouth 2 Medical tablet 03 (two) Center times daily. ezetimibe 2020-0 Yes 10mg QD Take [address] (ZETIA) 10 6-01 by mouth [facility] mg tablet 11:44: daily. Medica l 03 Center coenzyme 2020-0 Yes 100mg Q.5D Take [address] Q10 100 mg 6-01 mg by [facility] capsule 11:44: mouth 2 Medical 03 (two) Center times daily. magnesium 2020-0 Yes 500mg QD Take [address] gluconate 6-01 mg by [facility] (MAGONATE) 11:44: mouth Medica l 27.5 mg 03 daily. Center magne- sium (500 mg) tablet omeprazole 2020-0 Yes 20mg QD Take [address] (PRILOSEC) 6-01 by mouth [facility] 20 MG 11:44: daily. Medical capsule 03 Center MISC 2020-0 Yes Take by [facility] 03-25 mouth. College PRODUCTS OR 19:31: Take 2 of 37 tabs twice Medicin a day e Ramipril 5 2020-0 Yes 5mg Take 5 mg [facility] MG CAPS 03-25 by mouth [place] 00:00: daily. of Medicin e Ramipril 5 2020-0 Yes 5mg Take 5 mg [facility] MG CAPS 03-25 by mouth [place] 00:00: daily. of Medicin e Ramipril 5 2020-0 2020- No 5mg Take 5 mg [facility] MG CAPS 03-25 by mouth [place] 00:00: 00:00 daily. of 00 :00 Medicin e Missing or 2019-[address] [facility] Non-Formula 8-20 plus 1 tab Khadijah kes ry 09:42: po daily . Medical Medication 58 Center Missing or 2019-[address] [facility] Non-Formula 8-20 plus 1 tab Khadijah kes ry 09:42: po daily . Medical Medication 58 Center Missing or 2019-[address] [facility] Non-Formula 8-20 plus 1 tab Khadijah kes ry 09:42: po daily . Medical Medication 58 Center Missing or 2019-[address] [facility] Non-Formula 8-20 plus 1 tab Khadijah kes ry 09:42: po daily . Medical Medication 58 Center Missing or 2019-[address] [facility] Non-Formula 8-20 plus 1 tab Khadijah kes ry 09:42: po daily . Medical Medication 58 Center Missing or 2019-[address] [facility] Non-Formula 8-20 plus 1 tab Khadijah kes ry 09:42: po daily . Medical Medication 58 Center Missing or 2019-[address] [facility] Non-Formula 8-20 plus 1 tab Khadijah kes ry 09:42: po daily . Medical Medication 58 Center Missing or 2019-[address] [facility] Non-Formula 8-20 plus 1 tab Khadijah kes ry 09:42: po daily . Medical Medication 58 Center Missing or 2019-[address] [facility] Non-Formula 8-20 plus 1 tab Khadijah kes ry 09:42: po daily . Medical Medication 58 Center Missing or 2019-[address] [facility] Non-Formula 8-20 plus 1 tab Khadijah kes ry 09:42: po daily . Medical Medication 58 Center Missing or 2019-[address] [facility] Non-Formula 8-20 plus 1 tab Khadijah kes ry 09:42: po daily . Medical Medication 58 Center Plant 2019- Yes Take by [facility] Sterols and 10-22 mouth [place] Stanols 13:28: daily. of (CHOLESTOFF 57 Medicin OR) e Coenzyme Yes Take by [facility] Q10 (COQ10 10-22 [facility] two Liz ege OR) 13:28: times of 57 daily. Medicin e MAGNESIUM Yes Take by [facility] r OR 10-22 mouth [place] 13:28: daily. of 57 Medicin e aspirin 325 2018- Yes 325mg Take 325 [facility] mg tablet 10-22 mg by [place] 13:28: mouth of 57 every 6 Medicin hours as e needed for Pain. Fexofenadin Yes Take by [place] maryellen e HCl 10-22 mouth [place] (LORI 13:28: daily. of ALLERGY OR) 57 Medicin e OMEPRAZOLE 2018-0 Yes Take by [facility] or OR 10-22 mouth [place] 13:28: daily. of 57 Medicin e MISC Yes Take by [facility] NATURAL 10-22 mouth. [facility] PRODUCTS OR 13:28: Take 2 of 57 tabs twice Medicin a day e ezetimibe 2019 Yes TAKE 1 [facility] (ZETIA) 10 7-23 TABLET BY Liz ege MG tablet 00:00: MOUTH ONCE of 00 DAILY Medicin e ezetimibe 2019-0 Yes TAKE 1 [facility] (ZETIA) 10 7-23 TABLET BY Liz ege MG tablet 00:00: MOUTH ONCE of 00 DAILY Medicin e ezetimibe 2019-0 Yes daily. [facility] (ZETIA) 10 7-23 College MG tablet 00:00: of 00 Medicin e ezetimibe 2019-0 2020- No daily. [facility] (ZETIA) 10 7-23 10-26 College MG tablet 00:00: 00:00 of 00 :00 Medicin e DULoxetine 2019-0 Yes 40mg 40 mg G[facility]an HCl 40 MG 7-11 daily. [place] CPE 00:00: of 00 Medicin e duloxetine 0 Yes TAKE 1 [facility] (CYMBALTA) 7-11 CAPSULE BY [facility] 20 MG 00:00: MOUTH ONCE of capsule 00 DAILY Medicin e DULoxetine Yes 40mg 40 mg. [facility] HCl 40 MG 7 [place] [facility] 00:00: of 00 Medicin e DULoxetine 2018-0 Yes 40mg 40 mg. [facility] HCl 40 MG 711 [place] [facility]PE 00:00: of 00 Medicin e DULoxetine 2018-0 2021- No 40mg 40 mg [facility] r HCl 40 MG 09-24-22 daily. [place] CPEP 00:00: 00:00 of 00 :00 Medicin e Ramipril 5 Yes TAKE 1 [facility] CAPS 6-26 CAPSULE BY Colleg e 00:00: MOUTH ONCE of 00 DAILY Medicin e bimatoprost 2017-0 Yes 1[drp] 1 Drop. [facility] (LUMIGAN) 4-11 College 0.01 % 00:00: of ophthalmic 00 Medicin solution e Cholecalcif 2017-0 Yes 5000U 5,000 [facility] 125 4-11 Units. [place] MCG (5000 00:00: of [place]) TABS 00 Medicin e bimatoprost 2017-0 Yes 1[drp] Place 1 [facility] (LUMIGAN) 4-11 Drop into Colle ge 0.01 % 00:00: the left of ophthalmic 00 eye daily. Med icin solution e Cholecalcif 2018-0 Yes 5000U 5,000 [facility] 125 4-11 Units [facility] MCG (5000 00:00: daily. of [place]) TABS 00 Medicin e bimatoprost 2018-0 Yes 1[drp] Place 1 [facility] (LUMIGAN) 4-11 Drop into Colle ge 0.01 % 00:00: the left of ophthalmic 00 eye daily. Med icin solution e Cholecalcif 2018-0 Yes 5000U 5,000 [facility] 125 4-11 Units [facility] MCG (5000 00:00: daily. of [place]) TABS 00 Medicin e bimatoprost 2018-0 Yes 1[drp] Place 1 [facility] (LUMIGAN) 4-11 Drop into Colle ge 0.01 % 00:00: the left of ophthalmic 00 eye daily. Med icin solution e Cholecalcif 2018-0 Yes 5000U 5,000 [facility] 125 4-11 Units [facility] MCG (5000 00:00: daily. of [place]) TABS 00 Medicin e bimatoprost 2018-0 Yes 1[drp] Place 1 [facility] (LUMIGAN) 4-11 Drop into Colle ge 0.01 % 00:00: the left of ophthalmic 00 eye daily. Med icin solution e Cholecalcif 2018-0 Yes 5000U 5,000 [facility] 125 4-11 Units [facility] MCG (5000 00:00: daily. of [place]) TABS 00 Medicin e bimatoprost 2018-0 Yes 1[drp] 1 Drop. [facility] (LUMIGAN) 4-11 College 0.01 % 00:00: of ophthalmic 00 Medicin solution e Cholecalcif 2018-0 Yes 5000U 5,000 [facility] 125 4-11 Units. [facility] MCG (5000 00:00: of [place]) TABS 00 Medicin e ramipril 2017-0 Yes 5mg Take 5 mg Univ ers (ALTACE) 5 4-19 by mouth ity o f mg capsule 10:26: daily. [address] CETIRIZINE 2017-0 Yes Take by Univ ers HCL (ZYRTEC 4-19 mouth. ity of ORAL) 10:26: [address] docusate 2017-0 Yes 100mg Take 100 Univ ers (DOK) 100 4-19 mg by ity of mg capsule 10:26: mouth 2 [facility] 09 (two) Medical times Branch daily. ranitidine 2017-0 Yes 150mg Take 150 Un m[facility]enna 150 mg 4-19 mg by ity of tablet 10:26: mouth 2 [place] (two) Medical times [place] daily. atorvastati 2017- Yes 40mg Take 40 mg Univers n 40 mg 4-19 by mouth ity of tablet 10:26: daily. [address] Branch Armodafinil 2017- Yes 50mg Take 50 mg Univers (NUVIGIL) 4-19 by mouth 2 ity of 50 mg Tab 10:26: (two) [place] [id number] times [facility] daily. Branch Immunizations Ordered Immunization Filled Immunization Date Status Commen ts Source Name Name Influenza, seasonal, 2021-11-15 [facility]pleted [facility]:00 Influenza, seasonal, 2021-11-15 [facility]:00 Influenza, seasonal, 2021-11-15 [facility]:00:00 Influenza, seasonal, 2021-11-15 [facility]pleted [facility]:00:00 Influenza, seasonal, 2021-11-15 [facility]pleted [facility] 00:00:00 Influenza, seasonal, 2021-11-15 [facility]pleted [facility] 00:00:00 Influenza, seasonal, 2021-11-15 [facility]pleted [facility] 00:00:00 Influenza, seasonal, 2021-11-15 [facility]pleted [facility]:00:00 Influenza, seasonal, 2021-11-15 [facility]pleted [facility] 00:00:00 Influenza, seasonal, 2021-11-15 [facility]pleted [facility] 00:00:00 Influenza, seasonal, 2021-11-15 [facility]pleted [facility] 00:00:00 Influenza, seasonal, 2021-11-15 [facility]pleted [facility] 00:00:00 Influenza, seasonal, 2021-11-15 [facility]pleted [facility] 00:00:00 Influenza, seasonal, 2021-11-15 [facility]pleted [facility] 00:00:00 Influenza, seasonal, 2021-11-15 [facility]pleted [facility] 00:00:00 Influenza, seasonal, 2021-11-15 [facility]pleted [facility] 00:00:00 Influenza, seasonal, 2021-11-15 [facility]pleted [facility] 00:00:00 Influenza, seasonal, 2021-11-15 [facility]pleted [facility] 00:00:00 Influenza, seasonal, 2021-11-15 [facility]pleted [facility] 00:00:00 Influenza, seasonal, 2021-11-15 [facility]pleted [facility] 00:00:00 Influenza, High Dose 2021-01-09 [facility]pleted [facility] Seasonal (fluzone) 00:00:00 Influenza, High Dose 2021-01-09 [facility]pleted [facility] Season[facility] (fluzone) 00:00:00 Influenza, High Dose 2021-01-09 [facility]pleted [facility] Seasonal (fluzone) 00:00:00 Influenza, High Dose 2021-01-09 [facility]pleted [facility] Season[facility] (fluzone) 00:00:00 Influenza, High Dose 2021-01-09 [facility]pleted [facility] Season[facility] (fluzone) 00:00:00 Influenza, High Dose 2021-01-09 [facility]pleted [facility] (fluzone) 00:00:00 Influenza, High Dose 2021-01-09 [facility]pleted [facility] Seasonal (fluzone) 00:00:00 Influenza, High Dose 2021-01-09 [facility]pleted [facility] Seasonal (fluzone) 00:00:00 Influenza, High Dose 2021-01-09 [facility]pleted [facility] Seasonal (fluzone) 00:00:00 Influenza, High Dose 2021-01-09 [facility]pleted [facility] Seasonal (fluzone) 00:00:00 Influenza, High Dose 2021-01-09 Completed [facility] Seasonal (fluzone) 00:00:00 Influenza, High Dose 2021-01-09 [facility]pleted [facility] Seasonal (fluzone) 00:00:00 Influenza, High Dose 2021-01-09 Completed [facility] Seasonal (fluzone) 00:00:00 Influenza, High Dose 2021-01-09 [facility]pleted [facility]al (fluzone) 00:00:00 Influenza, High Dose 2021-01-09 [facility]pleted [facility] Seasonal (fluzone) 00:00:00 Influenza, High Dose 2021-01-09 [facility]pleted [facility] Seasonal (fluzone) 00:00:00 Influenza, High Dose 2021-01-09 [facility]pleted [facility] (fluzone) 00:00:00 Influenza, High Dose 2021-01-09 [facility]pleted [facility] (fluzone) 00:00:00 Influenza, High Dose 2021-01-09 [facility]pleted [facility]al (fluzone) 00:00:00 Influenza, High Dose 2021-01-09 [facility]pleted [facility] (fluzone) 00:00:00 Influenza Hd 2021-01-09 Completed [facility] 00:00:00 of Medicine Influenza Hd 2021-01-09 Completed [facility] Colle ge 00:00:00 of Medicine Influenza Hd 2021-01-09 Completed [facility] 00:00:00 of Medicine Influenza Hd 2021-01-09 Completed [facility] Colle ge 00:00:00 of Medicine Vital Signs Vital Name Observation Time Observation Value Comments Source Systolic blood 2022-07-31 14:52:00 127 mm[Hg] [facility] Diastolic blood 2022-07-31 14:52:00 77 mm[Hg] [facility] Heart rate 2022-07-31 14:52:00 61 /min [facility] O[facility] saturation in 2022-07-31 14:52:00 93 /min [facility] Arterial blood by Pulse oximetry Systolic blood 2022-07-19 15:06:00 136 mm[Hg] [facility] Medicine Diastolic blood 2022-07-19 15:06:00 89 mm[Hg] [facility] Medicine Heart rate 2022-07-19 15:04:00 69 /min [facility] Body height 2022-07-19 15:04:00 167.6 cm [facility] Body weight 2022-07-19 15:04:00 109.77 kg [facility] BMI 2022-07-19 15:04:00 39.06 kg/m2 [facility] Oxygen saturation in 2022-07-19 15:04:00 95 /min [facility] Arterial blood by Medicine Pulse oximetry Systolic blood 2022-07-17 19:20:00 131 mm[Hg] [facility] Diastolic blood 2022-07-17 19:20:00 77 mm[Hg] [facility] Heart rate 2022-07-17 19:20:00 80 /min [facility] Systolic blood 2022-07-03 18:04:00 115 mm[Hg] [facility] Diastolic blood 2022-07-03 18:04:00 70 mm[Hg] [facility] Heart rate 2022-07-03 18:04:00 74 /min [facility] Body temperature 2022-07-03 18:04:00 36.67 Jill [facility] Respiratory rate 2022-07-03 18:04:00 16 /min [facility] Body height 2022-07-03 18:04:00 168.9 cm [facility] Body weight 2022-07-03 18:04:00 104.327 [facility] BMI 2022-07-03 18:04:00 36.57 kg/m2 [facility] O[facility] saturation in 2022-07-03 18:04:00 97 /min [facility] Arterial blood by Pulse oximetry Systolic blood 2022-07-01 18:06:00 121 mm[Hg] [facility] Diastolic blood 2022-07-01 18:06:00 74 mm[Hg] [facility] Heart rate 2022-07-01 18:06:00 80 /min [facility] Body temperature 2022-07-01 18:06:00 37.22 [facility] Body height 2022-07-01 18:06:00 [facility].6 cm [facility] Body weight 2022-07-01 18:06:00 108.41 [facility] BMI 2022-07-01 18:06:00 38.58 kg[facility]m2 [facility] Systolic blood 2022-06-26 15:34:00 120 mm[Hg] [facility] Diastolic blood 2022-06-26 15:34:00 77 mm[Hg] [facility] Heart rate 2022-06-26 15:34:00 60 /min [facility] saturation in 2022-06-26 15:34:00 93 /min [facility] Arterial blood by Pulse oximetry Systolic blood 2022-06-03 14:09:00 147 mm[Hg] [facility] Medicine Diastolic blood 2022-06-03 14:09:00 80 mm[Hg] [facility] Medicine Heart rate 2022-06-03 14:09:00 83 /min [facility] Body height 2022-06-03 14:09:00 168.9 cm [facility] Body weight 2022-06-03 14:09:00 108.41 kg [facility] BMI 2022-06-03 14:09:00 38.00 kg/m2 [facility] Systolic blood 2022-05-15 18:09:00 120 mm[Hg] [facility] Diastolic blood 2022-05-15 18:09:00 78 mm[Hg] [facility] Heart rate 2022-05-15 18:09:00 63 /min [facility] saturation in 2022-05-15 18:09:00 93 /min [facility] Arterial blood by Pulse oximetry Systolic blood 2022-04-09 14:49:00 127 mm[Hg] [facility] Diastolic blood 2022-04-09 14:49:00 80 mm[Hg] [facility] Heart rate 2022-04-09 14:49:00 76 /min [facility] Respiratory rate 2022-04-09 14:49:00 16 /min [facility] Body height 2022-04-09 14:49:00 167.6 cm [facility] Body weight 2022-04-09 14:49:00 108.863 [facility] BMI 2022-04-09 14:49:00 38.74 kg/m2 [facility] O[facility] saturation in 2022-04-09 14:49:00 95 /min [facility] Arterial blood by Pulse oximetry Systolic blood 2022-04-03 19:35:00 126 mm[Hg] [facility] Diastolic blood 2022-04-03 19:35:00 85 mm[Hg] [facility] Heart rate 2022-04-03 19:35:00 80 /min [facility] Body temperature 2022-04-03 19:35:00 36.89 Jill [facility] Respiratory rate 2022-04-03 19:35:00 20 /min [facility] Body height 2022-04-03 19:35:00 167.6 cm [facility] Body weight 2022-04-03 19:35:00 107.502 [facility] BMI 2022-04-03 19:35:00 38.25 kg/m2 [facility] O[facility] saturation in 2022-04-03 19:35:00 93 /min [facility] Arterial blood by Pulse oximetry Systolic blood 2022-03-29 16:43:00 123 mm[Hg] [facility] Diastolic blood 2022-03-29 16:43:00 75 mm[Hg] [facility] Heart rate 2022-03-29 16:43:00 88 /min [facility] Body temperature 2022-03-29 16:43:00 36.89 Jill [facility] Respiratory rate 2022-03-29 16:43:00 17 /min [facility] Body weight 2022-03-29 16:43:00 108.773 [facility] BMI 2022-03-29 16:43:00 38.70 kg/m2 [facility] Oxygen saturation in 2022-03-29 16:43:00 100 /min [facility] Arterial blood by Pulse oximetry Systolic blood 2022-03-07 16:49:00 128 mm[Hg] [facility] Medicine Diastolic blood 2022-03-07 16:49:00 80 mm[Hg] [facility] Medicine Heart rate 2022-03-07 16:49:00 64 /min [facility] Body height 2022-03-07 16:49:00 167.6 cm [facility] Body weight 2022-03-07 16:49:00 106.595 kg [facility] BMI 2022-03-07 16:49:00 37.93 kg/m2 [facility] Systolic blood 2022-01-17 13:55:00 115 mm[Hg] [facility] Diastolic blood 2022-01-17 13:55:00 78 mm[Hg] [facility] Heart rate 2022-01-17 13:55:00 79 /min [facility] Body height 2022-01-17 13:55:00 167.6 cm [facility] Body weight 2022-01-17 13:55:00 104.327 [facility] BMI 2022-01-17 13:55:00 [facility] 2021-01-09 20:03:00 120 mm[Hg] [facility] of pressure Medicine Diastolic blood 2021-01-09 20:03:00 92 mm[Hg] [facility] of pressure Medicine Heart rate 2021-01-09 20:02:00 65 /min [facility] of Medicine Body height 2021-01-09 20:02:00 167.6 cm [facility] Body weight 2021-01-09 20:02:00 102.513 kg [facility] BMI 2021-01-09 20:02:00 36.48 kg/m2 [facility] Medicine Systolic blood 2019-11-16 20:01:00 122 mm[Hg] [facility] of pressure Medicine Diastolic blood 2019-11-16 20:01:00 78 mm[Hg] [facility] of pressure Medicine Heart rate 2019-11-16 19:58:00 66 /min [facility] Medicine Body height 2019-11-16 19:58:00 167.6 cm [facility] Body weight 2019-11-16 19:58:00 102.513 kg [facility] BMI 2019-11-16 19:58:00 36.48 kg/m2 [facility] Systolic blood 2019-11-16 20:01:00 122 mm[Hg] [facility] of pressure Medicine Diastolic blood 2019-11-16 20:01:00 78 mm[Hg] [facility] of pressure Medicine Heart rate 2019-11-16 19:58:00 66 /min [facility] Body height 2019-11-16 19:58:00 167.6 cm [facility] Body weight 2019-11-16 19:58:00 102.513 kg [facility] BMI 2019-11-16 19:58:00 36.48 kg/m2 [facility] Systolic blood 2019-08-23 20:52:00 131 mm[Hg] [facility] pressure Medicine Diastolic blood 2019-08-23 20:52:00 81 mm[Hg] [facility] pressure Medicine Heart rate 2019-08-23 20:52:00 74 /min [facility] Body height 2019-08-23 20:52:00 167.6 cm [facility] Body weight 2019-08-23 20:52:00 104.781 kg [facility] BMI 2019-08-23 20:52:00 37.28 kg/m2 [facility] Systolic blood 2019-08-23 20:52:00 131 mm[Hg] [facility] pressure Medicine Diastolic blood 2019-08-23 20:52:00 81 mm[Hg] [facility] Medicine Heart rate 2019-08-23 20:52:00 74 /min [facility] Body height 2019-08-23 20:52:00 167.6 cm [facility] Body weight 2019-08-23 20:52:00 104.781 kg [facility] ollege of Medicine BMI 2019-08-23 20:52:00 37.28 kg/m2 [facility] ol[facility] of Medicine Systolic blood 2018-10-22 13:39:00 120 mm[Hg] [facility] pressure Medicine Diastolic blood 2018-10-22 13:39:00 80 mm[Hg] [facility] Medicine Heart rate 2018-10-22 13:26:00 52 /min [facility] Body height 2018-10-22 13:26:00 167.6 cm [facility] Body weight 2018-10-22 13:26:00 93.895 kg [facility] BMI 2018-10-22 13:26:00 33.41 kg/m2 [facility] Systolic blood 2018-10-22 13:39:00 120 mm[Hg] [facility] pressure Medicine Diastolic blood 2018-10-22 13:39:00 80 mm[Hg] [employer] of pressure Medicine Heart rate 2018-10-22 13:26:00 52 /min [facility] Body height 2018-10-22 13:26:00 167.6 cm [facility] Body weight 2018-10-22 13:26:00 93.895 kg [facility] BMI 2018-10-22 13:26:00 33.41 kg/m2 [facility] Procedures Procedure Date / Time Performing Clinician Source Performed [place] LMB/SACR PARAVERTEBRAL 2022-07-31 14:20:00 Isabel Corona [facility] FACET; 1ST LEVEL [place] LMB/SACR PARAVERTEBRAL 2022-07-31 14:20:00 Isabel Corona [facility] FACET; 2ND LEVEL PAIN NS CERVICAL GRACE 2022-06-26 15:00:00 Isabel Corona [facility] COMPREHENSIVE METABOLIC 2022-06-03 10:25:36 [facility] Medicine LIPID PANEL 2022-06-03 10:25:36 [facility] HEMOGLOBIN A1C 2022-06-03 10:25:36 [facility] TSH 2022-06-03 10:25:36 [facility] URINALYSIS W REFLEX MICRO 2022-06-03 10:25:36 [facility] [place] LUMBAR TRANSFORAMINAL 2022-05-15 18:00:00 Isabel Corona [facility] GRACE; 1ST LEVEL [place] LUMBAR TRANSFORAMINAL 2022-05-15 18:00:00 Isabel Corona [facility] GRACE; EACH ADDL URINALYSIS WITH REFLEX 2022-03-29 17:49:00 [place] [facility] alth MICROSCOPIC TX PROGRAM EVAL IMPLANTABLE 2022-03-07 10:40:49 [facility] PERSN DUAL LD PACER Medicine ELECTROCARDIOGRAM COMPLETE 2022-03-07 00:00:00 [facility] EMG 2021-11-21 21:42:23 [place] [facility] ASSIGNMENT OF BENEFITS 2021-11-12 17:31:47 Doctor Unassigned, [facility] [place] [facility] (SCN) SCANNED ORDER 2021-07-19 00:00:00 [facility] ELECTROCARDIOGRAM COMPLETE 2021-01-16 09:06:54 [facility] [place] PROGRAM EVAL IMPLANTABLE 2021-01-12 08:11:21 [facility] PERSN DUAL LD PACER Medicine FLU VACCINE HIGH DOSE >65YO 2021-01-09 15:09:49 [facility] ([facility] SCANNED ORDER 2020-04-27 00:00:00 [facility] Plan of Care Planned Activity Planned Date Details Comments Source Future Scheduled 2022-11-[address] [facility] Test 00:00:00 (Season Ended) [code = Medic al Center Influenza Vaccine (Season Ended)] Future Scheduled 2022-11-[address] [facility] Test 00:00:00 (Season Ended) [code = Medic al Center INFLUENZA VACCINE (Season Ended)] Future Scheduled 2022-11-[address] [facility] Test 00:00:00 (Season Ended) [code = Medic al Center INFLUENZA VACCINE (Season Ended)] Future Scheduled 2022-11-[address] [facility] Test 00:00:00 (Season Ended) [code = Medic al Center INFLUENZA VACCINE (Season Ended)] Future Scheduled 2022-11-[address] [facility] Test 00:00:00 (Season Ended) [code = Medic al Center INFLUENZA VACCINE (Season Ended)] Future Scheduled 2022-07-19 Screening for malignant [facility] Test 11:48:36 neoplasm of colon of Medicin e (procedure) [code = 547470716] Future Scheduled 2022-07-19 COVID-19 Vaccine (#1) [facility] Test 11:48:36 [code = COVID-19 Vaccine of Medicine (#1)] Future Scheduled 2022-07-19 Pneumococcal 65+ (1 - [employer] Test 11:48:36 PCV) [code = of Medicine Pneumococcal 65+ (1 - PCV)] Future Scheduled 2022-07-19 TETANUS SHOT (ADULT) [facility] Test 11:48:36 [code = TETANUS SHOT of Medi cine (ADULT)] Future Scheduled 2022-07-19 BMI Follow Up Plan [code [facility] Test 11:48:36 = BMI Follow Up Plan] of Med icine Future Scheduled 2022-07-19 Hepatitis C screening [facility] Test 11:48:36 (procedure) [code = of Medic ine [id number]] Future Scheduled 2022-07-19 ZOSTER VACCINE (1 of 2) [facility] Test 11:48:36 [code = ZOSTER VACCINE of Me dicine (1 of 2)] Future Scheduled 2022-07-19 Medicare Awv (Initial) [facility] [employer] Test 11:48:36 [code = Medicare Awv of Medi cine (Initial)] Future Scheduled 2022-07-19 Fall Screen [code = Fall [facility] Test 11:48:36 Screen] of Medicine Future Scheduled 2022-07-19 FLU VACCINE > 6 MONTHS [facility] [employer] [employer] Test 11:48:36 [code = FLU VACCINE > 6 of M edicine MONTHS] Future Scheduled 2022-07-19 MICROALBUMIN/CREAT URINE Ordered: [facility] Test 11:39:10 RATIO [code = 9318-7] 07/19/2022 of Med icine Future Scheduled 2022-06-03 Screening for malignant [facility] Test 10:30:45 neoplasm of colon of Medicin e (procedure) [code = 576251762] Future Scheduled 2022-06-03 TETANUS SHOT (ADULT) [facility] Test 10:30:45 [code = TETANUS SHOT of Medi cine (ADULT)] Future Scheduled 2022-06-03 BMI Follow Up Plan [code [facility] Test 10:30:45 = BMI Follow Up Plan] of Med icine Future Scheduled 2022-06-03 Hepatitis C screening [facility] Test 10:30:45 (procedure) [code = of Medic ine [id number]] Future Scheduled 2022-06-03 ZOSTER VACCINE (1 of 2) [facility] Test 10:30:45 [code = ZOSTER VACCINE of Me dicine (1 of 2)] Future Scheduled 2022-06-03 Medicare Awv (Initial) [facility] [employer] Test 10:30:45 [code = Medicare Awv of Medi cine (Initial)] Future Scheduled 2022-06-03 Fall Screen [code = Fall [facility] Test 10:30:45 Screen] of Medicine Future Scheduled 2022-06-03 Pneumococcal 65+ (1 - [employer] Test 10:30:45 PCV) [code = of Medicine Pneumococcal 65+ (1 - PCV)] Future Scheduled 2022-06-03 COVID-19 Vaccine (2 - [employer] Test 10:30:45 Moderna series) [code = of M edicine COVID-19 Vaccine (2 - Moderna series)] Future Scheduled 2022-06-03 FLU VACCINE > 6 MONTHS [facility] Test 10:30:45 [code = FLU VACCINE > 6 of M edicine MONTHS] Future Scheduled 2022-06-03 COMPREHENSIVE METABOLIC Ordered: [facility] Test 10:25:36 PANEL [code = 78730-6] 06/03/2022 of Me dicine Future Scheduled 2022-06-03 LIPID PANEL [code = Ordered: [employer] Test 10:25:36 14134-2] 06/03/2022 of Medicine Future Scheduled 2022-06-03 HEMOGLOBIN A1C [code = Ordered: [facility] [employer] [employer] Test 10:25:36 4548-4] 06/03/2022 of Medicine Future Scheduled 2022-06-03 TSH [code = 07415-6] Ordered: [facility] [employer] Test 10:25:36 06/03/2022 of Medicine Future Scheduled 2022-06-03 URINALYSIS W REFLEX Ordered: [employer] Test 10:25:36 MICRO [code = NOCPT] 06/03/2022 of Medi cine Future Scheduled 2022-03-17 FALLS RISK SCREENING [facility] Test 00:00:00 [code = FALLS RISK Medical C enter SCREENING] Future Scheduled 2022-03-17 FALLS RISK SCREENING [facility] Test 00:00:00 [code = FALLS RISK Medical C enter SCREENING] Future Scheduled 2022-03-17 FALLS RISK SCREENING [facility] Test 00:00:00 [code = FALLS RISK Medical C enter SCREENING] Future Scheduled 2022-03-17 FALLS RISK SCREENING [facility] Test 00:00:00 [code = FALLS RISK Medical C enter SCREENING] Future Scheduled 2022-03-17 FALLS RISK SCREENING [facility] Test 00:00:00 [code = FALLS RISK Medical C enter SCREENING] Future Scheduled 2022-03-17 FALLS RISK SCREENING [facility] Test 00:00:00 [code = FALLS RISK Medical C enter SCREENING] Future Scheduled 2022-03-17 FALLS RISK SCREENING [facility] Test 00:00:00 [code = FALLS RISK Medical C enter SCREENING] Future Scheduled 2022-03-17 FALLS RISK SCREENING [facility] Test 00:00:00 [code = FALLS RISK Medical C enter SCREENING] Future Scheduled 2022-03-17 FALLS RISK SCREENING [facility] Test 00:00:00 [code = FALLS RISK Medical C enter SCREENING] Future Scheduled 2022-03-17 FALLS RISK SCREENING [facility] Test 00:00:00 [code = FALLS RISK Medical C enter SCREENING] Future Scheduled 2022-03-07 Screening for malignant [facility] Test 12:53:20 neoplasm of colon of Medicin e (procedure) [code = 547454258] Future Scheduled 2022-03-07 TETANUS SHOT (ADULT) [facility] Test 12:53:20 [code = TETANUS SHOT of Medi cine (ADULT)] Future Scheduled 2022-03-07 BMI FOLLOW UP PLAN [code [facility] Test 12:53:20 = BMI FOLLOW UP PLAN] of Med icine Future Scheduled 2022-03-07 Hepatitis C screening [facility] Test 12:53:20 (procedure) [code = of Medic ine [id number]] Future Scheduled 2022-03-07 ZOSTER VACCINE (1 of 2) [facility] Test 12:53:20 [code = ZOSTER VACCINE of Nh dicine (1 of 2)] Future Scheduled 2022-03-07 MEDICARE AWV (Initial) [facility] Test 12:53:20 [code = MEDICARE AWV of Medi cine (Initial)] Future Scheduled 2022-03-07 FALL SCREEN [code = FALL [facility] Test 12:53:20 SCREEN] of Medicine Future Scheduled 2022-03-07 Pneumococcal 65+ (1 - [employer] Test 12:53:20 PCV) [code = of Medicine Pneumococcal 65+ (1 - PCV)] Future Scheduled 2022-03-07 COVID-19 Vaccine (2 - [employer] Test 12:53:20 Moderna series) [code = of M edicine COVID-19 Vaccine (2 - Moderna series)] Future Scheduled 2022-03-07 FLU VACCINE > 6 MONTHS [facility] [employer] Test 12:53:20 [code = FLU VACCINE > 6 of M edicine MONTHS] Future Scheduled 2022-03-07 ELECTROCARDIOGRAM [facility] Test 10:50:16 COMPLETE [code = 22981] of M edicine Future Scheduled 2021-11-15 INFLUENZA VACCINE (#1) [facility] 00:[facility]:00 [code = INFLUENZA Medical Ce nter VACCINE (#1)] Future Scheduled 2021-11-15 INFLUENZA VACCINE (#1) [facility] 00:00:00 [code = INFLUENZA Medical Ce nter VACCINE (#1)] Future Scheduled 2021-11-15 INFLUENZA VACCINE (#1) [facility]00 [code = INFLUENZA Medical Ce nter VACCINE (#1)] Future Scheduled 2021-11-15 INFLUENZA VACCINE (#1) [facility] 00:00:00 [code = INFLUENZA Medical Ce nter VACCINE (#1)] Future Scheduled 2021-11-15 INFLUENZA VACCINE (#1) [facility] 00:00:00 [code = INFLUENZA Medical Ce nter VACCINE (#1)] Future Scheduled 2021-11-15 INFLUENZA VACCINE (#1) [facility] 00:00:00 [code = INFLUENZA Medical Ce nter VACCINE (#1)] Future Scheduled 2021-03-17 FALLS RISK SCREENING [facility] 00:00:00 [code = FALLS RISK Medical C enter SCREENING] Future Scheduled 2021-01-09 Screening for malignant [facility] Test 15:10:54 neoplasm of colon of Medicin e (procedure) [code = [id number]] Future Scheduled 2021-01-09 TETANUS SHOT (ADULT) [facility] Test 15:10:54 [code = TETANUS SHOT of Medi cine (ADULT)] Future Scheduled 2021-01-09 BMI FOLLOW UP PLAN [code [facility] Test 15:10:54 = BMI FOLLOW UP PLAN] of Med icine Future Scheduled 2021-01-09 Hepatitis C screening [facility] Test 15:10:54 (procedure) [code = of Medic ine [id number]] Future Scheduled 2021-01-09 ZOSTER VACCINE (1 of 2) [facility] Test 15:10:54 [code = ZOSTER VACCINE of Me dicine (1 of 2)] Future Scheduled 2021-01-09 MEDICARE AWV (Initial) [facility] Test 15:10:54 [code = MEDICARE AWV of Medi cine (Initial)] Future Scheduled 2021-01-09 FALL SCREEN [code = FALL [facility] Test 15:10:54 SCREEN] of Medicine Future Scheduled 2021-01-09 PNEUMOVAX >=65 (PPSV23) [facility] Test 15:10:54 [code = PNEUMOVAX >=65 of Me dicine (PPSV23)] Future Scheduled 2021-01-09 COVID-19 Vaccine (2 - [facility] Test 15:10:54 Moderna 2-dose series) of Me dicine [code = COVID-19 Vaccine (2 - Moderna 2-dose series)] Future Scheduled 2021-01-09 ELECTROCARDIOGRAM [facility] Test 15:08:03 COMPLETE [code = [id number]] of M edicine Future Scheduled 2020-06-14 COVID-19 VACCINE (2 - [facility]00 Moderna series) [code = [facility] COVID-19 VACCINE (2 - Moderna series)] Future Scheduled 2020-06-14 COVID-19 VACCINE (2 - [facility] 00:00:00 Moderna series) [code = [facility] COVID-19 VACCINE (2 - Moderna series)] Future Scheduled 2020-06-14 COVID-19 VACCINE (2 - [facility] 00:00:00 Moderna series) [code = [facility] COVID-19 VACCINE (2 - Moderna series)] Future Scheduled 2020-06-14 COVID-19 VACCINE (2 - [facility] 00:00:00 Moderna series) [code = [facility] COVID-19 VACCINE (2 - Moderna series)] Future Scheduled 2020-06-14 COVID-19 VACCINE (2 - [facility] 00:00:00 Moderna series) [code = [facility] COVID-19 VACCINE (2 - Moderna series)] Future Scheduled 2020-06-14 COVID-19 VACCINE (2 - [facility] 00:00:00 Moderna series) [code = [facility] COVID-19 VACCINE (2 - Moderna series)] Future Scheduled 2020-06-14 COVID-19 VACCINE (2 - [facility] 00:00:00 Moderna series) [code = [facility] COVID-19 VACCINE (2 - Moderna series)] Future Scheduled 2020-06-14 COVID-19 VACCINE (2 - [facility] 00:00:00 Moderna series) [code = [facility] COVID-19 VACCINE (2 - Moderna series)] Future Scheduled 2020-06-14 COVID-19 VACCINE (2 - [facility] 00:00:00 Moderna series) [code = [facility] COVID-19 VACCINE (2 - Moderna series)] Future Scheduled 2020-06-14 COVID-19 VACCINE (2 - [facility] 00:00:00 Moderna series) [code = [facility] COVID-19 VACCINE (2 - Moderna series)] Future Scheduled 2020-06-14 COVID-19 VACCINE (2 - [facility] 00:00:00 Moderna series) [code = [facility] COVID-19 VACCINE (2 - Moderna series)] Future Scheduled 2019-12-17 MEDICARE ANNUAL WELLNESS [facility] 00:00:00 (YEAR 2 or FIRST YEAR if Med ical Center no IPPE) [code = MEDICARE ANNUAL WELLNESS (YEAR 2 or FIRST YEAR if no IPPE)] Future Scheduled 2019-12-17 [address]NUAL WELLNESS [facility] 00:00:00 (YEAR 2 or FIRST YEAR if Med ical Center no IPPE) [code = MEDICARE ANNUAL WELLNESS (YEAR 2 or FIRST YEAR if no IPPE)] Future Scheduled 2019-12-17 MEDICARE ANNUAL WELLNESS [facility] 00:00:00 (YEAR 2 or FIRST YEAR if Med ical Center no IPPE) [code = MEDICARE ANNUAL WELLNESS (YEAR 2 or FIRST YEAR if no IPPE)] Future Scheduled 2019-12-17 MEDIC[address]NUAL WELLNESS [facility] 00:00:00 (YEAR 2 or FIRST YEAR if Med ical Center no IPPE) [code = MEDICARE ANNUAL WELLNESS (YEAR 2 or FIRST YEAR if no IPPE)] Future Scheduled 2019-12-17 MED[address]NUAL WELLNESS [facility] 00:00:00 (YEAR 2 or FIRST YEAR if Med ical Center no IPPE) [code = MEDICARE ANNUAL WELLNESS (YEAR 2 or FIRST YEAR if no IPPE)] Future Scheduled 2019-12-17 [address]NUAL WELLNESS [facility] 00:00:00 (YEAR 2 or FIRST YEAR if Med ical Center no IPPE) [code = MEDICARE ANNUAL WELLNESS (YEAR 2 or FIRST YEAR if no IPPE)] Future Scheduled 2019-12-17 [address]NUAL WELLNESS [facility] 00:00:00 (YEAR 2 or FIRST YEAR if Med ical Center no IPPE) [code = MEDICARE ANNUAL WELLNESS (YEAR 2 or FIRST YEAR if no IPPE)] Future Scheduled 2019-12-17 [address]NUAL WELLNESS [facility] 00:00:00 (YEAR 2 or FIRST YEAR if Med ical Center no IPPE) [code = MEDICARE ANNUAL WELLNESS (YEAR 2 or FIRST YEAR if no IPPE)] Future Scheduled 2019-12-17 [address]NUAL WELLNESS [facility] 00:00:00 (YEAR 2 or FIRST YEAR if Med ical Center no IPPE) [code = MEDICARE ANNUAL WELLNESS (YEAR 2 or FIRST YEAR if no IPPE)] Future Scheduled 2019-12-17 [address]NUAL WELLNESS [facility] 00:00:00 (YEAR 2 or FIRST YEAR if Med ical Center no IPPE) [code = MEDICARE ANNUAL WELLNESS (YEAR 2 or FIRST YEAR if no IPPE)] Future Scheduled 2019-12-17 [address]NUAL WELLNESS [facility] 00:00:00 (YEAR 2 or FIRST YEAR if Med ical Center no IPPE) [code = MEDICARE ANNUAL WELLNESS (YEAR 2 or FIRST YEAR if no IPPE)] Future Scheduled 2019-05-18 PNEUMOCOCCAL 65+ YRS ([address] [facility] 00:00:00 - PCV) [code = Medical Cente r PNEUMOCOCCAL 65+ YRS (1 - PCV)] Future Scheduled 2019-05-18 PNEUMOCOCCAL 65+ YRS ([address] [facility] 00:00:00 - PCV) [code = Medical Cente r PNEUMOCOCCAL 65+ YRS (1 - PCV)] Future Scheduled 2019-05-18 PNEUMOCOCCAL 65+ YRS ([address] [facility] 00:00:00 - PCV) [code = Medical Cente r PNEUMOCOCCAL 65+ YRS (1 - PCV)] Future Scheduled 2019-05-18 PNEUMOCOCCAL 65+ YRS ([address] [facility] 00:00:00 - PCV) [code = Medical Cente r PNEUMOCOCCAL 65+ YRS (1 - PCV)] Future Scheduled 2019-05-18 PNEUMOCOCCAL 65+ YRS ([address] [facility] 00:00:00 - PCV) [code = Medical Cente r PNEUMOCOCCAL 65+ YRS (1 - PCV)] Future Scheduled 2019-05-18 PNEUMOCOCCAL 65+ YRS ([address] [facility] 00:00:00 - PCV) [code = Medical Cente r PNEUMOCOCCAL 65+ YRS (1 - PCV)] Future Scheduled 2019-05-18 PNEUMOCOCCAL 65+ YRS ([address] [facility] 00:00:00 - PCV) [code = Medical Cente r PNEUMOCOCCAL 65+ YRS (1 - PCV)] Future Scheduled 2019-05-18 PNEUMOCOCCAL 65+ YRS ([address] [facility] 00:00:00 - PCV) [code = Medical Cente r PNEUMOCOCCAL 65+ YRS (1 - PCV)] Future Scheduled 2019-05-18 PNEUMOCOCCAL 65+ YRS ([address] [facility] 00:00:00 - PCV) [code = Medical Cente r PNEUMOCOCCAL 65+ YRS (1 - PCV)] Future Scheduled 2019-05-18 PNEUMOCOCCAL 65+ YRS ([address] [facility] 00:00:00 - PCV) [code = Medical Cente r PNEUMOCOCCAL 65+ YRS (1 - PCV)] Future Scheduled 2019-05-18 PNEUMOCOCCAL 65+ YRS ([address] [facility] 00:00:00 - PCV) [code = Medical Cente r PNEUMOCOCCAL 65+ YRS (1 - PCV)] Future Scheduled 2004 SHINGLES VACCINES ([address] [facility] 00:00:00 2) [code = SHINGLES Medical Center VACCINES (1 of 2)] Future Scheduled 2004 SHINGLES VACCINES ([address] [facility] 00:00:00 2) [code = SHINGLES Medical Center VACCINES (1 of 2)] Future Scheduled 2004 SHINGLES VACCINES ([address] [facility] 00:00:00 2) [code = SHINGLES Medical Center VACCINES (1 of 2)] Future Scheduled 2004 SHINGLES VACCINES ([address] [facility] 00:00:00 2) [code = SHINGLES Medical Center VACCINES (1 of 2)] Future Scheduled 2004 SHINGLES VACCINES ([address] [facility] 00:00:00 2) [code = SHINGLES Medical Center VACCINES (1 of 2)] Future Scheduled 2004 SHINGLES VACCINES ([address] [facility] 00:00:00 2) [code = SHINGLES Medical Center VACCINES (1 of 2)] Future Scheduled 2004 SHINGLES VACCINES ([address] [facility] 00:00:00 2) [code = SHINGLES Medical Center VACCINES (1 of 2)] Future Scheduled 2004 SHINGLES VACCINES ([address] [facility] 00:00:00 2) [code = SHINGLES Medical Center VACCINES (1 of 2)] Future Scheduled 2004 SHINGLES VACCINES ([address] [facility] 00:00:00 2) [code = SHINGLES Medical Center VACCINES (1 of 2)] Future Scheduled 2004 SHINGLES VACCINES ([address] [facility] 00:00:00 2) [code = SHINGLES Medical Center VACCINES (1 of 2)] Future Scheduled 2004 SHINGLES VACCINES ([address] [facility] 00:00:00 2) [code = SHINGLES Medical Center VACCINES (1 of 2)] Future Scheduled 1973 DTAP/TDAP/TD VACCINES ([address] [facility] 00:00:00 - Tdap) [code = Medical Cent er DTAP/TDAP/TD VACCINES (1 - Tdap)] Future Scheduled 1973 DTAP/TDAP/TD VACCINES ([address] [facility] 00:00:00 - Tdap) [code = Medical Cent er DTAP/TDAP/TD VACCINES (1 - Tdap)] Future Scheduled 1973 DTAP/TDAP/TD VACCINES ([address] [facility] 00:00:00 - Tdap) [code = Medical Cent er DTAP/TDAP/TD VACCINES (1 - Tdap)] Future Scheduled 1973 DTAP/TDAP/TD VACCINES ([address] [facility] 00:00:00 - Tdap) [code = Medical Cent er DTAP/TDAP/TD VACCINES (1 - Tdap)] Future Scheduled 1973 DTAP/TDAP/TD VACCINES ([address] [facility] 00:00:00 - Tdap) [code = Medical Cent er DTAP/TDAP/TD VACCINES (1 - Tdap)] Future Scheduled 1973 DTAP/TDAP/TD VACCINES ([address] [facility] 00:00:00 - Tdap) [code = Medical Cent er DTAP/TDAP/TD VACCINES (1 - Tdap)] Future Scheduled 1973 DTAP/TDAP/TD VACCINES ([address] [facility] 00:00:00 - Tdap) [code = Medical Cent er DTAP/TDAP/TD VACCINES (1 - Tdap)] Future Scheduled 1973 DTAP/TDAP/TD VACCINES ([address] [facility] 00:00:00 - Tdap) [code = Medical Cent er DTAP/TDAP/TD VACCINES (1 - Tdap)] Future Scheduled 1973 DTAP/TDAP/TD VACCINES ([address] [facility] 00:00:00 - Tdap) [code = Medical Cent er DTAP/TDAP/TD VACCINES (1 - Tdap)] Future Scheduled 1973 DTAP/TDAP/TD VACCINES ([address] [facility] 00:00:00 - Tdap) [code = Medical Cent er DTAP/TDAP/TD VACCINES (1 - Tdap)] Future Scheduled 1973 DTAP/TDAP/TD VACCINES ([address] [facility] 00:00:00 - Tdap) [code = Medical Cent er DTAP/TDAP/TD VACCINES (1 - Tdap)] Future Scheduled 1972 HEPATITIS C [facility]CRE[facility] 00:[facility] [code = HEPATITIS C Medical Center SCREENING] Future Scheduled 1972 HEPATITIS C [facility] 00:[facility] [code = HEPATITIS C Medical Center SCREENING] Future Scheduled 1972 HEPATITIS C [facility] 00:00:00 [code = HEPATITIS C Medical Center SCREENING] Future Scheduled 1972 [facility]PATITIS C [facility] 00:00:00 [code = HEPATITIS C Medical Center SCREENING] Future Scheduled 1972 [facility]PATITIS C [facility] 00:00:00 [code = HEPATITIS C Medical Center SCREENING] Future Scheduled 1972 HEPATITIS C [facility] 00:00:00 [code = HEPATITIS C Medical Center SCREENING] Future Scheduled 1972 HEPATITIS C [facility] 00:00:00 [code = HEPATITIS C Medical Center SCREENING] Future Scheduled 1972 HEPATITIS C [facility] 00:00:00 [code = HEPATITIS C Medical Center SCREENING] Future Scheduled 1972 HEPATITIS C [facility] 00:00:00 [code = HEPATITIS C Medical Center SCREENING] Future Scheduled 1972 HEPATITIS C [facility] 00:00:00 [code = HEPATITIS C Medical Center SCREENING] Future Scheduled 1972 HEPATITIS C [facility] 00:00:00 [code = HEPATITIS C Medical Center SCREENING] Future Scheduled [address] [facility] 00:00:00 Counseling and Screening Med ical Center (12+) [code = Tobacco Cessation Counseling and Screening (12+)] Future Scheduled [address] [facility] 00:00:00 Counseling and Screening Med ical Center (12+) [code = Tobacco Cessation Counseling and Screening (12+)] Future Scheduled [address] [facility] 00:00:00 Counseling and Screening Med ical Center (12+) [code = Tobacco Cessation Counseling and Screening (12+)] Future Scheduled [address] [facility] 00:00:00 Counseling and Screening Med ical Center (12+) [code = Tobacco Cessation Counseling and Screening (12+)] Future Scheduled [address] [facility] 00:00:00 Counseling and Screening Med ical Center (12+) [code = Tobacco Cessation Counseling and Screening (12+)] Future Scheduled [address] [facility] 00:00:00 Counseling and Screening Med ical Center (12+) [code = Tobacco Cessation Counseling and Screening (12+)] Future Scheduled [address] [facility] 00:00:00 Counseling and Screening Med ical Center (12+) [code = Tobacco Cessation Counseling and Screening (12+)] Future Scheduled [address] [facility] 00:00:00 Counseling and Screening Med ical Center (12+) [code = Tobacco Cessation Counseling and Screening (12+)] Future Scheduled [address] [facility] 00:00:00 Counseling and Screening Med ical Center (12+) [code = Tobacco Cessation Counseling and Screening (12+)] Future Scheduled [address] [facility] 00:00:00 Counseling and Screening Med ical Center (12+) [code = Tobacco Cessation Counseling and Screening (12+)] Future Scheduled [address] [facility] 00:00:00 Counseling and Screening [facility] (12+) [code = Tobacco Cessation Counseling and Screening (12+)] Future Scheduled 1954 CT Colonography (combo) [facility] 00:00:00 [code = CT Colonography [facility] (combo)] Future Scheduled 1954 Screening for malignant [facility] 00:00:00 neoplasm of colon Medical Ce nter (procedure) [code = [id number]] Future Scheduled 1954 Screening for malignant [facility] 00:00:00 neoplasm of colon Medical Ce nter (procedure) [code = 487011838] Future Scheduled 1954 Screening for malignant [facility] 00:00:00 neoplasm of colon Medical Ce nter (procedure) [code = 895458876] Future Scheduled 1954 Screening for malignant [facility] 00:00:00 neoplasm of colon Medical Ce nter (procedure) [code = 412064765] Future Scheduled 1954 Sigmoidoscopy [code = [facility] S[facility]oscopy] Medical Cente r Future Scheduled 1954 CT Colonography (combo) [facility] 00:00:00 [code = CT Colonography [facility] (combo)] Future Scheduled 1954 Screening for malignant [facility] 00:00:00 neoplasm of colon Medical Ce nter (procedure) [code = 248289730] Future Scheduled 1954 Screening for malignant [facility] 00:00:00 neoplasm of colon Medical Ce nter (procedure) [code = 564548848] Future Scheduled 1954 Screening for malignant [facility] 00:00:00 neoplasm of colon Medical Ce nter (procedure) [code = 488433935] Future Scheduled 1954 Screening for malignant [facility] 00:00:00 neoplasm of colon Medical Ce nter (procedure) [code = 919208598] Future Scheduled 1954 Sigmoidoscopy [code = [facility] Sigmoidoscopy] Medical Cente r Future Scheduled 1954 CT Colonography (combo) [facility] 00:00:00 [code = CT Colonography [facility] (combo)] Future Scheduled 1954 Screening for malignant [facility] 00:00:00 neoplasm of colon Medical Ce nter (procedure) [code = 482552834] Future Scheduled 1954 Screening for malignant [facility] 00:00:00 neoplasm of colon Medical Ce nter (procedure) [code = 845129719] Future Scheduled 1954 Screening for malignant [facility] 00:00:00 neoplasm of colon Medical Ce nter (procedure) [code = 628644135] Future Scheduled 1954 Screening for malignant [facility] 00:00:00 neoplasm of colon Medical Ce nter (procedure) [code = 125562806] Future Scheduled 1954 Sigmoidoscopy [code = [facility] Sigmoidoscopy] [facility] Future Scheduled 1954 CT Colonography (combo) [facility] 00:00:00 [code = CT Colonography [facility] (combo)] Future Scheduled 1954 Screening for malignant [facility] 00:00:00 neoplasm of colon Medical Ce nter (procedure) [code = 712679844] Future Scheduled 1954 CT Colonography (combo) [facility] 00:00:00 [code = CT Colonography [facility] (combo)] Future Scheduled 1954 Screening for malignant [facility] 00:00:00 neoplasm of colon Medical Ce nter (procedure) [code = 248902827] Future Scheduled 1954 Screening for malignant [facility] 00:00:00 neoplasm of colon Medical Ce nter (procedure) [code = 315989058] Future Scheduled 1954 Screening for malignant [facility] 00:00:00 neoplasm of colon Medical Ce nter (procedure) [code = 690524169] Future Scheduled 1954 Screening for malignant [facility] 00:00:00 neoplasm of colon Medical Ce nter (procedure) [code = 560572600] Future Scheduled 1954 Sigmoidoscopy [code = [facility] S[facility]oidoscopy] Medical Cente r Future Scheduled 1954 Screening for malignant [facility] 00:00:00 neoplasm of colon Medical Ce nter (procedure) [code = 269535178] Future Scheduled 1954 Screening for malignant [facility] 00:00:00 neoplasm of colon Medical Ce nter (procedure) [code = 999465294] Future Scheduled 1954 CT Colonography (combo) [facility] 00:00:00 [code = CT Colonography [facility] (combo)] Future Scheduled 1954 Screening for malignant [facility] 00:00:00 neoplasm of colon Medical Ce nter (procedure) [code = 078299994] Future Scheduled 1954 Screening for malignant [facility] 00:00:00 neoplasm of colon Medical Ce nter (procedure) [code = 615868023] Future Scheduled 1954 Screening for malignant [facility] 00:00:00 neoplasm of colon Medical Ce nter (procedure) [code = 638044226] Future Scheduled 1954 Screening for malignant [facility] 00:00:00 neoplasm of colon Medical Ce nter (procedure) [code = 225240393] Future Scheduled 1954 Screening for malignant [facility] 00:00:00 neoplasm of colon Medical Ce nter (procedure) [code = 095664090] Future Scheduled 1954 Sigmoidoscopy [facility]code = [facility] S[facility]oscopy] Medical Cente r Future Scheduled 1954 Sigmoidoscopy [code [facility] Sigmoidoscopy] Medical Cente r Future Scheduled 1954 CT Colonography (combo) [facility] 00:00:00 [code = CT Colonography [facility] (combo)] Future Scheduled 1954 Screening for malignant [facility] 00:00:00 neoplasm of colon Medical Ce nter (procedure) [code = 464351178] Future Scheduled 1954 Screening for malignant [facility] 00:00:00 neoplasm of colon Medical Ce nter (procedure) [code = 542160375] Future Scheduled 1954 Screening for malignant [facility] 00:00:00 neoplasm of colon Medical Ce nter (procedure) [code = 610484873] Future Scheduled 1954 Screening for malignant [facility] 00:00:00 neoplasm of colon Medical Ce nter (procedure) [code = 371592375] Future Scheduled 1954 Sigmoidoscopy [code = [facility] 00:[facility] S[facility]oidoscopy] Medical Cente r Future Scheduled 1954 CT Colonography (combo) [facility] 00:00:00 [code = CT Colonography [facility] Center (combo)] Future Scheduled 1954 Screening for malignant [facility] 00:00:00 neoplasm of colon Medical Ce nter (procedure) [code = 374251663] Future Scheduled 1954 Screening for malignant [facility] 00:00:00 neoplasm of colon Medical Ce nter (procedure) [code = 085334505] Future Scheduled 1954 Screening for malignant [facility] 00:00:00 neoplasm of colon Medical Ce nter (procedure) [code = 971127565] Future Scheduled 1954 Screening for malignant [facility] 00:00:00 neoplasm of colon Medical Ce nter (procedure) [code = 751418870] Future Scheduled 1954 Sigmoidoscopy [code = [facility] 00:[facility] Sigmoidoscopy] Medical Cente r Future Scheduled 1954 CT Colonography (combo) [facility] 00:00:00 [code = CT Colonography [facility]i ed Center (combo)] Future Scheduled 1954 Screening for malignant [facility] 00:00:00 neoplasm of colon Medical Ce nter (procedure) [code = 835115154] Future Scheduled 1954 Screening for malignant [facility] 00:00:00 neoplasm of colon Medical Ce nter (procedure) [code = 321801189] Future Scheduled 1954 Screening for malignant [facility] 00:00:00 neoplasm of colon Medical Ce nter (procedure) [code = 017577589] Future Scheduled 1954 Screening for malignant [facility] 00:00:00 neoplasm of colon Medical Ce nter (procedure) [code = 768583199] Future Scheduled 1954 Sigmoidoscopy [code = [facility] 00:[facility] Sigmoidoscopy] Medical Cente r Future Scheduled 1954 CT Colonography (combo) [facility] 00:00:00 [code = CT Colonography Medi ed Center (combo)] Future Scheduled 1954 Screening for malignant [facility] 00:00:00 neoplasm of colon Medical Ce nter (procedure) [code = 018816280] Future Scheduled 1954 Screening for malignant [facility] 00:00:00 neoplasm of colon Medical Ce nter (procedure) [code = 047386013] Future Scheduled 1954 Screening for malignant [facility] 00:00:00 neoplasm of colon Medical Ce nter (procedure) [code = 828711788] Future Scheduled 1954 Screening for malignant [facility] 00:00:00 neoplasm of colon Medical Ce nter (procedure) [code = 198800811] Future Scheduled 1954 Sigmoidoscopy [code [facility] 00:[facility] Sigmoidoscopy] Medical Cente r Future Scheduled 1954 CT Colonography (combo) [facility] 00:00:00 [code = CT Colonography [facility]i de Center (combo)] Future Scheduled 1954 Screening for malignant [facility] 00:00:00 neoplasm of colon Medical Ce nter (procedure) [code = 139606064] Future Scheduled 1954 Screening for malignant [facility] 00:00:00 neoplasm of colon Medical Ce nter (procedure) [code = 808067199] Future Scheduled 1954 Screening for malignant [facility] 00:00:00 neoplasm of colon Medical Ce nter (procedure) [code = 059770954] Future Scheduled 1954 Screening for malignant [facility] 00:00:00 neoplasm of colon Medical Ce nter (procedure) [code = 031125530] Future Scheduled 1954 Sigmoidoscopy [facility]code [facility] 00[facility] S[facility]oscopy] Medical Cente r Future Scheduled ELECTROCARDIOGRAM [facility] Test COMPLETE [code = 97184] of M edicine Future Scheduled COLON CANCER SCREENING: [facility] Test COLONOSCOPY [code = of Medic ine COLON CANCER SCREENING: COLONOSCOPY] Future Scheduled TETANUS SHOT (ADULT) [employer] Test [code = TETANUS SHOT of Medi cine (ADULT)] Future Scheduled BMI FOLLOW UP PLAN [code [facility] Test = BMI FOLLOW UP PLAN] of Med icine Future Scheduled HEPATITIS C SCREENING [employer] Test [code = HEPATITIS C of Medic ine SCREENING] Future Scheduled ZOSTER VACCINE (1 of 2) [facility] Test [code = ZOSTER VACCINE of Me dicine (1 of 2)] Future Scheduled MEDICARE IPPE (WELCOME [facility] TO MEDIC[facility]) [code = of Medi cine MEDICARE IPPE (WELCOME TO MEDICARE)] Future Scheduled FALL SCREEN [code = FALL [facility] Test SCREEN] of Medicine Future Scheduled PNEUMOVAX >=65 (PPSV23) [facility] Test [code = PNEUMOVAX >=65 of Me dicine (PPSV23)] Future Scheduled FLU VACCINE > 6 MONTHS [facility] [code = FLU VACCINE > 6 of M edicine MONTHS] Future Scheduled ELECTROCARDIOGRAM [facility] Test COMPLETE [code = 78145] of M edicine Future Scheduled COLON CANCER SCREENING: [facility] Test COLONOSCOPY [code = of Medic ine COLON CANCER SCREENING: COLONOSCOPY] Future Scheduled TETANUS SHOT (ADULT) [employer] Test [code = TETANUS SHOT of Medi cine (ADULT)] Future Scheduled BMI FOLLOW UP PLAN [code [facility] Test = BMI FOLLOW UP PLAN] of Med icine Future Scheduled HEPATITIS C SCREENING [employer] [facility] [code = HEPATITIS C of Medic ine SCREENING] Future Scheduled HIV SCREENING [code = [employer] [facility] HIV SCREENING] of Medicine Future Scheduled FLU VACCINE > 6 MONTHS [employer] [facility] [code = FLU VACCINE > 6 of M edicine MONTHS] Future Scheduled COLON CANCER SCREENING: [facility] Test COLONOSCOPY [code = of Medic ine COLON CANCER SCREENING: COLONOSCOPY] Future Scheduled TETANUS SHOT (ADULT) [employer] Test [code = TETANUS SHOT of Medi cine (ADULT)] Future Scheduled BMI FOLLOW UP PLAN [code [facility] Test = BMI FOLLOW UP PLAN] of Med icine Future Scheduled HEPATITIS C SCREENING [employer] [facility] [code = HEPATITIS C of Medic ine SCREENING] Future Scheduled MEDICARE IPPE (WELCOME [facility] Test TO MEDICARE) [code = of Medi cine MEDICARE IPPE (WELCOME TO MEDICARE)] Future Scheduled FALL SCREEN [code = FALL [facility] Test SCREEN] of Medicine Future Scheduled PNEUMOVAX >=65 (PPSV23) [facility] Test [code = PNEUMOVAX >=65 of Me dicine (PPSV23)] Future Scheduled PREVNAR >= 65 (PCV13) Ba [facility] Test [code = PREVNAR >= 65 of Med icine (PCV13)] Future Scheduled FLU VACCINE > 6 MONTHS [facility] Test [code = FLU VACCINE > 6 of M edicine MONTHS] Encounters Start End Encounter Admission Attending Care Care Encounter Source Date/Time Date/Time Type Type Clinicians Facility Department ID 2022-08-27 Outpatient [facility] [id number] [place] 15:23:[id number] [facility] 2022-08-20 Outpatient [facility] [id number] [place] 12:50:[id number] [facility] 2022-08-14 Outpatient [facility] [id number] [place] 09:19:[id number] [facility] 2022-07-21 Outpatient [facility] [id number] [place] 02:28:[id number] [facility] 2022-07-20 Outpatient [facility] [id number] [place] 17:50:[id number] [facility] 2022-07-19 Outpatient [facility] [id number] [place] 15:34:[id number] [facility] 2022-07-08 Outpatient [facility] [id number] [place] 10:39:[id number] [facility] 2022-07-05 Outpatient [facility] [id number] [place] 16:14:[id number] [facility] 2022-07-01 Outpatient [facility] [id number] [place] 13:01:[id number] [facility] 2022-06-27 Outpatient [facility] [id number] [place] 10:27:[id number] [facility] 2022-06-26 Outpatient [facility] [id number] [place] 09:35:[id number] [facility] 2022-06-20 Outpatient [facility] [id number] [place] 08:05:[id number] [facility] 2022-06-11 Outpatient [facility] [id number] [place] 17:18:[id number] [facility] 2022-06-10 Outpatient [facility] [id number] [place] 12:49:[id number] [facility] 2022-05-28 Outpatient [facility] [id number] [place] 11:33:[id number] [facility] 2022-05-15 Outpatient [facility] [id number] [place] 11:37:[id number] [facility] 2022-05-09 Outpatient [facility] [id number] [place] 10:02:[id number] [facility] 2022-05-08 Outpatient [facility] [id number] [place] 00:28:[id number] [facility] 2022-05-07 Outpatient [facility]TH U[facility] [id number] UT 15:59:[id number] [facility] 2022-05-01 Outpatient UTH UTH [id number] UT 19:51:[id number] [facility] 2022-04-30 Outpatient [place] [id number] UT 18:24:[id number] [facility] 2022-04-27 Outpatient [place] [id number] UT 09:08:[id number] [facility] 2022-04-09 Outpatient [place] UT [id number] UT 09:10:[id number] [facility] 2022-04-08 Outpatient UTH UTH [id number] UT 12:22:[id number] [facility] 2022-04-04 Outpatient [facility] UTH [id number] UT 11:22:[id number] [facility] 2022-03-29 Outpatient [place] U[facility] [id number] UT 16:27:[id number] [facility] 2022-03-28 Outpatient UTH UTH [id number] [place] 09:45:[id number] [facility] 2022-02-15 Outpatient UTH UTH [id number] [place] 15:21:[id number] [facility] 2022-02-14 Outpatient UTH UTH [id number] [place] 18:21:[id number] [facility] 2022-02-12 Outpatient UTH U[facility] [id number] [place] 08:15:[id number] [facility] 2022-02-06 Outpatient UTH UTH [id number] UT 07:16:[id number] [facility] 2022-02-02 Outpatient [facility] [id number] [place] 23:25:[id number] [facility] 2022-01-30 [id number] [place] 12:[facility]:[id number] [facility] 2022-01-29 Outpatient [facility] [id number] [place] 13:54:[id number] [facility] 2022-01-22 Outpatient [facility] [id number] UT 20:55:[id number] [facility] 2022-01-17 [facility] [id number] [place] 08:46:[id number] [facility] 2021-05-29 Outpatient SHARRIEF, [facility] [id number] [place] 12:36:46 [facility] 2021-05-29 Outpatient SHARRIEF, [facility] [id number] [place] [facility] Outpatient FERDINAND, [facility] [id number] [place] 10:44:[address] [facility] 2021-05-09 Outpatient DAVIDTATIANNAA [facility] [id number] [place] 14:30:22 [facility] 2021-05-09 Outpatient [facility] [id number] [place] 13:15:31 [facility] 2021-04-26 Outpatient LAKEISHA, [facility] [id number] [place] 12:35:37 [facility] hospital 2021-04-13 Outpatient SHARRIEF, [facility] [id number] [place] 15:15:52 [facility] 2021-04-04 Outpatient DAVIDMIGUEL Friend [facility] [id number] [place] 09:27:29 [facility] 2023-01-08 2023-01-08 Outpatient MCKELVY, [facility] [id number] [place] 13:15:00 13:15:[address] [facility] 2023-01-01 2023-01-01 Outpatient LAKEISHA, [facility] [id number] [place] 11:00:00 11:00:[facility] 2022-12-16 Outpatient GUTTENBERG, [facility] [id number] [place] 08:40:00 08:40:[address] [facility] 2022-10-08 2022-10-08 Outpatient FERDINAND, [facility] [id number] [place] 09:00:00 09:00:[address] [facility] 2022-09-20 2022-09-20 Outpatient ADILENERIRONA, [facility] [id number] [place] 10:30:[place] [facility]:30:[facility] 2022-09-09 Outpatient FRANCINE, [facility] [id number] [facility] 00:00:00 00:00:00 [employer] 2022-09-06 2022-09-06 Outpatient SHANDRA, [facility] [id number] [place] 13:40:00 13:40:00 [facility] 2022-09-06 2022-09-06 Outpatient [facility] [id number] [place] 09:00:00 09:00:00 [facility] 2022-08-27 2022-08-27 Telemedici Shandra, [facility] 6400 1.2.840.114 [id number] [place] 11:40:00 12:02:48 ne Isabel [address]riematt [address] 350.1.13.58 Health 9.2.7.2.686 [id number] 8 2022-08-22 2022-08-22 Outpatient FRANCINE [facility] [id number] [facility] 00:00:00 00:00:00 [employer] 2022-07-31 2022-07-31 Outpatient [facility] [id number] [place] 10:00:00 10:00:00 [facility] 2022-07-31 2022-07-31 Procedure PAYALMARTIN, [facility] 6400 1.2.840.114 1 [id number] [place] 09:20:00 09:20:[address] 350.1.13.58 Health 9.2.7.2.686 [id number] 8 2022-07-23 2022-07-23 Outpatient SHANDRA [facility] [id number] [place] 14:20:00 14:20:00 [facility] 2022-07-19 2022-07-19 Office JANA poon 1.2.840.114 [id number] [facility] 10:00:00 11:09:26 Visit Yohana A AMBULATOR 350.1.13.21 College Y 0.2.7.2.686 of [id number] Medi aditi 300 e 2022-07-17 2022-07-17 Office MORRIS CORONA 6400 1.2.840.114 [id number] [place] 14:00:00 14:00:[address] 350.1.13.58 Health 9.2.7.2.686 [id number] 8 2022-07-03 2022-07-03 Office MORRIS Sauceda 6410 1.2.545.349 [id number] [place] 13:00:00 14:14:[address] 350.1.13.58 Health 9.2.7.2.686 [id number] 7 2022-07-01 2022-07-01 Office MORRIS Suazo 6410 1.2.393.953 [id number] [place] 13:00:00 13:43:[address] 350.1.13.58 Health 9.2.7.2.686 [id number] 8 2022-06-26 2022-06-26 Procedure MORRIS CORONA 6400 1.2.840.114 1 [id number] [place] 10:00:00 10:00:[address] 350.1.13.58 Health 9.2.7.2.686 [id number] 8 2022-06-26 2022-06-26 Outpatient [facility] [id number] [place] 09:40:00 09:40:00 Health 2022-06-04 2022-06-04 Telemedici MORRIS Corona 6400 1.2.840.114 [id number] [place] 15:00:00 15:16:[address] 350.1.13.58 Health 9.2.7.2.686 [id number] 8 2022-06-03 2022-06-03 Office JANA CAMACHO 1.2.840.114 [id number] [facility] 09:01:08 11:33:00 Visit JACKIE AMBULATOR 350.1.13.21 College Y 0.2.7.2.686 of [id number] Medi aditi 310 e 2022-05-15 2022-05-15 Outpatient [facility] [id number] [place] 14:40:00 14:40:00 Health 2022-05-15 2022-05-15 Procedure SHANDRA [facility] 6400 1.2.840.114 1 [id number] [place] 12:00:00 12:00:[address] 350.1.13.58 Health 9.2.7.2.686 [id number] 8 2022-05-07 2022-05-07 Telemedici Shandra [facility] 6400 1.2.840.114 [id number] [place] 13:40:00 14:03:[address] 350.1.13.58 Health 9.2.7.2.686 [id number] 8 2022-05-03 2022-05-03 Outpatient LORENA, [facility] [id number] [place] 11:30:00 12:41:43 [facility] Health 2022-04-16 2022-04-16 Telemedici Shandra [facility]TP 6400 1.2.840.114 [id number] [place] 13:40:00 13:49:[address] 350.1.13.58 Health 9.2.7.2.686 [id number] 8 2022-04-09 2022-04-09 Procedure Utp, Pft UTP 6410 1.2.840.114 14 [id number] [place] 10:00:00 10:00:[address] 350.1.13.58 Health 9.2.7.2.686 [id number] 7 2022-04-09 2022-04-09 Office Ferdinand, [facility] 6410 1.2.840.114 [id number] [place] 09:00:00 09:15:[address] 350.1.13.58 Health 9.2.7.2.686 [id number] 2 2022-04-03 2022-04-03 Office Dustin, [facility] 6410 1.2.473.685 [id number] [place] 13:30:00 14:59:[address] 350.1.13.58 Health 9.2.7.2.686 [id number] 7 2022-03-29 2022-03-29 Office Lakeisha [facility] 6410 1.2.116.033 [id number] [place] 10:30:00 11:16:[address] 350.1.13.58 Health 9.2.7.2.686 [id number] 8 2022-03-07 2022-03-07 Office DULCEJOSÉ JANNY 1.2.840.114 [id number] [facility] 10:34:36 15:06:33 Visit XAVIER AMBULATOR 350.1.13.21 College Y 0.2.7.2.686 of [id number] Medi aditi 300 e 2022-03-07 2022-03-07 Outpatient JANA HENNING [facility] [id number] [facility] 10:34:24 14:15:44 [employer] 2022-03-05 2022-03-05 Telephonic DavidMiguel [facility] 6400 1.2.840.11 4 [id number] [place] 10:45:00 16:48:[address] 350.1.13.58 Health 9.2.7.2.686 [id number] 2 2022-02-20 2022-02-20 Outpatient [facility] [id number] [place] 14:00:00 14:26:36 Health 2022-02-20 2022-02-20 Outpatient [facility] [id number] [place] 13:00:00 14:24:22 Health 2022-02-20 2022-02-20 Outpatient [facility] [id number] [place] 12:55:00 14:24:01 Health 2022-02-15 2022-02-15 Telemedici Saran [facility] 6410 1.2.840.11 4 [id number] [place] 08:30:00 09:11:[address] 350.1.13.58 Health 9.2.7.2.686 [id number] 8 2022-02-11 2022-02-11 Outpatient REBECCA [facility] 750 [id number] [facility] 06:50:00 14:00:00 SALEEM S 2022-02-01 2022-02-01 Outpatient SHANDRA, [facility] [id number] [place] 12:40:00 12:40:00 [facility] 2022-01-29 2022-01-29 Outpatient FERDINAND, [facility] [id number] [place] 10:00:00 10:00:[address] [facility] 2022-01-29 2022-01-29 Outpatient [facility] [id number] [place] 09:00:00 09:00:00 Health 2022-01-17 2022-01-17 Consult PAYALHASEEBJANET, [facility] 6400 1.2.840.114 [id number] [place] 09:00:00 09:00:[address] 350.1.13.58 Health 9.2.7.2.686 [id number] 8 2022-01-09 2022-01-09 Telemedici Miguel Hernandez [facility] 6400 1.2.840.11 4 [id number] [place] 14:00:00 14:30:[address] 350.1.13.58 Health 9.2.7.2.686 [id number] 2 2022-01-02 2022-01-02 Outpatient MIGUEL HERNANDEZ [facility] [id number] [place] 09:15:00 09:15:00 Health 2022-01-01 2022-01-01 Outpatient SHANDRA, [facility] [id number] [place] 09:00:00 09:00:00 [facility] 2021-12-26 2021-12-26 Outpatient LAKEISHA, [facility] [id number] [place] 10:30:00 10:30:00 Critical access hospital 2021-12-10 2021-12-10 Outpatient [facility] [id number] [place] 13:30:00 14:48:46 Health 2021-12-07 2021-12-07 Outpatient [facility] [id number] [place] 13:30:00 14:51:43 Health 2021-11-21 2021-11-21 Ancillary Vickie Howard [facility] 6410 1.2.840.114 [id number] [place] 08:00:00 10:01:[address] 350.1.13.58 Health 9.2.7.2.686 [id number] 8 2021-11-12 2021-11-12 Outpatient Garrick CHAVEZ JR, [facility] [id number] [facility] 12:33:38 23:59:00 [facility]12 2021-11-12 Outpatient Garrick CHAVEZ JR, [facility] [id number] Univers 00:00:00 00:00:00 [facility]IRA [id number] [facility] 2021-11-12 2021-11-12 Orders Doctor PAULA 1.2.840.114 [id number] Univers 00:00:00 00:00:00 Only Unassigned, MAHESH 350.1.13.10 [facility] 4.2.7.2.686 Tr as [id number] [address] 2021-11-02 2021-11-02 Outpatient Garrick GENAO [facility] [id number] Univers 00:00:00 00:00:00 SENDIL [id number] [facility] 2021-10-31 2021-10-31 Telemedici MORRIS [place] 6410 1.2.840.114 [id number] [place] 12:00:00 12:28:[address] 350.1.13.58 Health 9.2.7.2.686 [id number] 8 2021-10-31 2021-10-31 Outpatient Garrick GRIGSBY [facility] [id number] Univers 00:00:00 00:00:00 AV [id number] ity o f [facility] 2021-10-25 2021-10-25 Telemedici Lakeisha, [facility] 6410 1.2.840.114 1 [id number] [place] 10:30:00 10:30:[address] 350.1.13.58 Health 9.2.7.2.686 [id number] 8 2021-09-18 2021-09-18 Outpatient NARCISO [facility] [id number] [facility] 07:16:00 23:59:00 ANJAIL 2021-09-14 2021-09-14 Telephone MORRIS [place] 6410 1.2.840.114 1 [id number] [place] 00:00:00 00:00:[address] 350.1.13.58 Health 9.2.7.2.686 [id number] 8 2021-08-27 2021-08-27 Telemedici MORRIS Suazo 6410 1.2.840.114 1 [id number] [place] 09:30:00 09:52:[address] 350.1.13.58 Health 9.2.7.2.686 [id number] 8 2021-08-08 2021-08-08 Telephone MORRIS Suazo 6410 1.2.840.114 13 [id number] [place] 00:00:00 00:00:[address] 350.1.13.58 Health 9.2.7.2.686 [id number] 8 2021-07-31 2021-07-31 Office MORRIS Streeter 6410 1.2.840.114 [id number] [place] 08:40:00 09:16:[address] 350.1.13.58 Health 9.2.7.2.686 [id number] 2 2021-07-25 2021-07-25 Office MORRIS Suazo 6410 1.2.019.427 [id number] [place] 10:30:00 11:39:[address] 350.1.13.58 Health 9.2.7.2.686 [id number] 8 2021-06-26 2021-06-26 Office Ferdinand [facility] 6410 1.2.840.114 [id number] [place] 09:40:00 11:11:[address] 350.1.13.58 Health 9.2.7.2.686 [id number] 2 2021-06-08 2021-06-08 Emergency E AMPARORMHERMINIA, [facility] 7502 [facility] 14:23:00 19:06:00 PAULA 2021-05-29 2021-05-29 Office Narciso, [facility]TP 6410 1.2.840.114 [id number] [place] 11:30:00 12:36:[address] 350.1.13.58 Health 9.2.7.2.686 [id number] 8 2021-05-24 2021-05-24 Telemedici Lakeisha, [facility] 6410 1.2.840.114 1 [id number] [place] 14:00:00 14:30:[address] 350.1.13.58 Health 9.2.7.2.686 [id number] 8 2021-05-24 2021-05-24 Telemedici Lakeisha, [facility] 6410 1.2.840.114 1 [id number] [place] 14:00:00 14:30:[address] 350.1.13.58 Health 9.2.7.2.686 [id number] 8 2021-05-24 2021-05-24 Telemedici LAKEISHA, [facility] 6410 1.2.840.114 1 [id number] [place] 14:00:00 14:30:[address] 350.1.13.58 Health 9.2.7.2.686 [id number] 8 2021-05-09 2021-05-09 Office Miguel Hernandez [facility] 6400 1.2.840.114 1 [id number] [place] 13:15:00 14:32:[address] 350.1.13.58 Health 9.2.7.2.686 [id number] 2 2021-04-26 2021-04-26 Procedure Lakeisha, [facility] 6410 1.2.840.114 13 [id number] [place] 11:30:00 12:33:[address] 350.1.13.58 Health 9.2.7.2.686 [id number] 8 2021-04-26 2021-04-26 Procedure Lakeisha, [facility] 6410 1.2.840.114 13 [id number] [place] 11:30:00 12:33:[address] 350.1.13.58 Health 9.2.7.2.686 [id number] 8 2021-01-24 2021-01-24 Outpatient E MARCO TREVINOTI [facility] MED 750 [id number] [facility] 13:16:00 13:16:00 2021-01-09 2021-01-09 Office JANA HENNING 1.2.840.[id number] [place] [address] 14:51:57 15:54:26 Visit XAVIER AMBULATOR 350.1.13.21 College Y 0.2.7.2.686 of [id number] [facility] aditi 300 e 2021-01-09 2021-01-09 Outpatient JANA HENNING [facility] [id number] [facility] 14:51:35 15:54:12 [facility]IERPhuc [facility] Medicin e 2020-05-05 2020-05-05 Outpatient DEMETRIUS JENNIFER [facility] [id number] [facility] 14:31:00 23:59:00 MANDIE stanton 2019-11-16 2019-11-16 Office JANNY Henning 1.2.840.114 [id number] 14:31:36 15:01:36 Visit Xavier AMBULATOR 350.1.13.21 Y 0.2.7.2.686 [id number] 300 2019-11-16 2019-11-16 Office JANNY Henning 1.2.840.[id number] [place] [address] 14:31:36 15:01:36 Visit Xavier AMBULATOR 350.1.13.21 College Y 0.2.7.2.686 of [id number] Medi aditi 300 e 2019-08-23 2019-08-23 Office JANA Renee 1.2.840.114 [id number] 15:35:38 16:57:39 Visit Cordell AMBULATOR 350.1.13.21 Y 0.2.7.2.686 [id number] 800 2019-08-23 2019-08-23 Office JANA Renee 1.2.840.[id number] [place] [address] 15:35:38 16:57:39 Visit Cordell AMBULATOR 350.1.13.21 College Y 0.2.7.2.686 of [id number] [facility] aditi 800 e 2019-08-16 2019-08-16 Outpatient ИРИНА QUICK [facility] [id number] [facility] 00:00:00 00:00:00 [place] 2018-10-22 2018-10-22 Office JANA Henning 1.2.840.114 [id number] 08:01:15 08:31:15 Visit Xavier AMBULATOR 350.1.13.21 Y 0.2.7.2.686 [id number] 700 2018-10-22 2018-10-22 Office Oneida [facility] 1.2.840.114 [id number] [facility] 08:01:15 08:31:15 Visit Xavier AMBULATOR 350.1.13.21 College Y 0.2.7.2.686 of [id number] [facility] 700 e Results Test Description Test Time Test Comments Results Result Comments Source Urinalysis with reflex microscopic 2022-03-30 09:00:00 Test Item Value Reference Range Interpretation Comme nts COLOR (test code = YELLOW YELLOW 5778-6) APPEARANCE (test code = CLEAR CLEAR 5767-9) SPECIFIC GRAVITY (test 1.001-1.035 code = 5811-5) PH (test code = 5803-2) 5.0-8.0 GLUCOSE (test code = NEGATIVE NEGATIVE 25670-5) BILIRUBIN (test code = NEGATIVE NEGATIVE 5770-3) KETONES (test code = NEGATIVE NEGATIVE 2514-8) BLOOD, UA (test code = NEGATIVE NEGATIVE 5794-3) PROTEIN (test code = NEGATIVE NEGATIVE 09234-3) NITRITE (test code = NEGATIVE NEGATIVE 5802-4) LEUKOCYTE ESTERASE NEGATIVE NEGATIVE REPORT (test code = 5799-2) COMMENT :FASTING:NOAN UPDATE OR CORRE CTION HAS BEEN MADE T O NAME RAC (test code = RAC) Performing Organization Information: ? ?Site ID: [id number] ? ?Name: [employer]ERAW ? ?Address: [address] [place] [phone] ? ?Director: HOLLIE AVINA MD [facility], BRAIN, WITHOUT [id number] 12:15:00FINAL REPORT MR, BRAIN, WITHOUT CONTRAST INDICATION: [id number] TECHNIQUE: Multiplanar, multisequence MR imaging of the brain was obtained. COMPARISON: September 21, 2018 FINDINGS:Brain parenchyma is normal in morphology. Midline structures are normally developed. No restricted diffusion to suggest recent ischemic insult. No abnormal susceptibility. Scattered T2/FLAIR hyperintense foci withinthe periventricular and subcortical white matter are nonspecific, however, statistically represent chronic microvascular ischemic changes. No hydrocephalus. Orbits are within normal limits. No obstructive paranasal sinus disease. IMPRESSION: No acute intracranial findings Signed: Supriya Mezaort Verified Date/Time: 08/16/2019 12:15:18 Reading Location: [facility] Radiology Reading Room [facility] [id number] 06:20:00 Test Item Value Reference Range Interpretation Comments SODIUM (BEAKER) 136 meq/L 136-145 (test code = 381) POTASSIUM (BEAKER) 4.3 meq/L 3.5-5.1 (test code = 379) CHLORIDE (BEAKER) 103 meq/L 98-107 (test code = 382) CO2 (BEAKER) (test 23 meq/L 22-29 code = 355) BLOOD UREA NITROGEN 15 mg/dL 7-21 (BEAKER) (test code = 354) CREATININE (BEAKER) 1.00 mg/dL 0.57-1.25 (test code = 358) GLUCOSE RANDOM 107 mg/dL 70-105 H (BEAKER) (test code = 652) CALCIUM (BEAKER) 9.5 mg/dL 8.4-10.2 (test code = 697) EGFR (BEAKER) (test 75 mL/min/1.73 ESTIMA KENDRA GFR IS code = 1092) sq m NOT ACCURATE CREATININE CLEARANCE IN PREDICTING GLOMERULAR FILTRATION RATE . ESTIMATED GFR I S NOT APPLICABLE FOR DIALYSIS PATIEN TS. CBC W/PLT COUNT & AUTO [id number] 05:45:00 Test Item Value Reference Range Interpretation [...] = 2801) RAD, CHEST, 1 VIEW, NON [id number] 04:56:00Reason for exam:->Post device placementShould this be performed at the bedside?->YesFINAL REPORT RAD, CHEST, 1 VIEW, NON DEPT INDICATION: Post device placement COMP ARISON: Prior day's exam FINDINGS: Portable frontal view of the chest. IMPRESSION: Support Lines: Stable. Lungs and pleura: Unchanged airspace and pleural opacities. No pneumothorax.Heart and mediastinum: Stable contours. Additional findings: None. Signed: Rula Ballard Verified Date/Time: 11/03/2018 04:56:03 RAD, CHEST, 1 VIEW, NON [id number] 15:54:00Reason for exam:->post device placementShould this be performed at the bedside?->YesFINAL REPORT INDICATION: post device placement COMPARISON: None TECHNIQUE: Single frontal view of the chest. FINDINGS: Lungs and pleura: Clear lungs. No effusion.Heart and mediastinum: Normal heart size. Unremarkable mediastinal contours.Osseous structures: No acute abnormality.Other: None. IMPRESSION: No acute intrathoracic abnormality. No pneumothorax. Signed: Supriya Meza Verified Date/Time: 11/02/2018 15:54:40 Reading Location: [facility] Radiology Reading Room [facility] METABOLIC [id number] 08:29:00 Test Item Value Reference Range Interpretation [...] NOT APPLICABLE FOR DIALYSIS PATIEN TS. PROTHROMBIN [id number] 08:26:00 Test Item Value Reference Range Interpretation Comments PROTIME (BEAKER) (test code = 12.9 seconds 11.9-14.2 759) INR (BEAKER) (test code = 370) 1.0 <=5.9 Effective 08/12/2018: PT Reference Range ChangeNew: 11.9-14.2 Previous: 11.7- 14.7RECOMMENDED COUMADIN/WARFARIN INR THERAPY RANGESSTANDARD DOSE: 2.0-3.0 Includes: PROPHYLAXIS for venous thrombosis, systemic embolization; TREATMENT for venous thrombosis and/or pulmonary embolus.HIGH RISK: Target INR is 2.5-3.5 for patients wiht mechanical heart valves.Within 24 [...] (BEAKER) (test code = 413) BASIC METABOLIC [id number] 14:11:00 Test Item Value Reference Range Interpretation [...] NOT APPLICABLE FOR DIALYSIS PATIEN TS. PROTHROMBIN [id number] 14:03:00 Test Item Value Reference Range Interpretation Comments PROTIME (BEAKER) (test code = 12.9 seconds 11.9-14.2 759) INR (BEAKER) (test code = 370) 1.0 <=5.9 Effective 08/12/2018: PT Reference Range ChangeNew: 11.9-14.2 Previous: 11.7- 14.7RECOMMENDED COUMADIN/WARFARIN INR THERAPY RANGESSTANDARD DOSE: 2.0-3.0 Includes: PROPHYLAXIS for venous thrombosis, systemic embolization; TREATMENT for venous thrombosis and/or pulmonary embolus.HIGH RISK: Target INR is 2.5-3.5 for patients wiht mechanical heart valves.CBC (HEMOGRAM [...] (test code = 413) EEG AWAKE/ASLEEP AND [id number] 16:31:00Reason for exam:->Rule out seizuresShould this be performed at the bedside?->YesDate(s) of EE09/22/2018 DATE OF REPORT: 09/22/2018 ACC: [id number] EEG Number: [id number] Test Location: Inpatient ICU Start time: 09/22/18 09:26 Stop time: 09/22/18 09:47 ICD-10: R53.1 CPT Code: 77422 HISTORY: 63 y.o. male with hypertension, diabetes mellitus, remote stroke with residual right hemiparesis who was transferred after receiving tPA for generalized weakness after fall. MEDICATIONS THAT COULD AFFECT EEG: Nicardapine, Hydralazine, Labetalol TECHNICAL SUMMARY: This is a digital video- EEG recorded with 32 input channels reviewed with bipolar and referential montages using the modified combinatorial system nomenclature. DESCRIPTION OF RECORD: During the maximally alert state a 9-10 Hz posterior dominant rhythm was seen that was symmetric, reactive to eye opening and well regulated. More anteriorly, low voltage frontocentral beta predominated. Drowsiness was characterized by alpha attenuation andincreased frontocentral theta, vertex sharp transients and POSTS. [...] the possibility of epilepsy. It the clinical reyes spicion of epilepsy remains, consider additional EEG recordings. Orion Rosario MD Neurophysiology/Epilepsy Fellow I have reviewed the electroencephalogram and this report and agree with its interpretation. Stefany Galarza MD Attending Neurophysiologist Electronically signed by: STEFANY GALARZA MD on09/22/2018 04:31 [facility] [id number] 11:14:00 Test Item Value Reference Range Interpretation [...] 697) EGFR (BEAKER) (test 77 mL/min/1.73 ESTIMA KENDAR GFR IS code = 1092) sq m NOT ACCURATE CREATININE CLEARANCE IN PREDICTING GLOMERULAR FILTRATION RATE . ESTIMATED GFR I S NOT APPLICABLE FOR DIALYSIS PATIEN TS. CBC W/PLT COUNT & AUTO [id number] 10:58:00 Test Item Value Reference Range Interpretation [...] 0-1 PERCENT (BEAKER) (test code = 2801) POCT-GLUCOSE [id number] 17:13:00 Test Item Value Reference Range Interpretation Comments POC-GLUCOSE METER 98 mg/dL 70-110 TESTED AT [facility] [address] ([facility]) (test code = [place] [address] 1538) MR, BRAIN, WITHOUT [id number] 10:52:00FINAL REPORT MRI Brain without contrast Clinical History: stroke Technique: MRIof the brain utilizing axial T2, FLAIR, GRE, DWI; sagittal and coronal T1-weighted images. Comparisons: None Findings: There is no evidence of acute infarct or hemorrhage. There are chronic lacunar infarcts of the left corpus striatum. There is a chronic infarct of the left thalamocapsular junction. There is mild periventricular and subcortical white matter T2 hyperintensity, which is nonspecific butcompatible with chronic microvascular ischemic change. There is generalized parenchymal volume loss without hydrocephalus, midline shift, or apparent mass effect. There are no extra-axial fluid collections. The craniocervical junction is preserved. The major intracranial flow-voids appear patent. IMPRESSION: No evidence of acute infarct, hemorrhage, or hydrocephalus. 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 Signed: Scott Rivas MDReport Verified Date/Time: 09/21/2018 10:52:51 Reading Location: [address] Neuro Reading Room HEMOGLOBIN [id number] 09:04:00 Test Item Value Reference Range Interpretation Comments HEMOGLOBIN A1C (BEAKER) (test code = 5.2 % 4.3-6.1 368) TSH/FREE T4 IF [id number] 06:44:00 Test Item Value Reference Range Interpretation Comments THYROID STIMULATING HORMONE 1.64 uIU/mL 0.35-4.94 (BEAKER) (test code = 772) VITAMIN B12 AND [id number] 06:44:00 Test Item Value Reference Range Interpretation Comments VITAMIN B12 (BEAKER) (test code = 643 pg/mL 213-816 774) FOLATE (BEAKER) (test code = 362) 16.6 ng/mL >=7.0 LIPID [id number] 05:30:00 Test Item Value Reference Range Interpretation Comments TRIGLYCERIDES (BEAKER) (test code = 320 mg/dL 540) CHOLESTEROL (BEAKER) (test code = 166 mg/dL 631) HDL CHOLESTEROL (BEAKER) (test code 24 mg/dL = 976) LDL CHOLESTEROL CALCULATED (BEAKER) 78 mg/dL (test code = 633) Triglyceride Reference Range: Low Risk <150 Borderline 150-199 High Risk 200- 499 Very High Risk >=500Cholesterol Reference Range: Low Risk <200 Borderline 200-239 High Risk >240HDL Cholesterol Reference Range: Low Risk >=60 High Risk <40LDL Cholesterol Reference Range: Optimal <100 Near Optimal 100-129 Borderline 130-159 High 160-189 Very High >=190BASIC METABOLIC [id number] 05:30:00 Test Item Value Reference Range Interpretation [...] NOT APPLICABLE FOR DIALYSIS PATIEN TS. C-REACTIVE [id number] 05:30:00 Test Item Value Reference Range Interpretation Comments C-REACTIVE PROTEIN (BEAKER) (test 0.10 mg/dL 0.00-0.50 code = 676) CBC W/PLT COUNT & AUTO [id number] 04:09:00 Test Item Value Reference Range Interpretation [...] % 0-1 PERCENT (BEAKER) (test code = 7922)
[2022-08-29 10:02] LABS: Absolute Lymphocytes (CBC) 2.2 K/uL (0.7-4.9); Hematocrit 48.2 % (39.6-49.0); Lymphocytes % 31.9 % (15.3-44.8); MPV 7.5 fL (7.6-11.3); RBC Red Blood Cell Count 5.67 M/uL (4.33-5.43)
[2022-08-29 10:08] LABS: Protime INR 1.19
[2022-08-29 10:23] LABS: Troponin High Sensitivity 8.4 pg/mL (<58.9)
--- NOTE | 2022-08-29 10:27 | RAD REPORT ---
EXAM DESCRIPTION: CT - Ct Stroke Brain Wo Cont - 08/29/2022 10:01 am CLINICAL HISTORY: STROKE ALERT COMPARISON: Ct Stroke Brain Wo Cont dated 04/17/2020; Head angio dated 09/20/2018 TECHNIQUE: Noncontrast head CT images ad were obtained without IV contrast. Multiplanar reformats we re generated and reviewed. All CT scans are performed using dose optimization technique as appropriate and may include automated exposure control or mA/KV adjustment according to patient size. FINDINGS: No intracranial hemorrhage, mass, or edema. Midline structures are unremarkable. Stable ventricular caliber, with mild diffuse parenchymal volume loss. Focus of mild hypoattenuation in the left thalamus is less conspicuous than on the prior exam, could represent sequelae of a remote infarct. [place]-white matter differentiation is otherwise preserved, wit hout evidence of acute infarct. Periventricular and deep white matter mild hypoattenuation is nonspecific, stable in pattern, most reyes ggestive of chronic small vessel ischemic changes. No abnormal extra-axial fluid collections. Mastoid air cells and visualized portions of the paranasal sinuses are clear. No acute bony findings. IMPRESSION: No evidence of an acute intracranial process. Chronic findings as above. The findings were communicated to Rj Flores on 08/29/2022 at 09:46 hours.
[2022-08-29] MEDS ORDERED: FENTANYL CITR 100 MCG/2 ML ONE (10:42)
--- NOTE | 2022-08-29 10:43 | RAD REPORT ---
EXAM DESCRIPTION: CT - Neck Angio - 08/29/2022 10:01 am CLINICAL HISTORY: code stroke COMPARISON: Neck Angio dated 09/20/2018; Head C Spine Mpr Wo Con dated 06/24/2017; Head angio dated 08/15 TECHNIQUE: Axial CT angiography images of the head was performed with multiplanar and maximum intens ity projection reconstructions. Images performed following intravenous administration of 95mL Isovue 370. All CT scans are performed using dose optimization technique as appropriate and may include automated exposure control or mA/KV adjustment according to patient size. Quantification of carotid stenosis, if any, is performed according to NASCET criteria. FINDINGS: A left aortic arch is identified with normal three vessel configuration of the great vesse ls. No significant flow abnormality is seen of the common carotid bilaterally. No significant stenosis is identified involving the cervical segments of both internal carotid arteri es. Mild atherosclerotic plaque formation seen at the right bulb. Non opacification of the right vertebral artery at the level of the dural entry, approximately to the level of the vertebrobasilar junction. The basilar artery is patent. Normal flow is seen within the left artery. Bilateral proximal moderate atherosclerotic plaque noted. Nonspecific asymmetric fullness along the right glossal tonsillar recess, stable in appearance, and n onspecific. IMPRESSION: No significant flow abnormality of the cervical carotid arteries is identified. 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 This appears to be new since 2018. The findings were communicated to Helen Jhaveri on 08/29/2022 at 10:38 hours. CAROTID STENOSIS REFERENCE USING NASCET CRITERIA: % ICA stenosis = (1 - narrowest ICA diameter/diameter of distal cervical ICA) x 100. Mild - <50% stenosis. Moderate - 50-69% stenosis. Severe - 70-94% stenosis. Near occlusion - 95-99% stenosis. Occluded - 100% stenosis.
--- NOTE | 2022-08-29 11:49 | RAD REPORT ---
EXAM DESCRIPTION: CT - Head angio - 08/29/2022 10:01 am CLINICAL HISTORY: APHASIA COMPARISON: Ct Stroke Brain Wo Cont dated 08/29/2022; Ct Stroke Brain Wo Cont dated 04/17/2020; Neck An marilyn dated 08/29/2022; Head angio dated 09/20/2018 TECHNIQUE: Axial CT angiography images of the head was performed with multiplanar and maximum intens ity projection reconstructions. Images performed following intravenous administration of 95mL Isovue 370. Multiplanar reconstructions and MIPS were reviewed under exceptions, with repeated technical dif ficulties transferring does images under this accession number. All CT scans are performed using dose optimization technique as appropriate and may include automated exposure control or mA/KV adjustment according to patient size. FINDINGS: New non opacification of the right vertebral artery at the level of the dural entry. The r ight PICA opacification is preserved. Marked caliber attenuation versus occlusion of the proximal lef t posterior cerebral artery, stable. No other evidence of large vessel occlusion. No evidence of aneu rysm or dissection flap is detected. No flow-limiting stenosis or vascular malformation identified. Antegrade flow is seen in the left vertebral arteries. The visualized dural venous sinuses are grossly patent. IMPRESSION: Non opacification of the right vertebral artery at the level of the dural entry, new sin ce 2018. Chronic marked caliber attenuation versus occlusion of the proximal left posterior cerebral artery. No other large vessel occlusion or hemodynamically significant stenosis along the anterior circulatio n. The findings were communicated to Helen Jhaveri on 08/29/2022 at 10: 38 hours.
--- NOTE | 2022-08-29 12:05 | ER ---
Nurse's Notes [facility] Name: Rj Galvez Age: 67 yrs Sex: Male : 1955 Arrival Date: 08/29/2022 Time: 09:28 Bed 2 Private MD: Tony Velasquez C Diagnosis: Fall on same level, unspecified;Weakness-right sided Presentation: 08/29 10:00 Chief complaint: Spouse and/or significant other states: Pts reports that pt woke cm10 up this morning at approximately 0600 and was complaining of "the worst headache of his life" and had "high" blood pressure. Patient's states that at approximately 0800 pt was found on the ground and had urinated on himself and had increased right sided weakness and "was dragging his right side". Coronavirus screen: Vaccine status: Client indicates they have traveled out of the [place] in the last 14 days. Ebola Screen: No symptoms or risks identified at this time. 10:00 Method Of Arrival: Wheelchair cm10 10:02 An acute neurological deficit is present. The charge nurse has been notified. The cm10 patient has been moved to a treatment area. Initial Sepsis Screen: Does the patient meet any 2 criteria? No. Patient's initial sepsis screen is negative. Does the patient have a suspected source of infection? No. Patient's initial sepsis screen is negative. Risk Assessment: Do you want to hurt yourself or someone else? Patient reports no desire to harm self or others. Onset of symptoms was August 29, 2022 at 08:00. 10:02 Acuity: GRACE 2 cm10 Stroke Activation: Symptom onset < 3 hours Physician: Stroke Attending; Name: ; Notified At: ; Arrived At: Physician: Chief Stroke Resident; Name: ; Notified At: ; Arrived At: Physician: Stroke Resident; Name: ; Notified At: ; Arrived At: Physician: ED Attending; Name: Mark; Notified At: 09:28; Arrived At: 09:30 Physician: ED Resident; Name: ; Notified At: ; Arrived At: Historical: - Allergies: 09:39 Qhxdrut-Cej-Lrh Reductase Inhibitors; iw - Home Meds: 09:39 Eliquis 5 mg oral tablet every 12 hours [Active]; inclisiran 284 mg/1.5 mL subcutaneous iw Syringe every 6 months [Active]; 09:41 duloxetine 60 mg oral capsule,delayed release (e.c.) once [Active]; carbidopa-levodopa sc3 25-100 mg oral Tablet,disintegrating 1.5 tabs 3 times per day [Active]; losartan 25 mg oral tablet 2 times per day [Active]; furosemide 40 mg oral tablet daily [Active]; isosorbide mononitrate 30 mg Oral Tablet, Extended Release 24 hr daily [Active]; methocarbamol 500 mg Oral tablet 2 tabs 2x per day as needed [Active]; pregabalin 50 mg oral capsule 2 times per day [Active]; diclofenac sodium 1 % topical gel once [Active]; Lumigan 0.01 % ophthalmic (eye) drops 1 drop every evening [Active]; - PMHx: 09:39 CVA; Hyperlipidemia; Hypertension; Parkinsons; iw - PSHx: 09:39 pacemaker; iw - Immunization history:: Adult Immunizations unknown. - Social history:: Smoking status: Patient denies any tobacco usage or history of. Screenin:44 [facility] ED Fall Risk Assessment (Adult) History of falling in the last 3 months, sc3 including since admission Yes- single mechanical fall (1 pt) Confusion or Disorientation No (0 pts) Intoxicated or Sedated No (0 pts) Impaired Gait No (0 pts) Mobility Assist Device Used No (0 pt) Altered Elimination No (0 pt) Score/Fall Risk Level 0 - 2 = Low Risk Oriented to surroundings, Maintained a safe environment, Educated pt \\T\\ family on fall prevention, incl call for assistance when getting out of bed, Assessed \\T\\ reinforced patient's understanding of fall precautions, Provided non-skid footwear, Hourly rounding (assess needs \\T\\ fall precautionary measures) done. Abuse screen: Denies threats or abuse. Nutritional screening: No deficits noted. Tuberculosis screening: No symptoms or risk factors identified. Assessment: 10:00 VAN Scoring: Arm Drift: Patients demonstrates NO arm weakness. Patient is VAN Negative. sc3 Visual Disturbance: No visual disturbance noted. Aphasia: No aphasia noted. Neglect: No neglect noted. [place] Swallow Protocol Exclusion Criteria: Brief Cognitive Screen What is your name? Normal, Where are you right now? Normal, What year is it? Normal. Oral Mechanism Examination Facial Symmetry: Normal, Motion: Normal, Lip Closure: Normal, Oral Mechanism Result: Normal. 3 oz Water Swallow Challenge: Pt able to drink all water without stopping, coughing, choking or throat clearing: Yes Result: PASS MD Notified: Rj Flores MD. TNKase (Tenecteplase) Screening: Contraindications: Patient reports onset of signs and symptoms of stroke greater than 6 hours ago: Yes. General: Appears in no apparent distress. Behavior is calm, cooperative, Smells of Reports Denies. Pain: Complains of pain in face Pain does not radiate. Pain currently is 5 out of 10 on a pain scale. Quality of pain is described as aching, Pain began 4 hours ago. Is continuous. Neuro: No deficits noted. [place] Agitation-Sedation Scale (RASS): 0 - Alert and Calm Level of Consciousness is awake, alert, obeys commands, Oriented to person, place, time, situation, Staff Home Therapy Rn are equal bilaterally Moves all extremities. Gait is Speech is normal, Facial symmetry appears normal, Pupils are PERRLA, Intact Babinski is negative Cardiovascular: No deficits noted. Respiratory: No deficits noted. GI: No deficits noted. : No deficits noted. EENT: No deficits noted. Derm: No deficits noted. Musculoskeletal: No deficits noted. 12:34 Reassessment: Patient appears in no apparent distress at this time. Patient and/or iw family updated on plan of care and expected duration. Pain level reassessed. Patient is alert, oriented x 3, equal unlabored respirations, skin warm/dry/pink. Patient states feeling better. Patient states symptoms have improved. Vital Signs: 10:02 BP 146 / 99; Pulse 65; Resp 18; Temp 97.6; Pulse Ox 93% on R/A; Weight 102.51 kg (R); cm10 Height 5 ft. 6 in. ; Pain 4/10; 10:27 BP 125 / 87; Pulse 60; Resp 16; Temp 97.8; Pulse Ox 95% on R/A; sc3 11:40 BP 137 / 89; Pulse 60; Resp 16; Temp 98; Pulse Ox 94% on R/A; Pain 3/10; sc3 10:02 Body Mass Index 36.48 (102.51 kg, 167.64 cm) cm10 10:02 Pain Scale: Adult cm10 11:40 Pain Scale: Adult sc3 [place] Coma Score: 09:38 Eye Response: spontaneous(4). Motor Response: obeys commands(6). Verbal Response: snw oriented(5). Total: 15. NIH Stroke Scale Scores: 09:38 NIHSS Score: 4 snw 10:00 NIHSS Score: 0 sc3 10:44 NIHSS Score: 0 sc3 ED Course: 09:30 Arm band placed on Patient placed in a wheelchair, straight to CT. ll1 09:32 Patient arrived in ED. mr 09:32 Tony Velasquez MD is Private Physician. mr 09:38 [facility] snw 09:38 Rj Flores MD is Attending Physician. snw 09:40 Adria Carmona RN is Primary Nurse. sc3 09:46 Inserted saline lock: 22 gauge in left antecubital area, using aseptic technique. Blood iw collected. inserted by GARTH, central processing tech. 10:03 Triage completed. cm10 10:03 CT Stroke Brain w/o Contrast In Process Unspecified. EDMS 10:03 CT Head Angio In Process Unspecified. EDMS 10:03 Neck Angio In Process Unspecified. EDMS 10:21 Stroke CXR 1 View In Process Unspecified. EDMS 12:02 Tony Velasquez MD is Referral Physician. snw 12:34 Patient has correct armband on for positive identification. iw 12:34 No provider procedures requiring assistance completed. IV discontinued, intact, iw bleeding controlled, No redness/swelling at site. Pressure dressing applied. Administered Medications: 09:50 CANCELLED (Inappropriate at this time): Trimethoprim-Sulfamethoxazole PO (160 mg-800 mg snw (DS) 1 tablet PO once 09:50 CANCELLED (Inappropriate at this time): HYDROcodone-acetaminophen PO 5 mg-325 mg 1 tabs snw PO once 10:43 Drug: fentaNYL (PF) IVP 25 mcg Route: IVP; Site: left antecubital; iw 12:33 Follow up: Response: No adverse reaction; Pain is decreased iw Medication: 12:34 VIS not applicable for this client. iw Outcome: 12:04 Discharge ordered by . snw 12:34 Discharged to home via wheelchair, with family. iw 12:34 Condition: good 12:34 Discharge instructions given to patient, family, Instructed on discharge instructions, follow up and referral plans. Demonstrated understanding of instructions, follow-up care. 12:35 Patient left the ED. NIH Stroke Scale - NIH Stroke Score Date: 08/29/2022 Time: 09:38 Total Score = 4 10. Dysarthria (speech clarity - read or repeat words) - 1(Mild to Moderate) 11. Extinction and Inattention (visual/tactile/auditory/spatial/personal) - 0(No abnormality) 1a. Level of Consciousness (LOC) - 0(Alert) 1b. Level of Consciousness (LOC) (Month \\T\\ Age) - 0(Both) 1c. LOC Commands (Open \\T\\ Closes Eyes/Mechanical Maintenance Supervisor) - 0(Both) 2. Best Gaze (Lateral Gaze Paresis) - 0(Normal) 3. Visual Field Loss - 0(No visual loss) 4. Facial Palsy - 1(Minor Paralysis) 5a. Left Arm: Motor (10-second hold) - 0(No drift) 5b. Right Arm: Motor (10-second hold) - 1(Drift) 6a. Left Leg: Motor (5-second hold - always test supine) - 0(No drift) 6b. Right Leg: Motor (5-second hold - always test supine) - 1(Drift) 7. Limb Ataxia (finger/nose \\T\\ heel/russ - test with eyes open) - 0(Absent) 8. Sensory Loss (pinprick arms/legs/face) - 0(Normal) 9. Best Language: Aphasia (description/naming/reading) - 0(No aphasia) Initials: [facility] NIH Stroke Scale - NIH Stroke Score Date: 08/29/2022 Time: 10:00 Total Score = 0 10. Dysarthria (speech clarity - read or repeat words) - 0(Normal) 11. Extinction and Inattention (visual/tactile/auditory/spatial/personal) - 0(No abnormality) 1a. Level of Consciousness (LOC) - 0(Alert) 1b. Level of Consciousness (LOC) (Month \\T\\ Age) - 0(Both) 1c. LOC Commands (Open \\T\\ Closes Eyes/Mechanical Maintenance Supervisor) - 0(Both) 2. Best Gaze (Lateral Gaze Paresis) - 0(Normal) 3. Visual Field Loss - 0(No visual loss) 4. Facial Palsy - 0(Normal) 5a. Left Arm: Motor (10-second hold) - 0(No drift) 5b. Right Arm: Motor (10-second hold) - 0(No drift) 6a. Left Leg: Motor (5-second hold - always test supine) - 0(No drift) 6b. Right Leg: Motor (5-second hold - always test supine) - 0(No drift) 7. Limb Ataxia (finger/nose \\T\\ heel/russ - test with eyes open) - 0(Absent) 8. Sensory Loss (pinprick arms/legs/face) - 0(Normal) 9. Best Language: Aphasia (description/naming/reading) - 0(No aphasia) Initials: sc3 NIH Stroke Scale - NIH Stroke Score Date: 08/29/2022 Time: 10:44 Total Score = 0 10. Dysarthria (speech clarity - read or repeat words) - 0(Normal) 11. Extinction and Inattention (visual/tactile/auditory/spatial/personal) - 0(No abnormality) 1a. Level of Consciousness (LOC) - 0(Alert) 1b. Level of Consciousness (LOC) (Month \\T\\ Age) - 0(Both) 1c. LOC Commands (Open \\T\\ Closes Eyes/Mechanical Maintenance Supervisor) - 0(Both) 2. Best Gaze (Lateral Gaze Paresis) - 0(Normal) 3. Visual Field Loss - 0(No visual loss) 4. Facial Palsy - 0(Normal) 5a. Left Arm: Motor (10-second hold) - 0(No drift) 5b. Right Arm: Motor (10-second hold) - 0(No drift) 6a. Left Leg: Motor (5-second hold - always test supine) - 0(No drift) 6b. Right Leg: Motor (5-second hold - always test supine) - 0(No drift) 7. Limb Ataxia (finger/nose \\T\\ heel/russ - test with eyes open) - 0(Absent) 8. Sensory Loss (pinprick arms/legs/face) - 0(Normal) 9. Best Language: Aphasia (description/naming/reading) - 0(No aphasia) Initials: sc3 Signatures: Dispatcher [employer] EDMS Helen Jhaveri, [facility] HOSPITAL SUPERVISOR-Csnw Sushila Albrecht Trice Prakash, RN Annie Vidal, RN RN ll1 Srini Buchanan, RN Emperatriz Faulkner, RN RN cm10 Adria Carmona RN RN sc3 Corrections: (The following items were deleted from the chart) 09:48 09:30 Arm band placed on Patient placed in an exam room, on a stretcher, cm10 ll1 10:05 10:02 Stroke Activation: Symptom onset < 3 hours cm10 os
--- NOTE | 2022-08-29 12:05 | EDPHYS ---
Physician Documentation [facility] Name: Rj Galvez Age: 67 yrs Sex: Male : 1955 Arrival Date: 08/29/2022 Time: 09:28 Bed 2 Private MD: Tony Velasquez C ED Physician Joseph Floreson HPI: 08/29 09:42 This 67 yrs old Male presents to ER via Unassigned with complaints of S/S of Possible snw Stroke. 09:42 The patient's problem is reported as weakness, in the right upper extremity, in the snw right lower extremity. Onset: The symptoms/episode began/occurred acutely. Duration: The episode is continuous. Context: the episode(s) was witnessed, by family, , occurred. Associated signs and symptoms: The patient has no apparent associated signs or symptoms. It is unknown whether or not the patient has had similar symptoms in the past. The patient has been recently seen by a physician: yesterday, with similar presenting complaints, given keflex. 09:59 Last known normal at 0600, c/o headache at that time. Fell onto floor at 0830. snw Historical: - Allergies: 09:39 Zvmsruv-Ysn-Ulh Reductase Inhibitors; iw - Home Meds: 09:39 Eliquis 5 mg oral tablet every 12 hours [Active]; inclisiran 284 mg/1.5 mL subcutaneous iw Syringe every 6 months [Active]; 09:41 duloxetine 60 mg oral capsule,delayed release (e.c.) once [Active]; carbidopa-levodopa sc3 25-100 mg oral Tablet,disintegrating 1.5 tabs 3 times per day [Active]; losartan 25 mg oral tablet 2 times per day [Active]; furosemide 40 mg oral tablet daily [Active]; isosorbide mononitrate 30 mg Oral Tablet, Extended Release 24 hr daily [Active]; methocarbamol 500 mg Oral tablet 2 tabs 2x per day as needed [Active]; pregabalin 50 mg oral capsule 2 times per day [Active]; diclofenac sodium 1 % topical gel once [Active]; Lumigan 0.01 % ophthalmic (eye) drops 1 drop every evening [Active]; - PMHx: 09:39 CVA; Hyperlipidemia; Hypertension; Parkinsons; iw - PSHx: 09:39 pacemaker; iw - Immunization history:: Adult Immunizations unknown. - Social history:: Smoking status: Patient denies any tobacco usage or history of. ROS: 09:40 Constitutional: Negative for fever, chills, and weight loss, Eyes: Negative for injury, snw pain, redness, and discharge, ENT: Negative for injury, pain, and discharge, Neck: Negative for injury, pain, and swelling, Cardiovascular: Negative for chest pain, palpitations, and edema, Respiratory: Negative for shortness of breath, cough, wheezing, and pleuritic chest pain, Abdomen/GI: Negative for abdominal pain, nausea, vomiting, diarrhea, and constipation, Back: Negative for injury and pain, : Negative for injury, bleeding, discharge, and swelling, Skin: Negative for injury, rash, and discoloration. 09:40 MS/extremity: Positive for weakness to right upper and lower est. 09:40 Neuro: Positive for fall at 0839am, increased right sided weakness, Negative for loss of consciousness. Exam: 09:38 Constitutional: This is a well developed, well nourished patient who is awake, alert, snw and in no acute distress. Head/Face: Normocephalic, atraumatic. Eyes: Pupils equal round and reactive to light, extra-ocular motions intact. Lids and lashes normal. Conjunctiva and sclera are non-icteric and not injected. Cornea within normal limits. Periorbital areas with no swelling, redness, or edema. ENT: Nares patent. No nasal discharge, no septal abnormalities noted. Tympanic membranes are normal and external auditory canals are clear. Oropharynx with no redness, swelling, or masses, exudates, or evidence of obstruction, uvula midline. Mucous membranes moist. Neck: Trachea midline, no thyromegaly or masses palpated, and no cervical lymphadenopathy. Supple, full range of motion without nuchal rigidity, or vertebral point tenderness. No Meningismus. Chest/axilla: Normal chest wall appearance and motion. Nontender with no deformity. No lesions are appreciated. Cardiovascular: Regular rate and rhythm with a normal S1 and S2. No gallops, murmurs, or rubs. Normal PMI, no JVD. No pulse deficits. Respiratory: Lungs have equal breath sounds bilaterally, clear to auscultation and percussion. No rales, rhonchi or wheezes noted. No increased work of breathing, no retractions or nasal flaring. Abdomen/GI: Soft, non-tender, with normal bowel sounds. No distension or tympany. No guarding or rebound. No evidence of tenderness throughout. Back: No spinal tenderness. No costovertebral tenderness. Full range of motion. Skin: Warm, dry with normal turgor. Normal color with no rashes, no lesions, and no evidence of cellulitis. Psych: Awake, alert, with orientation to person, place and time. Behavior, mood, and affect are within normal limits. 09:38 Musculoskeletal/extremity: right upper and lower extremity weakness. 09:38 Neuro: Orientation: is normal, Mentation: is normal, Memory: is normal, Cerebellar function: normal finger to nose testing, but slow, heel to russ testing is normal, Motor: right sided weakness, Gait: not tested. 12:07 Radiologist reports: new findings since 2019 are not new per Pt and Spouse, no need for snw transfer. Will f/u neurology Vital Signs: 10:02 BP 146 / 99; Pulse 65; Resp 18; Temp 97.6; Pulse Ox 93% on R/A; Weight 102.51 kg (R); cm10 Height 5 ft. 6 in. ; Pain 4/10; 10:27 BP 125 / 87; Pulse 60; Resp 16; Temp 97.8; Pulse Ox 95% on R/A; sc3 11:40 BP 137 / 89; Pulse 60; Resp 16; Temp 98; Pulse Ox 94% on R/A; Pain 3/10; sc3 10:02 Body Mass Index 36.48 (102.51 kg, 167.64 cm) cm10 10:02 Pain Scale: Adult cm10 11:40 Pain Scale: Adult sc3 NIH Stroke Scale Scores: 09:38 NIHSS Score: 4 snw 10:00 NIHSS Score: 0 sc3 10:44 NIHSS Score: 0 sc3 [place] Coma Score: 09:38 Eye Response: spontaneous(4). Motor Response: obeys commands(6). Verbal Response: snw oriented(5). Total: 15. MDM: 09:35 Patient medically screened. bs3 11:29 Counseling: I had a detailed discussion with the patient and/or guardian regarding: the snw historical points, exam findings, and any diagnostic results supporting the discharge/admit diagnosis, lab results, radiology results. ED course: discussing CT results with pt and . 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 12:05 Differential diagnosis: CVA, TIA, Parkinson disease, metabolic disorder. Data reviewed: [facility] vital signs, nurses notes, lab test result(s), EKG, radiologic studies. I considered the following discharge prescriptions or medication management in the emergency department Medications were administered in the Emergency Department. See 09:44 Order name: Basic Metabolic Panel; Complete Time: 10:24 08/29 09:44 Order name: CBC with Diff; Complete Time: 10:19 08/29 09:44 Order name: High Sensitivity Troponin; Complete Time: 10:24 08/29 09:44 Order name: Protime (+inr); Complete Time: 10:08/29 09:44 Order name: Ptt, Activated; Complete Time: 10:19 08/29 10:09 Order name: Glucose, Ancillary Testing; Complete Time: 10:19 [facility] 08/29 11:30 Order name: Flu; Complete Time: 12:25 [facility] 08/29 11:30 Order name: SARS RAPID; Complete Time: 12:10 [facility] 08/29 09:44 Order name: CT Stroke Brain w/o Contrast; Complete Time: 10:32 08/29 09:44 Order name: Stroke CXR 1 View 08/29 09:45 Order name: CT Head Angio; Complete Time: 11:53 08/29 09:57 Order name: Neck Angio; Complete Time: 10:59 [place] 08/29 09:44 Order name: EKG; Complete Time: 09:45 08/29 09:44 Order name: Accucheck; Complete Time: 09:59 08/29 09:44 Order name: Cardiac monitoring; Complete Time: 09:59 08/29 09:44 Order name: EKG - Nurse/Tech; Complete Time: 09:59 08/29 09:44 Order name: IV Saline Lock; Complete Time: 09:59 08/29 09:44 Order name: Labs collected and sent; Complete Time: 09:59 08/29 09:44 Order name: NPO; Complete Time: 10:32 08/29 09:44 Order name: O2 Per Protocol; Complete Time: 10:32 08/29 09:44 Order name: O2 Sat Monitoring; Complete Time: 10:08/29 09:44 Order name: Stroke Swallow Screen; Complete Time: 10:32 08/29 11:52 Order name: Misc. Order: Ambulate with walker; Complete Time: 12:33 snw Administered Medications: 09:50 CANCELLED (Inappropriate at this time): Trimethoprim-Sulfamethoxazole PO (160 mg-800 mg snw (DS) 1 tablet PO once 09:50 CANCELLED (Inappropriate at this time): HYDROcodone-acetaminophen PO 5 mg-325 mg 1 tabs snw PO once 10:43 Drug: fentaNYL (PF) IVP 25 mcg Route: IVP; Site: left antecubital; iw 12:33 Follow up: Response: No adverse reaction; Pain is decreased iw Disposition Summary: 08/29/22 12:04 Discharge Ordered Location: Home snw Condition: Stable snw Diagnosis - Fall on same level, unspecified snw - Weakness - right sided snw Followup: snw - With: Emergency Department - When: As needed - Reason: Worsening of condition Followup: snw - With: Tony Velasquez MD - When: 1 - 2 days - Reason: Recheck today's complaints, Continuance of care, Re-evaluation by your physician Discharge Instructions: - Discharge Summary Sheet snw - Fall Prevention in the Home, Adult snw - Weakness snw Forms: - Medication Reconciliation Form snw - Thank You Letter snw - Antibiotic Education snw - Prescription Opioid Use snw NIH Stroke Scale - NIH Stroke Score Date: 08/29/2022 Time: 09:38 Total Score = 4 10. Dysarthria (speech clarity - read or repeat words) - 1(Mild to Moderate) 11. Extinction and Inattention (visual/tactile/auditory/spatial/personal) - 0(No abnormality) 1a. Level of Consciousness (LOC) - 0(Alert) 1b. Level of Consciousness (LOC) (Month \T\ Age) - 0(Both) 1c. LOC Commands (Open \T\ Closes Eyes/Materials And Corrosion Engineer) - 0(Both) 2. Best Gaze (Lateral Gaze Paresis) - 0(Normal) 3. Visual Field Loss - 0(No visual loss) 4. Facial Palsy - 1(Minor Paralysis) 5a. Left Arm: Motor (10-second hold) - 0(No drift) 5b. Right Arm: Motor (10-second hold) - 1(Drift) 6a. Left Leg: Motor (5-second hold - always test supine) - 0(No drift) 6b. Right Leg: Motor (5-second hold - always test supine) - 1(Drift) 7. Limb Ataxia (finger/nose \T\ heel/russ - test with eyes open) - 0(Absent) 8. Sensory Loss (pinprick arms/legs/face) - 0(Normal) 9. Best Language: Aphasia (description/naming/reading) - 0(No aphasia) Initials: snw NIH Stroke Scale - NIH Stroke Score Date: 08/29/2022 Time: 10:00 Total Score = 0 10. Dysarthria (speech clarity - read or repeat words) - 0(Normal) 11. Extinction and Inattention (visual/tactile/auditory/spatial/personal) - 0(No abnormality) 1a. Level of Consciousness (LOC) - 0(Alert) 1b. Level of Consciousness (LOC) (Month \T\ Age) - 0(Both) 1c. LOC Commands (Open \T\ Closes Eyes/Materials And Corrosion Engineer) - 0(Both) 2. Best Gaze (Lateral Gaze Paresis) - 0(Normal) 3. Visual Field Loss - 0(No visual loss) 4. Facial Palsy - 0(Normal) 5a. Left Arm: Motor (10-second hold) - 0(No drift) 5b. Right Arm: Motor (10-second hold) - 0(No drift) 6a. Left Leg: Motor (5-second hold - always test supine) - 0(No drift) 6b. Right Leg: Motor (5-second hold - always test supine) - 0(No drift) 7. Limb Ataxia (finger/nose \T\ heel/russ - test with eyes open) - 0(Absent) 8. Sensory Loss (pinprick arms/legs/face) - 0(Normal) 9. Best Language: Aphasia (description/naming/reading) - 0(No aphasia) Initials: sc3 NIH Stroke Scale - NIH Stroke Score Date: 08/29/2022 Time: 10:44 Total Score = 0 10. Dysarthria (speech clarity - read or repeat words) - 0(Normal) 11. Extinction and Inattention (visual/tactile/auditory/spatial/personal) - 0(No abnormality) 1a. Level of Consciousness (LOC) - 0(Alert) 1b. Level of Consciousness (LOC) (Month \T\ Age) - 0(Both) 1c. LOC Commands (Open \T\ Closes Eyes/Materials And Corrosion Engineer) - 0(Both) 2. Best Gaze (Lateral Gaze Paresis) - 0(Normal) 3. Visual Field Loss - 0(No visual loss) 4. Facial Palsy - 0(Normal) 5a. Left Arm: Motor (10-second hold) - 0(No drift) 5b. Right Arm: Motor (10-second hold) - 0(No drift) 6a. Left Leg: Motor (5-second hold - always test supine) - 0(No drift) 6b. Right Leg: Motor (5-second hold - always test supine) - 0(No drift) 7. Limb Ataxia (finger/nose \T\ heel/russ - test with eyes open) - 0(Absent) 8. Sensory Loss (pinprick arms/legs/face) - 0(Normal) 9. Best Language: Aphasia (description/naming/reading) - 0(No aphasia) Initials: sc3 Signatures: Dispatcher [employer] EDMS Helen Jhaveri, TONGUE TRIMMER-C TONGUE TRIMMER-Csnw Trice Prakash, ALBERT PRICE iw Katerina Tran RN RN [phone] Rj Flores MD MD bs3 Adria Carmona RN RN sc3 Corrections: (The following items were deleted from the chart) 09:50 09:50 Trimethoprim-Sulfamethoxazole PO (160 mg-800 mg (DS) 1 tablet PO once snw ordered. snw 09:50 09:50 HYDROcodone-acetaminophen PO 5 mg-325 mg 1 tabs PO once ordered. snw snw
[2022-08-29 12:10] LABS: SARS-CoV-2 Antigen Rapid Res Negative (Negative)
[2022-08-29 12:47] VITALS: BP 137/89; TEMP 98; O2SAT 94
--- NOTE | 2022-08-30 14:18 | EKG ---
Test Date: 2022-08-29 Test Time: 09:57:53 Mica Spreader: GARTH MEASUREMENT RESULTS: Intervals: Rate: 63 DC: 208 QRSD: 86 QT: 416 QTc: 425 [place]: P: 85 DC: 208 QRS: 0 T: 62 INTERPRETIVE STATEMENTS: Atrial-paced rhythm Abnormal ECG Compared to ECG 04/17/2020 14:31:27 T-wave abnormality no longer present Electronically Signed On 08-30-22 14:16:59 CDT by Víctor Desouza
== END 2022-08-29 12:35 | disposition home or self-care (01) ==
LOC: ER 09:28
DX: G81.91 Hemiplegia, unspecified affecting right dominant side (principal); R29.704 NIHSS score 4; I10 Essential (primary) hypertension; W18.30XA Fall on same level, unspecified, initial encounter; G20 Parkinson's disease; Z20.822 Contact with and (suspected) exposure to COVID-19; Z86.73 Personal history of transient ischemic attack (TIA), and cerebral infarction without residual deficits; Z95.0 Presence of cardiac pacemaker
CPT/HCPCS: 93005; 85025; 80048; 36415; 85610; 82565; 82947; 85730; 84484; 87804 ×2; 70496; 70498; 70450; 71045; 96374; 99285; 87811; Q9967; J3010